=== PATIENT | female | born 1930 | race Caucasian/White ===

== ENCOUNTER → 2018-02-22 | Outpatient (CLI) | payer MEDICARE ==
[2018-02-22 14:57] LABS: BASOPHILS % (AUTO) 1 % (0-10); EOSINOPHILS # (AUTO) 0.2 10^3/uL (0.0-0.3); EOSINOPHILS % (AUTO) 2 % (0-10); HEMATOCRIT 42 % (35-52); LYMPHOCYTES # (AUTO) 1.6 X 10^3 (1.0-4.0); LYMPHOCYTES % (AUTO) 26 % (12-44); MEAN CORPUSCULAR HEMOGLOBIN 29 PG (25-34); MEAN CORPUSCULAR HGB CONC 33 G/DL (32-36); MEAN CORPUSCULAR VOLUME 88 FL (80-99); MONOCYTES # (AUTO) 0.6 X 10^3 (0.0-1.0); MONOCYTES % (AUTO) 10 % (0-12); NEUTROPHILS # (AUTO) 3.9 X 10^3 (1.8-7.8); NEUTROPHILS % (AUTO) 62 % (42-75); PLATELET COUNT 243 10^3/uL (130-400); RED BLOOD COUNT 4.83 10^6/uL (4.35-5.85); RED CELL DISTRIBUTION WIDTH 13.8 % (10.0-14.5); WHITE BLOOD COUNT 6.2 10^3/uL (4.3-11.0)
[2018-02-22 15:05] LABS: BILIRUBIN,URINE NEGATIVE (NEGATIVE); CLARITY,URINE CLEAR; COLOR,URINE YELLOW; GLUCOSE, URINE (UA) NEGATIVE (NEGATIVE); KETONES,URINE NEGATIVE (NEGATIVE); LEUKOCYTE ESTERASE ,URINE 2+ (NEGATIVE); NITRITE,URINE POSITIVE (NEGATIVE); PH,URINE 6 (5-9); PROTEIN,URINE NEGATIVE (NEGATIVE); UROBILINOGEN,URINE NORMAL (NORMAL)
[2018-02-22 15:19] LABS: ALBUMIN 3.9 GM/DL (3.2-4.5); BILIRUBIN,TOTAL 0.5 MG/DL (0.1-1.0); CALCIUM 9.7 MG/DL (8.5-10.1); CREATININE SERUM 1.39 MG/DL (0.60-1.30); POTASSIUM 4.5 MMOL/L (3.6-5.0); TOTAL PROTEIN 6.8 GM/DL (6.4-8.2)
[2018-02-22 15:20] LABS: BACTERIA,URINE LARGE /HPF; SQUAMOUS EPITHELIAL CELL,UR RARE /HPF
[2018-02-22 15:41] LABS: FREE T4 (FREE THYROXINE) 1.16 NG/DL (0.70-1.48)
== END ==
LOC: LAB 14:30
PROVIDERS: ATTEND Internal Medicine
DX: I10 Essential (primary) hypertension (principal); R53.83 Other fatigue; D63.8 Anemia in other chronic diseases classified elsewhere; E11.65 Type 2 diabetes mellitus with hyperglycemia; R82.99 Other abnormal findings in urine
CPT/HCPCS: 36415; 80053; 80061; 81000; 82607; 82728; 82746; 83036; 84439; 84443; 85025; 87077; 87088; 87186

== ENCOUNTER → 2018-03-07 | Outpatient (CLI) | payer MEDICARE, BC ==
[~2018-03-07] MED LIST: ASPI-586 PO; FENO48TA5 PO; LISI-552 PO; OXYC-471 PO; PANT40TA3 PO
== END ==
LOC: CARD 13:42
PROVIDERS: ATTEND Internal Medicine
DX: R07.9 Chest pain, unspecified (principal)
CPT/HCPCS: 93306

== ENCOUNTER → 2018-03-14 | Outpatient (CLI) | payer MEDICARE, BC ==
[~2018-03-14] MED LIST changes: +REGADENOSON 0.4 MG/5 ML SYR (LEXISCAN) IV ONE
[2018-03-14] MEDS: CATHETER FLUSH 10 ML SYR IV PRN ×2 (07:41→09:37)
[2018-03-14 09:34] VITALS: BP 161/64
--- NOTE | 2018-03-14 17:02 | Cardiology Stress Test Report ---
Stress Test Report Type of NM Stress Test: Test Type: LEXISCAN 0.4MG/5ML Date of Procedure/Referring: Date of Procedure: Mar 14, 2018 PCP Mary Lou Tompkins DO Admitting Physician Mary Lou Tompkins DO Indications: Preoperative cardiovascular risk assessment for orthopedic surgery, borderline diabetes Baseline Blood Pressure: Blood Pressure Systolic: 161 Blood Pressure Diastolic: 64 Summary: The patient was brought to the stress lab after informed consent was taken. Lexiscan stress test was performed according to the protocol. 0.4 mg of IV Lexiscan was given. Low-grade exercise was performed. Baseline EKG showed sinus rhythm at 65 BPM with blood pressure 161/64 mmHg. Maximum heart rate of 81 bpm and blood pressure of 100/69 mmHg. No chest pain, EKG changes or arrhythmias were noted. 10.94 mCi of Myoview were given for rest imaging and 28.7 mCi of Myoview were given for stress imaging. Transient ischemic dilatation score 0.96. Ejection fraction 73 percent with no wall motion abnormalities. Normal perfusion was noted during stress and rest imaging. Conclusion: Normal myocardial perfusion imaging during rest and stress. Normal LV function with no wall motion abnormalities. Shirin HARDING MD Mar 14, 2018 5:02 pm
== END ==
LOC: CARD 07:03
PROVIDERS: ATTEND Internal Medicine
DX: R07.9 Chest pain, unspecified (principal)
CPT/HCPCS: 78452; 93017

== ENCOUNTER 2018-04-05 11:47 | Outpatient (CLI) | payer MEDICARE, BC ==
[~2018-04-05] VITALS: Ht 152.4 cm; Wt 83.9 kg
[2018-04-05 11:56] VITALS: BP 160/63
[2018-04-05 12:42] LABS: BASOPHILS # (AUTO) 0.1 10^3/uL (0.0-0.1); BASOPHILS % (AUTO) 1 % (0-10); EOSINOPHILS # (AUTO) 0.2 10^3/uL (0.0-0.3); EOSINOPHILS % (AUTO) 4 % (0-10); HEMATOCRIT 45 % (35-52); HEMOGLOBIN 14.4 G/DL (11.5-16.0); LYMPHOCYTES # (AUTO) 1.4 X 10^3 (1.0-4.0); LYMPHOCYTES % (AUTO) 27 % (12-44); MEAN CORPUSCULAR HEMOGLOBIN 28 PG (25-34); MEAN CORPUSCULAR HGB CONC 32 G/DL (32-36); MEAN CORPUSCULAR VOLUME 88 FL (80-99); MEAN PLATELET VOLUME 11.4 FL (7.4-10.4); MONOCYTES # (AUTO) 0.4 X 10^3 (0.0-1.0); MONOCYTES % (AUTO) 8 % (0-12); NEUTROPHILS % (AUTO) 59 % (42-75); PLATELET COUNT 198 10^3/uL (130-400); RED BLOOD COUNT 5.08 10^6/uL (4.35-5.85); RED CELL DISTRIBUTION WIDTH 14.1 % (10.0-14.5); WHITE BLOOD COUNT 5.1 10^3/uL (4.3-11.0)
--- NOTE | 2018-04-05 12:53 | Diagnostic Imaging Report ---
CLINICAL INDICATION: Preop right knee arthroplasty. Patient has no chest complaints. EXAM: Chest x-ray, PA and lateral views. COMPARISONS: None. FINDINGS: Lungs/pleura: Lungs are clear. There is no pneumothorax. There is no pleural effusion. Mediastinum: Suspected small hiatal hernia involving the left lower mediastinal region. Pulmonary vasculature: Unremarkable. Heart: Unremarkable. Bones/extrathoracic soft tissue: There are moderate to severely hypertrophic degenerative osteophytes scattered throughout the thoracic spine. Lower anterior cervical disc fusion hardware is seen. IMPRESSION: 1: There is no radiographic evidence of acute cardiopulmonary process. 2: Suspected small hiatal hernia. Dictated by: Dictated on workstation # [id number]
[2018-04-05] MEDS ORDERED: FENO48TA5 PO (12:55)
[2018-04-05] MEDS ORDERED: OXYC-471 PO (12:55)
[2018-04-05] MEDS ORDERED: ASPI-586 PO (12:55)
[2018-04-05] MEDS ORDERED: LISI-552 PO (12:55)
[2018-04-05] MEDS ORDERED: PANT40TA3 PO (12:55)
[2018-04-05 12:56] LABS: BILIRUBIN,URINE NEGATIVE (NEGATIVE); CLARITY,URINE SLIGHTLY CLOUDY; COLOR,URINE YELLOW; GLUCOSE, URINE (UA) NEGATIVE (NEGATIVE); KETONES,URINE NEGATIVE (NEGATIVE); LEUKOCYTE ESTERASE ,URINE 3+ (NEGATIVE); NITRITE,URINE POSITIVE (NEGATIVE); PH,URINE 7 (5-9); PROTEIN,URINE NEGATIVE (NEGATIVE); UROBILINOGEN,URINE NORMAL (NORMAL)
[2018-04-05 13:00] LABS: BILIRUBIN,TOTAL 0.5 MG/DL (0.1-1.0); CALCIUM 9.8 MG/DL (8.5-10.1); CREATININE SERUM 1.43 MG/DL (0.60-1.30); POTASSIUM 4.2 MMOL/L (3.6-5.0); TOTAL PROTEIN 6.8 GM/DL (6.4-8.2)
[2018-04-05 13:01] LABS: ERYTHROCYTE SEDIMENTATION RATE 4 MM/HR (0-30)
[2018-04-05 13:06] LABS: BACTERIA,URINE MODERATE /HPF; SQUAMOUS EPITHELIAL CELL,UR RARE /HPF
== END 2018-04-05 12:50 | disposition home or self-care (01) ==
LOC: PREOP 11:47
PROVIDERS: ATTEND Orthopaedic Surgery
DX: Z01.811 Encounter for preprocedural respiratory examination (principal); Z01.812 Encounter for preprocedural laboratory examination; M17.11 Unilateral primary osteoarthritis, right knee; R53.83 Other fatigue; R82.99 Other abnormal findings in urine
CPT/HCPCS: 36415; 71046; 80053; 81000; 85025; 85610; 85652; 86850; 86900; 86901; 87077; 87081; 87088; 87186

== ENCOUNTER 2018-04-14 08:55 | Inpatient (IN) | payer MEDICARE, BC ==
[~2018-04-14] VITALS: Ht 152.4 cm; Wt 83.0 kg
[2018-04-14 08:52] VITALS: BP 149/70
[~2018-04-14 08:55] MED LIST changes: -REGADENOSON 0.4 MG/5 ML SYR (LEXISCAN) IV ONE
[2018-04-14] MEDS ORDERED: NON-FORMULARY MEDICATION 1 EA EA PO SCH (09:30)
[2018-04-14] MEDS ORDERED: ACETAMINOPHEN 325 MG TABLET PO PRN (09:30)
--- NOTE | 2018-04-14 12:16 | Progress Note-Standard ---
Standard Progress Note Progress Notes/Assess & Plan Date Seen by Provider: Apr 14, 2018 Time Seen by Provider: 12:15 Progress/Assessment & Plan No complaints RLE--incision clean and dry. No calf tenderness. Neg Reynold's s/p RTKA continue PT/OT MARGARET JOY MD Apr 14, 2018 12:16
--- NOTE | 2018-04-14 12:26 | Progress Note-Hospitalist ---
Subjective HPI/CC On Admission Date Seen by Provider: Apr 14, 2018 Time Seen by Provider: 12:15 Subjective/Events-last exam Patient doing well Pain is reported to be about 5 No nausea Settling into inpatient rehabilitation unit Reviewed vitals meds and labs Has no concerns Review of Systems General: Fatigue Musculoskeletal: leg pain Objective Exam Vital Signs Vital Signs Date Time Temp Pulse Resp B/P (MAP) Pulse Ox O2 Delivery O2 Flow Rate FiO2 04/14/18 10:20 Room Air 04/14/18 08:52 97.2 71 18 149/70 (96) 97 Capillary Refill : Less Than 3 Seconds General Appearance: No Apparent Distress, WD/WN, Chronically ill, Obese Respiratory: Lungs Clear, Normal Breath Sounds Cardiovascular: Regular Rate, Rhythm, No Edema Neurologic/Psychiatric: Alert, Oriented x3, No Motor/Sensory Deficits, Normal Mood/Affect Results/Procedures Lab Patient resulted labs reviewed. 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
[2018-04-14] MEDS: oxyCODONE/APAP 5/325MG (PERCOCET 5) TABLET PO PRN ×2 (16:33→22:22)
[2018-04-14 18:08] VITALS: BP 167/72
[2018-04-14] MEDS: FENOFIBRATE, MICRO 67 MG (LOFIBRA) CAPSULE PO SCH (20:51)
[2018-04-14] MEDS: SENNA W/DOCUSATE (SENOKOT S) TABLET PO SCH (20:51)
[2018-04-15 06:22] VITALS: BP 132/74
[2018-04-15] MEDS: ASPIRIN E.C. 81 MG (ECOTRIN) TAB PO SCH (08:08)
[2018-04-15] MEDS: MULTIVIT W/MINERALS TAB (THERAGRAN M) PO SCH (08:09)
[2018-04-15] MEDS: PANTOPRAZOLE 40 MG (PROTONIX) TAB PO SCH (08:09)
[2018-04-15] MEDS: ENOXAPARIN 30 MG/0.3 ML (LOVENOX) SYR SC SCH (08:09)
[2018-04-15] MEDS: lisINopril 20 MG (PRINIVIL) TABLET PO SCH (08:09)
[2018-04-15] MEDS: SENNA W/DOCUSATE (SENOKOT S) TABLET PO SCH ×2 (08:14→21:10)
--- NOTE | 2018-04-15 10:06 | Physical Therapy Evaluation ---
PT Evaluation-General Medical Diagnosis Admission Date Apr 14, 2018 at 08:55 Medical Diagnosis: right TKA Onset Date: Apr 10, 2018 Therapy Diagnosis Therapy Diagnosis: impaired mobility, strength, endurance, ROM Height/Weight Height (Feet): 5 Height (Inches): 0.00 Weight (Pounds): 183 Weight (Ounces): 1.0 Precautions Precautions/Isolations: Fall Prevention, Standard Precautions, Pressure Ulcer Weight Bear Status Right Lower Extremity: Right Weight Bearing/Tolerated Referral Physician: Jed Reason for Referral: Evaluation/Treatment Medical History Pertinent Medical History: DM, HTN, OA Additional Medical History anemia, fatigue, hyperlipidemia, UTI, surg (carpal tunnel, cholecystectomy, hysterectomy, spine surg) Reviewed History: Yes Social History Current Living Status: Children Entry Into Home: Stairs With Railing PT Steps Into Home: 2 Prior/Core FIM Prior Level of Function Functional [place] Measure 0=Not Assessed/NA 4=Minimal Assistance 1=Total Assistance 5=Supervision or Setup 2=Maximal Assistance 6=Modified [place] 3=Moderate Assistance 7=Complete [place] Bed Mobility: 6 Transfers (B,C,W/C) (FIM): 6 Gait: 6 Patient states she was using both a rolling walker and single point cane before surgery. PT Evaluation-Current Subjective Pt in bed pre tx, agrees to PT. Pain 4/10, states she took tylenol about 2 hours ago. Pt/Family Goals to be independent as well as take care of her son at home, to be able to drive her son around Objective Patient Orientation: Person, Place, Time ROM/Strength ROM Lower Extremities R knee (ext. lacking 10 degrees, flexion 84 degrees) Strenght Lower Extremities NT Neuromuscular (Tone, Coordination, Reflexes) NT Sensory Hearing: Functional Sensation Right Lower Extremit: Intact Sensation Left Lower Extremity: Intact Transfers Functional [place] Measure 0=Not Assessed/NA 4=Minimal Assistance 1=Total Assistance 5=Supervision or Setup 2=Maximal Assistance 6=Modified [place] 3=Moderate Assistance 7=Complete IndependenceIRFPAI Quality Coding Scale 6 Independent with activity with or without an assistive device 5 Patient requires set up or clean up by helper. Patient completes activity by themselves 4 Supervision or touching assist (CGA). [place] provide cues , steadying assist 3 The helper provides less than half the effort to complete the activity 2 The helper provides more than half the effort to complete the activity 1 Dependent. The helper does all the effort to complete an activity 7 Patient refused to complete or attempt activity 9 The patient did not perform the activity before the current illness or injury 88 Not attempted due to Medical conditions or safety concerns Transfers (B, C, W/C) (FIM): 4 Scootin Rollin Roll Left to Right (QC): 4 Supine to/from Sit: 5 Sit to/from Stand: 4 Sit to Lying (QC): 4 Lying to Sitting/Side of Bed(Q: 4 Sit to Stand (QC): 4 Chair/Chb-in-Axziz Xfer(QC): 4 Car Transfer (QC): 3 Pt performs bed mobility with SBA, sit to stand and stand pivot transfers CGA, car transfer min assist. Gait Does the Patient Walk?: Yes Mode of Locomotion: Walk Anticipated Mode of Locomotion: Walk Gait (FIM): 4 Distance (FIM): 3=150 ft Walk 10 feet (QC): 4 Walk 50 ft with 2 Turns(QC): 4 Walk 150 ft (QC): 4 Walking 10ft/uneven surface-QC: 4 Distance: 200' Gait Level of Assist: 4 Gait Persons Needed: 1 Gait Assistive Device: FWW Comments/Gait Description Pt ambulates to/from gym w/ CGA w/ FWW (including 50' with at least 2 turns of 90 degrees and 10' over an uneven surface). Pt demonstrates decreased stance time and knee flexion on RLE. Also RLE ext. rotation during gait. Wheelchair Training Does the Pt Use a Wheelchair?: No Stairs Stairs (FIM): 4 #of Steps: 12 Level of Assist: 4 1 Step (curb) (QC): 4 4 Steps (QC): 4 12 Steps (QC): 4 Pt ascends/descends 12 stairs w/ CGA, instructed to use good leg first (LLE) to go up, and bad leg first (RLE) to go down. Balance Sitting Static: Normal Sitting Dynamic: Normal Standing Static: Normal Standing Dynamic: Normal Treatment gait training and bed mobility, transfers, endurance, functional strengthening, ROM Assessment/Needs decreased ROM and strength in R knee secondary to R TKA Rehab Potential: Fair PT Short Term Goals Short Term Goals Time Frame: Apr 22, 2018 Transfers (B,C,W/C) (FIM): 5 Gait (FIM): 5 Distance (FIM): 3=150 ft Gait Distance Comment: 250' Gait Level of Assist: 5 Gait Assistive Device: Cane Single Point PT Usp Goals Usp Goals PT Supervisor Final Goals Time Frame: May 06, 2018 Transfers (B,C,W/C) (FIM): 6 Sit to Lying (QC): 6 Lying-Sitting on Side/Bed(QC): 6 Sit to Stand (QC): 6 Rollin Roll Left to Right (QC): 6 Chair/Mek-uf-Ggppg Xfer(QC): 6 Car Transfer (QC): 6 Gait (FIM): 6 Distance: 300' Walk 10 feet (QC): 6 Walk 10ft-Uneven Surface(QC): 6 Walk 50ft with 2 Turns (QC): 6 Walk 150 ft (QC): 6 Gait Level of Assist: 6 Gait Assistive Device: FWW Stairs (FIM): 6 # of Steps: 12 1 Step (curb) (QC): 6 4 Steps (QC): 6 12 Steps (QC): 6 Stairs Level Of Assist: 6 PT Plan Problem List Problem List: Activity Tolerance, Functional Strength, Safety, Balance, Gait, Transfer, Bed Mobility, ROM Treatment/Plan Treatment Plan: Continue Plan of Care Treatment Plan: Bed Mobility, Education, Functional Activity Stephen, Functional Strength, Group Therapy, Gait, Safety, Therapeutic Exercise, Transfers Treatment Duration: May 06, 2018 Frequency: At least 5 of 7 days/Wk (IRF) Estimated Hrs Per Day: 1.5 hours per day Patient and/or Family Agrees t: Yes Safety Risks/Education Patient Education: Gait Training, Transfer Techniques, Steps, Reviewed Precautions, Reviewed Use of Ice, Correct Positioning, Disease Process, Safety Issues Teaching Recipient: Patient Teaching Methods: Demonstration, Discussion Response to Teaching: Reinforcement Needed Discharge Recommendations Plan Patient will perform bed mobility and transfer training, balance and endurance training, functional strengthening, stair training, gait training, and education , to improve functional mobility and independence at home. Therapy D/C Recommendations: Home w/ Family Support Time/GCodes Time In: 0945 Time Out: 1045 Total Billed Treatment Time: 60 Total Billed Treatment 1 visit EVM 30' EX 15' GT 15' VAN REDDING PT Apr 15, 2018 10:06
--- NOTE | 2018-04-15 10:22 | Progress Note-Hospitalist ---
Subjective HPI/CC On Admission Date Seen by Provider: Apr 15, 2018 Time Seen by Provider: 10:00 Subjective/Events-last exam Patient doing well overall Needs to take her [place] PT doing well Pain is controlled Review of Systems Gastrointestinal: Constipation Musculoskeletal: leg pain Objective Exam Vital Signs Vital Signs Date Time Temp Pulse Resp B/P (MAP) Pulse Ox O2 Delivery O2 Flow Rate FiO2 04/15/18 06:22 97.6 63 16 132/74 (93) 97 Room Air Capillary Refill : Less Than 3 Seconds General Appearance: No Apparent Distress, WD/WN Respiratory: Chest Non Tender, Lungs Clear, Normal Breath Sounds, No Accessory Muscle Use, No Respiratory Distress Cardiovascular: Regular Rate, Rhythm, No Edema, No Gallop, No JVD, No Murmur, Normal Peripheral Pulses Neurologic/Psychiatric: Alert, Oriented x3, No Motor/Sensory Deficits, Normal Mood/Affect Results/Procedures Lab Patient resulted labs reviewed. 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
--- NOTE | 2018-04-15 11:56 | Occupational Therapy Eval ---
OT Evaluation-General/PLF Medical Diagnosis Admission Date Apr 14, 2018 at 08:55 Medical Diagnosis: right TKA Onset Date: Apr 10, 2018 Therapy Diagnosis Therapy Diagnosis: Debility Height/Weight Height (Feet): 5 Height (Inches): 0.00 Weight (Pounds): 183 Weight (Ounces): 1.0 Precautions Precautions/Isolations: Fall Prevention, Standard Precautions, Pressure Ulcer Safety Interventions: None Weight Bear Status Weight Bearing Restriction: Weight Bearing/Tolerated Referral Physician: Jed Referral Reason: Activity Tolerance, Self Care, Evaluation/Treatment, Strengthening/ROM Medical History Pertinent Medical History: DM, HTN, OA Additional Medical History Chronic renal insufficiency Current History Pt. had an elective procedure. Reviewed History: Yes Social History Home: Apartment Current Living Status: Children Entry Into Home: Level Entry ADL-Prior Level of Function ADL PLOF Comments Pt. states that she was independent with all tasks. Pt.'s son lives with her. 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 He had a stroke 3 years ago. Pt's daughter assists with this as well. DME/Equipment: Tub/Shower DME/Equipment Comments Pt. uses a cane but has a walker as well. Drive Self: Yes OT Current Status Subjective Pt. reports no pain at this time. Appearance Pt. is up in chair. Alert and oriented. Mental Status/Objective Patient Orientation: Person, Place, Time, Situation Current Glasses/Contacts: Yes Upper Extremity ROM WFL Upper Extremity Strength 3+/5 overall ADL-Treatment Functional [place] Measure 0=Not Assessed/NA 4=Minimal Assistance 1=Total Assistance 5=Supervision or Setup 2=Maximal Assistance 6=Modified [place] 3=Moderate Assistance 7=Complete IndependenceIRFPAI Quality Coding Scale 6 Independent with activity with or without an assistive device 5 Patient requires set up or clean up by helper. Patient completes activity by themselves 4 Supervision or touching assist (CGA). [place] provide cues , steadying assist 3 The helper provides less than half the effort to complete the activity 2 The helper provides more than half the effort to complete the activity 1 Dependent. The helper does all the effort to complete an activity 7 Patient refused to complete or attempt activity 9 The patient did not perform the activity before the current illness or injury 88 Not attempted due to Medical conditions or safety concerns Eating (FIM): 6 Eating (QC): 6 Bathing (FIM): 4 (CGA assist in stance.) Shower/Bathe Self (QC): 4 Upper Body Dressing (FIM): 5 Upper Body Dressing (QC): 5 Lower Body Dressing (FIM): 3 (Pt. requires assistance to start underwear and pants over left foot. Also requires assistance to don shoes/socks. Pt. is able to stand and pull up underwear and pants.) Lower Body Dressing (QC): 3 On/Off Footwear (QC): 2 Transfers (B, C, W/C) (FIM): 4 (CGA for balance in stance and with ambulation.) Pt. declines showering this date but does agree to spongebathe. Pt. is able to complete all tasks after set up, with assist for balance in stance. Pt. demonstrates difficulty getting socks and shoes on. After ADLs, pt. ambulated with CGA to therapy gym. OT introduced AE and pt. practiced doffing/donning shoes and socks with this. Pt. able to get socks on with AE with SBA, and shoes with min assist. Ambulated back to room. Pt. able to get bilateral LE into bed with SBA. All needs met in room. Education OT Patient Education: Correct positioning, Modified ADL techniques, Progress toward Goal/Update tx plan, Purpose of tx/functional activities, Reviewed precautions, Rehab process, Transfer techniques, Use of adapted equipment Teaching Recipient: Patient Teaching Methods: Demonstration, Discussion Response to Teaching: Verbalize Understanding, Return Demonstration OT Short Term Goals Short Term Goals Transfers (B,C,W/C) (FIM): 5 1=Demonstrate adherence to instructed precautions during ADL tasks. 2=Patient will verbalize/demonstrate understanding of assistive devices/ modifications for ADL. 3=Patient will improve strength/tolerance for activity to enable patient to perform ADL's. OT Greenhouse Assistant Goals Greenhouse Assistant Goals Time Frame: Apr 29, 2018 Eating (FIM): 6 Eating (QC): 6 Groomin Oral Hygiene (QC): 6 Bathing(FIM): 5 Shower/Bathe Self (QC): 5 Upper Body Dressing(FIM): 6 Upper Body Dressing (QC): 6 Lower Body Dressing(FIM): 6 Lower Body Dressing (QC): 6 On/Off Footwear (QC): 6 Toileting(FIM): 6 Toileting Hygiene (QC): 6 Transfers (B,C,W/C) (FIM): 6 Toilet/Commode Transfer(FIM): 6 Toilet/Commode Transfer (QC): 6 Shower Transfer(FIM): 5 Additional Goals: 1-Demonstrate ADL Tasks, 2-Verbalize Understanding, 3- ImproveStrength/Stephen 1=Demonstrate adherence to instructed precautions during ADL tasks. 2=Patient will verbalize/demonstrate understanding of assistive devices/ modifications for ADL. 3=Patient will improve strength/tolerance for activity to enable patient to perform ADL's. OT Education/Plan Problem List/Assessment Assessment: Decreased Activ Tolerance, Decreased UE Strength, Dependent Transfers, Impaired I ADL's, Impaired Self-Care Skills Discharge Recommendations Plan/Recommendations: Continue POC Therapy D/C Recommendations: Home w/ Family Support, Occupational Therapy Home Care Equpiment Recommendations-D/C: Extended Bath Bench, Hip Kit Treatment Plan/Plan of Care Treatment,Training & Education: Yes Patient would benefit from OT for education, treatment and training to promote independence in ADL's, mobility, safety and/or upper extremity function for ADL' s. Plan of Care: ADL Retraining, Functional Mobility, UE Funct Exercise/Act Treatment Duration: Apr 29, 2018 Frequency: At least 5 of 7 days/Wk (IRF) Estimated Hrs Per Day: 1.5 hours per day Agreement: Yes Rehab Potential: Good Time/GCodes Start Time: 10:50 Stop Time: 11:50 Total Time Billed (hr/min): 60 Billed Treatment Time 1, EVM x 15minutes, ADL x 45minutes CAITLIN ARMAS OT Apr 15, 2018 11:56
[2018-04-15] MEDS: oxyCODONE/APAP 5/325MG (PERCOCET 5) TABLET PO PRN ×2 (14:17→21:10)
--- NOTE | 2018-04-15 14:47 | Therapy Group Daily Note ---
Therapy Daily Group Note Patient Education Topic Other List Below (Benefits of exercise) Exercises LE Seated Exercise, UE Exercise, Other (core) Other/Notes Pt ambulated to therapy gym with FWW for OT/PT group. Group consisted of introductions (name, place born, what makes your proud of yourself), socialization, benefits of exercise and UE/LE/core seated exercises. Pt introduced self appropriately and actively listened to peers. Pt contributed to discussion. Verbalized understanding of educational topics and was able to give examples. Pt attempted to complete exercises, fatigued quickly. Pt ambulated back to room with FWW. After group, pt lying in bed with call light/ phone in reach. All needs met in room. Start Time: 13:00 Stop Time: 14:20 Total Billed Treatment Time: 80 Total Billed Treatment 1-GRP JA GARNICA Apr 15, 2018 14:47
[2018-04-15 17:08] VITALS: BP 119/47
--- NOTE | 2018-04-15 19:17 | PM&R Post Admission Assessment ---
Post Admission Physician Asses Date seen by provider: Apr 15, 2018 Time seen by provider: 10:00 The preadmission screen agrees with the post admission assessment that the patient is a good candidate for inpatient rehabilitation. The patient will have a comprehensive program of inpatient rehabilitation with a goal of maximizing level of functional independence prior to discharge home with family and C. The patient will have PT/OT ninety minutes per day, each discipline, five days a week for 10 days for gait, strengthening, conditioning, balance, ADLs, any patient/family/caregiver training as necessary. Speech therapy to do cognitive assessment and treat as indicated. Rehabilitation nursing to assist with bowel, bladder, skin, wound care, medication administration, pain management. Network Systems Administrator to assist with discharge planning, community reentry. SCD's and lovenox SUBcut for DVT prophylaxis. She appears to be well motivated to participate in three hours of therapy a day. She should be able to tolerate three hours of therapy a day from a medical standpoint. She should benefit from the three hours of therapy a day. She has a reasonable discharge plan, reasonable discharge rehabilitation goals and a supportive family. She has various comorbidities that need to be closely monitored with medications and treatments adjusted on a daily basis as needed. These include: DM CRI Barriers to discharge for this patient who had been independent prior to this are for her to be modified independent to supervision for ADLs and mobility skills prior to discharge home with [facility], so as to lessen the burden of the caregivers. Risks for this patient include: 1. Fall 2. Fracture 3. DVT 4. Pulmonary embolism 5. Wound infection 6. Skin breakdown 7. Contractures 8. Poorly controlled pain 9. Urinary retention 10. UTI 11. Respiratory infection 12. Aspiration 13. Poorly controlled DM 14. Worsening renal insufficiency [facility] code 08.61 Etiologic DX OA rt knee Estimated Length of Stay: 10 days Prognosis: Rehab prognosis appears good for goal of discharge home with [facility] modified independent to supervision for ADLs and mobility skills. General: Alert, Oriented X3, Cooperative, No Acute Distress HEENT: Atraumatic, PERRLA, EOMI, Mucous Memb Moist/[place] Neck: Supple, No JVD Lungs: Clear to Auscultation Heart: Regular Rate Abdomen: Normal Bowel Sounds, Soft, No Tenderness Extremities: Other (Trace edema rt ankle) Skin: Other (Incision healing well) Neuro: Other (Limite AROM rt knee) SYED ROSE MD Apr 15, 2018 19:17
--- NOTE | 2018-04-15 19:59 | HISTORY AND PHYSICAL ---
DATE OF SERVICE: 04/15/2018 CHIEF COMPLAINT: Difficulty with walking. HISTORY OF PRESENT ILLNESS: The patient is an 88-year-old female, who had been modified independent with a walker or cane, but developing progressive right knee pain. She had evaluation on an outpatient basis and she was felt to be appropriate for a right total knee replacement, which she underwent on 04/10/2018 at [facility] with Dr. Arce. She was referred to inpatient rehabilitation unit as she cares for her adult son at home, who is disabled due to a stroke as well as due to her advanced age and need for ongoing care and therapies. She was receiving Lovenox subcu for DVT prophylaxis. She has had postop constipation as well and medications have been adjusted by hospitalist service. Currently, she is min assist for transfers and gait, modified independent for eating, set up for upper body dressing, mod assist for lower body dressing. PAST MEDICAL HISTORY: Back pain, anemia, diabetes mellitus, fatigue, hyperlipidemia, hypertension, osteoarthritis, UTIs, history of tobaccoism, hypercholesterolemia, neuropathy, GERD, chronic back pain. PAST SURGICAL HISTORY: Multiple prior spine surgery, neck surgery in [place], cholecystectomy, carpal tunnel release, hysterectomy. ALLERGIES: No known medication allergies. FAMILY HISTORY: Noncontributory. SOCIAL HISTORY: Essentially as per above. REVIEW OF SYSTEMS: A 10-point review of system is significant for chronic back pain, right knee pain. MEDICATIONS: 1. ASA 81 mg p.o. daily. 2. Lisinopril 20 mg p.o. daily. 3. Lovenox 30 mg subcu daily. 4. Multivitamins with minerals one tablet p.o. daily. 5. Protonix 40 mg p.o. daily. 6. Senokot-S 2 tablets p.o. b.i.d. 7. Lofibra 67 mg p.o. at bedtime. 8. Tylenol 650 mg p.o. q.6 hours p.r.n. mild pain. 9. Percocet 5/325 one tablet p.o. q.2 hours p.r.n. moderate pain. PHYSICAL EXAMINATION: GENERAL: Significant for a pleasant female lying in bed, in no acute distress. She has family at bedside. VITAL SIGNS: She is afebrile, pulse is 62, respirations 16, blood pressure 119/47, O2 sat 97% on room air. HEENT: Vision, speech, hearing grossly intact. No oral lesion is noted. NECK: Supple without mass. HEART: Regular rhythm. CHEST: Clear. ABDOMEN: Soft, nontender, bowel sounds present. EXTREMITIES: She has island dressing over the right knee. There is trace edema of right ankle. There is no lower leg edema, no calf tenderness on the left. MUSCULOSKELETAL: She has functional active range of motion in both upper limbs and left lower limb. Right lower limb, she lacks 10 degrees of full extension at the right knee and flexion is to 84 degrees. She has functional range of motion at the hip and ankle. NEUROLOGIC: Cognition grossly intact to touch. Sensation intact to touch. Strength, she has good strength in both upper limbs and left lower limb as well as at the right hip and ankle. Right knee limited due to limited range of motion from recent surgery. IMPRESSION: 1. Ambulatory dysfunction secondary to OA right knee, status post right total knee replacement by Dr. Arce on 04/10/2018, weightbearing as tolerated. 2. Postop constipation, treated. 3. Anemia. 4. Diabetes mellitus, controlled with medication. 5. Hyperlipidemia, on statin. 6. Chronic back pain with multiple prior spinal surgeries. 7. History of tobaccoism. PLAN: The patient is admitted for a comprehensive program of inpatient rehabilitation with goal of maximizing level of functional independence prior to discharge home with home health care and family. The patient will have PT and OT 90 minutes per day each discipline, 5 days a week for 10 days with the above goals in mind. Please see post-admission physician evaluation, which is a separate document for details of plan of care. Speech therapy to do cognitive assessment and treat as indicated. Rehabilitation nursing to assist with bowel, bladder, skin, wound care, medication administration, pain management. business services manager to assist with discharge planning, community reentry. Follow up with hospital service and Dr. Arce as per their schedule. ESTIMATED LENGTH OF STAY: 10 days. PROGNOSIS: Rehab prognosis appears good for goal of discharging home with family and home health care, modified independent to supervision for ADLs and mobility skills. DIET: Carb consistent. CODE STATUS: Full code. Job ID: [id number] DocumentID: [id number] Dictated Date: 04/15/2018 19:25:41 Vice President Education Date: 04/15/2018 19:58:04 Dictated By: SYED ROSE MD [facility]
[2018-04-15] MEDS: FENOFIBRATE, MICRO 67 MG (LOFIBRA) CAPSULE PO SCH (21:10)
[2018-04-16 04:48] VITALS: BP 153/74
[2018-04-16] MEDS: PANTOPRAZOLE 40 MG (PROTONIX) TAB PO SCH (06:03)
[2018-04-16] MEDS: MULTIVIT W/MINERALS TAB (THERAGRAN M) PO SCH (06:03)
--- NOTE | 2018-04-16 07:44 | PM & R (SOAP) Progress Note ---
Subjective This was a face to face visit with the patient. Date Seen by Provider: Apr 16, 2018 Time Seen by Provider: 07:10 Subjective/Events-last exam Patient was seen in her room this AM Patient Min assist for transfers Review of Systems Musculoskeletal: leg pain Objective Physician Exam Last Set of Vital Signs Vital Signs Date Time Temp Pulse Resp B/P (MAP) Pulse Ox O2 Delivery O2 Flow Rate FiO2 04/16/18 05:01 Room Air 04/16/18 04:48 97.4 63 18 153/74 (100) 96 Capillary Refill : Less Than 3 Seconds I&O Intake and Output 04/16/18 00:00 Intake Total 1200 ml Balance 1200 ml Intake Oral 1200 ml # Voids 5 General: Alert, Oriented X3, Cooperative, No Acute Distress HEENT: Atraumatic, PERRLA, EOMI, Mucous Memb Moist/[place] Neck: Supple, No JVD Lungs: Clear to Auscultation Heart: Regular Rate Abdomen: Normal Bowel Sounds, Soft, No Tenderness Extremities: Other (Trace edema rt ankle) Skin: Other (Incision healing well) Neuro: Other (Limite AROM rt knee) Assessment/Plan Assessment and Plan OA rt knee s/p RT TKR DR Arce lives with her children she is a Postop constipation treated Anemia HLP Chronic back pain with multiple prior spinal surgeries Hx of tobaccoism Plan Continue PT/OT Team Conference tomorrow Goal return home with Family and [facility] Co-Morbidities that are continuing to impact the rehab process: (include details ) SYED ROSE MD Apr 16, 2018 07:44
[2018-04-16] MEDS: ASPIRIN E.C. 81 MG (ECOTRIN) TAB PO SCH (08:08)
[2018-04-16] MEDS: ENOXAPARIN 30 MG/0.3 ML (LOVENOX) SYR SC SCH (08:08)
[2018-04-16] MEDS: lisINopril 20 MG (PRINIVIL) TABLET PO SCH (08:08)
[2018-04-16] MEDS: SENNA W/DOCUSATE (SENOKOT S) TABLET PO SCH ×2 (08:08→20:27)
[2018-04-16] MEDS: oxyCODONE/APAP 5/325MG (PERCOCET 5) TABLET PO PRN (09:55)
--- NOTE | 2018-04-16 10:51 | Physical Therapy Daily Note ---
PT Daily Note-Current Subjective Pt sitting in recliner upon arrival. Pt agrees to PT. Pt reports feeling good but a little anxious for going home. 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 Pain Numeric Pain Scale: 5-Moderate Pain Location: Right Location Body Site: Knee Pain Description: Ache, Tightness Mental Status Patient Orientation: Person, Place, Time, Situation Attachments: Polar Pack Transfers Functional [place] Measure 0=Not Assessed/NA 4=Minimal Assistance 1=Total Assistance 5=Supervision or Setup 2=Maximal Assistance 6=Modified [place] 3=Moderate Assistance 7=Complete IndependenceIRFPAI Quality Coding Scale 6 Independent with activity with or without an assistive device 5 Patient requires set up or clean up by helper. Patient completes activity by themselves 4 Supervision or touching assist (CGA). [place] provide cues , steadying assist 3 The helper provides less than half the effort to complete the activity 2 The helper provides more than half the effort to complete the activity 1 Dependent. The helper does all the effort to complete an activity 7 Patient refused to complete or attempt activity 9 The patient did not perform the activity before the current illness or injury 88 Not attempted due to Medical conditions or safety concerns Scootin Rollin Supine to/from Sit: 6 Sit to/from Stand: 6 Sit to Lying (QC): 6 Sit to Stand (QC): 6 Weight Bearing Right Lower Extremity: Right Weight Bearing/Tolerated Gait Training Does the Patient Walk?: Yes Distance (FIM): 3=150 ft Distance: 300' Walk 10 feet (QC): 6 Walk 50 ft with 2 Turns(QC): 6 Walk 150 ft (QC): 6 Gait Level of Assist: 6 Gait Persons Needed: 1 Gait Assistive Device: FWW Pt walks with a little stiffness but otherwise normalized gait pattern. Pt reports a little leg fatigue and discomfort with ambulation. Wheelchair Training Does the Pt Use a Wheelchair?: No Exercises Supine Ex: Heel Slides Supine Reps: 15 Treatments Pt transfers from recliner to standing using FWW at [facility]. Pt ambulates in hallway and throughout Therapy Commons. Pt practices mobility within new room/ independent living room to test for being Ad mone in room. OT will also check for possibility as well. Nurse will be notified if changed. Pt completes Supine Ex in bed and bed mobility. Pt is resting in recliner at end of tx with all needs met. OT arrives for tx. Assessment Current Status: Good Progress Pt able to complete all ambulation, exercise & mobility tested in room. OT will examine for possible Ad mone in room. PT Short Term Goals Short Term Goals Time Frame: Apr 22, 2018 Transfers (B,C,W/C) (FIM): 5 Gait (FIM): 5 Distance (FIM): 3=150 ft Gait Distance Comment: 250' Gait Level of Assist: 5 Gait Assistive Device: Cane Single Point PT Assembler Production Line Goals Assisted Goals PT Assembler Production Line Goals Time Frame: May 06, 2018 Transfers (B,C,W/C) (FIM): 6 Sit to Lying (QC): 6 Lying-Sitting on Side/Bed(QC): 6 Sit to Stand (QC): 6 Rollin Roll Left to Right (QC): 6 Chair/Ntr-nm-Iytjk Xfer(QC): 6 Car Transfer (QC): 6 Gait (FIM): 6 Distance: 300' Walk 10 feet (QC): 6 Walk 10ft-Uneven Surface(QC): 6 Walk 50ft with 2 Turns (QC): 6 Walk 150 ft (QC): 6 Gait Level of Assist: 6 Gait Assistive Device: FWW Stairs (FIM): 6 # of Steps: 12 1 Step (curb) (QC): 6 4 Steps (QC): 6 12 Steps (QC): 6 Stairs Level Of Assist: 6 PT Plan Problem List Problem List: Activity Tolerance, Functional Strength, Gait Treatment/Plan Treatment Plan: Continue Plan of Care Treatment Plan: Bed Mobility, Education, Functional Activity Stephen, Functional Strength, Group Therapy, Gait, Safety, Therapeutic Exercise, Transfers Treatment Duration: May 06, 2018 Frequency: At least 5 of 7 days/Wk (IRF) Estimated Hrs Per Day: 1.5 hours per day Patient and/or Family Agrees t: Yes Safety Risks/Education Patient Education: Gait Training, Transfer Techniques, Reviewed Use of Ice, Correct Positioning, Disease Process, Safety Issues Teaching Recipient: Patient Teaching Methods: Discussion Response to Teaching: Verbalize Understanding Time/GCodes Time In: 945 Time Out: 1045 Total Billed Treatment Time: 60 Total Billed Treatment 1, GT (15m), FA x2 (30m) & EX (15m) G Codes Necessary: KLAUDIA Thrasher HEALTH AND WELLNESS COACH Apr 16, 2018 10:51
--- NOTE | 2018-04-16 11:54 | Occupational Ther Daily Note ---
OT Current Status-Daily Note Subjective Pt alert, sitting on tub transfer bench. Took over care from OTR/L. Pt agrees to therapy. No c/o pain at this time. Mental Status/Objective Patient Orientation: Person, Place, Time, Situation Functional [place] Measure 0=Not Assessed/NA 4=Minimal Assistance 1=Total Assistance 5=Supervision or Setup 2=Maximal Assistance 6=Modified [place] 3=Moderate Assistance 7=Complete [place] ADL-Treatment Functional [place] Measure 0=Not Assessed/NA 4=Minimal Assistance 1=Total Assistance 5=Supervision or Setup 2=Maximal Assistance 6=Modified [place] 3=Moderate Assistance 7=Complete IndependenceIRFPAI Quality Coding Scale 6 Independent with activity with or without an assistive device 5 Patient requires set up or clean up by helper. Patient completes activity by themselves 4 Supervision or touching assist (CGA). [place] provide cues , steadying assist 3 The helper provides less than half the effort to complete the activity 2 The helper provides more than half the effort to complete the activity 1 Dependent. The helper does all the effort to complete an activity 7 Patient refused to complete or attempt activity 9 The patient did not perform the activity before the current illness or injury 88 Not attempted due to Medical conditions or safety concerns Grooming (FIM): 6 (Standing at sink with FWW, pt is able to complete by self.) Oral Hygiene (QC): 6 Bathing (FIM): 5 (Educated pt on using hand held shower. Supervision using tub transfer bench, hand held shower, long handle sponge and grabbar.) Bathing Location: L Arm, R Arm, L Upper Leg, R Upper Leg, L Lower Leg ( including foot), R Lower Leg (including foot), Chest, Abdomen, Buttocks, Perineal Area Shower/Bathe Self (QC): 4 Upper Body (FIM): 5 (After set up, pt able to complete by self.) Upper Body Dressing (QC): 5 Lower Body Dressing (FIM): 4 (Using claims attorney, dressing stick and sock aide pt able to complete lower body dressing with min A to manipulate AE and don over feet. Pt able to hike over hips with FWW for stabilization by self.) Lower Body Dressing (QC): 3 On/Off Footwear (QC): 3 Tub Transfer(FIM): 4 (Min A to lift L LE into and out of tub.) Other Treatment Pt ambulated with FWW to therapy gym. UE exercises completed to increase strength and activity tolerance for daily functional tasks. Arm bike 15 min at 15 harkins resistance with no breaks. Resistive pegs completed, 25x's with each hand to for pinch and social service technician strengthening. Pt ambulated back to room and sat in recliner after therapy. Call light/phone in reach. All needs met in room. OT Short Term Goals Short Term Goals Transfers (B,C,W/C) (FIM): 5 1=Demonstrate adherence to instructed precautions during ADL tasks. 2=Patient will verbalize/demonstrate understanding of assistive devices/ modifications for ADL. 3=Patient will improve strength/tolerance for activity to enable patient to perform ADL's. OT Electric Blasting Cap Assembler Goals Detention Goals Time Frame: Apr 29, 2018 Eating (FIM): 6 Eating (QC): 6 Groomin Oral Hygiene (QC): 6 Bathing(FIM): 5 Shower/Bathe Self (QC): 5 Upper Body Dressing(FIM): 6 Upper Body Dressing (QC): 6 Lower Body Dressing(FIM): 6 Lower Body Dressing (QC): 6 On/Off Footwear (QC): 6 Toileting(FIM): 6 Toileting Hygiene (QC): 6 Transfers (B,C,W/C) (FIM): 6 Toilet/Commode Transfer(FIM): 6 Toilet/Commode Transfer (QC): 6 Shower Transfer(FIM): 5 Additional Goals: 1-Demonstrate ADL Tasks, 2-Verbalize Understanding, 3- ImproveStrength/Stephen 1=Demonstrate adherence to instructed precautions during ADL tasks. 2=Patient will verbalize/demonstrate understanding of assistive devices/ modifications for ADL. 3=Patient will improve strength/tolerance for activity to enable patient to perform ADL's. OT Education/Plan Discharge Recommendations Plan/Recommendations: Continue POC Treatment Plan/Plan of Care Patient would benefit from OT for education, treatment and training to promote independence in ADL's, mobility, safety and/or upper extremity function for ADL' s. Plan of Care: ADL Retraining, Functional Mobility, UE Funct Exercise/Act Treatment Duration: Apr 29, 2018 Frequency: At least 5 of 7 days/Wk (IRF) Estimated Hrs Per Day: 1.5 hours per day Agreement: Yes Rehab Potential: Good Time/GCodes Start Time: 11:00 Stop Time: 12:15 Total Time Billed (hr/min): 75 Billed Treatment Time 1 visit-ADL 4 (55 min) EX 1 (20 min) JA GARNICA Apr 16, 2018 11:54
--- NOTE | 2018-04-16 14:29 | Occupational Ther Daily Note ---
OT Current Status-Daily Note Subjective No pain reported. Appearance Pt. is up in chair. Agrees to work with OT. Mental Status/Objective Patient Orientation: Person, Place, Time, Situation Functional [place] Measure 0=Not Assessed/NA 4=Minimal Assistance 1=Total Assistance 5=Supervision or Setup 2=Maximal Assistance 6=Modified [place] 3=Moderate Assistance 7=Complete [place] ADL-Treatment Functional [place] Measure 0=Not Assessed/NA 4=Minimal Assistance 1=Total Assistance 5=Supervision or Setup 2=Maximal Assistance 6=Modified [place] 3=Moderate Assistance 7=Complete IndependenceIRFPAI Quality Coding Scale 6 Independent with activity with or without an assistive device 5 Patient requires set up or clean up by helper. Patient completes activity by themselves 4 Supervision or touching assist (CGA). [place] provide cues , steadying assist 3 The helper provides less than half the effort to complete the activity 2 The helper provides more than half the effort to complete the activity 1 Dependent. The helper does all the effort to complete an activity 7 Patient refused to complete or attempt activity 9 The patient did not perform the activity before the current illness or injury 88 Not attempted due to Medical conditions or safety concerns Upper Body (FIM): 5 (SBA to doff bra in stance.) Upper Body Dressing (QC): 4 Lower Body Dressing (FIM): 5 (SBA with AE to doff socks and brief.) Lower Body Dressing (QC): 4 On/Off Footwear (QC): 4 Transfers (B, C, W/C) (FIM): 5 Tub Transfer(FIM): 5 Pt. agreed to shower. Ambulated into bathroom with SBA. Doffed brief, socks, and bra with SBA using AE. Pt. transferred into tub with SBA. Another therapist came in at this time to work with pt. Education OT Patient Education: Correct positioning, Modified ADL techniques, Progress toward Goal/Update tx plan, Purpose of tx/functional activities, Reviewed precautions, Rehab process, Transfer techniques, Use of adapted equipment Teaching Recipient: Patient Teaching Methods: Demonstration, Discussion Response to Teaching: Verbalize Understanding, Return Demonstration OT Short Term Goals Short Term Goals Transfers (B,C,W/C) (FIM): 5 1=Demonstrate adherence to instructed precautions during ADL tasks. 2=Patient will verbalize/demonstrate understanding of assistive devices/ modifications for ADL. 3=Patient will improve strength/tolerance for activity to enable patient to perform ADL's. OT Shelter Goals Tree Driller Goals Time Frame: Apr 29, 2018 Eating (FIM): 6 Eating (QC): 6 Groomin Oral Hygiene (QC): 6 Bathing(FIM): 5 Shower/Bathe Self (QC): 5 Upper Body Dressing(FIM): 6 Upper Body Dressing (QC): 6 Lower Body Dressing(FIM): 6 Lower Body Dressing (QC): 6 On/Off Footwear (QC): 6 Toileting(FIM): 6 Toileting Hygiene (QC): 6 Transfers (B,C,W/C) (FIM): 6 Toilet/Commode Transfer(FIM): 6 Toilet/Commode Transfer (QC): 6 Shower Transfer(FIM): 5 Additional Goals: 1-Demonstrate ADL Tasks, 2-Verbalize Understanding, 3- ImproveStrength/Stephen 1=Demonstrate adherence to instructed precautions during ADL tasks. 2=Patient will verbalize/demonstrate understanding of assistive devices/ modifications for ADL. 3=Patient will improve strength/tolerance for activity to enable patient to perform ADL's. OT Education/Plan Problem List/Assessment Assessment: Decreased Activ Tolerance, Impaired I ADL's, Impaired Self-Care Skills Discharge Recommendations Plan/Recommendations: Continue POC Therapy D/C Recommendations: Home w/ Family Support, Occupational Therapy Home Care Equpiment Recommendations-D/C: Extended Bath Bench, Hip Kit Treatment Plan/Plan of Care Treatment,Training & Education: Yes Patient would benefit from OT for education, treatment and training to promote independence in ADL's, mobility, safety and/or upper extremity function for ADL' s. Plan of Care: ADL Retraining, Functional Mobility, UE Funct Exercise/Act Treatment Duration: Apr 29, 2018 Frequency: At least 5 of 7 days/Wk (IRF) Estimated Hrs Per Day: 1.5 hours per day Agreement: Yes Rehab Potential: Good Time/GCodes Start Time: 10:45 Stop Time: 11:00 Total Time Billed (hr/min): 15 Billed Treatment Time 1, ADL x 15minutes CAITLIN ARMAS OT Apr 16, 2018 14:29
--- NOTE | 2018-04-16 16:03 | Physical Therapy Daily Note ---
PT Daily Note-Current Subjective Pt laying Supine in bed upon arrival. Pt agrees to PT. Pain Location: No Pain Reported Mental Status Patient Orientation: Person, Place, Time, Situation Attachments: Polar Pack Transfers Functional [place] Measure 0=Not Assessed/NA 4=Minimal Assistance 1=Total Assistance 5=Supervision or Setup 2=Maximal Assistance 6=Modified [place] 3=Moderate Assistance 7=Complete IndependenceIRFPAI Quality Coding Scale 6 Independent with activity with or without an assistive device 5 Patient requires set up or clean up by helper. Patient completes activity by themselves 4 Supervision or touching assist (CGA). [place] provide cues , steadying assist 3 The helper provides less than half the effort to complete the activity 2 The helper provides more than half the effort to complete the activity 1 Dependent. The helper does all the effort to complete an activity 7 Patient refused to complete or attempt activity 9 The patient did not perform the activity before the current illness or injury 88 Not attempted due to Medical conditions or safety concerns Supine to/from Sit: 6 Pt had requested bed rails for bed and DRAFTER APPRENTICE assisted pt with putting them on bed. Pt then practiced Supine to Sit and vice versa. Weight Bearing Right Lower Extremity: Right Weight Bearing/Tolerated Treatments Pt had requested bed rails for bed and DRAFTER APPRENTICE assisted pt with putting them on bed. Pt then practiced Supine to Sit and vice versa. DRAFTER APPRENTICE & pt discussed any further needs including restroom, transfers HEP, etc that pt might need. Pt is resting Supine in bed at end of tx with all needs met. 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 PT Short Term Goals Short Term Goals Time Frame: Apr 22, 2018 Transfers (B,C,W/C) (FIM): 5 Gait (FIM): 5 Distance (FIM): 3=150 ft Gait Distance Comment: 250' Gait Level of Assist: 5 Gait Assistive Device: Cane Single Point PT Seismograph Shooter Goals Assisted Goals PT Assisted Goals Time Frame: May 06, 2018 Transfers (B,C,W/C) (FIM): 6 Sit to Lying (QC): 6 Lying-Sitting on Side/Bed(QC): 6 Sit to Stand (QC): 6 Rollin Roll Left to Right (QC): 6 Chair/Mal-js-[place]utjd Xfer(QC): 6 Car Transfer (QC): 6 Gait (FIM): 6 Distance: 300' Walk 10 feet (QC): 6 Walk 10ft-Uneven Surface(QC): 6 Walk 50ft with 2 Turns (QC): 6 Walk 150 ft (QC): 6 Gait Level of Assist: 6 Gait Assistive Device: FWW Stairs (FIM): 6 # of Steps: 12 1 Step (curb) (QC): 6 4 Steps (QC): 6 12 Steps (QC): 6 Stairs Level Of Assist: 6 PT Plan Problem List Problem List: Activity Tolerance, Functional Strength Treatment/Plan Treatment Plan: Continue Plan of Care Treatment Plan: Bed Mobility, Education, Functional Activity Stephen, Functional Strength, Group Therapy, Gait, Safety, Therapeutic Exercise, Transfers Treatment Duration: May 06, 2018 Frequency: At least 5 of 7 days/Wk (IRF) Estimated Hrs Per Day: 1.5 hours per day Patient and/or Family Agrees t: Yes Safety Risks/Education Patient Education: Correct Positioning, Safety Issues Teaching Recipient: Patient Teaching Methods: Discussion Response to Teaching: Verbalize Understanding Time/GCodes Time In: 1530 Time Out: 1545 Total Billed Treatment 1, FA (15m) G Codes Necessary: KLAUDIA Thrasher DRAFTER APPRENTICE Apr 16, 2018 16:03
--- NOTE | 2018-04-16 16:38 | ST Cognitive Linguistic Eval ---
Speech Evaluation-General Medical Diagnosis right TKA Onset Date: Apr 10, 2018 Therapy Diagnosis Therapy Diagnosis: Cognition Precautions Precautions/Isolations: Fall Prevention, Standard Precautions Referral Referring Physician: Dr Adkins Reason for Referral: Evaluation/Treatment Medical History Pertinent Medical History: DM, HTN, OA Reviewed History: Yes Social History Current Living Status: Children Speech PLF-Current Status Prior Level of Function Independent Subjective Pt pleasant and cooperative. Language Eval: Auditory Comprehends Simple Yes/No Ques: Functional Follows 1-Step Commands: Functional Follows Complex Directions: Functional Follows General Conversations: Functional Language Eval: Verbal Language Completes Spontaneous Greeting: Functional Requests Basic Needs: Functional States Basic Personal Info: Functional Expresses Complex Ideas: Functional Cognitive Patient Orientation Oriented x 3. Objective Cognitive Domain Attention: WNL Memory: WNL Problem Solving: Functional Objective Results Results of the [facility] assessment of cognitive-linguistic functioning reveals skills WFL. Oral Motor/Speech Production WNL Impression Functional cognitive-linguistic skills Communication/Social Cognition Comprehension: 7 Expression: 7 Social Interaction: 7 Problem Solvin Memory: 7 Speech Patient Assess Expression of Ideas/Wants: Expression (4) Understanding Verbal Content: Understands (4) Brief Interview-Mental Status: Yes Repetition of Three Words: Three (3) Temporal Orientation: Year: Correct (3) Temporal Orientation: Month: Accurate within 5 days(2) Temporal Orientation: Day: Correct (1) Recall : Wear to say "Sock": Yes, no cue required (2) Recall : Color: Yes, no cue required (2) Recall : Bed: Yes, no cue required (2) Speech Short Term Goals Short Term Goals Short Term Goals no goals established as skilled ST not indicated. Speech Pull Worker Goals Mcfp Goals skilled ST not indicated Speech-Plan Patient/Family Goals Patient/Family Goals: to return home Treatment Plan Speech Therapy Treatment Plan: Discontinue ST skilled ST not indicated. Frequency: Modified Program (IRF) (0) Estimated Hrs Per Day: Other (0) Rehab Potential: Good Pt/Family Agrees to Plan: Yes Safety Risks/Education Teaching Recipient: Patient Teaching Methods: Discussion Response to Teaching: Verbalize Understanding Time Speech Therapy Time In: 09:15 Speech Therapy Time Out: 09:35 Total Billed Time: 20 Billed Treatment Time 1, SPSNDCOMP No CARLENE TORRE Apr 16, 2018 16:38
[2018-04-16 17:22] VITALS: BP 132/76
[2018-04-16] MEDS: FENOFIBRATE, MICRO 67 MG (LOFIBRA) CAPSULE PO SCH (20:27)
[2018-04-17 05:51] VITALS: BP 135/77
[2018-04-17] MEDS: PANTOPRAZOLE 40 MG (PROTONIX) TAB PO SCH (06:08)
[2018-04-17] MEDS: MULTIVIT W/MINERALS TAB (THERAGRAN M) PO SCH (06:08)
[2018-04-17] MEDS ORDERED: BISACODYL 10 MG SUPP (DULCOLAX) PR PRN (08:00)
[2018-04-17] MEDS: ENOXAPARIN 30 MG/0.3 ML (LOVENOX) SYR SC SCH (08:32)
[2018-04-17] MEDS: ASPIRIN E.C. 81 MG (ECOTRIN) TAB PO SCH (08:32)
[2018-04-17] MEDS: lisINopril 20 MG (PRINIVIL) TABLET PO SCH (08:33)
[2018-04-17] MEDS: SENNA W/DOCUSATE (SENOKOT S) TABLET PO SCH ×2 (08:33→20:35)
--- NOTE | 2018-04-17 08:57 | PM & R (SOAP) Progress Note ---
Subjective This was a face to face visit with the patient. Date Seen by Provider: Apr 17, 2018 Time Seen by Provider: 07:50 Subjective/Events-last exam Patient was seen in her room this AM Patient Modified Independent for transfers Discussed case with RN Patient c/o constipation meds to be adjusted Patient moved to Independent apartment in anticipation of discharge soon. Review of Systems Gastrointestinal: Constipation Objective Physician Exam Last Set of Vital Signs Vital Signs Date Time Temp Pulse Resp B/P (MAP) Pulse Ox O2 Delivery O2 Flow Rate FiO2 04/17/18 05:51 98.4 69 16 135/77 (96) 97 Room Air Capillary Refill : Less Than 3 Seconds I&O Intake and Output 04/17/18 00:00 Intake Total 1550 ml Balance 1550 ml Intake Oral 1550 ml # Voids 5 General: Alert, Oriented X3, Cooperative, No Acute Distress HEENT: Atraumatic, PERRLA, EOMI, Mucous Memb Moist/[place] Neck: Supple, No JVD Lungs: Clear to Auscultation Heart: Regular Rate Abdomen: Normal Bowel Sounds, Soft, No Tenderness Extremities: Other (Trace edema rt ankle) Skin: Other (Incision healing well) Neuro: Other (Limite AROM rt knee) Assessment/Plan Assessment and Plan OA rt knee s/p TKR Postop constipation meds to be adjusted further Anemia HLP Chronic Back pain with multiple prior spinal surgeries HX of tobaccoism Plan Continue PT/OT Team Conference later today-See report fpr full functional update and POC and ELOS Discharge most likely by end of this week Co-Morbidities that are continuing to impact the rehab process: (include details ) SYED ROSE MD Apr 17, 2018 08:57
--- NOTE | 2018-04-17 09:03 | Individualized Plan of Care ---
Individualized Plan of Care Rehab Nursing IPOC Order Admission Date Apr 14, 2018 at 08:55 Current Orders Orders Admission Arrival Bed Request (04/14/18 08:55) Admission Order(Inpt,Obs,Sdc) (04/14/18 08:30) Code/Resuscitation (04/14/18 08:55) Initiate Admission Nursing Pro .admission (04/14/18 08:55) Isolation Central Supply Req (04/14/18 08:55) Ambulate TID (04/14/18 09:27) Dressing Order & Int (Surg/Med DAILY (04/14/18 09:27) Initiate Admission Nursing Pro .admission (04/14/18 09:27) Sequential Compression Device 10,14,18,22,02,06 (04/14/18 09:27) Up To Chair (Order) DAILY PRN (04/14/18 09:27) General/Regular (04/14/18 Breakfast) Aspirin Enteric Coated Tablet (Ecotrin T (04/15/18 09:00) Enoxaparin Injection (Lovenox Injection) (04/15/18 08:00) Therapeutic Multivitamin Tab (Vitamins, (04/15/18 07:00) Pantoprazole Tablet (Protonix Tablet) (04/15/18 07:00) Senna S Tablet (Senokot S Tablet) (04/14/18 21:00) Acetaminophen Tablet/Caplet (Tylenol T (04/14/18 09:30) Lisinopril Tablet (Zestril Tablet) (04/15/18 09:00) Oxycodone/Apap 5/325mg Tablet (Percocet (04/14/18 09:30) Consult Physician (04/14/18 09:27) Physical Therapy [place] (04/14/18 09:27) Request Ot Evaluate & Treat (04/14/18 09:27) Non-Formulary Medication (Non-Formulary (04/14/18 09:30) Consult Physician (04/14/18 09:27) Fenofibrate,Micronized Capsule (Lofibra (04/14/18 21:00) Ambulate TID (04/14/18 10:13) Sequential Compression Device 08,20 (04/14/18 10:13) Dvt/Vte Risk - Notifiy Physici 08 (04/14/18 10:13) Request For Cognitive Services (04/15/18 08:00) Patient Visit (04/15/18 ) Pt Eval Moderate Complexity (04/15/18 ) Gait Training, Ea 15 Min (04/15/18 ) Exercise Therap, Ea 15 Min (04/15/18 ) Patient Visit (04/15/18 ) Transfer - Bed/Room/Location (04/16/18 12:34) Patient Visit (04/16/18 ) Gait Training, Ea 15 Min (04/16/18 ) Functional Activities, Ea 15 (04/16/18 ) Exercise Therap, Ea 15 Min (04/16/18 ) Patient Visit (04/16/18 ) Functional Activities, Ea 15 (04/16/18 ) Patient Visit (04/16/18 ) Speech Sound Lang Comp (04/16/18 ) Bisacodyl Suppository (Dulcolax Supposit (04/17/18 08:00) Rehab Nursing Orders: Ongoing Assess. of Function Status, Disease Management & Educaiton, DVT Prophylaxis, Fall Prevention, Infection Prevention, Medication Management & Education, Management of Skin Intergrity, Pain Management, Patient/ Family Support, Wound Management Other Nursing Orders: Treatment of constipation PT IPOC Problem List: Activity Tolerance, Functional Strength Treatment Plan: Continue Plan of Care Bed Mobility, Education, Functional Activity Stephen, Functional Strength, Group Therapy, Gait, Safety, Therapeutic Exercise, Transfers Treatment Duration: May 06, 2018 Frequency: At least 5 of 7 days/Wk (IRF) Estimated Hrs Per Day: 1.5 hours per day OT IPOC Problems: Decreased Activ Tolerance, Impaired I ADL's, Impaired Self-Care Skills OT Treatment, Training and Edu: Yes Plan of Care: ADL Retraining, Functional Mobility, UE Funct Exercise/Act Treatment Duration: Apr 29, 2018 Frequency: At least 5 of 7 days/Wk (IRF) Estimated Hrs Per Day: 1.[address] IPOC Speech Therapy Treatment Plan: Discontinue ST Treatment Duration: Apr 17, 2018 Frequency: Modified Program (IRF) (0) Estimated Hrs Per Day: Other (0) Lead Systems Analyst/Case Mgmt Lead Systems Analyst/Case Managemen: Discharge Planning, Patient/Family Counseling Dietitian/Yarn Inspector Dietitian/Yarn Inspector to monitor nutritional status and make changes and/or recommendations as needed and work with speech pathology on dietary upgrades as the occur. Physician IPOC Medical Issues being managed closely and that require the 24 hour availability of a physician: Constipation anemia Chronic back pain C code 08.61 Etiologic DX OA rt knee Medical Issues: Bowel/Bladder Function, DVT Prophylaxis, Falls Precautions, Infection Protection, Pain Management, Wound Care, Other (List) (as per above) Brief Synthesis of Preadmission Screen, Post-Admission Evaluation, and Therapy Evaluations: 88 yo female who lives alone and had been Independent with had TKR for painful OA refractory to conservative care .referred to IRU for ongoing care and therapies with goal of return to home with [facility] Modified Independent.PMH as per above Medical Prognosis: Good Anticipated Length of Stay: 04-19-18 Modified Independent for adls and mobility with good AROM of the knee Anticipated d/c Destination: Home with [facility] SYED ROSE MD Apr 17, 2018 09:03
--- NOTE | 2018-04-17 09:12 | Progress Note-Standard ---
Standard Progress Note Progress Notes/Assess & Plan Date Seen by Provider: Apr 17, 2018 Time Seen by Provider: 07:25 Progress/Assessment & Plan No complaints RLE--incision clean and dry. No calf tenderness. 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
[2018-04-17] MEDS: oxyCODONE/APAP 5/325MG (PERCOCET 5) TABLET PO PRN (10:10)
--- NOTE | 2018-04-17 10:17 | Occupational Ther Daily Note ---
OT Current Status-Daily Note Subjective Pt. reported 4/10 pain in knee later in treatment. Nursing notified and getting pt. pain medication. Appearance Pt. is up in chair. Has already dressed and groomed self. Pt. has also eaten breakfast. Declines showering. Mental Status/Objective Patient Orientation: Person, Place, Time, Situation Functional [place] Measure 0=Not Assessed/NA 4=Minimal Assistance 1=Total Assistance 5=Supervision or Setup 2=Maximal Assistance 6=Modified [place] 3=Moderate Assistance 7=Complete [place] ADL-Treatment Functional [place] Measure 0=Not Assessed/NA 4=Minimal Assistance 1=Total Assistance 5=Supervision or Setup 2=Maximal Assistance 6=Modified [place] 3=Moderate Assistance 7=Complete IndependenceIRFPAI Quality Coding Scale 6 Independent with activity with or without an assistive device 5 Patient requires set up or clean up by helper. Patient completes activity by themselves 4 Supervision or touching assist (CGA). [place] provide cues , steadying assist 3 The helper provides less than half the effort to complete the activity 2 The helper provides more than half the effort to complete the activity 1 Dependent. The helper does all the effort to complete an activity 7 Patient refused to complete or attempt activity 9 The patient did not perform the activity before the current illness or injury 88 Not attempted due to Medical conditions or safety concerns Transfers (B, C, W/C) (FIM): 6 (Pt. ambulated throughout therapy area and onto elevator/outside with walker with Mod I. Pt. took rest breaks when needed, but overall did well.) Other Treatment Pt. already dressed. Ambulated with walker with Mod I to therapy gym. Completed 15 minutes on armbike to increase overall endurance and strength. Pt. took rest break at each 5 minute increment. o2 sats at 98% and HR at 80- 85. Pt. tolerated fine motor coordination and strengthening task with nut/bolt activity, and with wearing 1 lb. wrist weights while doing peg activity. Tolerated treatment well. Ambulated with walker to elevators. Pt. able to get on elevator with no issues. Ambulated outside and sat for 5 minutes for fresh air. Pt. states, "this feels really good." Went back to therapy gym. Talked in depth about needed equipment for home, and assist at home. Pt. states that she does not feel that she will have any issues with laundry or food prep. States that her daughter will do laundry for her, and that her daughter will also bring food as needed. Pt. states that she has several reachers at home, and has no throw rugs, as her home is set up for disabled son. Pt. reports that a tub transfer bench will not fit in her bathroom, and therefore she does not feel that she needs one. States that she was able to put on her own shoes and socks this morning, and does not feel that she will need adaptive equipment. Pt. is encouraged to think about anything that she might need to do at home, so that it can be practiced here. Pt. can't think of anything, and states that she feels comfortable with returning home. Education OT Patient Education: Correct positioning, Exercise program, Modified ADL techniques, Progress toward Goal/Update tx plan, Purpose of tx/functional activities, Reviewed precautions, Rehab process, Transfer techniques Teaching Recipient: Patient Teaching Methods: Demonstration, Discussion Response to Teaching: Verbalize Understanding, Return Demonstration OT Short Term Goals Short Term Goals Transfers (B,C,W/C) (FIM): 5 1=Demonstrate adherence to instructed precautions during ADL tasks. 2=Patient will verbalize/demonstrate understanding of assistive devices/ modifications for ADL. 3=Patient will improve strength/tolerance for activity to enable patient to perform ADL's. OT Jail Goals Jail Goals Time Frame: Apr 29, 2018 Eating (FIM): 6 Eating (QC): 6 Groomin Oral Hygiene (QC): 6 Bathing(FIM): 5 Shower/Bathe Self (QC): 5 Upper Body Dressing(FIM): 6 Upper Body Dressing (QC): 6 Lower Body Dressing(FIM): 6 Lower Body Dressing (QC): 6 On/Off Footwear (QC): 6 Toileting(FIM): 6 Toileting Hygiene (QC): 6 Transfers (B,C,W/C) (FIM): 6 Toilet/Commode Transfer(FIM): 6 Toilet/Commode Transfer (QC): 6 Shower Transfer(FIM): 5 Additional Goals: 1-Demonstrate ADL Tasks, 2-Verbalize Understanding, 3- ImproveStrength/Stephen 1=Demonstrate adherence to instructed precautions during ADL tasks. 2=Patient will verbalize/demonstrate understanding of assistive devices/ modifications for ADL. 3=Patient will improve strength/tolerance for activity to enable patient to perform ADL's. OT Education/Plan Problem List/Assessment Assessment: Decreased Activ Tolerance Discharge Recommendations Plan/Recommendations: Continue POC Therapy D/C Recommendations: Home w/ Family Support Treatment Plan/Plan of Care Treatment,Training & Education: Yes Patient would benefit from OT for education, treatment and training to promote independence in ADL's, mobility, safety and/or upper extremity function for ADL' s. Plan of Care: ADL Retraining, Functional Mobility, UE Funct Exercise/Act Treatment Duration: Apr 29, 2018 Frequency: At least 5 of 7 days/Wk (IRF) Estimated Hrs Per Day: 1.5 hours per day Agreement: Yes Rehab Potential: Good Time/GCodes Start Time: 08:45 Stop Time: 10:15 Total Time Billed (hr/min): 90 Billed Treatment Time 1, EX x 30minutes, FA x 60minutes CAITLIN ARMAS OT Apr 17, 2018 10:17
--- NOTE | 2018-04-17 10:37 | Progress Note-Hospitalist ---
BETSEY BRAR MED STUDENT 04/17/18 1037: Subjective HPI/CC On Admission Date Seen by Provider: Apr 17, 2018 Time Seen by Provider: 08:45 Subjective/Events-last exam Pt is doing very well Denies any pain Reports constipation- last BM was Sunday Ambulating well Objective Exam Vital Signs Vital Signs Date Time Temp Pulse Resp B/P (MAP) Pulse Ox O2 Delivery O2 Flow Rate FiO2 04/17/18 09:00 Room Air 04/17/18 05:51 98.4 69 16 135/77 (96) 97 Capillary Refill : Less Than 3 Seconds Results/Procedures Lab Patient resulted labs reviewed. Assessment/Plan Assessment and Plan Assess & Plan/Chief Complaint Assessment: s/p total knee arthroplasty DM HTN Chronic renal insufficiency Constipation Plan: Bowel regimen Continue to ambulate Anticipate d/c Sunday Clinical Quality Measures DVT/VTE Risk/Contraindication: Risk Factor Score Per Nursin RFS Level Per Nursing on Admit: 4+=Very High LAURYN BENTON DO 04/17/18 1247: Subjective Subjective/Events-last exam Pt feels good Needs BM more meds Review of Systems Gastrointestinal: Constipation Objective Exam General Appearance: No Apparent Distress, WD/WN, Chronically ill, Obese HEENT: PERRL/EOMI, Normal ENT Inspection, Pharynx Normal, Moist Mucous Membranes Neck: Full Range of Motion, Normal Inspection, Non Tender, Supple, Carotid Bruit Respiratory: Chest Non Tender, Lungs Clear, Normal Breath Sounds, No Accessory Muscle Use, No Respiratory Distress Cardiovascular: Regular Rate, Rhythm, No Edema, No Gallop, No JVD, No Murmur, Normal Peripheral Pulses Gastrointestinal: Normal Bowel Sounds, No Organomegaly, No Pulsatile Mass, Non Tender, Soft Back: Normal Inspection, No CVA Tenderness, No Vertebral Tenderness Extremity: Normal Capillary Refill, Normal Inspection, Normal Range of Motion, Non Tender, No Calf Tenderness, No Pedal Edema Neurologic/Psychiatric: Alert, Oriented x3, No Motor/Sensory Deficits, Normal Mood/Affect Skin: Normal Color, Warm/Dry Lymphatic: No Adenopathy Assessment/Plan Assessment and Plan Assess & Plan/Chief Complaint Plan as above Diagnosis/Problems Diagnosis/Problems (1) S/P total knee arthroplasty Status: Acute (2) Hypertension Status: Chronic (3) Renal insufficiency Status: Chronic (4) Diabetes mellitus Status: Chronic Qualifiers: Diabetes mellitus type: type 2 Diabetes mellitus halfway insulin use: without halfway use Diabetes mellitus complication status: without complication Qualified Codes: E11.9 - Type 2 diabetes mellitus without complications (5) Hypercalcemia Status: Acute (6) Constipation Status: Acute BETSEY BRAR MED STUDENT Apr 17, 2018 10:37 LAURYN BENTON DO Apr 17, 2018 12:47
--- NOTE | 2018-04-17 11:53 | Physical Therapy Daily Note ---
PT Daily Note-Current Subjective Pt. c/o pain at 5/10 left knee. Agrees to Rx. Wants to go home Sunday Pain Numeric Pain Scale: 5-Moderate Pain Location: Right Location Body Site: Knee Pain Description: Pressure Mental Status Patient Orientation: Normal For Age Transfers Functional [place] Measure 0=Not Assessed/NA 4=Minimal Assistance 1=Total Assistance 5=Supervision or Setup 2=Maximal Assistance 6=Modified [place] 3=Moderate Assistance 7=Complete IndependenceIRFPAI Quality Coding Scale 6 Independent with activity with or without an assistive device 5 Patient requires set up or clean up by helper. Patient completes activity by themselves 4 Supervision or touching assist (CGA). [place] provide cues , steadying assist 3 The helper provides less than half the effort to complete the activity 2 The helper provides more than half the effort to complete the activity 1 Dependent. The helper does all the effort to complete an activity 7 Patient refused to complete or attempt activity 9 The patient did not perform the activity before the current illness or injury 88 Not attempted due to Medical conditions or safety concerns Transfers (B, C, W/C) (FIM): 6 Scootin Rollin Supine to/from Sit: 6 Sit to/from Stand: 6 Weight Bearing Right Lower Extremity: Right Weight Bearing/Tolerated Gait Training Does the Patient Walk?: Yes Gait (FIM): 6 Distance (FIM): 3=150 ft (175x2) Gait Level of Assist: 6 Gait Persons Needed: 0 Gait Assistive Device: FWW instructed in heel strike, knee flexion and equal step length Exercises Supine Ex: Ankle pumps, Quad Set, Rolling, Glut sets, Heel Slides, Short Arc Quads, Scooting, Straight leg raise, Hip abd/add Supine Reps: 20 Seated Therapy Exercises: Ankle pumps, Sit to stand, Long arc quads, Hip flexion Seated Reps: 12 NuStep Minutes: 10 NuStep Workload: 4 Treatments pt.utilized Nustep to stretch flexion Assessment Current Status: Good Progress PT Short Term Goals Short Term Goals Time Frame: Apr 22, 2018 Transfers (B,C,W/C) (FIM): 5 Gait (FIM): 5 Distance (FIM): 3=150 ft Gait Distance Comment: 250' Gait Level of Assist: 5 Gait Assistive Device: Cane Single Point PT [facility]ci Goals [employer] Launch Commander Goals PT [employer] Launch Commander Goals Time Frame: May 06, 2018 Transfers (B,C,W/C) (FIM): 6 Sit to Lying (QC): 6 Lying-Sitting on Side/Bed(QC): 6 Sit to Stand (QC): 6 Rollin Roll Left to Right (QC): 6 Chair/Fdi-ws-Tsjza Xfer(QC): 6 Car Transfer (QC): 6 Gait (FIM): 6 Distance: 300' Walk 10 feet (QC): 6 Walk 10ft-Uneven Surface(QC): 6 Walk 50ft with 2 Turns (QC): 6 Walk 150 ft (QC): 6 Gait Level of Assist: 6 Gait Assistive Device: FWW Stairs (FIM): 6 # of Steps: 12 1 Step (curb) (QC): 6 4 Steps (QC): 6 12 Steps (QC): 6 Stairs Level Of Assist: 6 PT Plan Treatment/Plan Treatment Plan: Continue Plan of Care Treatment Plan: Bed Mobility, Education, Functional Activity Stephen, Functional Strength, Group Therapy, Gait, Safety, Therapeutic Exercise, Transfers Treatment Duration: May 06, 2018 Frequency: At least 5 of 7 days/Wk (IRF) Estimated Hrs Per Day: 1.5 hours per day Patient and/or Family Agrees t: Yes Safety Risks/Education Patient Education: Gait Training, Transfer Techniques, Steps, Correct Positioning, Disease Process, Safety Issues Teaching Recipient: Patient Teaching Methods: Demonstration, Discussion Response to Teaching: Verbalize Understanding, Return Demonstration, Reinforcement Needed Time/GCodes Time In: 1100 Time Out: 1200 Total Billed Treatment Time: 60 Total Billed Treatment 1,EX30m,FA15,GT15m G Codes Necessary: ELIE Garsia PTA Apr 17, 2018 11:53
--- NOTE | 2018-04-17 14:55 | Physical Therapy Daily Note ---
PT Daily Note-Current Subjective Agrees to Rx. Declines polar pack. " It doesnt really help" Pain Numeric Pain Scale: 3 Location: Right Location Body Site: Knee Pain Description: Ache Mental Status Patient Orientation: Normal For Age Transfers Functional [place] Measure 0=Not Assessed/NA 4=Minimal Assistance 1=Total Assistance 5=Supervision or Setup 2=Maximal Assistance 6=Modified [place] 3=Moderate Assistance 7=Complete IndependenceIRFPAI Quality Coding Scale 6 Independent with activity with or without an assistive device 5 Patient requires set up or clean up by helper. Patient completes activity by themselves 4 Supervision or touching assist (CGA). [place] provide cues , steadying assist 3 The helper provides less than half the effort to complete the activity 2 The helper provides more than half the effort to complete the activity 1 Dependent. The helper does all the effort to complete an activity 7 Patient refused to complete or attempt activity 9 The patient did not perform the activity before the current illness or injury 88 Not attempted due to Medical conditions or safety concerns all TRFs bed and chair SBA to mod I Weight Bearing Right Lower Extremity: Right Weight Bearing/Tolerated Gait Training Gait Assistive Device: FWW 175ft x 2 SBA, no LOB, instructed in heel strike and knee extension etc Stair Training Stair Training: Handrails/: 2 handrails Stairs (FIM): 2 #of Steps: 4 Stairs: Pattern: Step to Level of Assist: 4 instructed in sequence and weight bearing on rails etc. had difficulty starting but did well after 1st step Exercises Supine Ex: Heel Slides, Straight leg raise Supine Reps: 10 Assessment Current Status: Good Progress gives good effort PT Short Term Goals Short Term Goals Time Frame: Apr 22, 2018 Transfers (B,C,W/C) (FIM): 5 Gait (FIM): 5 Distance (FIM): 3=150 ft Gait Distance Comment: 250' Gait Level of Assist: 5 Gait Assistive Device: Cane Single Point PT Small Arms Artillery Repairer Goals Half-Way Goals PT Small Arms Artillery Repairer Goals Time Frame: May 06, 2018 Transfers (B,C,W/C) (FIM): 6 Sit to Lying (QC): 6 Lying-Sitting on Side/Bed(QC): 6 Sit to Stand (QC): 6 Rollin Roll Left to Right (QC): 6 Chair/Zjy-jz-Fhhjq Xfer(QC): 6 Car Transfer (QC): 6 Gait (FIM): 6 Distance: 300' Walk 10 feet (QC): 6 Walk 10ft-Uneven Surface(QC): 6 Walk 50ft with 2 Turns (QC): 6 Walk 150 ft (QC): 6 Gait Level of Assist: 6 Gait Assistive Device: FWW Stairs (FIM): 6 # of Steps: 12 1 Step (curb) (QC): 6 4 Steps (QC): 6 12 Steps (QC): 6 Stairs Level Of Assist: 6 PT Plan Treatment/Plan Treatment Plan: Continue Plan of Care Treatment Plan: Bed Mobility, Education, Functional Activity Stephen, Functional Strength, Group Therapy, Gait, Safety, Therapeutic Exercise, Transfers Treatment Duration: May 06, 2018 Frequency: At least 5 of 7 days/Wk (IRF) Estimated Hrs Per Day: 1.5 hours per day Patient and/or Family Agrees t: Yes Safety Risks/Education Patient Education: Gait Training, Transfer Techniques, Steps, Correct Positioning, Safety Issues Teaching Recipient: Patient Teaching Methods: Demonstration, Discussion Response to Teaching: Verbalize Understanding, Return Demonstration, Reinforcement Needed Time/GCodes Time In: 1425 Time Out: 1455 Total Billed Treatment Time: 30 Total Billed Treatment 1,FA15m,GT15m G Codes Necessary: ELIE Garsia COMMUNITY PLANNER Apr 17, 2018 14:55
[2018-04-17] MEDS: POLYETHYLENE GLYCOL 17 GM (MIRALAX) PACK PO SCH ×3 (16:41→20:35)
[2018-04-17] MEDS: LACTULOSE SYRUP 10GM/15ML (ENULOSE) 30ML UDC PO SCH ×3 (16:44→20:35)
[2018-04-17 18:15] VITALS: BP 147/65
[2018-04-17] MEDS: FENOFIBRATE, MICRO 67 MG (LOFIBRA) CAPSULE PO SCH (20:36)
[2018-04-18 05:18] VITALS: BP 160/80
[2018-04-18] MEDS: MULTIVIT W/MINERALS TAB (THERAGRAN M) PO SCH (06:07)
[2018-04-18] MEDS: PANTOPRAZOLE 40 MG (PROTONIX) TAB PO SCH (06:07)
--- NOTE | 2018-04-18 07:34 | PM & R (SOAP) Progress Note ---
Subjective This was a face to face visit with the patient. Date Seen by Provider: Apr 18, 2018 Time Seen by Provider: 07:10 Subjective/Events-last exam Patient was seen in her room this AM Patient SBA to Modified Independent for transfers,Progressing well with therapies.Moved to Independent apartment in anticipation of discharge to home on Sunday04-20-18 Objective Physician Exam Last Set of Vital Signs Vital Signs Date Time Temp Pulse Resp B/P (MAP) Pulse Ox O2 Delivery O2 Flow Rate FiO2 04/18/18 05:18 98.2 80 16 160/80 (106) 99 Room Air Capillary Refill : Less Than 3 Seconds I&O Intake and Output 04/18/18 00:00 Intake Total 1500 ml Balance 1500 ml Intake Oral 1500 ml # Voids 7 # Bowel Movements 1 General: Alert, Oriented X3, Cooperative, No Acute Distress HEENT: Atraumatic, PERRLA, EOMI, Mucous Memb Moist/[place] Neck: Supple, No JVD Lungs: Clear to Auscultation Heart: Regular Rate Abdomen: Normal Bowel Sounds, Soft, No Tenderness Extremities: Other (Trace edema rt ankle) Skin: Other (Incision healing well) Neuro: Other (Limite AROM rt knee) Assessment/Plan Assessment and Plan OA RT knee s/p TKR Postop constipation meds adjusted Anemia HLP Hx of tobaccoism Chronic back pain with multiple prior spinal surgeries Plan Continue PT/OT Team Conference held yesterday-See report for full functional update and POC Discharge set for Sunday04-20-18 to home Co-Morbidities that are continuing to impact the rehab process: (include details ) SYED ROSE MD Apr 18, 2018 07:34
[2018-04-18] MEDS: lisINopril 20 MG (PRINIVIL) TABLET PO SCH (08:31)
[2018-04-18] MEDS: oxyCODONE/APAP 5/325MG (PERCOCET 5) TABLET PO PRN (08:31)
[2018-04-18] MEDS: SENNA W/DOCUSATE (SENOKOT S) TABLET PO SCH ×2 (08:31→20:09)
[2018-04-18] MEDS: ENOXAPARIN 30 MG/0.3 ML (LOVENOX) SYR SC SCH (08:31)
[2018-04-18] MEDS: ASPIRIN E.C. 81 MG (ECOTRIN) TAB PO SCH (08:31)
[2018-04-18] MEDS: LACTULOSE SYRUP 10GM/15ML (ENULOSE) 30ML UDC PO SCH ×2 (10:07→20:09)
[2018-04-18] MEDS: POLYETHYLENE GLYCOL 17 GM (MIRALAX) PACK PO SCH ×2 (10:07→20:09)
--- NOTE | 2018-04-18 11:32 | Physical Therapy Daily Note ---
PT Daily Note-Current Subjective Pt laying Supine in bed upon arrival. Pt agrees to PT. Pain Numeric Pain Scale: 4 Location: Right Location Body Site: Knee Pain Description: Ache Mental Status Patient Orientation: Person, Place, Time, Situation Transfers Functional [place] Measure 0=Not Assessed/NA 4=Minimal Assistance 1=Total Assistance 5=Supervision or Setup 2=Maximal Assistance 6=Modified [place] 3=Moderate Assistance 7=Complete IndependenceIRFPAI Quality Coding Scale 6 Independent with activity with or without an assistive device 5 Patient requires set up or clean up by helper. Patient completes activity by themselves 4 Supervision or touching assist (CGA). [place] provide cues , steadying assist 3 The helper provides less than half the effort to complete the activity 2 The helper provides more than half the effort to complete the activity 1 Dependent. The helper does all the effort to complete an activity 7 Patient refused to complete or attempt activity 9 The patient did not perform the activity before the current illness or injury 88 Not attempted due to Medical conditions or safety concerns Scootin Rollin Roll Left to Right (QC): 6 Supine to/from Sit: 6 Sit to/from Stand: 6 Sit to Lying (QC): 6 Sit to Stand (QC): 6 Weight Bearing Right Lower Extremity: Right Weight Bearing/Tolerated Gait Training Does the Patient Walk?: Yes Distance (FIM): 3=150 ft Distance: 300' Walk 10 feet (QC): 5 Walk 50 ft with 2 Turns(QC): 5 Walk 150 ft (QC): 5 Gait Level of Assist: 5 Gait Persons Needed: 1 Gait Assistive Device: FWW Pt with slow reji & antalgic gait pattern. Wheelchair Training Does the Pt Use a Wheelchair?: No Stair Training Stair Training: Handrails/: 2 handrails #of Steps: 4 1 Step (curb) (QC): 5 4 Steps (QC): 5 Stairs: Pattern: Step to Level of Assist: 5 Exercises Seated Therapy Exercises: Ankle pumps, Long arc quads, Hip flexion, Kicking activity, Hip abd/add Seated Reps: 20 NuStep Minutes: 15 NuStep Workload: 4 Treatments Pt transfers from Supine to EOB to Standing using FWW at Mod I. Pt ambulates in hallway using FWW at SBA. Pt completes car transfer with a few VC. Pt completes Seated Ex as well as NuStep for 15m at 4. Pt returns to room at end of tx with all needs met. Assessment Current Status: Good Progress Pt continues to push self to get stronger and has improved with independence & safety of transfers as well as mobility. PT Short Term Goals Short Term Goals Time Frame: Apr 22, 2018 Transfers (B,C,W/C) (FIM): 5 Gait (FIM): 5 Distance (FIM): 3=150 ft Gait Distance Comment: 250' Gait Level of Assist: 5 Gait Assistive Device: Cane Single Point PT Halfway Goals Theatrical Trouper Goals PT Theatrical Trouper Goals Time Frame: May 06, 2018 Transfers (B,C,W/C) (FIM): 6 Sit to Lying (QC): 6 Lying-Sitting on Side/Bed(QC): 6 Sit to Stand (QC): 6 Rollin Roll Left to Right (QC): 6 Chair/Xwh-gv-Inzmm Xfer(QC): 6 Car Transfer (QC): 6 Gait (FIM): 6 Distance: 300' Walk 10 feet (QC): 6 Walk 10ft-Uneven Surface(QC): 6 Walk 50ft with 2 Turns (QC): 6 Walk 150 ft (QC): 6 Gait Level of Assist: 6 Gait Assistive Device: FWW Stairs (FIM): 6 # of Steps: 12 1 Step (curb) (QC): 6 4 Steps (QC): 6 12 Steps (QC): 6 Stairs Level Of Assist: 6 PT Plan Problem List Problem List: Activity Tolerance, Gait Treatment/Plan Treatment Plan: Continue Plan of Care Treatment Plan: Bed Mobility, Education, Functional Activity Stephen, Functional Strength, Group Therapy, Gait, Safety, Therapeutic Exercise, Transfers Treatment Duration: May 06, 2018 Frequency: At least 5 of 7 days/Wk (IRF) Estimated Hrs Per Day: 1.5 hours per day Patient and/or Family Agrees t: Yes Safety Risks/Education Patient Education: Gait Training, Transfer Techniques, Steps, Correct Positioning, Safety Issues Teaching Recipient: Patient Teaching Methods: Discussion Response to Teaching: Verbalize Understanding Time/GCodes Time In: 815 Time Out: 915 Total Billed Treatment Time: 60 Total Billed Treatment 1, GT (15m), EX x2 (30m) & FA (15m) G Codes Necessary: KLAUDIA Thrasher ALL SOURCE INTELLIGENCE ANALYST Apr 18, 2018 11:32
--- NOTE | 2018-04-18 12:55 | Occupational Ther Daily Note ---
OT Current Status-Daily Note Subjective Pt. reports that she didn't sleep well last night. No pain reported. Appearance Pt. is up in chair and dressed, as she has already worked with PT. However, agrees to shower and change clothing. Mental Status/Objective Patient Orientation: Person, Place, Time, Situation Functional [place] Measure 0=Not Assessed/NA 4=Minimal Assistance 1=Total Assistance 5=Supervision or Setup 2=Maximal Assistance 6=Modified [place] 3=Moderate Assistance 7=Complete [place] ADL-Treatment Functional [place] Measure 0=Not Assessed/NA 4=Minimal Assistance 1=Total Assistance 5=Supervision or Setup 2=Maximal Assistance 6=Modified [place] 3=Moderate Assistance 7=Complete IndependenceIRFPAI Quality Coding Scale 6 Independent with activity with or without an assistive device 5 Patient requires set up or clean up by helper. Patient completes activity by themselves 4 Supervision or touching assist (CGA). [place] provide cues , steadying assist 3 The helper provides less than half the effort to complete the activity 2 The helper provides more than half the effort to complete the activity 1 Dependent. The helper does all the effort to complete an activity 7 Patient refused to complete or attempt activity 9 The patient did not perform the activity before the current illness or injury 88 Not attempted due to Medical conditions or safety concerns Bathing (FIM): 5 (SBA in shower setting.) Shower/Bathe Self (QC): 4 Upper Body (FIM): 6 (Pt. able to retrieve clothing from closet.) Upper Body Dressing (QC): 6 Lower Body Dressing (FIM): 4 (Pt. does require some assistance with socks even with use of AE. Pt. states though that she will not need this at home, as her son "has this stuff." Pt. also reports that she will be getting dressed on a much lower surface at home.) Lower Body Dressing (QC): 4 On/Off Footwear (QC): 4 Transfers (B, C, W/C) (FIM): 6 Shower Transfer(FIM): 5 Other Treatment After ADLs in room, pt. ambulated to therapy gym. Tolerated 10 minutes on armbike to increase overall strength and endurance. After this task, pt. completed fine motor coordination/strengthening task with heavy clothespins. Tolerated this well. Ambulated to kitchen area and practiced getting items from low cabinets, as this is all she uses at home. Pt. also shown/educated on walker basket/walker tray. Verbalized understanding. Ambulated back to room with walker. Practiced getting into/out of bed using chair as rail, as pt. is unsure if she will have a rail at home. Pt. is able to get into bed with no difficulty. All needs met in room. Education OT Patient Education: Correct positioning, Exercise program, Modified ADL techniques, Progress toward Goal/Update tx plan, Purpose of tx/functional activities, Reviewed precautions, Rehab process, Transfer techniques Teaching Recipient: Patient Teaching Methods: Demonstration, Discussion Response to Teaching: Verbalize Understanding, Return Demonstration OT Short Term Goals Short Term Goals Transfers (B,C,W/C) (FIM): 5 1=Demonstrate adherence to instructed precautions during ADL tasks. 2=Patient will verbalize/demonstrate understanding of assistive devices/ modifications for ADL. 3=Patient will improve strength/tolerance for activity to enable patient to perform ADL's. OT Tree Scout Goals Chcf Goals Time Frame: Apr 29, 2018 Eating (FIM): 6 Eating (QC): 6 Groomin Oral Hygiene (QC): 6 Bathing(FIM): 5 Shower/Bathe Self (QC): 5 Upper Body Dressing(FIM): 6 Upper Body Dressing (QC): 6 Lower Body Dressing(FIM): 6 Lower Body Dressing (QC): 6 On/Off Footwear (QC): 6 Toileting(FIM): 6 Toileting Hygiene (QC): 6 Transfers (B,C,W/C) (FIM): 6 Toilet/Commode Transfer(FIM): 6 Toilet/Commode Transfer (QC): 6 Shower Transfer(FIM): 5 Additional Goals: 1-Demonstrate ADL Tasks, 2-Verbalize Understanding, 3- ImproveStrength/Stephen 1=Demonstrate adherence to instructed precautions during ADL tasks. 2=Patient will verbalize/demonstrate understanding of assistive devices/ modifications for ADL. 3=Patient will improve strength/tolerance for activity to enable patient to perform ADL's. OT Education/Plan Problem List/Assessment Assessment: Decreased Activ Tolerance Discharge Recommendations Plan/Recommendations: Continue POC Therapy D/C Recommendations: Home w/ Family Support Treatment Plan/Plan of Care Treatment,Training & Education: Yes Patient would benefit from OT for education, treatment and training to promote independence in ADL's, mobility, safety and/or upper extremity function for ADL' s. Plan of Care: ADL Retraining, Functional Mobility, UE Funct Exercise/Act Treatment Duration: Apr 29, 2018 Frequency: At least 5 of 7 days/Wk (IRF) Estimated Hrs Per Day: 1.5 hours per day Agreement: Yes Rehab Potential: Good Time/GCodes Start Time: 09:15 Stop Time: 10:45 Total Time Billed (hr/min): 90 Billed Treatment Time 1, ADL x 45minutes, Ex x 15minutes, FA x 30minutes CAITLIN ARMAS OT Apr 18, 2018 12:55
--- NOTE | 2018-04-18 12:55 | D/C HH Face to Face Order ---
D/C Face to Face Orders Instructions for Patient Patient Instructions/FollowUp: Dr. Yazmin East Physician to follow Patient: Dr. Arce Discharge Diet for Home: Regular Diet Patient Data-Allergies,Ht & Wt Patient Allergies: Coded Allergies: No Known Drug Allergies (Unverified , 04/05/18) Height (Feet): 5 Height (Inches): 0.00 Weight (Pounds): 183 Weight (Ounces): 1.0 Home Health Need/Face to Face Date of Face to Face: Apr 20, 2018 Clinical Findings: Generalized weakness and fatigue, Muscle weakness I have seen Pt [id number]: Yes Discharged To: Home Diagnosis/Conditions: L TK Patient is Homebound due to: Muscle weakness Homebound Status Due to the above stated illness, injury or surgical procedure (medical condition or diagnosis) and associated clinical findings, the patient is homebound because of his/her inability to leave home except with aid of a supportive device and/or person AND leaving the home requires a considerable and taxing effort or is medically contraindicated. Pt req the following assistanc: Cane Home Health Nursing Orders Home Health Services Order: Physical Therapy-Evaluate & Treat Home Health Infusion Therapy Site Location: Antecubital Therapy Orders Therapy Orders: Physical Therapy Therapy Specific Orders: Eval assistive deivces, Teach enviro modifications/ safety, Gait training, Increase strength/endurance Certify Stmt I certify that this patient is under my care and that I, a nurse practitioner or a physician; a administrative support assistant working with me, had a face to face encounter that - meets the physician face to face encounter requirements with this patient as dated. I personally scribed for SYED ROSE MD ([facility]) on 04/18/18 at 12:55. Electronically submitted by Ana María Turk ([id number]). SYED ROSE MD Apr 18, 2018 12:55
--- NOTE | 2018-04-18 15:46 | Physical Therapy Daily Note ---
PT Daily Note-Current Subjective Pt laying Supine in bed upon arrival. Pt agrees to PT. Pt reports R knee more achy and feels that the weather is affecting her arthritis. Pain Numeric Pain Scale: 6 Location: Right Location Body Site: Knee Pain Description: Ache Mental Status Patient Orientation: Person, Place, Time, Situation Transfers Functional [place] Measure 0=Not Assessed/NA 4=Minimal Assistance 1=Total Assistance 5=Supervision or Setup 2=Maximal Assistance 6=Modified [place] 3=Moderate Assistance 7=Complete IndependenceIRFPAI Quality Coding Scale 6 Independent with activity with or without an assistive device 5 Patient requires set up or clean up by helper. Patient completes activity by themselves 4 Supervision or touching assist (CGA). [place] provide cues , steadying assist 3 The helper provides less than half the effort to complete the activity 2 The helper provides more than half the effort to complete the activity 1 Dependent. The helper does all the effort to complete an activity 7 Patient refused to complete or attempt activity 9 The patient did not perform the activity before the current illness or injury 88 Not attempted due to Medical conditions or safety concerns Scootin Rollin Roll Left to Right (QC): 6 Supine to/from Sit: 6 Sit to/from Stand: 6 Sit to Lying (QC): 6 Sit to Stand (QC): 6 Weight Bearing Right Lower Extremity: Right Weight Bearing/Tolerated Gait Training Does the Patient Walk?: Yes Distance (FIM): 3=150 ft Distance: 150' Walk 10 feet (QC): 5 Walk 50 ft with 2 Turns(QC): 5 Walk 150 ft (QC): 5 Gait Level of Assist: 5 Gait Persons Needed: 1 Gait Assistive Device: FWW Pt walks with slow reji & antalgic gait pattern. Wheelchair Training Does the Pt Use a Wheelchair?: No Exercises Seated Therapy Exercises: Ankle pumps, Long arc quads, Hip flexion, Kicking activity, Hip abd/add Seated Reps: 20 Treatments Pt transfers from Supine to EOB to Standing using FWW at Mod I. Pt ambulates in hallway to Therapy Gym using FWW at SBA. Pt completes Seated Ex then returns to room to rest at end of tx with all needs met, including call light next to pt. Assessment Current Status: Good Progress Pt is having more discomfort today due to arthritis. Pt declines stairs since it really hurt pt's knee this morning. PT Short Term Goals Short Term Goals Time Frame: Apr 22, 2018 Transfers (B,C,W/C) (FIM): 5 Gait (FIM): 5 Distance (FIM): 3=150 ft Gait Distance Comment: 250' Gait Level of Assist: 5 Gait Assistive Device: Cane Single Point PT Senior Care Goals Animal Pathology Teacher Goals PT Senior Care Goals Time Frame: May 06, 2018 Transfers (B,C,W/C) (FIM): 6 Sit to Lying (QC): 6 Lying-Sitting on Side/Bed(QC): 6 Sit to Stand (QC): 6 Rollin Roll Left to Right (QC): 6 Chair/Xzi-hb-Rpaoq Xfer(QC): 6 Car Transfer (QC): 6 Gait (FIM): 6 Distance: 300' Walk 10 feet (QC): 6 Walk 10ft-Uneven Surface(QC): 6 Walk 50ft with 2 Turns (QC): 6 Walk 150 ft (QC): 6 Gait Level of Assist: 6 Gait Assistive Device: FWW Stairs (FIM): 6 # of Steps: 12 1 Step (curb) (QC): 6 4 Steps (QC): 6 12 Steps (QC): 6 Stairs Level Of Assist: 6 PT Plan Problem List Problem List: Activity Tolerance, Functional Strength, ROM Treatment/Plan Treatment Plan: Continue Plan of Care Treatment Plan: Bed Mobility, Education, Functional Activity Stephen, Functional Strength, Group Therapy, Gait, Safety, Therapeutic Exercise, Transfers Treatment Duration: May 06, 2018 Frequency: At least 5 of 7 days/Wk (IRF) Estimated Hrs Per Day: 1.5 hours per day Patient and/or Family Agrees t: Yes Safety Risks/Education Patient Education: Gait Training, Transfer Techniques, Correct Positioning, Safety Issues Teaching Recipient: Patient Teaching Methods: Discussion Response to Teaching: Verbalize Understanding Time/GCodes Time In: 1300 Time Out: 1330 Total Billed Treatment Time: 30 Total Billed Treatment 1, EX (20m) & GT (10m) G Codes Necessary: KLAUDIA Thrasher ASSOCIATE SCHOOL PSYCHOLOGIST Apr 18, 2018 15:45
[2018-04-18 17:34] VITALS: BP 139/78
[2018-04-18] MEDS: FENOFIBRATE, MICRO 67 MG (LOFIBRA) CAPSULE PO SCH (20:01)
[2018-04-19 05:14] VITALS: BP 149/73
[2018-04-19] MEDS: oxyCODONE/APAP 5/325MG (PERCOCET 5) TABLET PO PRN ×2 (06:14→20:02)
[2018-04-19] MEDS: PANTOPRAZOLE 40 MG (PROTONIX) TAB PO SCH (06:15)
[2018-04-19] MEDS: MULTIVIT W/MINERALS TAB (THERAGRAN M) PO SCH (06:15)
--- NOTE | 2018-04-19 07:06 | Progress Note-Standard ---
Standard Progress Note Progress Notes/Assess & Plan Date Seen by Provider: Apr 19, 2018 Time Seen by Provider: 07:05 Progress/Assessment & Plan No complaints RLE--incision clean and dry. No calf tenderness. 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 No calf tenderness. Able to perform SLR s/p RTKA doing well DC tomorrow MARGARET JOY MD Apr 19, 2018 07:06
--- NOTE | 2018-04-19 08:27 | PM & R (SOAP) Progress Note ---
Subjective This was a face to face visit with the patient. Date Seen by Provider: Apr 19, 2018 Time Seen by Provider: 07:50 Subjective/Events-last exam Patient was seen in her room this AM Patient Modified Independent for transfers. Objective Physician Exam Last Set of Vital Signs Vital Signs Date Time Temp Pulse Resp B/P (MAP) Pulse Ox O2 Delivery O2 Flow Rate FiO2 04/19/18 05:14 97.7 73 20 149/73 (98) 100 Room Air Capillary Refill : Less Than 3 Seconds I&O Intake and Output 04/19/18 00:00 Intake Total 1100 ml Balance 1100 ml Intake Oral 1100 ml # Voids 7 # Bowel Movements 1 General: Alert, Oriented X3, Cooperative, No Acute Distress HEENT: Atraumatic, PERRLA, EOMI, Mucous Memb Moist/[place] Neck: Supple, No JVD Lungs: Clear to Auscultation Heart: Regular Rate Abdomen: Normal Bowel Sounds, Soft, No Tenderness Extremities: Other (Trace edema rt ankle) Skin: Other (Incision healing well) Neuro: Other (Limite AROM rt knee) Assessment/Plan Assessment and Plan Oa rt knee s/p TKR Postop constipation treated Anemia HLP Hx of tobaccoism Chronic back pain with multiple prior spinal surgeries Plan Continue PT/OT Discharge set for tomorrow to home Current meds reviewed Co-Morbidities that are continuing to impact the rehab process: (include details ) SYED ROSE MD Apr 19, 2018 08:27
[2018-04-19] MEDS: lisINopril 20 MG (PRINIVIL) TABLET PO SCH (08:28)
[2018-04-19] MEDS: ENOXAPARIN 30 MG/0.3 ML (LOVENOX) SYR SC SCH (08:28)
[2018-04-19] MEDS: LACTULOSE SYRUP 10GM/15ML (ENULOSE) 30ML UDC PO SCH ×2 (08:29→19:22)
[2018-04-19] MEDS: POLYETHYLENE GLYCOL 17 GM (MIRALAX) PACK PO SCH ×2 (08:29→19:22)
[2018-04-19] MEDS: ASPIRIN E.C. 81 MG (ECOTRIN) TAB PO SCH (08:29)
[2018-04-19] MEDS: SENNA W/DOCUSATE (SENOKOT S) TABLET PO SCH ×2 (08:29→20:02)
--- NOTE | 2018-04-19 09:15 | Physical Therapy Daily Note ---
PT Daily Note-Current Subjective Pt. agrees to Rx. States she is anxious to get home b/c she is worried about her son who is disabled and now staying with her daughter Pain Numeric Pain Scale: 4 Location: Right Location Body Site: Knee Pain Description: Pressure Mental Status Patient Orientation: Normal For Age Transfers Functional [place] Measure 0=Not Assessed/NA 4=Minimal Assistance 1=Total Assistance 5=Supervision or Setup 2=Maximal Assistance 6=Modified [place] 3=Moderate Assistance 7=Complete IndependenceIRFPAI Quality Coding Scale 6 Independent with activity with or without an assistive device 5 Patient requires set up or clean up by helper. Patient completes activity by themselves 4 Supervision or touching assist (CGA). [place] provide cues , steadying assist 3 The helper provides less than half the effort to complete the activity 2 The helper provides more than half the effort to complete the activity 1 Dependent. The helper does all the effort to complete an activity 7 Patient refused to complete or attempt activity 9 The patient did not perform the activity before the current illness or injury 88 Not attempted due to Medical conditions or safety concerns Transfers (B, C, W/C) (FIM): 6 Scootin Rollin Roll Left to Right (QC): 5 Supine to/from Sit: 6 Sit to/from Stand: 6 Sit to Lying (QC): 5 Sit to Stand (QC): 5 Chair/Eoh-wk-Ircqd Xfer(QC): 5 Bed to/from Chair: 6 Car Transfer (QC): 5 Weight Bearing Right Lower Extremity: Right Weight Bearing/Tolerated Gait Training Does the Patient Walk?: Yes Gait (FIM): 6 Distance (FIM): 3=150 ft (175x3) Walk 10 feet (QC): 5 Walk 50 ft with 2 Turns(QC): 5 Walk 150 ft (QC): 5 Walking 10ft/uneven surface-QC: 5 Gait Level of Assist: 6 Gait Persons Needed: 0 Gait Assistive Device: FWW uneven step length secondary to knee ext at 13degrees Stair Training Stair Training: Handrails/: 2 handrails Stairs (FIM): 5 #of Steps: 4 1 Step (curb) (QC): 5 4 Steps (QC): 5 Stairs: Pattern: Step to Level of Assist: 5 household exception Balance Special Test Comments unsafe to attempt bending Exercises Supine Ex: Ankle pumps, Quad Set, Rolling, Heel Slides, Short Arc Quads, Scooting, Straight leg raise, Hip abd/add Supine Reps: 20 Seated Therapy Exercises: Ankle pumps, Sit to stand, Long arc quads, Hip flexion Seated Reps: 15 NuStep Minutes: 10 NuStep Workload: 3 Treatments emphasis on knee extension but pt. c/o spasms when QS Assessment Current Status: Good Progress good progress PT Short Term Goals Short Term Goals Time Frame: Apr 22, 2018 Transfers (B,C,W/C) (FIM): 5 Gait (FIM): 5 Distance (FIM): 3=150 ft Gait Distance Comment: 250' Gait Level of Assist: 5 Gait Assistive Device: Cane Single Point PT Concession Manager Goals Concession Manager Goals PT Chcf Goals Time Frame: May 06, 2018 Transfers (B,C,W/C) (FIM): 6 Sit to Lying (QC): 6 Lying-Sitting on Side/Bed(QC): 6 Sit to Stand (QC): 6 Rollin Roll Left to Right (QC): 6 Chair/Jjf-jg-Paxee Xfer(QC): 6 Car Transfer (QC): 6 Gait (FIM): 6 Distance: 300' Walk 10 feet (QC): 6 Walk 10ft-Uneven Surface(QC): 6 Walk 50ft with 2 Turns (QC): 6 Walk 150 ft (QC): 6 Gait Level of Assist: 6 Gait Assistive Device: FWW Stairs (FIM): 6 # of Steps: 12 1 Step (curb) (QC): 6 4 Steps (QC): 6 12 Steps (QC): 6 Stairs Level Of Assist: 6 PT Plan Treatment/Plan Treatment Plan: Continue Plan of Care Treatment Plan: Bed Mobility, Education, Functional Activity Stephen, Functional Strength, Group Therapy, Gait, Safety, Therapeutic Exercise, Transfers Treatment Duration: May 06, 2018 Frequency: At least 5 of 7 days/Wk (IRF) Estimated Hrs Per Day: 1.5 hours per day Patient and/or Family Agrees t: Yes Safety Risks/Education Patient Education: Gait Training, Transfer Techniques, Steps, Correct Positioning, Disease Process, Safety Issues Teaching Recipient: Patient Teaching Methods: Demonstration, Discussion Response to Teaching: Verbalize Understanding, Return Demonstration, Reinforcement Needed Time/GCodes Time In: 815 Time Out: 915 Total Billed Treatment Time: 60 Total Billed Treatment 1,EX35m,FA15m,GT10m G Codes Necessary: ELIE Garsia YOUTH SPECIALIST Apr 19, 2018 09:15
--- NOTE | 2018-04-19 11:51 | Occupational Ther Daily Note ---
OT Current Status-Daily Note Subjective Pt sitting in chair, agrees to treatment. Pt reports 5/10 pain in right knee. Mental Status/Objective Functional [place] Measure 0=Not Assessed/NA 4=Minimal Assistance 1=Total Assistance 5=Supervision or Setup 2=Maximal Assistance 6=Modified [place] 3=Moderate Assistance 7=Complete [place] ADL-Treatment Pt agreeable to shower this morning. Sit to stand from chair with modified independence. Pt retrieved clothing from closet using FWW, no LOB noted. Gait to restroom with FWW. Transfer to toilet with modified independence using grab bar. Pt doffed clothing without assistance while seated on toilet. Pt transferred to shower with supervision using shower bench. Pt able to wash/dry all areas with SBA. Pt states she will be doing sponge baths only when she gets home. Don pullover shirt with modified independence. Pt used dressing stick to start Depends over right foot. Stood with good balance for pant hike. Pt able to don pants with modified independence. Pt used sock aid to don socks with modified independence. Donned slip on shoes without assistance. Pt states she has already completed grooming tasks this morning without assistance. Functional [place] Measure 0=Not Assessed/NA 4=Minimal Assistance 1=Total Assistance 5=Supervision or Setup 2=Maximal Assistance 6=Modified [place] 3=Moderate Assistance 7=Complete IndependenceIRFPAI Quality Coding Scale 6 Independent with activity with or without an assistive device 5 Patient requires set up or clean up by helper. Patient completes activity by themselves 4 Supervision or touching assist (CGA). [place] provide cues , steadying assist 3 The helper provides less than half the effort to complete the activity 2 The helper provides more than half the effort to complete the activity 1 Dependent. The helper does all the effort to complete an activity 7 Patient refused to complete or attempt activity 9 The patient did not perform the activity before the current illness or injury 88 Not attempted due to Medical conditions or safety concerns Eating (FIM): 6 (Pt reports feeding self, cutting food, and managing containers without assistance) Eating (QC): 6 Grooming (FIM): 6 Oral Hygiene (QC): 6 Bathing (FIM): 5 Shower/Bathe Self (QC): 5 Upper Body (FIM): 6 Upper Body Dressing (QC): 6 Lower Body Dressing (FIM): 6 Lower Body Dressing (QC): 6 On/Off Footwear (QC): 6 Toilet/Commode Transfer (FIM): 6 Toilet Transfer (QC): 6 Shower Transfer(FIM): 6 Other Treatment Gait to therapy gym with FWW, no LOB noted. Arm bike [id number] to increase overall strength and activity tolerance needed for ADLs and transfers. Pt performed task with moderate resistance and steady pace. No rest breaks needed. Pt returned to room, transferred sit to supine with modified independence using bed rail. Pt resting in bed with needs met after session. OT Short Term Goals Short Term Goals Transfers (B,C,W/C) (FIM): 5 1=Demonstrate adherence to instructed precautions during ADL tasks. 2=Patient will verbalize/demonstrate understanding of assistive devices/ modifications for ADL. 3=Patient will improve strength/tolerance for activity to enable patient to perform ADL's. OT Group Home Goals Beet Worker Goals Time Frame: Apr 29, 2018 Eating (FIM): 6 (met 04/19/18) Eating (QC): 6 (6-MET) Groomin (met 04/19/18) Oral Hygiene (QC): 6 (6-MET) Bathing(FIM): 5 (met 04/19/18) Shower/Bathe Self (QC): 5 (5-MET) Upper Body Dressing(FIM): 6 (met 04/19/18) Upper Body Dressing (QC): 6 (6-MET) Lower Body Dressing(FIM): 6 (met 04/19/18) Lower Body Dressing (QC): 6 (6-MET) On/Off Footwear (QC): 6 (6-MET) Toileting(FIM): 6 Toileting Hygiene (QC): 6 Transfers (B,C,W/C) (FIM): 6 Toilet/Commode Transfer(FIM): 6 (met 04/19/18) Toilet/Commode Transfer (QC): 6 (6-MET) Shower Transfer(FIM): 5 (met 04/19/18) Additional Goals: 1-Demonstrate ADL Tasks, 2-Verbalize Understanding, 3- ImproveStrength/Stephen 1=Demonstrate adherence to instructed precautions during ADL tasks. 2=Patient will verbalize/demonstrate understanding of assistive devices/ modifications for ADL. 3=Patient will improve strength/tolerance for activity to enable patient to perform ADL's. OT Education/Plan Discharge Recommendations Plan/Recommendations: Continue POC Treatment Plan/Plan of Care Patient would benefit from OT for education, treatment and training to promote independence in ADL's, mobility, safety and/or upper extremity function for ADL' s. Plan of Care: ADL Retraining, Functional Mobility, UE Funct Exercise/Act Treatment Duration: Apr 29, 2018 Frequency: At least 5 of 7 days/Wk (IRF) Estimated Hrs Per Day: 1.5 hours per day Agreement: Yes Rehab Potential: Good Time/GCodes Start Time: 09:00 Stop Time: 10:00 Total Time Billed (hr/min): 60 Billed Treatment Time 1 visit, ADLx3(45minutes), EX(15minutes) FLORENCIO HERNANDEZ OT Apr 19, 2018 11:51
[2018-04-19] MEDS ORDERED: SENN-20 PO (14:08)
[2018-04-19] MEDS ORDERED: Multivitamins/Minerals Therap PO (14:08)
[2018-04-19] MEDS ORDERED: OXYC-471 PO (14:08)
--- NOTE | 2018-04-19 14:55 | Therapy Group Daily Note ---
Therapy Daily Group Note Patient Education Topic Other List Below (wellness and nutrition) Exercises LE Seated Exercise, UE Exercise Other/Notes Pt. participated in group PT OT session . Pt. came and went with FWW SBA to Mod I. Pts. very much enjoyed the introduction and socialization portion of group and engaged conversation well; all pertinent to the education topics. Pts. participated in seated U&L extremity exercises. Game using hand paddles for question and answer options for wellness was played which started much conversation and sharing. Pt. required SB assist to room after as well as to bed . Call avendaño at hand Start Time: 13:00 Stop Time: 14:15 Total Billed Treatment Time: 75 Total Billed Treatment 1,GRP ELIE BARRIOS MANAGER ORACLE Apr 19, 2018 14:55
--- NOTE | 2018-04-19 17:32 | Progress Note-Standard ---
Standard Progress Note Progress Notes/Assess & Plan Date Seen by Provider: Apr 19, 2018 Time Seen by Provider: 07:00 Progress/Assessment & Plan No complaints RLE--incision clean and dry. No calf tenderness. 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
[2018-04-19 18:40] VITALS: BP 118/65
[2018-04-19] MEDS: FENOFIBRATE, MICRO 67 MG (LOFIBRA) CAPSULE PO SCH (20:02)
[2018-04-20 05:40] VITALS: BP 156/68
[2018-04-20] MEDS: MULTIVIT W/MINERALS TAB (THERAGRAN M) PO SCH (06:09)
[2018-04-20] MEDS: PANTOPRAZOLE 40 MG (PROTONIX) TAB PO SCH (06:09)
--- NOTE | 2018-04-20 07:13 | PM & R (SOAP) Progress Note ---
Subjective This was a face to face visit with the patient. Date Seen by Provider: Apr 20, 2018 Time Seen by Provider: 06:55 Subjective/Events-last exam Patient was seen in her room this AM [place] for discharge today Has progressed well Current meds reviewed Objective Physician Exam Last Set of Vital Signs Vital Signs Date Time Temp Pulse Resp B/P (MAP) Pulse Ox O2 Delivery O2 Flow Rate FiO2 04/20/18 05:40 97.4 80 18 156/68 (97) 96 Room Air Capillary Refill : Less Than 3 Seconds I&O Intake and Output 04/20/18 00:00 Intake Total 1260 ml Balance 1260 ml Intake Oral 1260 ml # Voids 7 General: Alert, Oriented X3, Cooperative, No Acute Distress HEENT: Atraumatic, PERRLA, EOMI, Mucous Memb Moist/[place] Neck: Supple, No JVD Lungs: Clear to Auscultation Heart: Regular Rate Abdomen: Normal Bowel Sounds, Soft, No Tenderness Extremities: Other (Trace edema rt ankle) Skin: Other (Incision healing well) Neuro: Other (Limite AROM rt knee) Assessment/Plan Assessment and Plan Home today with daughter and HHC F/U with PCP and Ortho See orders Co-Morbidities that are continuing to impact the rehab process: (include details ) SYED ROSE MD Apr 20, 2018 07:13
[2018-04-20] MEDS: ASPIRIN E.C. 81 MG (ECOTRIN) TAB PO SCH (08:22)
[2018-04-20] MEDS: lisINopril 20 MG (PRINIVIL) TABLET PO SCH (08:22)
[2018-04-20] MEDS: ENOXAPARIN 30 MG/0.3 ML (LOVENOX) SYR SC SCH (08:23)
[2018-04-20] MEDS: SENNA W/DOCUSATE (SENOKOT S) TABLET PO SCH (08:23)
[2018-04-20] MEDS: POLYETHYLENE GLYCOL 17 GM (MIRALAX) PACK PO SCH (08:23)
[2018-04-20] MEDS: LACTULOSE SYRUP 10GM/15ML (ENULOSE) 30ML UDC PO SCH (08:23)
[2018-04-20] MEDS: oxyCODONE/APAP 5/325MG (PERCOCET 5) TABLET PO PRN (10:47)
[2018-04-20 10:48] VITALS: BP 125/74
[2018-04-20 11:15] VITALS: BP 125/74
--- NOTE | 2018-04-22 13:54 | Therapy Team Discharge Summary ---
Therapy Discharge Summary Discharge Recommendations Date of Discharge Apr 20, 2018 at 11:15 Therapy D/C Recommendations: Home w/ Family Support Physical Therapy Patient came to rehab with a right TKA. Upon admission patient performed bed mobility with SBA, sit to stand and stand pivot transfers CGA, car transfer min assist, ambulated to/from gym w/ CGA w/ FWW (including 50' with at least 2 turns of 90 degrees and 10' over an uneven surface), and ascends/descends 12 stairs w/ CGA. Patient has been performing bed mobility and transfer training, balance and endurance training, functional strengthening, stair training, gait training, and education. Patient has made fair progress and has met all of her [facility]ent[facility] goals except for stairs. Now, patient performs bed mobility and transfers with mod I, car transfer mod I, ambulates 175' with a rolling walker with mod I (including 50' with at least 2 turns of 90 degrees and 10' over an uneven surface), and can go up and down 12 steps using 2 handrails with SBA. Patient has been discharged from this facility and will be discharged from PT at this time. Occupational Therapy Decreased Activ Tolerance PT Retirement Goals Retirement Goals PT Retirement Goals Time Frame: May 06, 2018 Transfers (B,C,W/C) (FIM): 6 Roll Left to Right (QC): 6 Sit to Lying (QC): 6 Lying-Sitting on Side/Bed(QC): 6 Sit to Stand (QC): 6 Chair/Ixs-nw-Dgiua Xfer(QC): 6 Car Transfer (QC): 6 Gait (FIM): 6 Distance: 300' Walk 10 feet (QC): 6 Walk 10ft-Uneven Surface(QC): 6 Walk 50ft with 2 Turns (QC): 6 Walk 150 ft (QC): 6 Gait Level of Assist: 6 Gait Assistive Device: FWW Stairs (FIM): 6 # of Steps: 12 1 Step (curb) (QC): 6 4 Steps (QC): 6 12 Steps (QC): 6 Stairs Level Of Assist: 6 OT Retirement Goals Health Coordinator Goals Time Frame: Apr 29, 2018 Eating (FIM): 6 (met 04/19/18) Eating (QC): 6 (6-MET) Oral Hygiene (QC): 6 (6-MET) Grooming(FIM): 6 (met 04/19/18) Bathing(FIM): 5 (met 04/19/18) Shower/Bathe Self (QC): 5 (5-MET) Upper Body Dressing(FIM): 6 (met 04/19/18) Upper Body Dressing (QC): 6 (6-MET) Lower Body Dressing(FIM): 6 (met 04/19/18) Lower Body Dressing (QC): 6 (6-MET) On/Off Footwear (QC): 6 (6-MET) Toileting(FIM): 6 Toileting Hygiene (QC): 6 Transfers (B,C,W/C) (FIM): 6 Toilet/Commode Transfer(FIM): 6 (met 04/19/18) Toilet/Commode Transfer (QC): 6 (6-MET) Shower Transfer(FIM): 5 (met 04/19/18) Additional Goals: 1-Demonstrate ADL Tasks, 2-Verbalize Understanding, 3- ImproveStrength/Stephen 1=Demonstrate adherence to instructed precautions during ADL tasks. 2=Patient will verbalize/demonstrate understanding of assistive devices/ modifications for ADL. 3=Patient will improve strength/tolerance for activity to enable patient to perform ADL's. Speech Health Coordinator Goals Retirement Goals skilled ST not indicated VAN REDDING PT Apr 22, 2018 13:54
--- NOTE | 2018-04-23 10:06 | Therapy Team Discharge Summary ---
Therapy Discharge Summary Discharge Recommendations Date of Discharge Apr 20, 2018 at 11:15 Therapy D/C Recommendations: Home w/ Family Support Occupational Therapy Pt. has been seen by occupational therapy to increase overall strength and independence. Pt. has met all goals. Pt. is able to complete all ADLs with Mod I. Pt. has discharged home with no needed equipment. Pt. will have daughters assistance as needed. Decreased Activ Tolerance PT Set Off Blocker Goals Set Off Blocker Goals PT Set Off Blocker Goals Time Frame: May 06, 2018 Transfers (B,C,W/C) (FIM): 6 Roll Left to Right (QC): 6 Sit to Lying (QC): 6 Lying-Sitting on Side/Bed(QC): 6 Sit to Stand (QC): 6 Chair/Odo-ao-Emtpc Xfer(QC): 6 Car Transfer (QC): 6 Gait (FIM): 6 Distance: 300' Walk 10 feet (QC): 6 Walk 10ft-Uneven Surface(QC): 6 Walk 50ft with 2 Turns (QC): 6 Walk 150 ft (QC): 6 Gait Level of Assist: 6 Gait Assistive Device: FWW Stairs (FIM): 6 # of Steps: 12 1 Step (curb) (QC): 6 4 Steps (QC): 6 12 Steps (QC): 6 Stairs Level Of Assist: 6 OT Snf Goals Set Off Blocker Goals Time Frame: Apr 29, 2018 Eating (FIM): 6 (met 04/19/18) Eating (QC): 6 (6-MET) Oral Hygiene (QC): 6 (6-MET) Grooming(FIM): 6 (met 04/19/18) Bathing(FIM): 5 (met 04/19/18) Shower/Bathe Self (QC): 5 (5-MET) Upper Body Dressing(FIM): 6 (met 04/19/18) Upper Body Dressing (QC): 6 (6-MET) Lower Body Dressing(FIM): 6 (met 04/19/18) Lower Body Dressing (QC): 6 (6-MET) On/Off Footwear (QC): 6 (6-MET) Toileting(FIM): 6 Toileting Hygiene (QC): 6 Transfers (B,C,W/C) (FIM): 6 Toilet/Commode Transfer(FIM): 6 (met 04/19/18) Toilet/Commode Transfer (QC): 6 (6-MET) Shower Transfer(FIM): 5 (met 04/19/18) Additional Goals: 1-Demonstrate ADL Tasks, 2-Verbalize Understanding, 3- ImproveStrength/Stephen 1=Demonstrate adherence to instructed precautions during ADL tasks. 2=Patient will verbalize/demonstrate understanding of assistive devices/ modifications for ADL. 3=Patient will improve strength/tolerance for activity to enable patient to perform ADL's. Speech Set Off Blocker Goals Set Off Blocker Goals skilled ST not indicated CAITLIN ARMAS OT Apr 23, 2018 10:05
--- NOTE | 2018-04-30 21:03 | DISCHARGE SUMMARY ---
DATE OF SERVICE:04-20-18 HISTORY OF PRESENT ILLNESS: The patient is an 88-year-old female who has been modified independent with a walker or cane, but developed progressive right knee pain. She had evaluation on an outpatient basis and was felt to be appropriate for right total knee replacement, which underwent on 04/10/2000 at [facility] with Dr. Arce. She was referred to inpatient rehabilitation unit postoperatively. PAST MEDICAL HISTORY: Back pain, anemia, fatigue, hyperglycemia, hyperlipidemia, hypertension, osteoarthritis, UTIs, history tobaccoism, hypercholesterolemia, neuropathy, GERD, chronic back pain, multiple prior spine surgeries, neck surgery in [place], cholecystectomy, carpal tunnel release, hysterectomy. MEDICAL COURSE: The patient was followed by Dr. Adkins while on rehab unit as well as Dr. Arce in hospitalist service. The patient's constipation was treated. Her incision was healing well. She was afebrile during her stay. Blood pressure on 04/20/2018 was 125/74, respirations 18, pulse 64, O2 sat 95% on room air. REHABILITATION COURSE: The patient progressed well with the therapy. She had increased strength and endurance, improved active and passive range of motion of the knee. She was assessed by speech therapy upon admission to rehab unit, found to be cognitively intact and they signed off. PT notes upon admission, the patient was standby assist with bed mobility, contact guard for transfers other than car transfers, which were min assist; was contact guard for ambulation with a front-wheel walker. Upon discharge, she has made good progress and is modified independent for bed mobility, transfers, car transfers and can ambulate 175 feet with a wheeled walker with modified independence. OT notes that she had been independent prior to all this, but having an antalgic gait. 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 Upon admission to rehab, the patient was modified independent for eating, min assist for bathing, setup for upper body dressing, mod assist for lower body dressing, min assist for transfers. Upon discharge, the patient is modified independent for grooming, dressing, toileting; standby assist for showering and bathing self. DISCHARGE INSTRUCTIONS: The patient is discharged to home with home health care. The patient will have followup with Dr. Tompkins and Yazmin as per their schedule. Continue current diet. DISCHARGE MEDICATIONS: Senokot-S 2 tablets p.o. b.i.d., therapeutic multivitamins 1 tablet p.o. daily, ASA 81 mg p.o. daily, fenofibrate 48 mg p.o. at bedtime, lisinopril 20 mg p.o. daily, oxycodone/APAP 5/325 1-2 tablets p.o. q.4 hours p.r.n. mild to moderate pain, Protonix 40 mg p.o. daily. DISCHARGE DIAGNOSES: 1. Rehabilitation osteoarthritis, right knee, status post right total knee replacement. 2. Hypertension, chronic renal insufficiency. 3. Hyperglyceridemia, hypercalcemia, constipation, hyperlipidemia, hypercholesterolemia, gastroesophageal reflux disease, anemia, chronic back pain, history of tobaccoism and hyperglycemia. CONDITION AT DISCHARGE: Improved and stable. PROGNOSIS: Rehab prognosis appears good for continued improvement at home, return to independent living. Job ID: [id number] DocumentID: [id number] Dictated Date: 04/30/2018 10:29:33 Bobbin Loose End Finder Date: 04/30/2018 21:02:56 Dictated By: SYED ADKINS MD MTDD
== END 2018-04-20 11:15 | disposition home health service (06) | DRG 561 ==
PROVIDERS: ADMIT Physical Medicine & Rehabilitation; ATTEND Physical Medicine & Rehabilitation
DX: Z47.1 Aftercare following joint replacement surgery (principal); Z96.651 Presence of right artificial knee joint; E11.9 Type 2 diabetes mellitus without complications; I12.9 Hypertensive chronic kidney disease with stage 1 through stage 4 chronic kidney disease, or unspecified chronic kidney disease; N18.9 Chronic kidney disease, unspecified; E78.1 Pure hyperglyceridemia; E83.52 Hypercalcemia; K59.00 Constipation, unspecified; E78.5 Hyperlipidemia, unspecified; E78.00 Pure hypercholesterolemia, unspecified; K21.9 Gastro-esophageal reflux disease without esophagitis; D64.9 Anemia, unspecified; M54.9 Dorsalgia, unspecified; Z87.891 Personal history of nicotine dependence

== ENCOUNTER → 2018-05-03 | Outpatient (CLI) | payer MEDICARE, BC ==
[~2018-05-03] MED LIST changes: +Multivitamins/Minerals Therap PO; +SENN-20 PO
[2018-05-03 17:55] LABS: BASOPHILS % (AUTO) 1 % (0-10); EOSINOPHILS # (AUTO) 0.2 10^3/uL (0.0-0.3); EOSINOPHILS % (AUTO) 3 % (0-10); HEMATOCRIT 40 % (35-52); LYMPHOCYTES # (AUTO) 1.8 X 10^3 (1.0-4.0); LYMPHOCYTES % (AUTO) 30 % (12-44); MEAN CORPUSCULAR HEMOGLOBIN 29 PG (25-34); MEAN CORPUSCULAR HGB CONC 33 G/DL (32-36); MEAN CORPUSCULAR VOLUME 89 FL (80-99); MEAN PLATELET VOLUME 10.6 FL (7.4-10.4); MONOCYTES # (AUTO) 0.6 X 10^3 (0.0-1.0); MONOCYTES % (AUTO) 10 % (0-12); NEUTROPHILS # (AUTO) 3.4 X 10^3 (1.8-7.8); NEUTROPHILS % (AUTO) 56 % (42-75); PLATELET COUNT 291 10^3/uL (130-400); RED BLOOD COUNT 4.45 10^6/uL (4.35-5.85); RED CELL DISTRIBUTION WIDTH 14.1 % (10.0-14.5)
--- NOTE | 2018-05-03 17:57 | Diagnostic Imaging Report ---
PROCEDURE: US right lower extremity venous. TECHNIQUE: Multiple real-time grayscale images were obtained over the right lower extremity in various projections. Additional duplex Doppler and color Doppler images were also obtained. INDICATION: Right lower extremity swelling and pain. FINDINGS: Femoropopliteal deep venous system in the right leg was widely patent. No deep or superficial thrombus. No fluid collection demonstrated. IMPRESSION: Normal negative unilateral right lower extremity venous Doppler and ultrasound exam. Dictated by: Dictated on workstation # [id number]
[2018-05-03 18:09] LABS: ALBUMIN 3.8 GM/DL (3.2-4.5); BILIRUBIN,TOTAL 0.4 MG/DL (0.1-1.0); CREATININE SERUM 1.36 MG/DL (0.60-1.30); POTASSIUM 4.2 MMOL/L (3.6-5.0); TOTAL PROTEIN 6.7 GM/DL (6.4-8.2)
== END ==
LOC: RAD 16:39
PROVIDERS: ATTEND Internal Medicine
DX: M79.89 Other specified soft tissue disorders (principal); R53.83 Other fatigue
CPT/HCPCS: 36415; 80053; 85025

== ENCOUNTER 2018-07-21 12:22 | Emergency (ER) | payer MEDICARE, BC ==
[~2018-07-21] VITALS: Ht 152.4 cm; Wt 78.5 kg
[2018-07-21 12:49] LABS: BASOPHILS # (AUTO) 0.1 10^3/uL (0.0-0.1); BASOPHILS % (AUTO) 1 % (0-10); EOSINOPHILS # (AUTO) 0.3 10^3/uL (0.0-0.3); EOSINOPHILS % (AUTO) 5 % (0-10); HEMATOCRIT 45 % (35-52); HEMOGLOBIN 14.7 G/DL (11.5-16.0); LYMPHOCYTES # (AUTO) 1.6 X 10^3 (1.0-4.0); LYMPHOCYTES % (AUTO) 24 % (12-44); MEAN CORPUSCULAR HEMOGLOBIN 28 PG (25-34); MEAN CORPUSCULAR HGB CONC 33 G/DL (32-36); MEAN CORPUSCULAR VOLUME 85 FL (80-99); MEAN PLATELET VOLUME 10.9 FL (7.4-10.4); MONOCYTES # (AUTO) 0.5 X 10^3 (0.0-1.0); MONOCYTES % (AUTO) 8 % (0-12); NEUTROPHILS # (AUTO) 4.2 X 10^3 (1.8-7.8); NEUTROPHILS % (AUTO) 62 % (42-75); PLATELET COUNT 286 10^3/uL (130-400); RED BLOOD COUNT 5.29 10^6/uL (4.35-5.85); RED CELL DISTRIBUTION WIDTH 13.9 % (10.0-14.5); WHITE BLOOD COUNT 6.8 10^3/uL (4.3-11.0)
[2018-07-21 13:07] LABS: ALBUMIN 3.8 GM/DL (3.2-4.5); BILIRUBIN,TOTAL 0.4 MG/DL (0.1-1.0); CALCIUM 9.9 MG/DL (8.5-10.1); CREATININE SERUM 1.28 MG/DL (0.60-1.30); POTASSIUM 3.7 MMOL/L (3.6-5.0); TOTAL PROTEIN 7.1 GM/DL (6.4-8.2)
[2018-07-21] MEDS ORDERED: NS IV 500 ML 500 ML IV SCH (14:00)
--- NOTE | 2018-07-21 15:02 | ED GI ---
General Chief Complaint: Abdominal/GI Problems Stated Complaint: STOMACH VIRUS X6 DAYS,WEAK, HASN'T EATEN Nursing Triage Note: PT PRESENTS TO ER WITH COMPLAINT OF ABD PAIN AND DIARRHEA. STATES SHE WAS DIAGNOSED WITH THE FLU ON SUNDAY. STATES SHE HAS HAD DIARRHEA SINCE. STATES "EVERYTHING GOES THROUGH HER". STATES SHE HAS BEEN ON A CLEAR LIQUID DIET SINCE SUNDAY. STATES SHE WAS SEEN AT [facility] AND PUT ON MEDICINE FOR THE DIARRHEA. Sepsis Screen: No Definite Risk Source of Information: Patient Exam Limitations: No Limitations History of Present Illness Date Seen by Provider: Jul 21, 2018 Time Seen by Provider: 12:43 Initial Comments Patient is an 88-year-old female who presents to the emergency room with complaints of left lower quadrant abdominal pain and diarrhea for one week. She reports that she's had diarrhea immediately after eating anything for the past week. She was seen and evaluated by [facility] 5 days ago and was prescribed Lomotil but has not had any relief. She has tried a clear liquid diet since then as well. Denies fevers or nausea and vomiting. Timing/Duration: 1 Week Severity/Quality: Cramping Location: LLQ Radiation: No Radiation Allergies and Home Medications Allergies Coded Allergies: No Known Drug Allergies (Unverified , 04/05/18) Home Medications Aspirin 81 Mg Tablet.dr, 81 MG PO DAILY, (Reported) Fenofibrate Nanocrystallized 48 Mg Tablet, 48 MG PO HS, (Reported) Lisinopril 20 Mg Tablet, 20 MG PO DAILY, (Reported) Oxycodone HCl/Acetaminophen 1 Each Tablet, 1-2 EACH PO Q4H PRN for PAIN-MILD TO MODERATE Prescribed by: SYED ROSE on 04/19/181407 Pantoprazole Sodium 40 Mg Tablet.dr, 40 MG PO DAILY, (Reported) Sennosides/Docusate Sodium 1 Each Tablet, 2 EA PO BID Prescribed by: SYED ROSE on 04/19/181407 Sulfamethoxazole/Trimethoprim 1 Each Tablet, 1 EACH PO BID Prescribed by: PENELOPE VORA on 07/21/18 1546 [Multivitamins/Minerals Therap] 1 EA TABLET, 1 EA PO DAILY@0700 Prescribed by: SYED ROSE on 04/19/18 140 Patient Home Medication List Home Medication List Reviewed: Yes Review of Systems Review of Systems Constitutional: no symptoms reported, see HPI Gastrointestinal: See HPI, Abdominal Pain, Diarrhea All Other Systems Reviewed Negative Unless Noted: Yes Past Cyqglhc-Ifilsf-Opiupr Hx Past Med/Social Hx: Reviewed Nursing Past Med/Soc Hx Patient Social History Alcohol Use: Denies Use Recreational Drug Use: No Smoking Status: Former Smoker Former Smoker, Quit: Apr 05, 1996 Recent Foreign Travel: No Contact w/Someone Who Travel: No Recent Infectious Disease Expo: No Recent Hopitalizations: No Immunizations Up To Date Tetanus Booster (TDap): Unknown PED Vaccines UTD: Yes Date of Pneumonia Vaccine: Apr 05, 2016 Seasonal Allergies Seasonal Allergies: Yes Past Medical History Surgeries: Yes (BACK X4, NECK SX, RIGHT TKR) Orthopedic Respiratory: No Cardiac: Yes High Cholesterol, Hypertension Neurological: No Neuropathy Genitourinary: No Bladder Infection Gastrointestinal: Yes Gastroesophageal Reflux Musculoskeletal: Yes Arthritis, Chronic Back Pain Endocrine: No HEENT: Yes (GLASSES, DENTURES) Cancer: No Psychosocial: No Integumentary: No Blood Disorders: No Family Medical History Reviewed Nursing Family Hx Arthritis 19 FATHER 19 MOTHER G8 BROTHER G8 SISTER Colon cancer 19 FATHER Diabetes Physical Exam Vital Signs Vital Signs - First Documented 07/21/18 12:40 Temp 97.8 Pulse 76 Resp 20 B/P (MAP) 176/88 (117) Pulse Ox 97 O2 Delivery Room Air Capillary Refill : Less Than 3 Seconds Height/Weight/BMI Height: 5'0" Weight: 173lbs. 1.0oz. 78.750156av; 35.8 BMI Method:Stated General Appearance: WD/WN, no apparent distress Respiratory: chest non-tender, lungs clear, normal breath sounds, no respiratory distress, no accessory muscle use Cardiovascular: normal peripheral pulses, regular rate, rhythm, no edema, no gallop, no JVD, no murmur Gastrointestinal: normal bowel sounds, soft, no organomegaly, no pulsatile mass , tenderness (LLQ tenderness ) Extremities: normal capillary refill Neurologic/Psychiatric: alert, normal mood/affect, oriented x 3 Skin: normal color, warm/dry Progress/Results/Core Measures Results/Orders Lab Results Laboratory Tests Test 07/21/18 12:40 07/21/18 15:05 Range/Units White Blood Count 6.8 4.3-11.0 10^3/uL Red Blood Count 5.29 4.35-5.85 10^6/uL Hemoglobin 14.7 11.5-16.0 G/DL Hematocrit 45 35-52 % Mean Corpuscular Volume 85 80-99 FL Mean Corpuscular Hemoglobin 28 25-34 PG Mean Corpuscular Hemoglobin Concent 33 32-36 G/DL Red Cell Distribution Width 13.9 10.0-14.5 % Platelet Count 286 130-400 10^3/uL Mean Platelet Volume 10.9 H 7.4-10.4 FL Neutrophils (%) (Auto) 62 42-75 % Lymphocytes (%) (Auto) 24 12-44 % Monocytes (%) (Auto) 8 0-12 % Eosinophils (%) (Auto) 5 0-10 % Basophils (%) (Auto) 1 0-10 % Neutrophils # (Auto) 4.2 1.8-7.8 X 10^3 Lymphocytes # (Auto) 1.6 1.0-4.0 X 10^3 Monocytes # (Auto) 0.5 0.0-1.0 X 10^3 Eosinophils # (Auto) 0.3 0.0-0.3 10^3/uL Basophils # (Auto) 0.1 0.0-0.1 10^3/uL Sodium Level 141 135-145 MMOL/L Potassium Level 3.7 3.6-5.0 MMOL/L Chloride Level 107 98-107 MMOL/L Carbon Dioxide Level 22 21-32 MMOL/L Anion Gap 12 5-14 MMOL/L Blood Urea Nitrogen 22 H 7-18 MG/DL Creatinine 1.28 0.60-1.30 MG/DL Estimat Glomerular Filtration Rate 40 BUN/Creatinine Ratio 17 Glucose Level 109 H 70-105 MG/DL Calcium Level 9.9 8.5-10.1 MG/DL Corrected Calcium 10.1 8.5-10.1 MG/DL Total Bilirubin 0.4 0.1-1.0 MG/DL Aspartate Amino Transf (AST/SGOT) 21 5-34 U/L Alanine Aminotransferase (ALT/SGPT) 14 0-55 U/L Alkaline Phosphatase 101 40-136 U/L Total Protein 7.1 6.4-8.2 GM/DL Albumin 3.8 3.2-4.5 GM/DL Amylase Level 63 25-125 U/L Lipase 52 8-78 U/L Urine Color YELLOW Urine Clarity CLEAR Urine pH 5 5-9 Urine Specific [place] 1.025 H 1.016-1.022 Urine Protein 1+ H NEGATIVE Urine Glucose (UA) NEGATIVE NEGATIVE Urine Ketones NEGATIVE NEGATIVE Urine Nitrite POSITIVE H NEGATIVE Urine Bilirubin NEGATIVE NEGATIVE Urine Urobilinogen NORMAL NORMAL MG/DL Urine Leukocyte Esterase 3+ H NEGATIVE Urine RBC (Auto) NEGATIVE NEGATIVE Urine RBC NONE /HPF Urine WBC 5-10 H /HPF Urine Squamous Epithelial Cells 5-10 /HPF Urine Crystals NONE /LPF Urine Bacteria LARGE H /HPF Urine Casts PRESENT /LPF Urine Hyaline Casts 0-2 H /LPF Urine Mucus NEGATIVE /LPF Urine Culture Indicated YES Micro Results Microbiology 07/21/18 Urine Culture - Final, Complete Gram Pos Mixed Bacterial Ana Escherichia coli My Orders Orders - PENELOPE VORA Comprehensive Metabolic Panel (07/21/18 12:42) Lipase (07/21/18 12:42) Amylase (07/21/18 12:42) Ua Culture If Indicated (07/21/18 12:42) Saline Lock/Iv-Start (07/21/18 12:42) Cbc With Automated Diff (07/21/18 12:42) Ct Abdomen/Pelvis Wo (07/21/18 13:53) Ns Iv 500 Ml (Sodium Chloride 0.9%) (07/21/18 14:00) Urine Culture (07/21/18 15:05) Vital Signs/I&O 07/21/18 07/21/18 12:40 16:17 Temp 97.8 97.8 Pulse 76 76 Resp 20 20 B/P (MAP) 176/88 (117) 144/85 (104) Pulse Ox 97 97 O2 Delivery Room Air Blood Pressure Mean: 117 Progress Progress Note : Time: 15:45 Progress Note I have seen and evaluated the the patient. I have informed her of her laboratory findings and imaging studies. She agrees with plans to treat the UTI with antibiotics. Agrees with plans for discharge and follow up. Return precautions were given. Diagnostic Imaging Diagonstic Imaging: CT Plain Films/CT/US/NM/MRI: abdomen, pelvis Comments NAME: KRAFTKRANTHI A MED REC#: [id number] PHYSICIAN: PENELOPE VORAP CC: PENELOPE VORA; CHAR SPARROW Page 1 of 1 RADIOLOGY REPORT [place]IA [place], [place] CC: PENELOPE VORA; CHAR SPARROW Page 1 of 1 RADIOLOGY REPORT NAME: KRANTHI KRAFT [facility] REC#: [id number] PT STATUS: REG ER : 1930 PHYSICIAN: PENELOPE VORA SAFETY ADMIN ASSISTANT ADMIT DATE: 07/21/18/ER Signed Date of Exam: 07/21/18 CT ABDOMEN/PELVIS WO PROCEDURE: CT abdomen and pelvis without contrast. TECHNIQUE: Multiple contiguous axial images were obtained through the abdomen and pelvis without the use of intravenous contrast. INDICATION: Lower abdominal pain. COMPARISON: None. FINDINGS: Lung bases are clear. There is a large hiatal hernia present. There is no obstruction. The gallbladder is surgically absent. Solid organs, vascular structures and small bowel are unremarkable. Moderate diverticulosis of the descending and sigmoid colon are present without overt diverticulitis. There is no free air or free fluid. The uterus is surgically absent. Distal ureters and urinary bladder are normal. There is no hernia. Osseous structures are age-appropriate. IMPRESSION: 1. Large hilar hernia. 2. Diverticulosis of the descending and sigmoid colon without acute diverticulitis. Dictated by: Dictated on workstation # [id number] Dict: 07/21/18 1434 Trans: 07/21/18 1504 Interpreted by: CHAR SPARROW Electronically signed by: CHAR SPARROW 07/21/18 1504 Reviewed: Reviewed by Me Departure Impression Primary Impression: Diarrhea Additional Impression: Urinary tract infection Disposition: 01 HOME, SELF-CARE Condition: Stable/Unchanged Departure-Patient Inst. Decision time for Depature: 15:45 Referrals: LAURYN BENTON DO (PCP/Family) Primary Care Physician Patient Instructions: Diarrhea in Adolescents and Adults, Urinary Tract Infection, Adult (DC) Add. Discharge Instructions: Continue to use the Lomotil as previously prescribed. Take the antibiotics as directed. Drink plenty of clear liquids to stay hydrated and to flush out the kidneys. Follow-up with her primary care provider within 1 week for recheck. Return back to the emergency room for any worsening symptoms or concerns as needed. All discharge instructions reviewed with patient and/or family. Voiced understanding. Scripts Sulfamethoxazole/Trimethoprim (Bactrim Ds Tablet) 1 Each Tablet 1 EACH PO BID for 7 Days, #14 TAB Prov: PENELOPE VORA 07/21/18 PENELOPE VORA Jul 21, 2018 15:02
[2018-07-21 15:18] LABS: BILIRUBIN,URINE NEGATIVE (NEGATIVE); CLARITY,URINE CLEAR; COLOR,URINE YELLOW; GLUCOSE, URINE (UA) NEGATIVE (NEGATIVE); KETONES,URINE NEGATIVE (NEGATIVE); LEUKOCYTE ESTERASE ,URINE 3+ (NEGATIVE); NITRITE,URINE POSITIVE (NEGATIVE); PH,URINE 5 (5-9); PROTEIN,URINE 1+ (NEGATIVE); UROBILINOGEN,URINE NORMAL (NORMAL)
[2018-07-21 15:32] LABS: BACTERIA,URINE LARGE /HPF
[2018-07-21 15:33] LABS: HYALINE CASTS, URINE 0-2 /LPF
[2018-07-21] MEDS ORDERED: SULF1TAB35 PO (15:46)
[2018-07-21 16:17] VITALS: BP 144/85
== END 2018-07-21 16:17 | disposition home or self-care (01) ==
LOC: ER 12:22 → EDUNIT# 12:22 → ER 16:17
DX: N39.0 Urinary tract infection, site not specified (principal); R19.7 Diarrhea, unspecified; E78.00 Pure hypercholesterolemia, unspecified; I10 Essential (primary) hypertension; K21.9 Gastro-esophageal reflux disease without esophagitis; Z80.0 Family history of malignant neoplasm of digestive organs; Z87.448 Personal history of other diseases of urinary system; Z79.82 Long term (current) use of aspirin; Z87.891 Personal history of nicotine dependence
CPT/HCPCS: 36415; 74176; 80053; 81000; 82150; 83690; 85025; 87077; 87088; 87186

== ENCOUNTER → 2018-11-02 | Outpatient (CLI) | payer MEDICARE, BC ==
[~2018-11-02] MED LIST changes: +SULF1TAB35 PO
[2018-11-02 11:54] LABS: CALCIUM 9.9 MG/DL (8.5-10.1); CREATININE SERUM 1.26 MG/DL (0.60-1.30); POTASSIUM 4.7 MMOL/L (3.6-5.0)
== END ==
LOC: LAB 11:13
PROVIDERS: ATTEND Internal Medicine
DX: N18.3 Chronic kidney disease, stage 3 (moderate) (principal)
CPT/HCPCS: 36415; 80048

== ENCOUNTER 2019-01-06 11:34 | Emergency (ER) | payer MEDICARE, BC ==
[~2019-01-06] VITALS: Ht 152.4 cm; Wt 77.1 kg
--- NOTE | 2019-01-06 11:36 | NUR ---
pt here by rescue from home. ems tx includes routine transfer.dr in room same time. pt been c/o ongoing back pain thats been getting worse. pain radiates down right leg. home medicines not helping. pain rating 10. pt denies recent fall or injury. denies chest and abd pain. c/o nausea w/o v/d. denies dyspnea and no acute sghns of dyspnea noted. lungs cta bilaterally. abd soft but ? distended. neg pain with palpation and neg pulsating massess noted. positive pulses both feet. n cant assess leg shortening. and foot rotation pt has right leg bent for comfort.
--- NOTE | 2019-01-06 11:51 | ED Back Pain ---
General Stated Complaint: BACK PAIN Source of Information: Patient Exam Limitations: No Limitations History of Present Illness Date Seen by Provider: January 06, 2019 Time Seen by Provider: 11:50 Initial Comments To ER per EMS from home with reports of exacerbation of chronic back pain. She's had a few back surgeries, for the past few weeks she's had progressive worsening of the low back pain. This radiates all the way down the right leg to the right great toe. She has some chronic incontinence for which she has to wear a pad, nothing new or different. She denies any loss of sensation of her genitals. Location: Lumbar Spine Severity: Moderate Pain/Injury Location: Back Associated Symptoms: No fever; lower back pain; No loss of bowel control Allergies and Home Medications Allergies Coded Allergies: No Known Drug Allergies (Unverified , 04/05/18) Home Medications Aspirin 81 Mg Tablet.dr, 81 MG PO DAILY, (Reported) Fenofibrate Nanocrystallized 48 Mg Tablet, 48 MG PO HS, (Reported) Lisinopril 20 Mg Tablet, 20 MG PO DAILY, (Reported) Oxycodone HCl/Acetaminophen 1 Each Tablet, 1-2 EACH PO Q4H PRN for PAIN-MILD TO MODERATE Prescribed by: SYED ROSE on 04/19/18 1408 Pantoprazole Sodium 40 Mg Tablet.dr, 40 MG PO DAILY, (Reported) Sennosides/Docusate Sodium 1 Each Tablet, 2 EA PO BID Prescribed by: SYED ROSE on 04/19/18 1408 Sulfamethoxazole/Trimethoprim 1 Each Tablet, 1 EACH PO BID Prescribed by: PENELOPE VORA on 07/21/18 1546 [Multivitamins/Minerals Therap] 1 EA TABLET, 1 EA PO DAILY@0700 Prescribed by: SYED ROSE on 04/19/18 1408 Patient Home Medication List Home Medication List Reviewed: Yes Review of Systems Constitutional: see HPI; No chills, No fever EENTM: see HPI Respiratory: no symptoms reported Cardiovascular: no symptoms reported Genitourinary: no symptoms reported Musculoskeletal: see HPI, back pain Skin: no symptoms reported Psychiatric/Neurological: No Symptoms Reported Past Gvbzexq-Sirkkv-Utepst Hx Patient Social History Former Smoker, Quit: Apr 05, 1996 Recent Hopitalizations: No Immunizations Up To Date Tetanus Booster (TDap): Unknown PED Vaccines UTD: Yes Date of Pneumonia Vaccine: Apr 05, 2016 Seasonal Allergies Seasonal Allergies: Yes Past Medical History Surgeries: Yes (BACK X4, NECK SX, RIGHT TKR) Orthopedic Respiratory: No Cardiac: Yes High Cholesterol, Hypertension Neurological: No Neuropathy Genitourinary: No Bladder Infection Gastrointestinal: Yes Gastroesophageal Reflux Musculoskeletal: Yes Arthritis, Chronic Back Pain Endocrine: No HEENT: Yes (GLASSES, DENTURES) Cancer: No Psychosocial: No Integumentary: No Blood Disorders: No Family Medical History Arthritis 19 FATHER 19 MOTHER G8 BROTHER G8 SISTER Colon cancer 19 FATHER Diabetes Physical Exam Vital Signs Vital Signs - First Documented 01/06/19 11:52 Temp 97.6 Pulse 88 Resp 20 B/P (MAP) 136/100 (112) Pulse Ox 98 O2 Delivery Room Air Capillary Refill : Height, Weight, BMI Height: 5'0" Weight: 173lbs. 1.0oz. 78.479410mn; 35.8 BMI Method:Stated General Appearance: No Apparent Distress, WD/WN HEENT: PERRL/EOMI, TMs Normal Respiratory: No Accessory Muscle Use, No Respiratory Distress Gastrointestinal: Non Tender, Soft Neurologic/Psychiatric: Alert, Oriented x3 Skin: Normal Color, Warm/Dry Progress/Results/Core Measures Results/Orders Lab Results Laboratory Tests Test 01/06/19 11:50 01/06/19 12:29 Range/Units White Blood Count 6.1 4.3-11.0 10^3/uL Red Blood Count 5.50 4.35-5.85 10^6/uL Hemoglobin 15.6 11.5-16.0 G/DL Hematocrit 47 35-52 % Mean Corpuscular Volume 86 80-99 FL Mean Corpuscular Hemoglobin 28 25-34 PG Mean Corpuscular Hemoglobin Concent 33 32-36 G/DL Red Cell Distribution Width 14.3 10.0-14.5 % Platelet Count 211 130-400 10^3/uL Mean Platelet Volume 11.9 H 7.4-10.4 FL Neutrophils (%) (Auto) 55 42-75 % Lymphocytes (%) (Auto) 34 12-44 % Monocytes (%) (Auto) 8 0-12 % Eosinophils (%) (Auto) 3 0-10 % Basophils (%) (Auto) 1 0-10 % Neutrophils # (Auto) 3.3 1.8-7.8 X 10^3 Lymphocytes # (Auto) 2.1 1.0-4.0 X 10^3 Monocytes # (Auto) 0.5 0.0-1.0 X 10^3 Eosinophils # (Auto) 0.2 0.0-0.3 10^3/uL Basophils # (Auto) 0.1 0.0-0.1 10^3/uL Sodium Level 140 135-145 MMOL/L Potassium Level 4.9 3.6-5.0 MMOL/L Chloride Level 109 H 98-107 MMOL/L Carbon Dioxide Level 19 L 21-32 MMOL/L Anion Gap 12 5-14 MMOL/L Blood Urea Nitrogen 29 H 7-18 MG/DL Creatinine 1.17 0.60-1.30 MG/DL Estimat Glomerular Filtration Rate 44 BUN/Creatinine Ratio 25 Glucose Level 81 70-105 MG/DL Calcium Level 9.5 8.5-10.1 MG/DL My Orders Orders - GENNARO GUTIERREZ APRN Ed Iv/Invasive Line Start (01/06/19 11:42) Ed Iv/Invasive Line Start (01/06/19 11:47) Fentanyl Injection (Sublimaze Injection (01/06/19 12:00) Ct Lumbar Spine Wo (01/06/19 11:54) Ua Culture If Indicated (01/06/19 11:54) Cbc With Automated Diff (01/06/19 11:54) Basic Metabolic Panel (01/06/19 11:54) Ondansetron Injection (Zofran Injectio (01/06/19 12:00) Ketamine Injection (Ketalar Injection) (01/06/19 12:00) Ketamine/Nacl Syringe (Ketamine/Nacl Syr (01/06/19 12:48) Ns (Ivpb) (Sodium Chloride 0.9% Ivpb Bag (01/06/19 12:48) Medications Given in ED Current Medications Medications Dose Ordered Sig/Emely Route Start Time Stop Time Status Last Admin Dose Admin Fentanyl Citrate 50 mcg ONCE ONCE IVP 01/06/19 12:00 01/06/19 12:01 DC 01/06/19 12:07 50 MCG Ketamine HCl 50 mg STK-MED ONCE .ROUTE 01/06/19 12:48 01/06/19 12:52 DC 01/06/19 13:01 10 MG Ondansetron HCl 4 mg ONCE ONCE IVP 01/06/19 12:00 01/06/19 12:01 DC 01/06/19 12:10 4 MG Sodium Chloride 100 ml @ ud STK-MED ONCE .ROUTE 01/06/19 12:48 01/06/19 12:53 DC 01/06/19 13:02 200 MLS/HR Vital Signs/I&O 01/06/19 01/06/19 01/06/19 01/06/19 11:52 12:07 13:01 13:02 Temp 97.6 97.6 97.6 97.6 Pulse 88 Resp 20 B/P (MAP) 136/100 (112) Pulse Ox 98 O2 Delivery Room Air Diagnostic Imaging Diagonstic Imaging: CT Comments NAME: KRANTHI KRAFT [facility] REC#: [id number] PT STATUS: REG ER : 1930 PHYSICIAN: GENNARO GUTIERREZ APRN ADMIT DATE: 01/06/19/ER Draft Date of Exam:01/06/19 CT LUMBAR SPINE WO PROCEDURE: CT lumbar spine without contrast. TECHNIQUE: Multiple contiguous axial images were obtained through the lumbar spine without the use of intravenous contrast. Sagittal and coronal reformations were then performed. Auto Exposure Controls were utilized during the CT exam to meet ALARA standards for radiation dose reduction. INDICATION: Back pain radiating into right lower extremity. COMPARISON: None. FINDINGS: There are 5 lumbar type vertebral bodies. Grade 1 retrolisthesis of L1 on L2 and anterolisthesis of L4 and L5. Vertebral body heights preserved. Acute fractures. Moderate to advanced diffuse degenerative endplate changes and facet arthropathy. L5 laminectomy. Spondylotic changes appear to result in at least moderate spinal canal narrowing throughout the lumbar spine. This could be better evaluated with CT myelogram or MRI. Disc space height loss and facet arthropathy also results in moderate to advanced neural foraminal narrowing on the right at L1-L2, L2-L3 and bilaterally at L4-L5. Partially visualized large esophageal hiatal hernia. Moderate atherosclerotic calcifications. Colonic diverticulosis. IMPRESSION: 1. Moderate to advanced spondylotic changes appear to result in high-grade spinal canal narrowing at every level of the lumbar spine despite laminectomy at the L5 level. This could be better evaluated with CT myelogram or MRI. 2. Scattered moderate to advanced neural foraminal narrowing described above. 3. No acute osseous findings. Dictated on workstation # [id number] Dict: 01/06/19 1316 Trans: 01/06/19 1321 CV [id number] Interpreted by: ELIF PASCUAL MD Electronically signed by: Departure Communication (Admissions) 1327-Feeling much better after ketamine, just over 0.1mg/kg mixed in 100ml saline and infused over 10 minutes. Impression Primary Impression: Acute exacerbation of chronic low back pain Disposition: HOME, SELF-CARE Condition: Improved Departure-Patient Inst. Decision time for Depature: 13:28 Referrals: LAURYN BENTON DO (PCP/Family) Primary Care Physician Patient Instructions: Low Back Pain (DC), MANAGING YOUR CHRONIC PAIN Add. Discharge Instructions: 1. return to er for any concerns 2. Continue current medications 3. Call your spine surgeon for follow up this week Copy Copies To 1: LAURYN BENTON PETER J APRN January 06, 2019 11:51
[2019-01-06] MEDS ORDERED: ONDANSETRON 4 MG/2 ML (SDV) Z0FRAN IVP ONE (12:00)
[2019-01-06] MEDS ORDERED: KETAMINE HCL 100 MG/ML 5 ML VIAL IV ONE (12:00)
[2019-01-06] MEDS ORDERED: fentaNYL INJECTION 100 MCG/2 ML AMP IVP ONE (12:00)
--- NOTE | 2019-01-06 12:05 | NUR ---
family here now
[2019-01-06 12:08] LABS: BASOPHILS # (AUTO) 0.1 10^3/uL (0.0-0.1); BASOPHILS % (AUTO) 1 % (0-10); EOSINOPHILS # (AUTO) 0.2 10^3/uL (0.0-0.3); EOSINOPHILS % (AUTO) 3 % (0-10); HEMATOCRIT 47 % (35-52); HEMOGLOBIN 15.6 G/DL (11.5-16.0); LYMPHOCYTES # (AUTO) 2.1 X 10^3 (1.0-4.0); LYMPHOCYTES % (AUTO) 34 % (12-44); MEAN CORPUSCULAR HEMOGLOBIN 28 PG (25-34); MEAN CORPUSCULAR HGB CONC 33 G/DL (32-36); MEAN CORPUSCULAR VOLUME 86 FL (80-99); MEAN PLATELET VOLUME 11.9 FL (7.4-10.4); MONOCYTES # (AUTO) 0.5 X 10^3 (0.0-1.0); MONOCYTES % (AUTO) 8 % (0-12); NEUTROPHILS # (AUTO) 3.3 X 10^3 (1.8-7.8); NEUTROPHILS % (AUTO) 55 % (42-75); PLATELET COUNT 211 10^3/uL (130-400); RED CELL DISTRIBUTION WIDTH 14.3 % (10.0-14.5); WHITE BLOOD COUNT 6.1 10^3/uL (4.3-11.0)
[2019-01-06] MEDS ORDERED: KETAMINE/NaCl 50 MG/5 ML SYRINGE ONE (12:48)
[2019-01-06] MEDS ORDERED: NS (IVPB) 100 ML ONE (12:48)
--- NOTE | 2019-01-06 13:01 | NUR ---
pt cant ua yet
[2019-01-06 13:06] LABS: CALCIUM 9.5 MG/DL (8.5-10.1); CREATININE SERUM 1.17 MG/DL (0.60-1.30); POTASSIUM 4.9 MMOL/L (3.6-5.0)
--- NOTE | 2019-01-06 13:21 | Diagnostic Imaging Report ---
PROCEDURE: CT lumbar spine without contrast. TECHNIQUE: Multiple contiguous axial images were obtained through the lumbar spine without the use of intravenous contrast. Sagittal and coronal reformations were then performed. Auto Exposure Controls were utilized during the CT exam to meet ALARA standards for radiation dose reduction. INDICATION: Back pain radiating into right lower extremity. COMPARISON: None. FINDINGS: There are 5 lumbar type vertebral bodies. Grade 1 retrolisthesis of L1 on L2 and anterolisthesis of L4 and L5. Vertebral body heights preserved. Acute fractures. Moderate to advanced diffuse degenerative endplate changes and facet arthropathy. L5 laminectomy. Spondylotic changes appear to result in at least moderate spinal canal narrowing throughout the lumbar spine. This could be better evaluated with CT myelogram or MRI. Disc space height loss and facet arthropathy also results in moderate to advanced neural foraminal narrowing on the right at L1-L2, L2-L3 and bilaterally at L4-L5. Partially visualized large esophageal hiatal hernia. Moderate atherosclerotic calcifications. Colonic diverticulosis. IMPRESSION: 1. Moderate to advanced spondylotic changes appear to result in high-grade spinal canal narrowing at every level of the lumbar spine despite laminectomy at the L5 level. This could be better evaluated with CT myelogram or MRI. 2. Scattered moderate to advanced neural foraminal narrowing described above. 3. No acute osseous findings. Dictated by: Dictated on workstation # [id number]
--- NOTE | 2019-01-06 13:28 | NUR ---
pt remains alert gcs 15. no family in room currrently. pt relates less pain. pain rating 5. no acute sighns of dyspnea noted. ketamine drip almost completed.
[2019-01-06 13:30] VITALS: BP 151/94
[2019-01-06] MEDS ORDERED: BACLOFEN 10 MG (LIORESAL) TAB PO SCH (14:30)
[2019-01-06] MEDS ORDERED: methylPREDNISolone 40 MG/ML (Solu-MEDROL) VIAL IV ONE (14:30)
[2019-01-06 14:40] LABS: BILIRUBIN,URINE NEGATIVE (NEGATIVE); CLARITY,URINE CLEAR; COLOR,URINE YELLOW; GLUCOSE, URINE (UA) NEGATIVE (NEGATIVE); KETONES,URINE NEGATIVE (NEGATIVE); LEUKOCYTE ESTERASE ,URINE 1+ (NEGATIVE); NITRITE,URINE POSITIVE (NEGATIVE); PH,URINE 6 (5-9); PROTEIN,URINE NEGATIVE (NEGATIVE); UROBILINOGEN,URINE NORMAL (NORMAL)
[2019-01-06 14:48] LABS: WBC,URINE 0-2 /HPF
[2019-01-06 14:49] LABS: BACTERIA,URINE LARGE /HPF; SQUAMOUS EPITHELIAL CELL,UR 0-2 /HPF
[2019-01-06 15:06] VITALS: BP 177/67
[2019-01-06] MEDS ORDERED: AMLO5TAB9 PO (16:40)
[2019-01-06] MEDS ORDERED: OXYC-188 PO (16:43)
== END 2019-01-06 15:11 | disposition home or self-care (01) ==
LOC: EDUNIT# 11:34 → ER 11:34
DX: M54.5 Low back pain (principal); G89.29 Other chronic pain; E78.00 Pure hypercholesterolemia, unspecified; I10 Essential (primary) hypertension; G62.9 Polyneuropathy, unspecified; K21.9 Gastro-esophageal reflux disease without esophagitis; Z87.448 Personal history of other diseases of urinary system; Z98.890 Other specified postprocedural states; Z79.82 Long term (current) use of aspirin; Z80.0 Family history of malignant neoplasm of digestive organs
CPT/HCPCS: 36415; 72131; 80048; 81000; 85025; 87077; 87088; 87184; 87186

== ENCOUNTER 2019-01-06 15:20 | Inpatient (IN) | payer MEDICARE, BC | END 2019-01-14 11:13 | disposition home or self-care (01) ==

== ENCOUNTER → 2019-02-06 | Outpatient (CLI) | payer MEDICARE, BC ==
[~2019-02-06] MED LIST changes: +ACHD5005 PO; +AMLO5TAB9 PO; +NITR100C10 PO; +OXYC-188 PO; +OXYC1TAB87 PO
--- NOTE | 2019-02-06 16:11 | Diagnostic Imaging Report ---
PROCEDURE: MRI lumbar spine. TECHNIQUE: Multiplanar, multisequence MRI of the lumbar spine was performed without contrast. INDICATION: Low back pain and multiple prior lumbar spine surgeries. COMPARISON: No prior MRI studies are available for comparison. FINDINGS: There is left convexity lumbar scoliotic curvature. Lordotic curvature is unremarkable. There is minimal retrolisthesis of L1 on L2 with mild anterolisthesis of L4 on L5. Vertebral body heights are maintained. No acute compression fracture is seen. No geographic marrow lesion is identified. Significant degenerative disc disease is identified at all levels. There is variable disc space narrowing and desiccation as well as marginal osteophyte formation. The conus appears unremarkable at the L1-2 level. T11-12: There is a left paracentral disc/osteophyte complex indenting the ventral thecal sac and narrowing the left lateral recess. There is moderate bilateral neural foraminal stenosis as well. Central canal is maintained. T12-L1: Central canal is widely patent. Neural foramina are patent. L1-2: Broad-based disc/osteophyte complex with ligamentous thickening and facet changes are noted. There is trefoil configuration of the thecal sac. There is significant bilateral lateral recess narrowing. There is significant right and moderate left neural foraminal stenosis. L2-3: Broad-based disc/osteophyte complex with ligamentous thickening and facet changes are noted resulting in moderate trefoil narrowing of the canal. There is significant narrowing of the bilateral lateral recesses. Significant bilateral neural foraminal stenosis is seen. L3-4: There is some ligamentous thickening and facet changes with broad-based disc/osteophyte complex. However, no significant central canal narrowing is seen. Neural foramina are patent. L4-5: Postsurgical changes of partial osseous fusion posteriorly is seen. There is broad-based disc/osteophyte complex resulting in significant left and moderate right neural foraminal stenosis. Central canal is patent. Lateral recesses are significantly narrowed. L5-S1: Hypertrophic facet changes are noted. Central canal is patent. Neural foramina are patent. Paraspinous tissues are unremarkable. 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 No acute compression fracture is detected. Dictated by: Dictated on workstation # [id number]
== END ==
LOC: RAD 15:01
PROVIDERS: ATTEND Physician Assistant
DX: M48.061 Spinal stenosis, lumbar region without neurogenic claudication (principal); M47.816 Spondylosis without myelopathy or radiculopathy, lumbar region; M41.86 Other forms of scoliosis, lumbar region; M43.16 Spondylolisthesis, lumbar region; M51.36 Other intervertebral disc degeneration, lumbar region; M47.814 Spondylosis without myelopathy or radiculopathy, thoracic region; Z98.1 Arthrodesis status
CPT/HCPCS: 72148

== ENCOUNTER 2019-07-24 12:53 | Inpatient (IN) | payer MEDICARE, BC ==
[~2019-07-24] VITALS: Ht 152.4 cm; Wt 83.1 kg
[~2019-07-24 12:53] MED LIST changes: +FENO48TA17 PO; -FENO48TA5 PO
[2019-07-24] MEDS ORDERED: NS IV 500 ML 500 ML IV ONE ×2 (15:18→17:03)
--- NOTE | 2019-07-24 15:22 | ED Abdominal Pain ---
General Chief Complaint: Abdominal/GI Problems Stated Complaint: FEVER,DIARRHEA Nursing Triage Note: PT PRESENTS TO ED WITH COMPLAINTS OF COUGH/COLD X 3 WEEKS. REPORTS SHE WAS DIAGNOSED WITH A SINUS INFECTION ON 07/18/19 AND PRESCRIBED AUGMENTIN. PT REPORTS SHE HAS NOT HAD MUCH IMPROVEMENT AND NOW HAS DIAHRREA. PT REPORTS SHE HAS HAD ISSUES WITH INCONTINENCE OF BOWEL SINCE AND DESCRIBED IT EXCESSIVE AND WHITEISH YELLOW. Sepsis Screen: No Definite Risk Source of Information: Patient Exam Limitations: No Limitations (VJ CONTRERAS,SUNITA STUDENT) History of Present Illness Date Seen by Provider: Jul 24, 2019 Time Seen by Provider: 15:02 Initial Comments Pt presents with RLQ abdominal pain and diarrhea lasting approximately 10 days. Diarrhea/abdominal pain preceded by upper respiratory illness beginning 3 weeks ago consisting of productive cough and runny nose that led pt to present to urgent care on Sunday, who provided her with supportive care and no antibiotics. Characterized abdominal pain as crampy, dull and colicky and is associated with nausea and one episode of dry heaving last night. States she has had this pain before about a year ago and was diagnosed by CT with diverticulitis. Endorses fever, chills, malaise. Denies improvement of pain with bowel movements. 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 Timing/Duration: 1 Week, Getting Worse Severity/Quality: Severe, Aching, Cramping, Dull Location: RLQ Radiation: No Radiation Activities at Onset: None Associated Symptoms: Fever/Chills, Fatigue, Headache, Nausea/Vomiting (VJ CONTRERAS,MED STUDENT) Allergies and Home Medications Allergies Coded Allergies: No Known Drug Allergies (Unverified , 04/05/18) Home Medications Amlodipine Besylate 5 Mg Tablet, 5 MG PO DAILY Prescribed by: JOSE BO on 01/06/19 1640 Aspirin 81 Mg Tablet.dr, 81 MG PO DAILY, (Reported) Hydrocodone Bit/Acetaminophen 1 Tab Tab, 1 TAB PO DAILY PRN for PAIN-MODERATE Prescribed by: LAURYN BENTON on 01/13/191701 Lisinopril 20 Mg Tablet, 20 MG PO DAILY, (Reported) Nitrofurantoin Monohyd/M-Cryst 100 Mg Capsule, 100 MG PO BID Prescribed by: LAURYN BENTON on 01/13/19 170 Oxycodone HCl/Acetaminophen 1 Each Tablet, 1 TAB PO HS Prescribed by: LAURYN BENTON on 01/13/19 1702 Pantoprazole Sodium 40 Mg Tablet.dr, 40 MG PO DAILY, (Reported) Patient Home Medication List Home Medication List Reviewed: Yes (VJ CONTRERAS MED STUDENT) Home Medication List Reviewed: Yes (MARYCRUZ HANNA MD) Review of Systems Review of Systems Constitutional: chills, diaphoresis, fever, malaise, weakness EENTM: No Eye Pain, No Ear Pain, No Mouth Pain, No Nose Pain, No Throat Pain Respiratory: Cough; Denies Shortness of Air Cardiovascular: Denies Chest Pain, Denies Edema Gastrointestinal: See HPI, Diarrhea, Nausea, Poor Fluid Intake Genitourinary: Incontinence (followed by Yancy ) Musculoskeletal: back pain, joint pain Skin: No lesions, No lumps, No rash Psychiatric/Neurological: Denies Anxiety, Denies Depressed Endocrine: Denies Intolerance to Cold, Denies Intolerance to Heat Hematologic/Lymphatic: Denies Easy Bleeding, Denies Easy Bruising (VJ CONTRERAS MED STUDENT) Respiratory: Denies SOA at Rest, Denies Wheezing Cardiovascular: Denies Chest Pain, Denies Edema Gastrointestinal: Abdominal Pain, Diarrhea, Nausea (MARYCRUZ HANNA MD) All Other Systems Reviewed Negative Unless Noted: Yes (MARYCRUZ HANNA MD) Past Glhfmwa-Dpndof-Dyndgj Hx Past Med/Social Hx: Reviewed Nursing Past Med/Soc Hx (MARYCRUZ HANNA MD) Patient Social History Alcohol Use: Denies Use Recreational Drug Use: No Smoking Status: Former Smoker Type Used: Cigarettes Former Smoker, Quit: Apr 05, 1996 Recent Foreign Travel: No Contact w/Someone Who Travel: No Recent Infectious Disease Expo: No Recent Hopitalizations: No (VJ CONTRERAS MED STUDENT) Immunizations Up To Date Tetanus Booster (TDap): Unknown PED Vaccines UTD: Yes Date of Pneumonia Vaccine: Apr 05, 2016 (VJ CONTRERAS MED STUDENT) Seasonal Allergies Seasonal Allergies: Yes (VJ CONTRERAS MED STUDENT) Past Medical History Surgeries: Yes (BACK X4, NECK SX, RIGHT TKR) Appendectomy, Gallbladder, Hysterectomy, Orthopedic Respiratory: No Currently Using CPAP: No Currently Using BIPAP: No Cardiac: Yes High Cholesterol, Hypertension Neurological: No Neuropathy Genitourinary: Yes Bladder Infection, UTI-Chronic Gastrointestinal: Yes Gastroesophageal Reflux Musculoskeletal: Yes Arthritis, Chronic Back Pain Endocrine: No HEENT: Yes (GLASSES, DENTURES) Cancer: No Psychosocial: No Integumentary: No Blood Disorders: No (VJ CONTRERAS,MED STUDENT) Family Medical History Reviewed Nursing Family Hx (MARYCRUZ HANNA MD) Arthritis 19 FATHER 19 MOTHER G8 BROTHER G8 SISTER Colon cancer 19 FATHER Cancer (breast in sister), Diabetes (sister) (VJ CONTRERAS,MED STUDENT) Physical Exam Vital Signs Vital Signs - First Documented 07/24/19 13:20 Temp 36.7 Pulse 79 Resp 20 B/P (MAP) 164/89 (114) Pulse Ox 94 (MARYCRUZ HANNA MD) Vital Signs Capillary Refill : Less Than 3 Seconds (VJ CONTRERAS,MED STUDENT) Height/Weight/BMI Height: 5'0.00" Weight: 183lbs. 0.0oz. 83.102720el; 37.00 BMI Method:Stated General Appearance: WD/WN, no apparent distress, obese HEENT: PERRL/EOMI, TMs normal, pharynx normal, other (erythematous nasal septum) Neck: non-tender, supple Respiratory: chest non-tender, lungs clear, normal breath sounds, no respiratory distress, no accessory muscle use Cardiovascular: normal peripheral pulses, regular rate, rhythm, no gallop, no JVD, no murmur Peripheral Pulses: 2+ Radial Pulses (R), 2+ Radial Pulses (L) Gastrointestinal: distended, guarding (voluntary to light palpation ), tende rness Extremities: pedal edema, swelling Back: no CVA tenderness, no vertebral tenderness Neurologic/Psychiatric: alert, normal mood/affect, oriented x 3 Skin: normal color, warm/dry Lymphatic: no adenopathy (anterior/posterior cervical, infra/supraclavicular ) (VJ CONTRERAS,MED STUDENT) General Appearance: WD/WN, no apparent distress Respiratory: lungs clear, normal breath sounds Cardiovascular: regular rate, rhythm, no murmur Gastrointestinal: soft; No guarding (voluntary to light palpation ); tenderness (right lower quadrant) Back: no CVA tenderness, no vertebral tenderness Neurologic/Psychiatric: alert, oriented x 3 (MARYCRUZ HANNA MD) Focused Exam Lactate Level 07/24/19 16:03: Lactic Acid Level 1.06 (MARYCRUZ HANNA MD) Lactic Acid Level Laboratory Tests Test 07/24/19 16:03 Lactic Acid Level 1.06 MMOL/L (0.50-2.00) (MARYCRUZ HANNA MD) Progress/Results/Core Measures Results/Orders Lab Results Laboratory Tests Test 07/24/19 14:26 07/24/19 15:40 07/24/19 16:03 Range/Units White Blood Count 12.6 H 4.3-11.0 10^3/uL Red Blood Count 5.30 4.35-5.85 10^6/uL Hemoglobin 14.6 11.5-16.0 G/DL Hematocrit 46 35-52 % Mean Corpuscular Volume 86 80-99 FL Mean Corpuscular Hemoglobin 28 25-34 PG Mean Corpuscular Hemoglobin Concent 32 32-36 G/DL Red Cell Distribution Width 13.9 10.0-14.5 % Platelet Count 270 130-400 10^3/uL Mean Platelet Volume 11.6 H 7.4-10.4 FL Neutrophils (%) (Auto) 76 H 42-75 % Lymphocytes (%) (Auto) 13 12-44 % Monocytes (%) (Auto) 8 0-12 % Eosinophils (%) (Auto) 3 0-10 % Basophils (%) (Auto) 0 0-10 % Neutrophils # (Auto) 9.6 H 1.8-7.8 X 10^3 Lymphocytes # (Auto) 1.6 1.0-4.0 X 10^3 Monocytes # (Auto) 1.0 0.0-1.0 X 10^3 Eosinophils # (Auto) 0.3 0.0-0.3 10^3/uL Basophils # (Auto) 0.1 0.0-0.1 10^3/uL Sodium Level 140 135-145 MMOL/L Potassium Level 3.8 3.6-5.0 MMOL/L Chloride Level 105 98-107 MMOL/L Carbon Dioxide Level 20 L 21-32 MMOL/L Anion Gap 15 H 5-14 MMOL/L Blood Urea Nitrogen 18 7-18 MG/DL Creatinine 1.22 0.60-1.30 MG/DL Estimat Glomerular Filtration Rate 42 BUN/Creatinine Ratio 15 Glucose Level 98 70-105 MG/DL Calcium Level 9.4 8.5-10.1 MG/DL Corrected Calcium 9.6 8.5-10.1 MG/DL Magnesium Level 1.8 1.6-2.4 MG/DL Total Bilirubin 0.5 0.1-1.0 MG/DL Aspartate Amino Transf (AST/SGOT) 20 5-34 U/L Alanine Aminotransferase (ALT/SGPT) 16 0-55 U/L Alkaline Phosphatase 98 40-136 U/L Total Protein 7.0 6.4-8.2 GM/DL Albumin 3.8 3.2-4.5 GM/DL Urine Color YELLOW Urine Clarity SL CLOUDY Urine pH 5.5 5-9 Urine Specific [place] >=1.030 1.016-1.022 Urine Protein 1+ H NEGATIVE Urine Glucose (UA) NEGATIVE NEGATIVE Urine Ketones 1+ H NEGATIVE Urine Nitrite NEGATIVE NEGATIVE Urine Bilirubin 2+ H NEGATIVE Urine Urobilinogen 0.2 < = 1.0 MG/DL Urine Leukocyte Esterase NEGATIVE NEGATIVE Urine RBC (Auto) NEGATIVE NEGATIVE Urine RBC NONE /HPF Urine WBC 10-25 H /HPF Urine Squamous Epithelial Cells 5-10 /HPF Urine Crystals NONE /LPF Urine Amorphous Sediment FEW DESTINI PHOSPHATE H /LPF Urine Bacteria FEW H /HPF Urine Casts NONE /LPF Urine Hyaline Casts 25-50 H /LPF Urine Mucus NEGATIVE /LPF Urine Culture Indicated YES Lactic Acid Level 1.06 0.50-2.00 MMOL/L (MARYCRUZ HANNA MD) My Orders Orders - MARYCRUZ HANNA MD Ed Iv/Invasive Line Start (07/24/19 15:18) Ns Iv 500 Ml (Sodium Chloride 0.9%) (07/24/19 15:18) Cbc With Automated Diff (07/24/19 15:18) Comprehensive Metabolic Panel (07/24/19 15:18) Magnesium (07/24/19 15:18) Ua Culture If Indicated (07/24/19 15:18) Chest 1 View, Ap/Pa Only (07/24/19 15:38) Ct Abd/Pelv W (Appendicitis) (07/24/19 15:41) Ondansetron Injection (Zofran Injectio (07/24/19 15:45) Ketorolac Injection (Toradol Injection) (07/24/19 15:41) Lactic Acid Analyzer (07/24/19 15:42) Blood Culture (07/24/19 15:42) Iohexol Injection (Omnipaque 350 Mg/Ml 1 (07/24/19 16:00) Received Contrast (Hold Metformin- Contr (07/24/19 16:00) Sodium Chloride Flush (Catheter Flush Sy (07/24/19 16:00) Ns (Ivpb) (Sodium Chloride 0.9% Ivpb Bag (07/24/19 16:00) Urine Culture (07/24/19 15:40) Ns Iv 500 Ml (Sodium Chloride 0.9%) (07/24/19 17:03) Meropenem 500mg Iv (1x Dose) (07/24/19 17:45) (MARYCRUZ HANNA MD) Medications Given in ED Current Medications Medications Dose Ordered Sig/Emely Route Start Time Stop Time Status Last Admin Dose Admin Iohexol 100 ml ONCE ONCE IV 07/24/19 16:00 07/24/19 16:01 DC 07/24/19 16:27 60 ML Ondansetron HCl 4 mg ONCE ONCE IVP 07/24/19 15:45 07/24/19 15:46 DC 07/24/19 15:56 4 MG Sodium Chloride 10 ml NEEDED PRN IV 07/24/19 16:00 07/24/19 16:27 10 ML Sodium Chloride 100 ml ONCE ONCE IV 07/24/19 16:00 07/24/19 16:01 DC 07/24/19 16:27 80 ML Sodium Chloride 500 ml @ 0 mls/hr Q0M ONCE IV 07/24/19 15:18 07/24/19 15:20 DC 07/24/19 15:33 1,000 MLS/HR Sodium Chloride 500 ml @ 0 mls/hr Q0M ONCE IV 07/24/19 17:03 07/24/19 17:04 DC 07/24/19 17:09 500 MLS/HR (MARYCRUZ HANNA MD) Vital Signs/I&O 07/24/19 13:20 Temp 36.7 Pulse 79 Resp 20 B/P (MAP) 164/89 (114) Pulse Ox 94 (MARYCRUZ HANNA MD) Blood Pressure Mean: 114 POS Progress Progress Note : Time: 15:45 Progress Note Seen and evaluated. CBC, CMP, UA, abdominal CT, and CXR ordered. Pt endorses similar pain when she was diagnosed with diverticulitis, evaluating with CT r/o appendicitis. CXR ordered to r/o pneumonia. Pt voluntarily guarding but do not suspect acute abdomen at this time. Beginning IVF, zofran 4mg, toradol inj. and initiating bowel rest while awaiting abdominal CT. Ordered lactic acid with anticipation of infectious disease and admission. Pt followed by Dr. John for longstanding urinary incontinence and chronic UTIs, will evaluate with UA. (VJ CONTRERAS,MED STUDENT) Progress Note : Progress Note Has seen and evaluated patient and agree with above except as indicated. I have directed the plan of care. Patient is here with 3 weeks of cough in 10 days of diarrhea. Nothing seems to be making it better. Does have history of diverticular disease. Denies blood in her stools. She's had nausea but no vomiting. 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 Plan is IV, labs, UA, chest x-ray and CT abdomen and pelvis. Monitor patient. 1732: Patient does have a UTI but also has findings and CT of sigmoid diverticulitis. Patient will need admission for antibiotics and rehydration. She did receive 500 mL of normal saline prior to CT and [address] She did have some improvement with pain after Toradol dosing of 15 mg IV. Meropenem 500 mg IV ordered. Case discussed with Dr. Benton and she accepts patient for admission. I did consult Dr. Yancey at 1736 and he accepts patient in consult. All findings and concerns were discussed with the patient and family who agree with plan. (MARYCRUZ HANNA MD) Diagnostic Imaging Diagonstic Imaging: Xray Plain Films/CT/US/NM/MRI: chest Comments [facility] POS [place], [place] POS NAME: KRANTHI KRAFT [facility] REC#: [id number] PT STATUS: REG ER : 1932 PHYSICIAN: MARYCRUZ HANNA MD ADMIT DATE: 07/24/19/ER Signed POSDate of Exam:07/24/19 CHEST 1 VIEW, AP/PA ONLY INDICATION: Cough and cold x3 weeks. Frontal chest obtained at 04:44 p.m. and compared to 04/05/2018. Heart and mediastinal silhouette are normal in appearance. Lungs show no focal infiltrate. There is apparent hiatal hernia. There is no pneumothorax or pleural fluid. IMPRESSION: No acute process in the chest and no change from 04/05/2018. Dictated by: Dictated on workstation # [id number] Dict: 07/24/191650 Trans: 07/24/191658 [facility] [id number] Interpreted by: KERI CAPELLAN MD Electronically signed by: KERI CAPELLAN MD 07/24/191658 Diagonstic Imaging: CT Plain Films/CT/US/NM/MRI: abdomen, pelvis Comments [facility]. POS [place] POS NAME: KRANTHI KRAFT [facility] REC#: [id number] PT STATUS: REG ER : 1932 PHYSICIAN: MARYCRUZ HANNA MD ADMIT DATE: 07/24/19/ER Draft POSDate of Exam:07/24/19 CT ABD/PELV W (APPENDICITIS) PROCEDURE: CT abdomen and pelvis with intravenous contrast. TECHNIQUE: Multiple contiguous axial images were obtained through the abdomen and pelvis after the administration of intravenous contrast. All CT scans use one or more of the following dose optimizing techniques: automated exposure control, MA and/or KvP adjustment based on a patient size and exam type, or iterative reconstruction. DATE: July 24, 2019. COMPARISON: CT abdomen and pelvis without contrast July 21, 2018. INDICATION: 89-year-old female, diarrhea and weakness. FINDINGS: There is very mild right lower lobe and left lower lobe bronchiectasis. The visualized portions of the lung bases are grossly clear. The heart is not enlarged. There is no identified pericardial effusion. The liver is normal in size and contour. There is no identified liver lesion. The patient is status post cholecystectomy. There is mild intrahepatic bile duct dilation. The common bile duct measures up to approximately 10 mm in diameter. The bile duct dilation is unchanged since July 21, 2018. There is no CT apparent common bile duct stone or ampullary mass. The main pancreatic duct is not abnormally dilated. Unremarkable appearance of the pancreatic parenchyma. The spleen is normal in size. The adrenal glands are unremarkable. There is a low-attenuation left renal lesion on axial image 41 measuring 16 mm in size with internal attenuation diagnostic for benign left renal cyst. There are very tiny subcentimeter lesions in the inferior pole of the left kidney too small to characterize. In the right kidney on axial image 54, there is a 12 mm benign right renal cyst and an additional benign right renal cyst on axial image 41. The urinary collecting systems are not distended. There is no identified renal or ureteral stone. The urinary bladder is unremarkable in appearance. The uterus is not seen and may be surgically absent. There is diverticulosis. There is mild inflammatory stranding and wall thickening at the level of the mid sigmoid colon suggesting early acute diverticulitis. There is a small fat-containing anterior abdominal wall hernia best illustrated on axial image 56 and adjacent sequential images. The intestinal tract is not distended. The appendix is not well seen. There are no secondary findings to specifically suggest acute appendicitis. There is a large hiatal hernia. There is no free intraperitoneal air. There is no drainable fluid collection. There is no sizable volume free pelvic fluid. There are atherosclerotic calcifications. There is no identified abnormally enlarged lymph node in the abdomen or pelvis which specifically meets CT size criteria for adenopathy. There are bilateral sacroiliac degenerative changes. There are advanced multilevel degenerative changes of the spine. There are postoperative related changes of the lumbar spine. There is grade 1 anterolisthesis of L4 on L5. 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 IMPRESSION: CT abdomen and pelvis. 1. Diverticulosis with inflammatory stranding and mild wall thickening of the mid sigmoid colon most suggestive of early acute diverticulitis. There is no evidence of perforation or abscess. 2. Incidental findings as above. Dictated on workstation # [id number] Dict: 07/24/19 1647 Trans: 07/24/[address] [facility] [id number] Interpreted by: XIAO NORTON MD Electronically signed by: (MARYCRUZ HANNA MD) Departure Communication (Admissions) Time/Spoke to Admitting Phy: 17:32 Time/Spoke to Consulting Phy: 17:36 (MARYCRUZ HANNA MD) Impression Primary Impression: UTI (urinary tract infection) Qualified Codes: N30.00 - Acute cystitis without hematuria Additional Impression: Diverticulitis of intestine Qualified Codes: K57.32 - Diverticulitis of large intestine without perforation or abscess without bleeding Disposition: 09 ADMITTED INPATIENT Condition: Stable Admissions Decision to Admit Reason: Admit from ER (General) Decision to Admit/Date: Jul 24, 2019 Time/Decision to Admit Time: 17:32 (MARYCRUZ HANNA MD) Departure-Patient Inst. Referrals: LAURYN BENTON DO (PCP/Family) Primary Care Physician VJ CONTRERAS,MED STUDENT Jul 24, 2019 15:22 MARYCRUZ SALDANA MD Jul 24, 2019 17:38 POS
[2019-07-24 15:26] LABS: BASOPHILS # (AUTO) 0.1 10^3/uL (0.0-0.1); BASOPHILS % (AUTO) 0 % (0-10); EOSINOPHILS # (AUTO) 0.3 10^3/uL (0.0-0.3); EOSINOPHILS % (AUTO) 3 % (0-10); HEMATOCRIT 46 % (35-52); HEMOGLOBIN 14.6 G/DL (11.5-16.0); LYMPHOCYTES # (AUTO) 1.6 X 10^3 (1.0-4.0); LYMPHOCYTES % (AUTO) 13 % (12-44); MEAN CORPUSCULAR HEMOGLOBIN 28 PG (25-34); MEAN CORPUSCULAR HGB CONC 32 G/DL (32-36); MEAN CORPUSCULAR VOLUME 86 FL (80-99); MEAN PLATELET VOLUME 11.6 FL (7.4-10.4); MONOCYTES % (AUTO) 8 % (0-12); NEUTROPHILS # (AUTO) 9.6 X 10^3 (1.8-7.8); NEUTROPHILS % (AUTO) 76 % (42-75); PLATELET COUNT 270 10^3/uL (130-400); RED CELL DISTRIBUTION WIDTH 13.9 % (10.0-14.5); WHITE BLOOD COUNT 12.6 10^3/uL (4.3-11.0)
[2019-07-24 15:39] LABS: ALBUMIN 3.8 GM/DL (3.2-4.5); BILIRUBIN,TOTAL 0.5 MG/DL (0.1-1.0); CALCIUM 9.4 MG/DL (8.5-10.1); CREATININE SERUM 1.22 MG/DL (0.60-1.30); MAGNESIUM 1.8 MG/DL (1.6-2.4); POTASSIUM 3.8 MMOL/L (3.6-5.0)
[2019-07-24] MEDS ORDERED: KETOROLAC 30 MG/ML VIAL IVP STA (15:41)
[2019-07-24] MEDS ORDERED: ONDANSETRON 4 MG/2 ML (SDV) Z0FRAN IVP ONE (15:45)
[2019-07-24 15:51] LABS: CLARITY,URINE SL CLOUDY; COLOR,URINE YELLOW; GLUCOSE, URINE (UA) NEGATIVE (NEGATIVE); KETONES,URINE 1+ (NEGATIVE); LEUKOCYTE ESTERASE ,URINE NEGATIVE (NEGATIVE); NITRITE,URINE NEGATIVE (NEGATIVE); PH,URINE 5.5 (5-9); PROTEIN,URINE 1+ (NEGATIVE)
[2019-07-24 16:00] LABS: BACTERIA,URINE FEW /HPF; BILIRUBIN,URINE 2+ (NEGATIVE)
[2019-07-24] MEDS ORDERED: CATHETER FLUSH 10 ML SYR IV PRN (16:00)
[2019-07-24] MEDS ORDERED: NS 100 ML (IVPB) BAG IV ONE (16:00)
[2019-07-24] MEDS ORDERED: IOHEXOL 350 MG/ML 100 ML (OMNIPAQUE 350) VIAL IV ONE (16:00)
[2019-07-24] MEDS ORDERED: HOLD METFORMIN - RECEIVED CONTRAST 20 ML VIAL IV SCH (16:00)
[2019-07-24 16:01] LABS: AMORPHOUS SEDIMENT,UR FEW AMOR PHOSPHATE /LPF; HYALINE CASTS, URINE 25-50 /LPF
--- NOTE | 2019-07-24 16:54 | Diagnostic Imaging Report ---
INDICATION: Cough and cold x3 weeks. Frontal chest obtained at 04:44 p.m. and compared to 04/05/2018. Heart and mediastinal silhouette are normal in appearance. Lungs show no focal infiltrate. There is apparent hiatal hernia. There is no pneumothorax or pleural fluid. IMPRESSION: No acute process in the chest and no change from 04/05/2018. Dictated by: Dictated on workstation # [id number]
--- NOTE | 2019-07-24 17:13 | Diagnostic Imaging Report ---
PROCEDURE: CT abdomen and pelvis with intravenous contrast. TECHNIQUE: Multiple contiguous axial images were obtained through the abdomen and pelvis after the administration of intravenous contrast. All CT scans use one or more of the following dose optimizing techniques: automated exposure control, MA and/or KvP adjustment based on a patient size and exam type, or iterative reconstruction. DATE: July 24, 2019. COMPARISON: CT abdomen and pelvis without contrast July 21, 2018. INDICATION: 89-year-old female, diarrhea and weakness. FINDINGS: There is very mild right lower lobe and left lower lobe bronchiectasis. The visualized portions of the lung bases are grossly clear. The heart is not enlarged. There is no identified pericardial effusion. The liver is normal in size and contour. There is no identified liver lesion. The patient is status post cholecystectomy. There is mild intrahepatic bile duct dilation. The common bile duct measures up to approximately 10 mm in diameter. The bile duct dilation is unchanged since July 21, 2018. There is no CT apparent common bile duct stone or ampullary mass. The main pancreatic duct is not abnormally dilated. Unremarkable appearance of the pancreatic parenchyma. The spleen is normal in size. The adrenal glands are unremarkable. There is a low-attenuation left renal lesion on axial image 41 measuring 16 mm in size with internal attenuation diagnostic for benign left renal cyst. There are very tiny subcentimeter lesions in the inferior pole of the left kidney too small to characterize. In the right kidney on axial image 54, there is a 12 mm benign right renal cyst and an additional benign right renal cyst on axial image 41. The urinary collecting systems are not distended. There is no identified renal or ureteral stone. The urinary bladder is unremarkable in appearance. The uterus is not seen and may be surgically absent. There is diverticulosis. There is mild inflammatory stranding and wall thickening at the level of the mid sigmoid colon suggesting early acute diverticulitis. There is a small fat-containing anterior abdominal wall hernia best illustrated on axial image 56 and adjacent sequential images. The intestinal tract is not distended. The appendix is not well seen. There are no secondary findings to specifically suggest acute appendicitis. There is a large hiatal hernia. There is no free intraperitoneal air. There is no drainable fluid collection. There is no sizable volume free pelvic fluid. There are atherosclerotic calcifications. There is no identified abnormally enlarged lymph node in the abdomen or pelvis which specifically meets CT size criteria for adenopathy. There are bilateral sacroiliac degenerative changes. There are advanced multilevel degenerative changes of the spine. There are postoperative related changes of the lumbar spine. There is grade 1 anterolisthesis of L4 on L5. 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 IMPRESSION: CT abdomen and pelvis. 1. Diverticulosis with inflammatory stranding and mild wall thickening of the mid sigmoid colon most suggestive of early acute diverticulitis. There is no evidence of perforation or abscess. 2. Incidental findings as above. Dictated by: Dictated on workstation # [id number]
[2019-07-24] MEDS ORDERED: MEROPENEM 500 MG in WATER (STERILE) FOR INJECTION 10 ML IV ONE (17:45)
--- NOTE | 2019-07-24 18:40 | NUR ---
report given to Joi
--- NOTE | 2019-07-24 18:50 | NUR ---
REC'D PER WC FROM ER. FAMILY PRESENT AT BEDSIDE. INTRODUCED TO ROOM, CALL LIGHT, AND ONCOMING CARMELINA YEPEZ. DANELLE INITIATING ADMIT PROCESS.
[2019-07-24 19:00] VITALS: BP 198/84
--- NOTE | 2019-07-24 19:00 | NUR ---
KRANTHI KRAFT admitted to room 414-1, with an admitting diagnosis of DIVERTICULITIS, UTI , on 07/24/19 from ED via [facility], accompanied by STAFF AND FAMILY. KRANTHI KRAFT introduced to surroundings, call light, bed controls, phone, TV, temperature control, lights, meal times, smoking policy, visitor policy, side rail policy, bathrooms and showers. Patient Rights given to patient in the handbook.KRANTHI KRAFT verbalizes understanding that [facility] is not responsible for the loss or damage to any personal effects or valuables that are kept in the patients posession during their hospitalization.
[2019-07-24] MEDS ORDERED: KETOROLAC 15 MG/ML VIAL IV PRN (19:15)
[2019-07-24] MEDS ORDERED: ONDANSETRON 4 MG/2 ML (SDV) Z0FRAN IV PRN (19:15)
[2019-07-24] MEDS ORDERED: fentaNYL INJECTION 100 MCG/2 ML AMP IV PRN (19:15)
[2019-07-24] MEDS: LACTATED RINGERS 1,000 ML IV SCH (19:23)
[2019-07-24 20:00] VITALS: BP 171/72
--- NOTE | 2019-07-24 21:30 | History & Physical-Hospitalist ---
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 Dr. Yancey will be consulted. We will place her on meropenem empirically for acute diverticulitis treatment and UTI due to ESBL infection in the past. She had been doing pretty well I had not seen her in the clinic since January in which she was supposed to follow-up in 4 months. Her daughter is at the bedside. Source: patient, family, RN/MD, old records Date Seen 07/24/19 Time Seen by a Provider: 17:30 Attending Physician Mary Lou Tompkins DO PCP Mary Lou Tompkins DO Referring Physician Date of Admission Jul 24, 2019 at 17:39 Home Medications & Allergies Home Medications Reviewed patient Home Medication Reconciliation performed by pharmacy medication reconciliations catheterization laboratory technician and/or nursing. Patients Allergies have been reviewed. Allergies Allergies Coded Allergies No Known Drug Allergies (Unverified04/05/18) Past Gobabin-Yljaax-Neckqi Hx Past Med/Social Hx: Reviewed Nursing Past Med/Soc Hx, Reviewed and Corrections made Patient Social History Marrital Status: Employed/Student: retired Alcohol Use: Denies Use Recreational Drug Use: No Smoking Status: Former Smoker Former Smoker, Quit: Apr 05, 1996 Type Used: Cigarettes Recent Foreign Travel: No Contact w/other who traveled: No Recent Hopitalizations: No Recent Infectious Disease Expo: No Immunizations Up To Date Tetanus Booster (TDap): Unknown Pediatric: Yes Date of Pneumonia Vaccine: Apr 05, 2016 Seasonal Allergies Seasonal Allergies: Yes Past Medical History Surgeries: Appendectomy, Gallbladder, Hysterectomy, Orthopedic Currently Using CPAP: No Currently Using BIPAP: No Cardiac: High Cholesterol, Hypertension Neurological: Neuropathy Genitourinary: Bladder Infection, UTI-Chronic Gastrointestinal: Gastroesophageal Reflux diverticulosis noted on scans in past no diverticulitis in the past Musculoskeletal: Arthritis, Chronic Back Pain History of Blood Disorders: No Family History Reviewed Nursing Family Hx Arthritis 19 FATHER 19 MOTHER G8 BROTHER G8 SISTER Colon cancer 19 FATHER Cancer (breast in sister), Diabetes (sister) Review of Systems Constitutional: see HPI, fever, malaise, weakness EENTM: no symptoms reported Respiratory: no symptoms reported Cardiovascular: no symptoms reported Gastrointestinal: abdominal pain, loss of appetite, nausea, vomiting Genitourinary: dysuria, frequency All Other Systems Reviewed Negative Unless Noted: Yes Physical Exam Physical Exam Vital Signs Vital Signs - First Documented 07/24/19 07/24/19 13:20 19:00 Temp 36.7 Pulse 79 Resp 20 B/P (MAP) 164/89 (114) Pulse Ox 94 O2 Delivery Room Air Capillary Refill : Less Than 3 Seconds Height, Weight, BMI Height: 5'0.00" Weight: 183lbs. 0.0oz. 83.607609vc; 35.90 BMI Method:Stated General Appearance: WD/WN, Anxious, Chronically ill, Mild Distress, Obese Eyes: Right Eye Normal Inspection, Right Eye PERRL HEENT: PERRL/EOMI, Normal ENT Inspection, Pharynx Normal, Moist Mucous Membranes Neck: Full Range of Motion, Normal Inspection, Non Tender Respiratory: Chest Non Tender, Lungs Clear, Normal Breath Sounds, No Accessory Muscle Use, No Respiratory Distress Cardiovascular: Regular Rate, Rhythm, No Edema, No Gallop, No JVD, No Murmur, Normal Peripheral Pulses Gastrointestinal: Normal Bowel Sounds, No Organomegaly, No Pulsatile Mass, Soft, Tenderness Back: Normal Inspection, No CVA Tenderness, No Vertebral Tenderness Extremity: Normal Capillary Refill, Normal Inspection, Normal Range of Motion, Non Tender, No Calf Tenderness, No Pedal Edema Neurologic/Psychiatric: Alert, Oriented x3, No Motor/Sensory Deficits, Normal Mood/Affect Skin: Normal Color, Warm/Dry Lymphatic: No Adenopathy Results Results/Procedures Labs Laboratory Tests 07/24/19 14:26 Patient resulted labs reviewed. Assessment/Plan Admission Diagnosis Assessment: Acute diverticulitis UTI with h/o ESBL DM HTN HLP Neuropathy Plan: Meropenem Pain control Dr Yancey appreciated Admission Status: Inpatient Order (span 2 midnights) Reason for Inpatient Admission: Diverticulitis and uti ESBL hx will need at least 4 days Diagnosis/Problems Diagnosis/Problems (1) Diverticulitis of intestine Status: Acute Qualifiers: Diverticulitis site: large intestine Diverticulitis bleeding: without bleeding Diverticulitis complication: without perforation or abscess Qualified Codes: K57.32 - Diverticulitis of large intestine without perforation or abscess without bleeding (2) UTI (urinary tract infection) Qualifiers: Urinary tract infection type: acute cystitis Hematuria presence: without hematuria Qualified Codes: N30.00 - Acute cystitis without hematuria (3) Infection due to ESBL-producing Escherichia coli (4) Urinary incontinence (5) Osteoarthritis of right knee Status: Chronic (6) Hypertension Status: Chronic (7) Renal insufficiency Status: Chronic (8) Neuropathy (9) Diabetes mellitus Status: Chronic MARY LOU TOMPKINS DO Jul 24, 2019 21:30 POS
[2019-07-24] MEDS ORDERED: MELATONIN 3 MG TABLET PO PRN (21:45)
[2019-07-24] MEDS ORDERED: diphenhydrAMINE 25 MG TAB (BENADRYL) PO PRN (21:45)
[2019-07-24] MEDS ORDERED: CALCIUM CARBONATE 500 MG (TUMS) TAB.CHEW PO PRN (21:45)
[2019-07-24] MEDS ORDERED: ALPRAZolam 0.25 MG (XANAX) TAB PO PRN (21:45)
[2019-07-24] MEDS ORDERED: ONDANSETRON 4 MG (ZOFRAN) ORAL DISSOLVE TAB PO PRN (21:45)
[2019-07-24] MEDS ORDERED: ACETAMINOPHEN 500 MG TAB (TYLENOL) PO PRN (21:45)
[2019-07-24] MEDS ORDERED: DOCUSATE SODIUM 100 MG (COLACE) CAP PO PRN (21:45)
[2019-07-24] MEDS: ENOXAPARIN 40 MG/0.4 ML (LOVENOX) SYR SC SCH (22:24)
[2019-07-25] VITALS: BP 138/62
[2019-07-25] MEDS: MEROPENEM 500 MG/SWFI 10 ML IV PUSH IV SCH ×6 (03:00→17:25)
[2019-07-25 04:00] VITALS: BP 131/71
[2019-07-25 05:55] LABS: BASOPHILS % (AUTO) 0 % (0-10); EOSINOPHILS # (AUTO) 0.4 10^3/uL (0.0-0.3); EOSINOPHILS % (AUTO) 4 % (0-10); HEMATOCRIT 39 % (35-52); HEMOGLOBIN 12.4 G/DL (11.5-16.0); LYMPHOCYTES # (AUTO) 1.4 X 10^3 (1.0-4.0); LYMPHOCYTES % (AUTO) 15 % (12-44); MEAN CORPUSCULAR HEMOGLOBIN 28 PG (25-34); MEAN CORPUSCULAR HGB CONC 32 G/DL (32-36); MEAN CORPUSCULAR VOLUME 87 FL (80-99); MONOCYTES # (AUTO) 0.7 X 10^3 (0.0-1.0); MONOCYTES % (AUTO) 8 % (0-12); NEUTROPHILS # (AUTO) 6.7 X 10^3 (1.8-7.8); NEUTROPHILS % (AUTO) 73 % (42-75); PLATELET COUNT 249 10^3/uL (130-400); RED CELL DISTRIBUTION WIDTH 13.8 % (10.0-14.5); WHITE BLOOD COUNT 9.2 10^3/uL (4.3-11.0)
[2019-07-25 06:01] LABS: ALBUMIN 2.9 GM/DL (3.2-4.5); BILIRUBIN,TOTAL 0.4 MG/DL (0.1-1.0); CALCIUM 8.2 MG/DL (8.5-10.1); POTASSIUM 3.5 MMOL/L (3.6-5.0); TOTAL PROTEIN 5.3 GM/DL (6.4-8.2)
[2019-07-25 08:00] VITALS: BP 130/71
[2019-07-25] MEDS: LACTATED RINGERS 1,000 ML IV SCH ×2 (08:44→22:06)
[2019-07-25] MEDS ORDERED: AMLO5TAB9 PO (09:24)
--- NOTE | 2019-07-25 09:25 | NUR ---
WENT OVER THE EXT MED HX WITH THE PATIENT. SHE VERIFIED HOW SHE TAKES THEM. SHE STATES SHE TAKES ASPIRIN 81MG DAILY OTC. SHE IS PAST DUE FOR REFILL ON HER PROTONIX, SHE STATES SHE DOES TAKE THIS EVERYDAY WHEN SHE HAS IT BUT SHE IS CURRENTLY OUT. SHE IS TRYING TO GET A NEW SCRIPT AUTHORIZED.
[2019-07-25 12:00] VITALS: BP 145/72
--- NOTE | 2019-07-25 12:22 | NUR ---
"RD ASSESSMENT PMHx: DM; hypercholesterolemia; HTN; GERD PT INTERACTION: Pt was awake and pleasant during nutrition assessment. Pt states current appetite is not good, and has been this way for the past three weeks. Note pt PO intake is 0% x1meal, per chart review. Pt states following a low-CHO/low-fat diet at home, and has no issues with chewing/swallowing food at this time. Pt states no recent issues with n/v at this time. Pt states recent episodes of diarrhea, which she says began on 07/21. Note pt currently on bowel regimen of colace PRN, per chart review. Pt states no recent wt changes. Note unable to determine recent wt hx, per chart review. Pt states current DM management is pretty good, but unsure of her average blood glucose levels. Note most recent HbA1c of 5.3 on 09/14/18, per chart review. ABNORMAL NUTRITION-RELATED LAB VALUES LOW: K 3.5; Ca 8.5; Pro 5.9; alb 2.9 HIGH: Cl 110; BUN 21 Est. kcal needs: 5145-9776 kcal | 15-20 kcal/kg Est. Pro needs: 66-83 g Pro | 0.8-1.0 g Pro/kg PES STATEMENT: Inadequate oral intake (NI-2.1) related to loss of appetite | diarrhea as evidenced by pt interview | PO intake of 0% x1meal INTERVENTION: Continue with current diet order of Clear Liquid diet. Advance diet as medically able and as tolerated. Add Ensure Clear (vary) to meals BID. Provides 240 kcal and 8 g Pro per serving. Will continue to follow and reassess as pt needs and status change. MONITOR/EVALUATE: PO Intake; Plan of Care; Hydration Status; Weight Status; Lab Values Nanette Barreto, MS, RD, LD"
--- NOTE | 2019-07-25 13:21 | Progress Note - Hospitalist ---
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 Dr. Yancey will be consulted. We will place her on meropenem empirically for acute diverticulitis treatment and UTI due to ESBL infection in the past. She had been doing pretty well I had not seen her in the clinic since January in which she was supposed to follow-up in 4 months. Her daughter is at the bedside. Subjective/Events-last exam Abdominal pain improved today Denies dysuria or incomplete bladder emptying Complaining of productive cough WBC count down to 9.2 Tolerating clear liquid diet Dr. Yancey consulted Focused Exam Lactate Level 07/24/19 16:03: Lactic Acid Level 1.06 Objective Exam Vital Signs Vital Signs Date Time Temp Pulse Resp B/P (MAP) Pulse Ox O2 Delivery O2 Flow Rate FiO2 07/25/19 08:00 93 Room Air 07/25/19 08:00 36.7 76 20 130/71 (90) Capillary Refill : Less Than 3 Seconds General Appearance: No Apparent Distress, WD/WN Neck: Full Range of Motion, Non Tender, Supple Respiratory: Chest Non Tender, Lungs Clear, Normal Breath Sounds, No Accessory Muscle Use, No Respiratory Distress Cardiovascular: Regular Rate, Rhythm, No Murmur Gastrointestinal: Soft, Tenderness (diffuse, worse in RLQ and LLQ) Extremity: Non Tender, No Pedal Edema Neurologic/Psychiatric: Alert, No Motor/Sensory Deficits, Normal Mood/Affect Skin: Normal Color, Warm/Dry Lymphatic: No Adenopathy Results/Procedures Lab Laboratory Tests 07/24/19 14:26 07/25/19 05:00 Patient resulted labs reviewed. Assessment/Plan Assessment and Plan Assess & Plan/Chief Complaint Assessment: Acute diverticulitis UTI with h/o ESBL DM HTN HLP Neuropathy Plan: Meropenem Awaiting culture and sensitivity results Pain control Dr Yancey appreciated Clinical Quality Measures DVT/VTE Risk/Contraindication: Risk Factor Score Per Nursin RFS Level Per Nursing on Admit: 4+=Very High MARY LOU BENTON DO 07/26/19 0958: Subjective Subjective/Events-last exam Pt is doing a little bit better. Will have PT and OT work with her once she is without as much abdominal pain. Will review her home medication. Tolerating antibiotic treatment. Appreciate Dr. Yancey input. Objective Exam General Appearance: No Apparent Distress, WD/WN Respiratory: Lungs Clear Cardiovascular: Regular Rate, Rhythm Neurologic/Psychiatric: Alert, Oriented x3, No Motor/Sensory Deficits, Normal Mood/Affect Assessment/Plan Assessment and Plan Assess & Plan/Chief Complaint PT/OT Antibiotics Supervisory-Addendum Brief Verification & Attestation Participated in pt care: history, MDM, physical Personally performed: exam, history, MDM, supervision of care Care discussed with: Medical Student Procedures: n/a Results interpretation: Verified all documentation Verification and Attestation of Medical Student E/M Service A medical student performed and documented this service in my presence. I reviewed and verified all information documented by the medical student and made modifications to such information, when appropriate. I personally performed the physical exam and medical decision making. Mary Lou Benton, Jul 26, 2019,09:56 KLAUDIA COLIN,MED STUDENT Jul 25, 2019 13:21 MARY LOU TOBIN DO Jul 26, 2019 09:58 POS
--- NOTE | 2019-07-25 14:16 | Consultation - Surgery ---
History of Present Illness History of Present Illness Patient Consulted On(karine/time) 07/25/19 14:08 Date Seen by Provider: Jul 25, 2019 Time Seen by Provider: 08:14 History of Present Illness Consult requested by Dr. Tompkins for diverticulitis Patient is an 89 year old female who last 3 days not been feeling well. Having pain in the left lower quadrant. No radiation of pain. Nothing has made it be tter. Some movement makes it hurt a little more. Had a ct scan that i reviewed having portion of sigmoid inflamed consistent with acute diverticulitis. Patient has not had a colonoscopy for many years. Has recent history of ESBL + UTI. Allergies and Home Medications Allergies Coded Allergies: No Known Drug Allergies (Unverified , 04/05/18) Home Medications Amlodipine Besylate 5 Mg Tablet, 5 MG PO DAILY, (Reported) Aspirin 81 Mg Tablet.dr, 81 MG PO DAILY, (Reported) Lisinopril 20 Mg Tablet, 20 MG PO DAILY, (Reported) Pantoprazole Sodium 40 Mg Tablet.dr, 40 MG PO DAILY, (Reported) LAST FILLED #90 03-28-19 Patient Home Medication List Home Medication List Reviewed: Yes Past Kleegsl-Bantuc-Oyqsxo Hx Patient Social History Alcohol Use: Denies Use Recreational Drug Use: No Smoking Status: Former Smoker Former Smoker, Quit: Apr 05, 1996 Type Used: Cigarettes Recent Foreign Travel: No Contact w/Someone Who Travel: No Recent Infectious Disease Expo: No Recent Hopitalizations: No Immunizations Up To Date Tetanus Booster (TDap): Unknown PED Vaccines UTD: Yes Date of Pneumonia Vaccine: Apr 05, 2016 Seasonal Allergies Seasonal Allergies: Yes Surgeries History of Surgeries: Yes (BACK X4, NECK SX, RIGHT TKR) Surgeries: Appendectomy, Gallbladder, Hysterectomy, Orthopedic Respiratory History of Respiratory Disorde: No Cardiovascular History of Cardiac Disorders: Yes Cardiac Disorders: High Cholesterol, Hypertension Neurological History of Neurological Disord: No Neurological Disorders: Neuropathy Reproductive System : No Genitourinary History of Genitourinary Disor: Yes Genitourinary Disorders: Bladder Infection, UTI-Chronic Gastrointestinal History of Gastrointestinal Di: Yes Gastrointestinal Disorders: Gastroesophageal Reflux Musculoskeletal History of Musculoskeletal Dis: Yes Musculoskeletal Disorders: Arthritis, Chronic Back Pain Endocrine History of Endocrine Disorders: No HEENT History of HEENT Disorders: Yes (GLASSES, DENTURES) Cancer History of Cancer: No Psychosocial History of Psychiatric Problem: No Integumentary History of Skin or Integumenta: No Blood Transfusions History of Blood Disorders: No Reviewed Nursing Assessment Reviewed/Agree w Nursing PMH: Yes Family Medical History Significant Family History: Cancer (breast in sister), Diabetes (sister) Family Medial History: Arthritis 19 FATHER 19 MOTHER G8 BROTHER G8 SISTER Colon cancer 19 FATHER Review of Systems-General Constitutional: see HPI EENTM: no symptoms reported Respiratory: no symptoms reported Cardiovascular: no symptoms reported Gastrointestinal: see HPI Genitourinary: see HPI Musculoskeletal: no symptoms reported Skin: no symptoms reported Psychiatric/Neurological: No Symptoms Reported Physical Exam-General Problems Physical Exam Vital Signs Vital Signs - First Documented 07/24/19 07/24/19 13:20 19:00 Temp 36.7 Pulse 79 Resp 20 B/P (MAP) 164/89 (114) Pulse Ox 94 O2 Delivery Room Air Capillary Refill : Less Than 3 Seconds General Appearance: no apparent distress HEENT: PERRL/EOMI, normal ENT inspection Neck: non-tender, supple Respiratory: chest non-tender, no respiratory distress, no accessory muscle use Cardiovascular: regular rate, rhythm Gastrointestinal: soft, tenderness (llq with palpation) Rectal: deferred Extremities: non-tender Neurologic/Psychiatric: no motor/sensory deficits, alert, normal mood/affect, oriented x 3 Skin: normal color, warm/dry Lymphatic: no adenopathy Data Review Labs Laboratory Tests 07/24/19 14:26: White Blood Count 12.6H, Red Blood Count 5.30, Hemoglobin 14.6, Hematocrit 46, Mean Corpuscular Volume 86, Mean Corpuscular Hemoglobin 28, Mean Corpuscular Hemoglobin Concent 32, Red Cell Distribution Width 13.9, Platelet Count 270, Mean Platelet Volume 11.6H, Neutrophils (%) (Auto) 76H, Lymphocytes (%) (Auto) 13, Monocytes (%) (Auto) 8, Eosinophils (%) (Auto) 3, Basophils (%) (Auto) 0, Neutrophils # (Auto) 9.6H, Lymphocytes # (Auto) 1.6, Monocytes # (Auto) 1.0, Eosinophils # (Auto) 0.3, Basophils # (Auto) 0.1, Sodium Level 140, Potassium Level 3.8, Chloride Level 105, Carbon Dioxide Level 20L, Anion Gap 15H, Blood Urea Nitrogen 18, Creatinine 1.22, Estimat Glomerular Filtration Rate 42, BUN/Creatinine Ratio 15, Glucose Level 98, Calcium Level 9.4, Corrected Calcium 9.6, Magnesium Level 1.8, Total Bilirubin 0.5, Aspartate Amino Transf (AST/SGOT) 20, Alanine Aminotransferase (ALT/SGPT) 16, Alkaline Phosphatase 98, Total Protein 7.0, Albumin 3.8 07/24/19 15:40: Urine Color YELLOW, Urine Clarity SL CLOUDY, Urine pH 5.5, Urine Specific Hurley >=1.030, Urine Protein 1+H, Urine Glucose (UA) NEGATIVE, Urine Ketones 1+H, Urine Nitrite NEGATIVE, Urine Bilirubin 2+H, Urine Urobilinogen 0.2, Urine Leukocyte Esterase NEGATIVE, Urine RBC (Auto) NEGATIVE, Urine RBC NONE, Urine WBC 10-25H, Urine Squamous Epithelial Cells 5-10, Urine Crystals NONE, Urine Amorphous Sediment FEW DESTINI PHOSPHATEH, Urine Bacteria FEWH, Urine Casts NONE, Urine Hyaline Casts 25-50H, Urine Mucus NEGATIVE, Urine Culture Indicated YES 07/24/19 16:03: Lactic Acid Level 1.06 07/25/19 05:00: White Blood Count 9.2, Red Blood Count 4.45, Hemoglobin 12.4, Hematocrit 39, Mean Corpuscular Volume 87, Mean Corpuscular Hemoglobin 28, Mean Corpuscular Hemoglobin Concent 32, Red Cell Distribution Width 13.8, Platelet Count 249, Mean Platelet Volume 11.0H, Neutrophils (%) (Auto) 73, Lymphocytes (%) (Auto) 15, Monocytes (%) (Auto) 8, Eosinophils (%) (Auto) 4, Basophils (%) (Auto) 0, Neutrophils # (Auto) 6.7, Lymphocytes # (Auto) 1.4, Monocytes # (Auto) 0.7, Eosinophils # (Auto) 0.4H, Basophils # (Auto) 0.0, Sodium Level 140, Potassium Level 3.5L, Chloride Level 110H, Carbon Dioxide Level 19L, Anion Gap 11, Blood Urea Nitrogen 21H, Creatinine 1.00, Estimat Glomerular Filtration Rate 52, BUN/Creatinine Ratio 21, Glucose Level 77, Calcium Level 8.2L, Corrected Calcium 9.1, Total Bilirubin 0.4, Aspartate Amino Transf (AST/SGOT) 15, Alanine Aminotransferase (ALT/SGPT) 8, Alkaline Phosphatase 83, Total Protein 5.3L, Albumin 2.9L Microbiology 07/24/19 Blood Culture - Preliminary, Resulted No growth 07/24/19 Urine Culture - Preliminary, Resulted Culture In Progress Assessment/Plan Assessment/Plan Assessment/Plan llq abd pain diverticulitis uti c history esbl+ uti patient feeling a little better today after admission and antibioitics will need further IV antibiotics continue on clear liquid diet will need colonoscopy outpatient once resolved Clinical Quality Measures DVT/VTE Risk/Contraindication: Risk Factor Score Per Nursin RFS Level Per Nursing on Admit: 4+=Very High KATHLEEN ESCOBAR DO Jul 25, 2019 14:16 POS
[2019-07-25 16:18] VITALS: BP 140/65
[2019-07-25 20:46] VITALS: BP 171/72
[2019-07-25] MEDS: ENOXAPARIN 40 MG/0.4 ML (LOVENOX) SYR SC SCH (22:06)
[2019-07-26] VITALS: BP 168/69
[2019-07-26] MEDS: MEROPENEM 500 MG/SWFI 10 ML IV PUSH IV SCH ×6 (01:57→17:30)
[2019-07-26 04:00] VITALS: BP 166/69
[2019-07-26 07:50] VITALS: BP 134/61
[2019-07-26 09:39] LABS: BASOPHILS % (AUTO) 1 % (0-10); EOSINOPHILS # (AUTO) 0.5 10^3/uL (0.0-0.3); EOSINOPHILS % (AUTO) 6 % (0-10); HEMATOCRIT 38 % (35-52); HEMOGLOBIN 12.3 G/DL (11.5-16.0); LYMPHOCYTES # (AUTO) 1.7 X 10^3 (1.0-4.0); LYMPHOCYTES % (AUTO) 19 % (12-44); MEAN CORPUSCULAR HEMOGLOBIN 27 PG (25-34); MEAN CORPUSCULAR HGB CONC 32 G/DL (32-36); MEAN CORPUSCULAR VOLUME 85 FL (80-99); MEAN PLATELET VOLUME 11.1 FL (7.4-10.4); MONOCYTES # (AUTO) 0.7 X 10^3 (0.0-1.0); MONOCYTES % (AUTO) 9 % (0-12); NEUTROPHILS # (AUTO) 5.8 X 10^3 (1.8-7.8); NEUTROPHILS % (AUTO) 66 % (42-75); PLATELET COUNT 270 10^3/uL (130-400); RED CELL DISTRIBUTION WIDTH 13.9 % (10.0-14.5); WHITE BLOOD COUNT 8.8 10^3/uL (4.3-11.0)
[2019-07-26 09:58] LABS: ALANINE AMINOTRANSFERASE 7 U/L (0-55); ALKALINE PHOSPHATASE 79 U/L (40-136); BILIRUBIN,TOTAL 0.3 MG/DL (0.1-1.0); BUN/CREATININE RATIO 15; CALCIUM 8.3 MG/DL (8.5-10.1); CARBON DIOXIDE 21 MMOL/L (21-32); CHLORIDE 109 MMOL/L (98-107); CREATININE SERUM 0.87 MG/DL (0.60-1.30); GFR ESTIMATED > 60; GLUCOSE 103 MG/DL (70-105); POTASSIUM 3.5 MMOL/L (3.6-5.0); SODIUM 138 MMOL/L (135-145); TOTAL PROTEIN 5.4 GM/DL (6.4-8.2)
--- NOTE | 2019-07-26 10:25 | Progress Note - Surgery ---
STEFFANY COLEMAN,MED STUDENT 07/26/19 1025: Subjective Date Seen by a Provider: Jul 26, 2019 Time Seen by a Provider: 10:00 Subjective/Events-last exam Patient says that her abdominal pain is still rated as a 4/10 and she is still having diarrhea. She mentioned that she has an URI about 3 wks ago, and that she has a history of diverticulosis. Patient says that she has not a colonscopy done in a number of years and does not remember when she last had one. Review of Systems General: No Chills; Other (gernalized weakness, no fever) HEENT: Head Aches; No Dysphasia; Sore Throat Pulmonary: Cough, Other (sputum production ) Cardiovascular: No: Chest Pain, Palpitations, Lt Headedness Gastrointestinal: Abdominal Pain (LLQ ), Diarrhea; No: Nausea, Vomiting Musculoskeletal: other, back pain Neurological: No: Numbness, Change in speech Focused Exam Lactate Level 07/24/19 16:03: Lactic Acid Level 1.06 Objective Exam Vital Signs Date Time Temp Pulse Resp B/P (MAP) Pulse Ox O2 Delivery O2 Flow Rate FiO2 07/26/19 07:50 36.4 64 20 134/61 (85) 96 Room Air 07/26/19 04:00 36.6 70 16 166/69 (101) 94 Room Air 07/26/19 00:00 36.4 75 18 168/69 (102) 94 Room Air 07/25/19 20:46 36.7 65 22 171/72 (105) 94 Room Air 07/25/19 19:35 Room Air 07/25/19 16:18 36.8 63 20 140/65 (90) 92 Room Air 07/25/19 12:00 36.8 70 20 145/72 (96) 95 Room Air I & O 07/26/19 07:00 Intake Total 3210 ml Balance 3210 ml Capillary Refill : Less Than 3 Seconds General Appearance: No Apparent Distress, WD/WN HEENT: PERRL/EOMI, Pharynx Normal, Moist Mucous Membranes Neck: Non Tender, Supple Respiratory: Chest Non Tender, Lungs Clear, Normal Breath Sounds, No Accessory Muscle Use, No Respiratory Distress Cardiovascular: Regular Rate, Rhythm, No Murmur, Normal Peripheral Pulses Peripheral Pulses: 2+ Radial Pulses (R), 2+ Radial Pulses (L) Gastrointestinal: normal bowel sounds, soft, no organomegaly, tenderness (tenderness throughtout the entire abdomen but worse in the LLQ ) Extremity: Non Tender, No Calf Tenderness Neurologic/Psychiatric: Alert, Oriented x3, Normal Mood/Affect Skin: Normal Color, Warm/Dry Results Lab Laboratory Tests 07/26/19 09:13: White Blood Count 8.8, Red Blood Count 4.49, Hemoglobin 12.3, Hematocrit 38, Mean Corpuscular Volume 85, Mean Corpuscular Hemoglobin 27, Mean Corpuscular Hemoglobin Concent 32, Red Cell Distribution Width 13.9, Platelet Count 270, Mean Platelet Volume 11.1H, Neutrophils (%) (Auto) 66, Lymphocytes (%) (Auto) 19, Monocytes (%) (Auto) 9, Eosinophils (%) (Auto) 6, Basophils (%) (Auto) 1, Neutrophils # (Auto) 5.8, Lymphocytes # (Auto) 1.7, Monocytes # (Auto) 0.7, Eosinophils # (Auto) 0.5H, Basophils # (Auto) 0.0, Sodium Level 138, Potassium Level 3.5L, Chloride Level 109H, Carbon Dioxide Level 21, Anion Gap 8, Blood Urea Nitrogen 13, Creatinine 0.87, Estimat Glomerular Filtration Rate > 60, BUN/Creatinine Ratio 15, Glucose Level 103, Calcium Level 8.3L, Corrected Calcium 9.1, Total Bilirubin 0.3, Aspartate Amino Transf (AST/SGOT) 14, Alanine Aminotransferase (ALT/SGPT) 7, Alkaline Phosphatase 79, Total Protein 5.4L, Albumin 3.0L Microbiology 07/24/19 Blood Culture - Preliminary, Resulted No growth 07/24/19 Urine Culture - Final, Complete Mixed Bacterial Ana Assessment/Plan Assessment/Plan Assessment/Plan llq abd pain diverticulitis uti c history esbl+ uti recent URI hx of hypokalemia Diarrhea patient reports feeling better but will need further IV antibiotics (meropenem) continue on clear liquid diet, monitor potassium, and hydration status will need colonoscopy outpatient once resolved Clinical Quality Measures DVT/VTE Risk/Contraindication: Risk Factor Score Per Nursin RFS Level Per Nursing on Admit: 4+=Very High LEONID BUCK DO 07/26/19 1202: Subjective Time Seen by a Provider: 10:54 Subjective/Events-last exam Pt seen and examined, states her abdominal pain is about the same. Tolerating clears Review of Systems Pulmonary: Cough Cardiovascular: No: Chest Pain, Palpitations Gastrointestinal: No: Nausea, Vomiting Genitourinary: No Dysuria Objective Exam Gastrointestinal: tenderness (tenderness mainly Lower Quadrants and possibly most suprapubically) Assessment/Plan Assessment/Plan Assessment/Plan Diverticulitis - very minimal on CT and WBC is normal UTI - doubt because catch was contaminated and Leukocyte Esterase and Nitrate were negative Pt encouraged to ambulate and use IS, continue clear liquids and control of symptoms. Not sure if ABX are helping pt. No surgical intervention needed at this time. Supervisory-Addendum Brief Verification & Attestation Participated in pt care: history, MDM, physical Personally performed: exam, history, MDM Care discussed with: Medical Student Procedures: n/a Verification and Attestation of Medical Student E/M Service A medical student performed and documented this service in my presence. I reviewed and verified all information documented by the medical student and made modifications to such information, when appropriate. I personally performed the physical exam and medical decision making. Leonid Buck, Jul 26, 2019,12:02 STEFFANY COLEMAN,MED STUDENT Jul 26, 2019 10:25 LEONID BUSTILLO DO Jul 26, 2019 12:02 POS
[2019-07-26] MEDS: LACTATED RINGERS 1,000 ML IV SCH (10:47)
[2019-07-26 11:06] VITALS: BP 176/80
--- NOTE | 2019-07-26 11:17 | Physical Therapy Progress Note ---
Therapy Progress Note Order received for PT lisa. Chart reviewed. Patient was getting her BP taken by nurse aide as PT walks into the room. Patient's BP is 211/85. Will hold PT for now and evaluate when BP is at a more appropriate level. VAN REDDING PT Jul 26, 2019 11:17 POS
--- NOTE | 2019-07-26 12:02 | Progress Note - Hospitalist ---
Subjective HPI/CC On Admission Date Seen by Provider: Jul 26, 2019 Time Seen by Provider: 10:30 Chief complaint: Acute diverticulitis with UTI History of present illness: This is an 89-year-old white female clinic patient of mine who has a past medical history of mild diabetes, chronic renal sufficiency, severe spinal disease not a surgical candidate and osteoarthritis with ESBL UTI managed by urology who presented not feeling well for several days to the ER found to have elevated white count abdominal pain was pursued CT scan revealed acute diverticulitis and UA showed UTI with history of ESBL. Dr. Yancey will be consulted. We will place her on meropenem empirically for acute diverticulitis treatment and UTI due to ESBL infection in the past. She had been doing pretty well I had not seen her in the clinic since January in which she was supposed to follow-up in 4 months. Her daughter is at the bedside. Subjective/Events-last exam Patient reports she is doing better May be an inpatient rehab candidate like she was earlier this year Home meds were restarted Elevated blood pressure will require clonidine as needed PT and OT ordered Pain is improving Up and around going back and forth to the bathroom with assistance Review of Systems Gastrointestinal: Abdominal Pain Focused Exam Lactate Level 07/24/19 16:03: Lactic Acid Level 1.06 Objective Exam Vital Signs Vital Signs Date Time Temp Pulse Resp B/P (MAP) Pulse Ox O2 Delivery O2 Flow Rate FiO2 07/27/19 08:57 146/80 (102) 07/27/19 08:00 95 Room Air 07/27/19 07:35 36.5 65 16 07/26/19 00:00 Capillary Refill : Less Than 3 Seconds General Appearance: No Apparent Distress, WD/WN, Chronically ill Respiratory: Chest Non Tender, Lungs Clear, Normal Breath Sounds, No Accessory Muscle Use, No Respiratory Distress Cardiovascular: Regular Rate, Rhythm, No Edema, No Gallop, No JVD, No Murmur, Normal Peripheral Pulses Gastrointestinal: Normal Bowel Sounds Neurologic/Psychiatric: Alert, Oriented x3, No Motor/Sensory Deficits, Normal Mood/Affect Results/Procedures Lab Patient resulted labs reviewed. Assessment/Plan Assessment and Plan Assess & Plan/Chief Complaint Assessment: Acute diverticulitis UTI with history of ESBL Hypertension Diabetes mellitus Chronic renal insufficiency Spinal disease Osteoarthritis Plan: Home meds Blood pressure meds IV antibiotics Appreciate general surgery consultation Diagnosis/Problems Diagnosis/Problems (1) Diverticulitis of intestine Status: Acute Qualifiers: Diverticulitis site: large intestine Diverticulitis bleeding: without bleeding Diverticulitis complication: without perforation or abscess Qualified Codes: K57.32 - Diverticulitis of large intestine without perforation or abscess without bleeding (2) UTI (urinary tract infection) Qualifiers: Urinary tract infection type: acute cystitis Hematuria presence: without hematuria Qualified Codes: N30.00 - Acute cystitis without hematuria (3) Infection due to ESBL-producing Escherichia coli (4) Urinary incontinence (5) Osteoarthritis of right knee Status: Chronic (6) Hypertension Status: Chronic (7) Renal insufficiency Status: Chronic (8) Neuropathy (9) Diabetes mellitus Status: Chronic Clinical Quality Measures DVT/VTE Risk/Contraindication: Risk Factor Score Per Nursin RFS Level Per Nursing on Admit: 4+=Very High LAURYN BENTON DO Jul 26, 2019 12:02 POS
[2019-07-26] MEDS ORDERED: cloNIDine 0.1 MG (CATAPRES) TAB PO PRN (12:15)
[2019-07-26] MEDS ORDERED: NON-FORMULARY MEDICATION 1 EA EA (Aspirin (Aspir 81) 81 MG) PO SCH (12:45)
[2019-07-26] MEDS ORDERED: NON-FORMULARY MEDICATION 1 EA EA (Amlodipine Besylate 5 MG) PO SCH (12:45)
[2019-07-26] MEDS: amLODIPine 5 MG (NORVASC) TAB PO SCH (13:15)
[2019-07-26] MEDS: lisINopril 20 MG (PRINIVIL) TABLET PO SCH (13:15)
[2019-07-26] MEDS: PANTOPRAZOLE 40 MG (PROTONIX) TAB PO SCH (13:15)
[2019-07-26] MEDS: guaiFENesin/CODEINE (ROBITUSSIN AC) 10ML UDC PO PRN ×2 (13:18→17:31)
[2019-07-26 16:00] VITALS: BP 143/64
[2019-07-26 20:00] VITALS: BP 124/58
[2019-07-26] MEDS: ENOXAPARIN 40 MG/0.4 ML (LOVENOX) SYR SC SCH (21:09)
[2019-07-27] VITALS: BP 148/81
[2019-07-27] MEDS: LACTATED RINGERS 1,000 ML IV SCH ×2 (00:32→21:04)
[2019-07-27] MEDS: MEROPENEM 500 MG/SWFI 10 ML IV PUSH IV SCH ×6 (01:49→17:23)
[2019-07-27 07:35] VITALS: BP 178/82
[2019-07-27] MEDS: amLODIPine 5 MG (NORVASC) TAB PO SCH (08:14)
[2019-07-27] MEDS: PANTOPRAZOLE 40 MG (PROTONIX) TAB PO SCH (08:14)
[2019-07-27] MEDS: lisINopril 20 MG (PRINIVIL) TABLET PO SCH (08:14)
[2019-07-27 08:57] VITALS: BP 146/80
[2019-07-27] MEDS ORDERED: NON-FORMULARY MEDICATION 1 EA EA (Amlodipine Besylate 5 MG) PO SCH (09:00)
[2019-07-27] MEDS ORDERED: lisINopril 20 MG (PRINIVIL) TABLET PO SCH (09:00)
[2019-07-27] MEDS ORDERED: PANTOPRAZOLE 40 MG (PROTONIX) TAB PO SCH (09:00)
[2019-07-27] MEDS ORDERED: NON-FORMULARY MEDICATION 1 EA EA (Aspirin (Aspir 81) 81 MG) PO SCH (09:00)
--- NOTE | 2019-07-27 09:54 | Progress Note - Surgery ---
STEFFANY COLEMAN,MED STUDENT 07/27/19 0954: Subjective Date Seen by a Provider: Jul 27, 2019 Time Seen by a Provider: 09:30 Subjective/Events-last exam Patient seen and examined. She reports fell the same as yesterday with no change in her abdominal pain. Patient still reports having diarrhea but that it is "slowing down and doesn't happen every time anymore". When asked how her appetite is, she says that is has every little appetite and fills up quick. When asked how long this has been occurring, she reports that it did not start until she came to the hospital. Patient says that she feel that she can go home now. Review of Systems General: No Chills, No Appetite HEENT: No Head Aches, No Dysphasia Pulmonary: No Dyspnea; Cough (with green sputum production but no hemopytosis ) Cardiovascular: No: Chest Pain, Palpitations Gastrointestinal: Abdominal Pain, Diarrhea, Other (fullness and epigastric pain after eating ); No: Nausea, Vomiting, Melena, Hematochezia Genitourinary: No Dysuria, No Frequency; Incontinence (says that she had incontinence for years ) Focused Exam Lactate Level 07/24/19 16:03: Lactic Acid Level 1.06 Objective Exam Vital Signs Date Time Temp Pulse Resp B/P (MAP) Pulse Ox O2 Delivery O2 Flow Rate FiO2 07/27/19 08:57 146/80 (102) 07/27/19 07:35 36.5 65 16 178/82 (114) 95 Room Air 07/27/19 00:00 36.6 56 20 148/81 (103) 96 Room Air 07/26/19 20:00 36.8 58 20 124/58 (80) 93 Room Air 07/26/19 19:45 Room Air 07/26/19 16:00 37.0 53 18 143/64 (90) 94 Room Air 07/26/19 11:06 36.6 54 20 176/80 (112) 95 Room Air I & O 07/27/19 07:00 Intake Total 1810 ml Balance 1810 ml Capillary Refill : Less Than 3 Seconds General Appearance: No Apparent Distress, WD/WN, Obese HEENT: PERRL/EOMI; No Scleral Icterus (L), No Scleral Icterus (R) Neck: Non Tender, Supple Respiratory: Chest Non Tender, Lungs Clear, Normal Breath Sounds, No Accessory Muscle Use, No Respiratory Distress Cardiovascular: Regular Rate, Rhythm, No Edema, No Murmur, Normal Peripheral Pulses Peripheral Pulses: 2+ Radial Pulses (R), 2+ Radial Pulses (L) Gastrointestinal: normal bowel sounds, soft, no organomegaly, no pulsatile mass, tenderness (tenderness mainly Lower Quadrants, some epigastric pain to deep palpation ) Extremity: Non Tender, No Calf Tenderness, No Pedal Edema Neurologic/Psychiatric: Alert, Oriented x3, Normal Mood/Affect Skin: Normal Color, Warm/Dry Results Lab Microbiology 07/24/19 Blood Culture - Preliminary, Resulted No growth 07/24/19 Urine Culture - Final, Complete Mixed Bacterial Ana Assessment/Plan Assessment/Plan Assessment/Plan Diverticulitis - very minimal on CT and WBC is normal UTI - doubt because catch was contaminated and Leukocyte Esterase and Nitrate were negative Pt encouraged to ambulate and use IS, continue clear liquids and control of symptoms. Not sure if ABX are helping pt. No surgical intervention needed at this time. Will continue to follow while patient is in the hospital. Clinical Quality Measures DVT/VTE Risk/Contraindication: Risk Factor Score Per Nursin RFS Level Per Nursing on Admit: 4+=Very High LEONID BUCK DO 07/27/19 1156: Subjective Time Seen by a Provider: 11:03 Subjective/Events-last exam Pt seen and examined, states she has less diarrhea but the abdominal pain is the same. She is asking if she can go home. Review of Systems Pulmonary: No Dyspnea Cardiovascular: No: Chest Pain, Palpitations Gastrointestinal: No: Nausea, Vomiting Objective Exam Respiratory: Lungs Clear, Normal Breath Sounds Cardiovascular: Regular Rate, Rhythm, No Murmur Gastrointestinal: normal bowel sounds, soft, no organomegaly, tenderness (tenderness mainly Lower Quadrants, some epigastric pain to deep palpation ) Assessment/Plan Assessment/Plan Assessment/Plan Diveticulitis Diarrhea Will slowly increase diet, pt encouraged to walk around more and use IS. Hopefully pt will be ready to go home tomorrow. Supervisory-Addendum Brief Verification & Attestation Participated in pt care: history, MDM, physical Personally performed: exam, history Care discussed with: Medical Student Procedures: n/a Verification and Attestation of Medical Student E/M Service A medical student performed and documented this service in my presence. I reviewed and verified all information documented by the medical student and made modifications to such information, when appropriate. I personally performed the physical exam and medical decision making. Leonid Buck, Jul 27, 2019,11:55 STEFFANY COLEMAN,MED STUDENT Jul 27, 2019 09:54 LEONID BUSTILLO DO Jul 27, 2019 11:56 POS
--- NOTE | 2019-07-27 12:08 | Progress Note - Hospitalist ---
Subjective HPI/CC On Admission Date Seen by Provider: Jul 27, 2019 Time Seen by Provider: 10:30 Chief complaint: Acute diverticulitis with UTI History of present illness: This is an 89-year-old white female clinic patient of mine who has a past medical history of mild diabetes, chronic renal sufficiency, severe spinal disease not a surgical candidate and osteoarthritis with ESBL UTI managed by urology who presented not feeling well for several days to the ER found to have elevated white count abdominal pain was pursued CT scan revealed acute diverticulitis and UA showed UTI with history of ESBL. Dr. Yancey will be consulted. We will place her on meropenem empirically for acute diverticulitis treatment and UTI due to ESBL infection in the past. She had been doing pretty well I had not seen her in the clinic since January in which she was supposed to follow-up in 4 months. Her daughter is at the bedside. Subjective/Events-last exam Patient doing a lot better Had a little bit of a bowel movement today She thinks she is back to prior level of functioning Likely will discharge tomorrow Review of Systems Gastrointestinal: Abdominal Pain Focused Exam Lactate Level 07/24/19 16:03: Lactic Acid Level 1.06 Objective Exam Vital Signs Vital Signs Date Time Temp Pulse Resp B/P (MAP) Pulse Ox O2 Delivery O2 Flow Rate FiO2 07/27/19 08:57 146/80 (102) 07/27/19 08:00 95 Room Air 07/27/19 07:35 36.5 65 16 07/26/19 00:00 Capillary Refill : Less Than 3 Seconds General Appearance: No Apparent Distress, WD/WN, Chronically ill Respiratory: Chest Non Tender, Lungs Clear, Normal Breath Sounds, No Accessory Muscle Use, No Respiratory Distress Cardiovascular: Regular Rate, Rhythm, No Edema, No Gallop, No JVD, No Murmur, Normal Peripheral Pulses Neurologic/Psychiatric: Alert, Oriented x3, No Motor/Sensory Deficits, Normal Mood/Affect Results/Procedures Lab Patient resulted labs reviewed. Assessment/Plan Assessment and Plan Assess & Plan/Chief Complaint Assessment: Acute diverticulitis UTI with history of ESBL Hypertension Diabetes mellitus Chronic renal insufficiency Spinal disease Osteoarthritis Plan: Home meds Blood pressure meds IV antibiotics Appreciate general surgery consultation Diagnosis/Problems Diagnosis/Problems (1) Diverticulitis of intestine Status: Acute Qualifiers: Diverticulitis site: large intestine Diverticulitis bleeding: without bleeding Diverticulitis complication: without perforation or abscess Qualified Codes: K57.32 - Diverticulitis of large intestine without perforation or abscess without bleeding (2) UTI (urinary tract infection) Qualifiers: Urinary tract infection type: acute cystitis Hematuria presence: without hematuria Qualified Codes: N30.00 - Acute cystitis without hematuria (3) Infection due to ESBL-producing Escherichia coli (4) Urinary incontinence (5) Osteoarthritis of right knee Status: Chronic (6) Hypertension Status: Chronic (7) Renal insufficiency Status: Chronic (8) Neuropathy (9) Diabetes mellitus Status: Chronic Clinical Quality Measures DVT/VTE Risk/Contraindication: Risk Factor Score Per Nursin RFS Level Per Nursing on Admit: 4+=Very High LAURYN BENTON DO Jul 27, 2019 12:08 POS
[2019-07-27 16:00] VITALS: BP 190/77
[2019-07-27 19:58] VITALS: BP 132/65
[2019-07-27] MEDS: ENOXAPARIN 40 MG/0.4 ML (LOVENOX) SYR SC SCH (21:05)
[2019-07-27 23:58] VITALS: BP 127/70
[2019-07-28] MEDS: MEROPENEM 500 MG/SWFI 10 ML IV PUSH IV SCH ×4 (01:40→10:20)
[2019-07-28 05:42] LABS: BASOPHILS % (AUTO) 1 % (0-10); EOSINOPHILS # (AUTO) 0.5 10^3/uL (0.0-0.3); EOSINOPHILS % (AUTO) 8 % (0-10); HEMATOCRIT 39 % (35-52); HEMOGLOBIN 12.4 G/DL (11.5-16.0); LYMPHOCYTES # (AUTO) 1.6 X 10^3 (1.0-4.0); LYMPHOCYTES % (AUTO) 23 % (12-44); MEAN CORPUSCULAR HEMOGLOBIN 27 PG (25-34); MEAN CORPUSCULAR HGB CONC 32 G/DL (32-36); MEAN CORPUSCULAR VOLUME 85 FL (80-99); MONOCYTES # (AUTO) 0.7 X 10^3 (0.0-1.0); MONOCYTES % (AUTO) 11 % (0-12); NEUTROPHILS # (AUTO) 3.9 X 10^3 (1.8-7.8); NEUTROPHILS % (AUTO) 58 % (42-75); PLATELET COUNT 285 10^3/uL (130-400); RED CELL DISTRIBUTION WIDTH 13.9 % (10.0-14.5); WHITE BLOOD COUNT 6.7 10^3/uL (4.3-11.0)
[2019-07-28 05:55] LABS: ALBUMIN 2.9 GM/DL (3.2-4.5); BILIRUBIN,TOTAL 0.3 MG/DL (0.1-1.0); CALCIUM 8.4 MG/DL (8.5-10.1); CREATININE SERUM 0.92 MG/DL (0.60-1.30); POTASSIUM 3.5 MMOL/L (3.6-5.0); TOTAL PROTEIN 5.3 GM/DL (6.4-8.2)
[2019-07-28] MEDS: LACTATED RINGERS 1,000 ML IV SCH (06:23)
[2019-07-28 08:00] VITALS: BP 128/58
[2019-07-28] MEDS: lisINopril 20 MG (PRINIVIL) TABLET PO SCH (08:22)
[2019-07-28] MEDS: amLODIPine 5 MG (NORVASC) TAB PO SCH (08:22)
[2019-07-28] MEDS: PANTOPRAZOLE 40 MG (PROTONIX) TAB PO SCH (08:22)
--- NOTE | 2019-07-28 08:29 | Progress Note - Surgery ---
JOANNA RODRIGUEZ MED STUDENT 07/28/19 0829: Subjective Date Seen by a Provider: Jul 28, 2019 Time Seen by a Provider: 07:30 Subjective/Events-last exam Ms. Pierre reports feeling improved overall, she has diarrhea less frequently and her lower abdominal pain is decreased to intermittent 4 or 5/10. Reports that she has continued to feel sick as she has for several weeks with cough and congestion. Review of Systems General: No Chills, No Fatigue; Other (feels feverish at times) HEENT: Sinus Congestion; No Sore Throat Pulmonary: No Dyspnea; Cough Cardiovascular: No: Chest Pain, Palpitations, Lt Headedness Gastrointestinal: Abdominal Pain, Diarrhea; No: Nausea, Vomiting, Melena Genitourinary: No Dysuria, No Hematuria Musculoskeletal: back pain, hand pain (arthritis) Neurological: No: Weakness, Numbness Objective Exam Vital Signs Date Time Temp Pulse Resp B/P (MAP) Pulse Ox O2 Delivery O2 Flow Rate FiO2 07/27/19 23:58 37.2 73 18 127/70 (89) 96 Room Air 07/27/19 20:00 Room Air 07/27/19 19:58 132/65 (87) 07/27/19 16:00 36.5 56 18 190/77 (114) 95 Room Air 07/27/19 08:57 146/80 (102) I & O 07/28/19 07:00 Intake Total 1040 ml Balance 1040 ml Capillary Refill : Less Than 3 Seconds General Appearance: No Apparent Distress, Chronically ill HEENT: PERRL/EOMI; No Scleral Icterus (L), No Scleral Icterus (R) Neck: Non Tender, Supple Respiratory: Chest Non Tender, No Accessory Muscle Use, No Respiratory Distress, Wheezing Cardiovascular: Regular Rate, Rhythm, No Edema, No Murmur, Normal Peripheral Pulses Peripheral Pulses: 2+ Dorsalis Pedis (R), 2+ Left Dors-Pedis (L), 2+ Radial Pulses (R), 2+ Radial Pulses (L) Gastrointestinal: normal bowel sounds, soft, no organomegaly, tenderness (none on palpation) Extremity: Non Tender, No Calf Tenderness, No Pedal Edema Neurologic/Psychiatric: Alert, Oriented x3, No Motor/Sensory Deficits, Normal Mood/Affect Skin: Normal Color, Warm/Dry Results Lab Laboratory Tests 07/28/19 04:55: White Blood Count 6.7, Red Blood Count 4.62, Hemoglobin 12.4, Hematocrit 39, Mean Corpuscular Volume 85, Mean Corpuscular Hemoglobin 27, Mean Corpuscular Hemoglobin Concent 32, Red Cell Distribution Width 13.9, Platelet Count 285, Mean Platelet Volume 11.0H, Neutrophils (%) (Auto) 58, Lymphocytes (%) (Auto) 23, Monocytes (%) (Auto) 11, Eosinophils (%) (Auto) 8, Basophils (%) (Auto) 1, Neutrophils # (Auto) 3.9, Lymphocytes # (Auto) 1.6, Monocytes # (Auto) 0.7, Eosinophils # (Auto) 0.5H, Basophils # (Auto) 0.0, Sodium Level 142, Potassium Level 3.5L, Chloride Level 107, Carbon Dioxide Level 25, Anion Gap 10, Blood Urea Nitrogen 8, Creatinine 0.92, Estimat Glomerular Filtration Rate 58, BUN/Creatinine Ratio 9, Glucose Level 89, Calcium Level 8.4L, Corrected Calcium 9.3, Total Bilirubin 0.3, Aspartate Amino Transf (AST/SGOT) 13, Alanine Aminotransferase (ALT/SGPT) 7, Alkaline Phosphatase 81, Total Protein 5.3L, Albumin 2.9L Microbiology 07/24/19 Blood Culture - Preliminary, Resulted No growth 07/24/19 Urine Culture - Final, Complete Mixed Bacterial Ana Assessment/Plan Assessment/Plan Assessment/Plan Diverticulitis Diarrhea UTI Monitor response to diet increase. Encourage to ambulate and use IS. Clinical Quality Measures DVT/VTE Risk/Contraindication: Risk Factor Score Per Nursin RFS Level Per Nursing on Admit: 4+=Very High LEONID RUTLEDGE DO 07/28/19 1544: Subjective Time Seen by a Provider: 12:12 Subjective/Events-last exam Pt thinks she is doing better, would like to go home. Assessment/Plan Assessment/Plan Assessment/Plan Increase diet at home slowly; if pain comes back or gets worse go back to liquids. Follow up with Dr. Yancey as an outpt. Supervisory-Addendum Brief Verification & Attestation Participated in pt care: history, MDM, physical Personally performed: exam, history, MDM Care discussed with: Medical Student Procedures: n/a Verification and Attestation of Medical Student E/M Service A medical student performed and documented this service in my presence. I reviewed and verified all information documented by the medical student and made modifications to such information, when appropriate. I personally performed the physical exam and medical decision making. Leonid Rutledge, Jul 28, 2019,15:44 JOANNA RODRIGUEZ MED STUDENT Jul 28, 2019 08:29 LEONID BUSTILLO DO Jul 28, 2019 15:44 POS
--- NOTE | 2019-07-28 09:42 | Occupational Therapy Eval ---
OT Evaluation-General/PLF Medical Diagnosis Admission Date Jul 24, 2019 at 17:39 Medical Diagnosis: UTI, diverticulitis, cough/cold Onset Date: Jul 24, 2019 Therapy Diagnosis Therapy Diagnosis: decr activity tolerance Height/Weight Height (Feet): 5 Height (Inches): 0.00 Weight (Pounds): 183 Weight (Ounces): 0.0 Precautions Precautions/Isolations: Standard Precautions Safety Interventions: None Referral Physician: Turner Referral Reason: Evaluation/Treatment Medical History Pertinent Medical History: Arthritis, DM, GERD, HTN, Neuropathy, OA, Renal Insufficiency Additional Medical History Chronic UTI. Chronic back pain. R TKA Current History Admitted with cough/cold for 3 weeks and sinus infection, diarrhea. 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 6-[id number]-[id number] completes the activity by him/herself with no assistance from a helper. 5-Set-up or Clean-up Assistance-helper sets up or cleans up; patient completes activity. [place] assists only prior to or following the activity. 4-Supervision or Touching Assistance-helper provides verbal cues and/or touching/steadying and/or contact guard assistance as patient completes activity. Assistance may be provided throughout the activity or intermittently. 3-Partial/Moderate Assistance-helper does LESS THAN HALF the effort. [place] lifts, holds or supports trunk or limbs, but provides less than half the effort. 2-Substantial/Maximal Assistance-helper does MORE THAN HALF the effort. [place] lifts or holds trunk or limbs and provides more than half the effort. 3-Jpkmkpgoq-drylyk does ALL the effort. Patient does none of the effort to complete the activity. Or, the assistance of 2 or more helpers is required for the patient to complete the activity. If activity was not attempted, code reason: 7-Patient Refused. 9-Not Applicable-not attempted and the patient did not perform the activity before the current illness, exacerbation or injury. 10-Not Attempted due to Environmental Limitations-(lack of equipment, weather restraints, etc.). 88-Not Attempted due to Medical Conditions or Safety Concerns. ADL PLOF Comments Pt reported that she is able to manage all of her basic ADLs and care for her home. 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 She still drives locally. Self Care: Independent Functional Cognition: Independent DME/Equipment: Grab Bars, Shower, Sock Aid, Tall Toilet OT Current Status Subjective Pt seen in room, up in bed, agreeable to OT. Pain reported 0/10 Appearance Alert, cooperative Mental Status/Objective Patient Orientation: Person, Place, Time, Situation Attachments: IV Current Glasses/Contacts: Yes Dentures/Partials: Yes Hand Dominance: Right Upper Extremity ROM Grossly WFL bilat Upper Extremity Strength Grossly WFL ADL-Treatment ADL-Current Pt reported that she has been able to feed herself without difficulty. She has help to walk to the bathroom, with managing IV pole, but said that she can walk to the bathroom using FWW and is able to manage toileting/hygiene (she declined toileting). She has not had a shower yet but is anticipating being discharged today so may shower before she goes home. She also has been wearing hospital gown and hasn't dressed but she said that she can get her socks on/off by herself. She can also get up to EOB without help. She said that she does not think that she needs OT and does not anticipate any problems when she goes home. 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 2=Patient will verbalize/demonstrate understanding of assistive devices/modifications for ADL. 3=Patient will improve strength/tolerance for activity to enable patient to perform ADL's. OT Education/Plan Problem List/Assessment Assessment: No Skilled OT Needs ID'd Pt stated that she does not anticipate any difficulty managing self care at home and does not think that she needs OT. Discharge Recommendations Plan/Recommendations: Discontinue OT Treatment Plan/Plan of Care Treatment,Training & Education: No Patient would benefit from OT for education, treatment and training to promote independence in ADL's, mobility, safety and/or upper extremity function for ADL's. Plan of Care: OTHER (DC OT) Treatment Duration: Jul 28, 2019 Frequency: 1 time per week Agreement: Yes Rehab Potential: Good Time/GCodes Start Time: 08:57 Stop Time: 09:08 Total Time Billed (hr/min): 11 Billed Treatment Time visit, 11 minutes evaluation low intensity JEAN MARIE MCLEAN OT Jul 28, 2019 09:42 POS
[2019-07-28] MEDS ORDERED: Guaifenesin/Codeine PO (09:44)
[2019-07-28] MEDS ORDERED: OXYC1TAB87 PO (09:44)
[2019-07-28] MEDS ORDERED: METR500T PO (09:44)
[2019-07-28] MEDS ORDERED: CIPR500T4 PO (09:44)
[2019-07-28] MEDS ORDERED: KCL 20 MEQ TAB (K-DUR) PO NR (09:45)
--- NOTE | 2019-07-28 10:16 | Physical Therapy Evaluation ---
PT Evaluation-General Medical Diagnosis Admission Date Jul 24, 2019 at 17:39 Medical Diagnosis: UTI, diverticulitis, cough/cold Onset Date: Jul 24, 2019 Therapy Diagnosis Therapy Diagnosis: debility Height/Weight Height (Feet): 5 Height (Inches): 0.00 Weight (Pounds): 183 Weight (Ounces): 0.0 Precautions Precautions/Isolations: Standard Precautions Referral Physician: Turner Reason for Referral: Evaluation/Treatment Medical History Pertinent Medical History: Arthritis, DM, GERD, HTN, Neuropathy, OA, Renal Insufficiency Current History ER secondary to incontinent BM and a cough x 3 weeks Reviewed History: Yes Social History Home: Single Level (duplex) 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 7-Njeirxstdi-oqjodzp completes the activity by him/herself with no assistance from a helper. 5-Set-up or Clean-up Assistance-helper sets up or cleans up; patient completes activity. [place] assists only prior to or following the activity. 4-Supervision or Touching Assistance-helper provides verbal cues and/or touching/steadying and/or contact guard assistance as patient completes activity. Assistance may be provided throughout the activity or intermittently. 3-Partial/Moderate Assistance-helper does LESS THAN HALF the effort. [place] lifts, holds or supports trunk or limbs, but provides less than half the effort. 2-Substantial/Maximal Assistance-helper does MORE THAN HALF the effort. [place] lifts or holds trunk or limbs and provides more than half the effort. 3-Xaqyletoa-bhayky does ALL the effort. Patient does none of the effort to complete the activity. Or, the assistance of 2 or more helpers is required for the patient to complete the activity. If activity was not attempted, code reason: 7-Patient Refused. 9-Not Applicable-not attempted and the patient did not perform the activity before the current illness, exacerbation or injury. 10-Not Attempted due to Environmental Limitations-(lack of equipment, weather restraints, etc.). 88-Not Attempted due to Medical Conditions or Safety Concerns. Bed Mobility: 6 Transfers (B,C,W/C): 6 Gait: 6 Stairs: 9 Indoor Mobility (Ambulation): Independent Stairs: Not Applicalbe Prior Devices Use: Walker PT Evaluation-Current Subjective Patient reports she is going home today and agrees to PT. Pain Numeric Pain Scale: 0-No Pain Location: No Pain Reported Objective Patient Orientation: Normal For Age Attachments: IV ROM/Strength ROM Lower Extremities bilateral Le WFL Strength Lower Extremities 4/5 grossly bilateral LE Integumentary/Posture Integumentary refer to nursing notes Bowel Incontinence: No Bladder Incontinence: No Posture WFL Neuromuscular (Tone, Coordination, Reflexes) grossly intact Sensory Vision: Functional Hearing: Functional Hand Dominance: Right Sensation Right Lower Extremit: Impaired Sensation Left Lower Extremity: Impaired Transfers Roll Left to Right (QC): 6 Sit to Lying (QC): 6 Lying to Sitting/Side of Bed(Q: 6 Sit to Stand (QC): 6 Chair/Ear-gb-Awzji Xfer(QC): 6 Car Transfer (QC): 9 Gait Does the Patient Walk?: Yes Mode of Locomotion: Walk Anticipated Mode of Locomotion: Walk Walk 10 feet (QC): 6 Walk 50 ft with 2 Turns(QC): 6 Walk 150 ft (QC): 6 Walking 10ft/uneven surface-QC: 6 Distance: 400' Gait Assistive Device: FWW Comments/Gait Description safe and functional Wheelchair Training Does the Pt Use a Wheelchair?: No Wheel 50 ft with 2 turns (QC): 9 Wheel 150 ft (QC): 9 Type of Wheelchair: Manual Stairs 1 Step (curb) (QC): 9 4 Steps (QC): 9 12 Steps (QC): 9 Balance Sitting Static: Normal Sitting Dynamic: Normal Standing Static: Normal Standing Dynamic: Normal Picking up an Object (QC): 5 Assessment/Needs 89 y.o. female, is currently at independent [facility] with all gross motor skills and does not require skilled therapy intervention. Patient dismissing to home on this date. Rehab Potential: Fair PT Anesthesiology Medical Doctor Goals Residential Goals PT Anesthesiology Medical Doctor Goals Time Frame: Jul 28, 2019 Roll Left & Right (QC): 6 Sit to Lying (QC): 6 Lying-Sitting on Side/Bed(QC): 6 Sit to Stand (QC): 6 Chair/Hnm-pw-Imogn Xfer(QC): 6 Toilet Transfer (QC): 6 Car Transfer (QC): 6 Does the Patient Walk: Yes Walk 10 feet (QC): 6 Walk 50ft with 2 Turns (QC): 6 Walk 150 ft (QC): 6 Walking 10ft on Uneven Surface: 6 1 Step (curb) (QC): 9 4 Steps (QC): 9 12 Steps (QC): 9 Picking up an Object (QC): 5 Does the Pt use WC or Scooter?: No Type: N/A Type: N/A PT Plan Treatment/Plan Treatment Plan: Discontinue PT, goals met Treatment Plan: Other Treatment Duration: Jul 28, 2019 Frequency: 1 time per week Estimated Hrs Per Day: .25 hour per day Patient and/or Family Agrees t: Yes Time/GCodes Time In: 937 Time Out: 948 Total Billed Treatment Time: 11 Total Billed Treatment 1 visit EVLowC 11 min SAVAGE GREER PT Jul 28, 2019 10:15 POS
--- NOTE | 2019-07-28 11:26 | Progress Note ---
[facility] 07/28/19 1126: Progress Note Hospital Course: - 89 yo female presented to the ER and was admitted 07/24 and discharged 07/28. Patient was admitted for UTI, Diverticulitis, and acute cystitis. Past medical history is significatn for appendectomy, cholecystectomy, hysterectomy, and orthopedic surgeries, Hypercholesterolemia, hyperlipidemia, neuropathy, Bladder infections, and chronic UTI. Dr. Rodriguez (ED), Dr. Yancey (General Surgeon), Dr. Benton (Hospitalist), were involved with the patients care. Patient had an elevated WBC on 07/24 but resolved on 07/25. UA had few bacteria and 10-25 WBC. Chest X-ray showed no acute abnormalities. Abdomen Pelvis CT suggested acute diverticulitis. Patient received IV antibiotics, and gradually advanced diet starting with clear liquids. Patient is to follow medications outlined in the discharge instruction, and follow-up as outlined in discharge instructions. The following information is only a summary of the patient admission while at [facility] and is not all inclusiv. Please review entire chart for more information. MARY LOU BENTON DO 07/28/19 2102: Supervisory-Addendum Brief Verification & Attestation Participated in pt care: history, MDM, physical Personally performed: exam, history, MDM, supervision of care Care discussed with: Medical Student Procedures: n/a Results interpretation: Verified all documentation Verification and Attestation of Medical Student E/M Service A medical student performed and documented this service in my presence. I reviewed and verified all information documented by the medical student and made modifications to such information, when appropriate. I personally performed the physical exam and medical decision making. Mary Lou Benton, Jul 28, 2019,21:02 [facility] Jul 28, 2019 11:26 MARY LOU TOBIN DO Jul 28, 2019 21:02 POS
[2019-07-28 16:02] VITALS: BP 132/84
[2019-07-28 16:20] VITALS: BP 132/84
--- NOTE | 2019-07-28 21:04 | Discharge Summary ---
Diagnosis/Chief Complaint Date of Admission Jul 24, 2019 at 17:39 Date of Discharge Jul 28, 2019 at 16:20 Discharge Date: Jul 28, 2019 Discharge Diagnosis Assessment: Acute diverticulitis UTI with history of ESBL Hypertension Diabetes mellitus Chronic renal insufficiency Spinal disease Osteoarthritis Plan: Home meds Blood pressure meds IV antibiotics Appreciate general surgery consultation Discharge Summary Discharge Physical Examination Allergies: Coded Allergies: No Known Drug Allergies (Unverified , 04/05/18) Vitals & I&Os Vital Signs Date Time Temp Pulse Resp B/P (MAP) Pulse Ox O2 Delivery O2 Flow Rate FiO2 07/28/19 16:20 36.4 55 20 132/84 97 Room Air 07/26/19 00:00 General Appearance: Alert, Oriented X3, Cooperative Respiratory: Clear to Auscultation Cardiovascular: Regular Rate Extremities: No Cyanosis Neuro: Normal Gait Psych/Mental Status: Mental Status NL Hospital Course Was the Problem List Reviewed?: Yes Hospital Course: Pt had an uneventful 5 day hospital course when she was admitted for abdominal pain, CT scan revealed acute diverticulitis, she has never had an episode before but did have a diverticulosis history. UTI diagnosed pt has a history of ESBL so she was placed on Meropenem for treatments of both conditions. Abdominal pain improve, IV and supportive care, provided, UA showed mixed sonido so pt was DC in improved condition with Cipro and Flagyl. She was back to prior level of functioning and did not require any inpatient rehab and I did send pain medication for her usual abdominal pain and rest of meds were sent in to [facility]. She will see me in close follow up on Sunday. Labs (last 24 hrs) Laboratory Tests 07/24/19 14:26: White Blood Count 12.6H, Red Blood Count 5.30, Hemoglobin 14.6, Hematocrit 46, Mean Corpuscular Volume 86, Mean Corpuscular Hemoglobin 28, Mean Corpuscular Hemoglobin Concent 32, Red Cell Distribution Width 13.9, Platelet Count 270, Janice n Platelet Volume 11.6H, Neutrophils (%) (Auto) 76H, Lymphocytes (%) (Auto) 13, Monocytes (%) (Auto) 8, Eosinophils (%) (Auto) 3, Basophils (%) (Auto) 0, Neutrophils # (Auto) 9.6H, Lymphocytes # (Auto) 1.6, Monocytes # (Auto) 1.0, Eosinophils # (Auto) 0.3, Basophils # (Auto) 0.1, Sodium Level 140, Potassium Level 3.8, Chloride Level 105, Carbon Dioxide Level 20L, Anion Gap 15H, Blood Urea Nitrogen 18, Creatinine 1.22, Estimat Glomerular Filtration Rate 42, BUN/Creatinine Ratio 15, Glucose Level 98, Calcium Level 9.4, Corrected Calcium 9.6, Magnesium Level 1.8, Total Bilirubin 0.5, Aspartate Amino Transf (AST/SGOT) 20, Alanine Aminotransferase (ALT/SGPT) 16, Alkaline Phosphatase 98, Total Protein 7.0, Albumin 3.8 07/24/19 15:40: Urine Color YELLOW, Urine Clarity SL CLOUDY, Urine pH 5.5, Urine Specific Haugen >=1.030, Urine Protein 1+H, Urine Glucose (UA) NEGATIVE, Urine Ketones 1+H, Urine Nitrite NEGATIVE, Urine Bilirubin 2+H, Urine Urobilinogen 0.2, Urine Leukocyte Esterase NEGATIVE, Urine RBC (Auto) NEGATIVE, Urine RBC NONE, Urine WBC 10-25H, Urine Squamous Epithelial Cells 5-10, Urine Crystals NONE, Urine Amorphous Sediment FEW DESTINI PHOSPHATEH, Urine Bacteria FEWH, Urine Casts NONE, Urine Hyaline Casts 25-50H, Urine Mucus NEGATIVE, Urine Culture Indicated YES 07/24/19 16:03: Lactic Acid Level 1.06 07/24/19 17:39: Lab Scanned Report Referred Lab Report 07/25/19 05:00: White Blood Count 9.2, Red Blood Count 4.45, Hemoglobin 12.4, Hematocrit 39, Mean Corpuscular Volume 87, Mean Corpuscular Hemoglobin 28, Mean Corpuscular Hemoglobin Concent 32, Red Cell Distribution Width 13.8, Platelet Count 249, Mean Platelet Volume 11.0H, Neutrophils (%) (Auto) 73, Lymphocytes (%) (Auto) 15 , Monocytes (%) (Auto) 8, Eosinophils (%) (Auto) 4, Basophils (%) (Auto) 0, Neutrophils # (Auto) 6.7, Lymphocytes # (Auto) 1.4, Monocytes # (Auto) 0.7, Eosinophils # (Auto) 0.4H, Basophils # (Auto) 0.0, Sodium Level 140, Potassium Level 3.5L, Chloride Level 110H, Carbon Dioxide Level 19L, Anion Gap 11, Blood Urea Nitrogen 21H, Creatinine 1.00, Estimat Glomerular Filtration Rate 52, BUN/Creatinine Ratio 21, Glucose Level 77, Calcium Level 8.2L, Corrected Calcium 9.1, Total Bilirubin 0.4, Aspartate Amino Transf (AST/SGOT) 15, Alanine Aminotransferase (ALT/SGPT) 8, Alkaline Phosphatase 83, Total Protein 5.3L, Albumin 2.9L 07/26/19 09:13: White Blood Count 8.8, Red Blood Count 4.49, Hemoglobin 12.3, Hematocrit 38, Mean Corpuscular Volume 85, Mean Corpuscular Hemoglobin 27, Mean Corpuscular Hemoglobin Concent 32, Red Cell Distribution Width 13.9, Platelet Count 270, Mean Platelet Volume 11.1H, Neutrophils (%) (Auto) 66, Lymphocytes (%) (Auto) 19, Monocytes (%) (Auto) 9, Eosinophils (%) (Auto) 6, Basophils (%) (Auto) 1, Neutrophils # (Auto) 5.8, Lymphocytes # (Auto) 1.7, Monocytes # (Auto) 0.7, Eosinophils # (Auto) 0.5H, Basophils # (Auto) 0.0, Sodium Level 138, Potassium Level 3.5L, Chloride Level 109H, Carbon Dioxide Level 21, Anion Gap 8, Blood Urea Nitrogen 13, Creatinine 0.87, Estimat Glomerular Filtration Rate > 60, BUN/Creatinine Ratio 15, Glucose Level 103, Calcium Level 8.3L, Corrected Calcium 9.1, Total Bilirubin 0.3, Aspartate Amino Transf (AST/SGOT) 14, Alanine Aminotransferase (ALT/SGPT) 7, Alkaline Phosphatase 79, Total Protein 5.4L, Albumin 3.0L 07/28/19 04:55: White Blood Count 6.7, Red Blood Count 4.62, Hemoglobin 12.4, Hematocrit 39, Mean Corpuscular Volume 85, Mean Corpuscular Hemoglobin 27, Mean Corpuscular Hemoglobin Concent 32, Red Cell Distribution Width 13.9, Platelet Count 285, Mean Platelet Volume 11.0H, Neutrophils (%) (Auto) 58, Lymphocytes (%) (Auto) 23, Monocytes (%) (Auto) 11, Eosinophils (%) (Auto) 8, Basophils (%) (Auto) 1, Neutrophils # (Auto) 3.9, Lymphocytes # (Auto) 1.6, Monocytes # (Auto) 0.7, Eosinophils # (Auto) 0.5H, Basophils # (Auto) 0.0, Sodium Level 142, Potassium Level 3.5L, Chloride Level 107, Carbon Dioxide Level 25, Anion Gap 10, Blood Urea Nitrogen 8, Creatinine 0.92, Estimat Glomerular Filtration Rate 58, BUN/Creatinine Ratio 9, Glucose Level 89, Calcium Level 8.4L, Corrected Calcium 9.3, Total Bilirubin 0.3, Aspartate Amino Transf (AST/SGOT) 13, Alanine Aminotransferase (ALT/SGPT) 7, Alkaline Phosphatase 81, Total Protein 5.3L, Albumin 2.9L Microbiology 07/24/19 Blood Culture - Preliminary, Resulted No growth 07/24/19 Urine Culture - Final, Complete Mixed Bacterial Sonido Pending Labs Microbiology Date/Time Source Procedure Growth Status 07/24/19 16:08 Peripheral Rt Ac Blood Culture - Preliminary No growth Resulted 07/24/19 16:03 Peripheral Rt Ac Blood Culture - Preliminary No growth Resulted 07/24/19 15:40 Urine Clean Catch Urine Culture - Final Mixed Bacterial Sonido Complete Laboratory Tests 07/24/19 14:26: White Blood Count 12.6, Red Blood Count 5.30, Hemoglobin 14.6, Hematocrit 46, Mean Corpuscular Volume 86, Mean Corpuscular Hemoglobin 28, Mean Corpuscular Hemoglobin Concent 32, Red Cell Distribution Width 13.9, Platelet Count 270, Mean Platelet Volume 11.6, Neutrophils (%) (Auto) 76, Lymphocytes (%) (Auto) 13, Monocytes (%) (Auto) 8, Eosinophils (%) (Auto) 3, Basophils (%) (Auto) 0, Neutrophils # (Auto) 9.6, Lymphocytes # (Auto) 1.6, Monocytes # (Auto) 1.0, Eosinophils # (Auto) 0.3, Basophils # (Auto) 0.1, Sodium Level 140, Potassium Level 3.8, Chloride Level 105, Carbon Dioxide Level 20, Anion Gap 15, Blood Urea Nitrogen 18, Creatinine 1.22, Estimat Glomerular Filtration Rate 42, BUN/Creatinine Ratio 15, Glucose Level 98, Calcium Level 9.4, Corrected Calcium 9.6, Magnesium Level 1.8, Total Bilirubin 0.5, Aspartate Amino Transf (AST/SGOT) 20, Alanine Aminotransferase (ALT/SGPT) 16, Alkaline Phosphatase 98, Total Protein 7.0, Albumin 3.8 07/24/19 15:40: Urine Color YELLOW, Urine Clarity SL CLOUDY, Urine pH 5.5, Urine Specific [place] >=1.030, Urine Protein 1+, Urine Glucose (UA) NEGATIVE, Urine Ketones 1+, Urine Nitrite NEGATIVE, Urine Bilirubin 2+, Urine Urobilinogen 0.2, Urine Leukocyte Esterase NEGATIVE, Urine RBC (Auto) NEGATIVE, Urine RBC NONE, Urine WB C 10-25, Urine Squamous Epithelial Cells 5-10, Urine Crystals NONE, Urine Amorphous Sediment FEW DESTINI PHOSPHATE, Urine Bacteria FEW, Urine Casts NONE, Urine Hyaline Casts 25-50, Urine Mucus NEGATIVE, Urine Culture Indicated YES 07/24/19 16:03: Lactic Acid Level 1.06 07/24/19 17:39: Lab Scanned Report Referred Lab Report 07/25/19 05:00: White Blood Count 9.2, Red Blood Count 4.45, Hemoglobin 12.4, Hematocrit 39, Mean Corpuscular Volume 87, Mean Corpuscular Hemoglobin 28, Mean Corpuscular Hemoglobin Concent 32, Red Cell Distribution Width 13.8, Platelet Count 249, Mean Platelet Volume 11.0, Neutrophils (%) (Auto) 73, Lymphocytes (%) (Auto) 15, Monocytes (%) (Auto) 8, Eosinophils (%) (Auto) 4, Basophils (%) (Auto) 0, Neutrophils # (Auto) 6.7, Lymphocytes # (Auto) 1.4, Monocytes # (Auto) 0.7, Eosinophils # (Auto) 0.4, Basophils # (Auto) 0.0, Sodium Level 140, Potassium Level 3.5, Chloride Level 110, Carbon Dioxide Level 19, Anion Gap 11, Blood Urea Nitrogen 21, Creatinine 1.00, Estimat Glomerular Filtration Rate 52, BUN/Creatinine Ratio 21, Glucose Level 77, Calcium Level 8.2, Corrected Calcium 9.1, Total Bilirubin 0.4, Aspartate Amino Transf (AST/SGOT) 15, Alanine Aminotransferase (ALT/SGPT) 8, Alkaline Phosphatase 83, Total Protein 5.3, Albumin 2.9 07/26/19 09:13: White Blood Count 8.8, Red Blood Count 4.49, Hemoglobin 12.3, Hematocrit 38, Mean Corpuscular Volume 85, Mean Corpuscular Hemoglobin 27, Mean Corpuscular Hemoglobin Concent 32, Red Cell Distribution Width 13.9, Platelet Count 270, Mean Platelet Volume 11.1, Neutrophils (%) (Auto) 66, Lymphocytes (%) (Auto) 19, Monocytes (%) (Auto) 9, Eosinophils (%) (Auto) 6, Basophils (%) (Auto) 1, Neutrophils # (Auto) 5.8, Lymphocytes # (Auto) 1.7, Monocytes # (Auto) 0.7, Eosinophils # (Auto) 0.5, Basophils # (Auto) 0.0, Sodium Level 138, Potassium Level 3.5, Chloride Level 109, Carbon Dioxide Level 21, Anion Gap 8, Blood Urea Nitrogen 13, Creatinine 0.87, Estimat Glomerular Filtration Rate > 60, BUN/Creatinine Ratio 15, Glucose Level 103, Calcium Level 8.3, Corrected Calcium 9.1, Total Bilirubin 0.3, Aspartate Amino Transf (AST/SGOT) 14, Alanine Aminotransferase (ALT/SGPT) 7, Alkaline Phosphatase 79, Total Protein 5.4, Albumin 3.0 07/28/19 04:55: White Blood Count 6.7, Red Blood Count 4.62, Hemoglobin 12.4, Hematocrit 39, Mean Corpuscular Volume 85, Mean Corpuscular Hemoglobin 27, Mean Corpuscular Hemoglobin Concent 32, Red Cell Distribution Width 13.9, Platelet Count 285, Mean Platelet Volume 11.0, Neutrophils (%) (Auto) 58, Lymphocytes (%) (Auto) 23, Monocytes (%) (Auto) 11, Eosinophils (%) (Auto) 8, Basophils (%) (Auto) 1, Neutrophils # (Auto) 3.9, Lymphocytes # (Auto) 1.6, Monocytes # (Auto) 0.7, Eosinophils # (Auto) 0.5, Basophils # (Auto) 0.0, Sodium Level 142, Potassium Level 3.5, Chloride Level 107, Carbon Dioxide Level 25, Anion Gap 10, Blood Urea Nitrogen 8, Creatinine 0.92, Estimat Glomerular Filtration Rate 58, BUN/Creatinine Ratio 9, Glucose Level 89, Calcium Level 8.4, Corrected Calcium 9.3, Total Bilirubin 0.3, Aspartate Amino Transf (AST/SGOT) 13, Alanine Aminotransferase (ALT/SGPT) 7, Alkaline Phosphatase 81, Total Protein 5.3, Albumin 2.9 Discharge Home Medications: Active Scripts Active Percocet 5-325 mg Tablet (Oxycodone HCl/Acetaminophen) 1 Each Tablet 1 Tab PO Q12H MDD 6 TABS 7 Days Flagyl (Metronidazole) 500 Mg Tablet 500 Mg PO TID Ciprofloxacin HCl 500 Mg Tablet 500 Mg PO BID [Guaifenesin/Codeine] 10 ML Syrp 10 Ml PO Q4H PRN Reported Amlodipine Besylate 5 Mg Tablet 5 Mg PO DAILY Aspir 81 (Aspirin) 81 Mg Tablet.dr 81 Mg PO DAILY Pantoprazole Sodium 40 Mg Tablet.dr 40 Mg PO DAILY LAST FILLED #90 03-28-19 Lisinopril 20 Mg Tablet 20 Mg PO DAILY Instructions to patient/family Please see electronic discharge instructions given to patient. Diagnosis/Problems Diagnosis/Problems (1) Diverticulitis of intestine Status: Acute Qualifiers: Qualified Codes: K57.32 - Diverticulitis of large intestine without perforation or abscess without bleeding (2) UTI (urinary tract infection) Qualifiers: Qualified Codes: N30.00 - Acute cystitis without hematuria (3) Infection due to ESBL-producing Escherichia coli (4) Urinary incontinence (5) Osteoarthritis of right knee Status: Chronic (6) Hypertension Status: Chronic (7) Renal insufficiency Status: Chronic (8) Neuropathy (9) Diabetes mellitus Status: Chronic Clinical Quality Measures DVT/VTE Risk/Contraindication: Risk Factor Score Per Nursin RFS Level Per Nursing on Admit: 4+=Very High LAURYN BENTON DO Jul 28, 2019 21:04 POS
--- NOTE | 2019-07-29 14:31 | Physician Query Clarification ---
PQ-Conflicting Diagnosis Admission/Discharge Admission Date: Jul 24, 2019 at 17:39 Discharge Date: Jul 28, 2019 at 16:20 The medical record reflects the following clinical scenario: History/Risk Factors: Diverticulitis, HTN, CKD, DM Clinical Findings: urine culture - 3 or more isolates, present suggesting collection contamination, Leukocyte esterase and nitrates were negative, few urine bacteria, urine WBC 10- 25H Treatment: IV Meropenem Question: Do you agree with the impression of doubt UTI per Dr. Buck. Please document a response in Progress Note or Discharge Summary. 1. Yes, UTI ruled out 2. No, UTI was present 3. Other, with explanation of clinical findings 4. Clinically undetermined, no explanation for clinical findings. PHYSICIAN RESPONSE Do you agree w/Consulting Dx?: Yes Please remember a lack of response to the above will prompt a phone page by CDI/Coding staff. In responding to this query, please exercise your independent professional judgment. The purpose of this communication is to more accurately reflect the complexity of your patients condition. The fact that a question is asked does not imply that any particular answer is desired or expected. Thank you for your timely response to this clarification. Requestors name: Edgardo THIS PHYSICIAN QUERY FORM IS A PERMANENT PART OF THE MEDICAL RECORD EDGARDO FUNG Jul 29, 2019 14:31 LAURYN TOBIN DO Jul 29, 2019 21:14 POS
--- OUTSIDE RECORDS SUMMARY | 2019-08-19 15:47 | XMS REPORT | Continuity of Care Document ---
Author Organization Unknown Address Unknown Phone Unavailable Allergies Active Description Code Type Severity Reaction Onset Reported/Identified Relationship to Patient Clinical Status Yes No Allergy Information Available [id number] Drug Allergy Unknown N/A 018 Yes No Known Drug Allergies [id number] Drug Allergy Unknown N/A 04/05/2018 Medications There is no data. 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 03/14/2018 BENTON DO, LAURYN Ot I10 ESSENTIAL (PRIMARY) HYPERTENSION 03/14/2018 BENTON DO, LAURYN Ot R53.83 OTHER FATIGUE 03/14/2018 BENTON DO, LAURYN Ot R82.99 OTHER ABNORMAL FINDINGS IN URINE 03/18/2018 BENTON DO, LAURYN Ot R07.9 CHEST PAIN, UNSPECIFIED 04/05/2018 BENTON DO, LAURYN Ot 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 04/05/2018 BENTON DO, LAURYN Ot E11.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 MELLITUS WITH HYPERGLYCE 04/05/2018 BENTON DO, LAURYN Ot I10 ESSENTIAL (PRIMARY) HYPERTENSION 04/05/2018 BENTON DO, LAURYN Ot R53.83 OTHER FATIGUE 04/05/2018 BENTON DO, LAURYN Ot R82.99 OTHER ABNORMAL FINDINGS IN URINE 04/05/2018 LAURYN BENTON DO Ot R07.9 CHEST PAIN, UNSPECIFIED 04/05/2018 LAURYN BENTON DO Ot R07.9 CHEST PAIN, UNSPECIFIED 04/05/2018 MARGARET JOY MD Ot M17.11 UNILATERAL PRIMARY OSTEOARTHRITIS, RIGHT 04/05/2018 MARGARET JOY MD Ot R53.83 OTHER FATIGUE 04/05/2018 BENITA ROSE, MARGARET Cr Ot R82.99 OTHER ABNORMAL FINDINGS IN URINE 04/05/2018 MARGARET JOY MD Ot Z01.811 ENCOUNTER FOR PREPROCEDURAL RESPIRATORY 04/05/2018 MARGARET JOY MD Ot Z01.812 ENCOUNTER FOR PREPROCEDURAL LABORATORY E 04/08/2018 MARGARET JOY MD Ot M17.11 UNILATERAL PRIMARY OSTEOARTHRITIS, RIGHT 04/08/2018 MARGARET JOY MD Ot R53.83 OTHER FATIGUE 04/08/2018 MARGARET JOY MD Ot R82.99 OTHER ABNORMAL FINDINGS IN URINE 04/08/2018 MARGARET JOY MD Ot Z01.811 ENCOUNTER FOR PREPROCEDURAL RESPIRATORY 04/08/2018 MARGARET JOY MD Ot Z01.812 ENCOUNTER FOR PREPROCEDURAL LABORATORY E 04/08/2018 MARGARET JOY MD Ot M17.11 UNILATERAL PRIMARY OSTEOARTHRITIS, RIGHT 04/08/2018 MARGARET JOY MD Ot R53.83 OTHER FATIGUE 04/08/2018 MARGARET JOY MD Ot R82.99 OTHER ABNORMAL FINDINGS IN URINE 04/08/2018 MARGARET JOY MD Ot Z01.811 ENCOUNTER FOR PREPROCEDURAL RESPIRATORY 04/08/2018 MARGARET JOY MD Ot Z01.812 ENCOUNTER FOR PREPROCEDURAL LABORATORY E 04/14/2018 MARGARET JOY MD Ot D64.9 ANEMIA, UNSPECIFIED 04/14/2018 MARGARET JOY MD Ot 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 04/14/2018 MARGARET JOY MD Ot 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 04/14/2018 MARGARET JOY MD Ot E78.5 HYPERLIPIDEMIA, UNSPECIFIED 04/14/2018 MARGARET JOY MD Ot E83.52 HYPERCALCEMIA 04/14/2018 MARGARET JOY MD Ot E87.70 FLUID OVERLOAD, UNSPECIFIED 04/14/2018 MARGARET JOY MD Ot I12.9 HYPERTENSIVE CHRONIC KIDNEY DISEASE W ST 04/14/2018 MARGARET JOY MD Ot K21.9 GASTRO-ESOPHAGEAL REFLUX DISEASE WITHOUT 04/14/2018 MARGARET JOY MD Ot K59.01 SLOW TRANSIT CONSTIPATION 04/14/2018 MARGARET JOY MD Ot M17.11 UNILATERAL PRIMARY OSTEOARTHRITIS, RIGHT 04/14/2018 MARGARET JOY MD Ot N18.9 CHRONIC KIDNEY DISEASE, UNSPECIFIED 04/14/2018 MARGARET JOY MD Ot R11.2 NAUSEA WITH VOMITING, UNSPECIFIED 04/14/2018 MARGARET JOY MD Ot R53.83 OTHER FATIGUE 04/14/2018 MARGARET JOY MD Ot Z87.440 PERSONAL HISTORY OF URINARY (TRACT) INFE 04/14/2018 MARGARET JOY MD Ot Z87.891 PERSONAL HISTORY OF NICOTINE DEPENDENCE 04/20/2018 SYED ROSE MD E Ot D64.9 ANEMIA, UNSPECIFIED 04/20/2018 MILTON ROSE SYED E Ot E11.9 TYPE 2 DIABETES MELLITUS WITHOUT COMPLIC 04/20/2018 SYED ROSE MD E Ot E78.0 0 PURE HYPERCHOLESTEROLEMIA, UNSPECIFIED 04/20/2018 LLOYD ROSE MDIC E Ot 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 04/20/2018 LLOYD ROSE MDIC E Ot E78.5 HYPERLIPIDEMIA, UNSPECIFIED 04/20/2018 MILTON ROSE SYED E Ot E83.5 2 HYPERCALCEMIA 04/20/2018 MILTON ROSE SYED E Ot I12.9 HYPERTENSIVE CHRONIC KIDNEY DISEASE W ST 04/20/2018 SYED ROSE MD E Ot K21.9 GASTRO-ESOPHAGEAL REFLUX DISEASE WITHOUT 04/20/2018 SYED ROSE MD E Ot K59.0 0 CONSTIPATION, UNSPECIFIED 04/20/2018 SYED ROSE MD E Ot M54.9 DORSALGIA, UNSPECIFIED 04/20/2018 SYED ROSE MD E Ot N18.9 CHRONIC KIDNEY DISEASE, UNSPECIFIED 04/20/2018 SYED ROSE MD E Ot Z47.1 AFTERCARE FOLLOWING JOINT REPLACEMENT PHILLIPS 04/20/2018 SYED ROSE MD E Ot Z87.8 91 PERSONAL HISTORY OF NICOTINE DEPENDENCE 04/20/2018 SYED ROSE MD E Ot 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 05/03/2018 BENTON DO, LAURYN Ot M79.60 4 PAIN IN RIGHT LEG 05/06/2018 BENTON DO, LAURYN Ot M79.89 OTHER SPECIFIED SOFT TISSUE DISORDERS 05/06/2018 BENTON DO, LAURYN Ot R53.83 OTHER FATIGUE 05/23/2018 BENTON DO, LAURYN Ot M79.89 OTHER SPECIFIED SOFT TISSUE DISORDERS 05/23/2018 BENTON DO, LAURYN Ot R53.83 OTHER FATIGUE 05/29/2018 BENTON DO, LAURYN Ot M79.89 OTHER SPECIFIED SOFT TISSUE DISORDERS 05/29/2018 BENTON DO, LAURYN Ot R53.83 OTHER FATIGUE 07/21/2018 BERNOT, PENELOPE Ot E78.00 PURE HYPERCHOLESTEROLEMIA, UNSPECIFIED 07/21/2018 BERNOT, PENELOPE Ot I10 ESSENTIAL (PRIMARY) HYPERTENSION 07/21/2018 BERNOT, PENELOPE Ot K21.9 GASTRO-ESOPHAGEAL REFLUX DISEASE WITHOUT 07/21/2018 BERNOT, PENELOPE Ot N39.0 URINARY TRACT INFECTION, SITE NOT SPECIF 07/21/2018 BERNOT, PENELOPE Ot R10.32 LEFT LOWER QUADRANT PAIN 07/21/2018 BERNOT, PENELOPE Ot R19.7 DIARRHEA, UNSPECIFIED 07/21/2018 BERNOT, PENELOPE Ot Z79.82 DETENTION (CURRENT) USE OF ASPIRIN 07/21/2018 BERNOT, PENELOPE Ot Z80.0 FAMILY HISTORY OF MALIGNANT NEOPLASM OF 07/21/2018 BERNOT, PENELOPE Ot Z87.448 PERSONAL HISTORY OF OTHER DISEASES OF UR 07/21/2018 BERNOT, PENELOPE Ot Z87.891 PERSONAL HISTORY OF NICOTINE DEPENDENCE 07/23/2018 BERNOT, PENELOPE Ot E78.00 PURE HYPERCHOLESTEROLEMIA, UNSPECIFIED 07/23/2018 BERNOT, PENELOPE Ot I10 ESSENTIAL (PRIMARY) HYPERTENSION 07/23/2018 BERNOT, PENELOPE Ot K21.9 GASTRO-ESOPHAGEAL REFLUX DISEASE WITHOUT 07/23/2018 BERNOT, PENELOPE Ot N39.0 URINARY TRACT INFECTION, SITE NOT SPECIF 07/23/2018 BERNOT, PENELOPE Ot R10.32 LEFT LOWER QUADRANT PAIN 07/23/2018 BERNOT, PENELOPE Ot R19.7 DIARRHEA, UNSPECIFIED 07/23/2018 BERNOT, PENELOPE Ot Z79.82 DETENTION (CURRENT) USE OF ASPIRIN 07/23/2018 DIONY PENELOPE Ot Z80.0 FAMILY HISTORY OF MALIGNANT NEOPLASM OF 07/23/2018 DIONY PENELOPE Ot Z87.448 PERSONAL HISTORY OF OTHER DISEASES OF UR 07/23/2018 DIONY PENELOPE Ot Z87.891 PERSONAL HISTORY OF NICOTINE DEPENDENCE 09/16/2018 BENTON DO, LAURYN Ot D64.9 ANEMIA, UNSPECIFIED 09/16/2018 BENTON DO, LAURYN Ot E11.9 TYPE 2 DIABETES MELLITUS WITHOUT COMPLIC 09/16/2018 BENTON DO, LAURYN Ot E78.5 HYPERLIPIDEMIA, UNSPECIFIED 09/16/2018 BENTON DO, LAURYN Ot I10 ESSENTIAL (PRIMARY) HYPERTENSION 09/21/2018 BENTON DO, LAURYN Ot D64.9 ANEMIA, UNSPECIFIED 09/21/2018 BENTON DO, LAURYN Ot E11.9 TYPE 2 DIABETES MELLITUS WITHOUT COMPLIC 09/21/2018 BENTON DO, LAURYN Ot E78.5 HYPERLIPIDEMIA, UNSPECIFIED 09/21/2018 BENTON DO, LAURYN Ot I10 ESSENTIAL (PRIMARY) HYPERTENSION 10/09/2018 BENTON DO, LAURYN Ot D64.9 ANEMIA, UNSPECIFIED 10/09/2018 BENTON DO, LAURYN Ot E11.9 TYPE 2 DIABETES MELLITUS WITHOUT COMPLIC 10/09/2018 BENTON DO, LAURYN Ot E78.5 HYPERLIPIDEMIA, UNSPECIFIED 10/09/2018 BENTON DO, LAURYN Ot I10 ESSENTIAL (PRIMARY) HYPERTENSION 11/04/2018 BENTON DO, LAURYN Ot N18.3 CHRONIC KIDNEY DISEASE, STAGE 3 (MODERAT 11/25/2018 BENTON DO, LAURYN Ot N18.3 CHRONIC KIDNEY DISEASE, STAGE 3 (MODERAT 12/16/2018 BENTON DO, LAURYN Ot N18.3 CHRONIC KIDNEY DISEASE, STAGE 3 (MODERAT 01/06/2019 BENTON DO, LAURYN Ot 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 01/06/2019 BENTON DO, LAURYN Ot E11.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 MELLITUS WITH HYPERGLYCE 01/06/2019 BENTON DO, LAURYN Ot I10 ESSENTIAL (PRIMARY) HYPERTENSION 01/06/2019 BENTON DO, LAURYN Ot R53.83 OTHER FATIGUE 01/06/2019 BENTON DO, LAURYN Ot R82.99 OTHER ABNORMAL FINDINGS IN URINE 01/06/2019 BENTON DO, LAURYN Ot R07.9 CHEST PAIN, UNSPECIFIED 01/06/2019 BENTON DO, LAURYN Ot R07.9 CHEST PAIN, UNSPECIFIED 01/06/2019 BENTON DO, LAURYN Ot M79.89 OTHER SPECIFIED SOFT TISSUE DISORDERS 01/06/2019 BENTON DO, LAURYN Ot R53.83 OTHER FATIGUE 01/06/2019 BENTON DO, LAURYN Ot D64.9 ANEMIA, UNSPECIFIED 01/06/2019 BENTON DO, LAURYN Ot E11.9 TYPE 2 DIABETES MELLITUS WITHOUT COMPLIC 01/06/2019 BENTON DO, LAURYN Ot E78.5 HYPERLIPIDEMIA, UNSPECIFIED 01/06/2019 BENTON DO, LAURYN Ot I10 ESSENTIAL (PRIMARY) HYPERTENSION 01/06/2019 BENTON DO, LAURYN Ot N18.3 CHRONIC KIDNEY DISEASE, STAGE 3 (MODERAT 01/06/2019 GENNARO GUTIERREZ APRN Ot E78.00 PURE HYPERCHOLESTEROLEMIA, UNSPECIFIED 01/06/2019 GENNARO GUTIERREZ APRN Ot G62 .9 POLYNEUROPATHY, UNSPECIFIED 01/06/2019 GENNARO GUTIERREZ APRN Ot G89.29 OTHER CHRONIC PAIN 01/06/2019 GENNARO GUTIERREZ APRN Ot I10 ESSENTIAL (PRIMARY) HYPERTENSION 01/06/2019 GENNARO GUTIERREZ APRN Ot K21 .9 GASTRO-ESOPHAGEAL REFLUX DISEASE WITHOUT 01/06/2019 GENNARO GUTIERREZ APRN Ot M54 .5 LOW BACK PAIN 01/06/2019 GENNARO GUTIERREZ APRN Ot Z79.82 DETENTION (CURRENT) USE OF ASPIRIN 01/06/2019 GENNARO GUTIERREZ APRN Ot Z80 .0 FAMILY HISTORY OF MALIGNANT NEOPLASM OF 01/06/2019 GENNARO GUTIERREZ APRN Ot Z87.448 PERSONAL HISTORY OF OTHER DISEASES OF UR 01/06/2019 GENNARO GUTIERREZ APRN Ot Z98.890 OTHER SPECIFIED POSTPROCEDURAL STATES 01/08/2019 GENNARO GUTIERREZ APRN Ot E78.00 PURE HYPERCHOLESTEROLEMIA, UNSPECIFIED 01/08/2019 GENNARO GUTIERREZ APRN Ot G62 .9 POLYNEUROPATHY, UNSPECIFIED 01/08/2019 GENNARO GUTIERREZ APRN Ot G89.29 OTHER CHRONIC PAIN 01/08/2019 GENNARO GUTIERREZ APRN Ot I10 ESSENTIAL (PRIMARY) HYPERTENSION 01/08/2019 GUTIERREZ, PETER J FOLD SKIVER Ot K21 .9 GASTRO-ESOPHAGEAL REFLUX DISEASE WITHOUT 01/08/2019 GENNARO GUTIERREZ FOLD SKIVER Ot M54 .5 LOW BACK PAIN 01/08/2019 GENNARO GUTIERREZ APRN Ot Z79.82 DETENTION (CURRENT) USE OF ASPIRIN 01/08/2019 GENNARO GUTIERREZ FOLD SKIVER Ot Z80 .0 FAMILY HISTORY OF MALIGNANT NEOPLASM OF 01/08/2019 GENNARO GUTIERREZ FOLD SKIVER Ot Z87.448 PERSONAL HISTORY OF OTHER DISEASES OF UR 01/08/2019 GENNARO GUTIERREZ APRN Ot Z98.890 OTHER SPECIFIED POSTPROCEDURAL STATES 01/14/2019 BENTON DO LAURYN Ot E78.5 HYPERLIPIDEMIA, UNSPECIFIED 01/14/2019 BENTON DO LAURYN Ot G62.9 POLYNEUROPATHY, UNSPECIFIED 01/14/2019 SERENITY DO LAURYN Ot I12.9 HYPERTENSIVE CHRONIC KIDNEY DISEASE W ST 01/14/2019 SERENITY DO LAURYN Ot K21.9 GASTRO-ESOPHAGEAL REFLUX DISEASE WITHOUT 01/14/2019 SERENITY DO LAURYN Ot M17.11 UNILATERAL PRIMARY OSTEOARTHRITIS, RIGHT 01/14/2019 SERENITY DO LAURYN Ot M48.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, 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 01/14/2019 BENTON DO, LAURYN Ot N18.9 CHRONIC KIDNEY DISEASE, UNSPECIFIED 01/14/2019 BENTON DO, LAURYN Ot N32.81 OVERACTIVE BLADDER 01/14/2019 SERENITY DO LAURYN Ot N36.42 INTRINSIC SPHINCTER DEFICIENCY (ISD) 01/14/2019 SERENITY DO LAURYN Ot N39.0 URINARY TRACT INFECTION, SITE NOT SPECIF 01/14/2019 SERENITY DO LAURYN Ot N39.46 MIXED INCONTINENCE 01/14/2019 SERENITY FITZGERALD LAURYN Ot R73.9 HYPERGLYCEMIA, UNSPECIFIED 01/14/2019 SERENITY DO LAURYN Ot T38.0X 5A ADVERSE EFFECT OF GLUCOCORT/SYNTH ANALOG 01/14/2019 SERENITY FITZGERALD LAURYN Ot Z16.12 EXTENDED SPECTRUM BETA LACTAMASE (ESBL) 02/07/2019 JENNIFER LINDSEY Ot M41. 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 1 ARTHRODESIS STATUS 03/05/2019 SWEET PA, JENNIFER R Ot M41. 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 1 ARTHRODESIS STATUS 07/28/2019 SERENITY DO, LAURYN Ot E11.40 TYPE 2 DIABETES MELLITUS WITH DIABETIC N 07/28/2019 SERENITY DO, LAURYN Ot E66.9 OBESITY, UNSPECIFIED 07/28/2019 BENTON DO, LAURYN Ot E78.00 PURE HYPERCHOLESTEROLEMIA, UNSPECIFIED 07/28/2019 BENTON DO, LAURYN Ot E78.5 HYPERLIPIDEMIA, UNSPECIFIED 07/28/2019 BENTON DO, LAURYN Ot I12.9 HYPERTENSIVE CHRONIC KIDNEY DISEASE W ST 07/28/2019 BENTON DO, LAURYN Ot K21.9 GASTRO-ESOPHAGEAL REFLUX DISEASE WITHOUT 07/28/2019 BENTON DO, LAURYN Ot K57.32 DVTRCLI OF LG INT W/O PERFORATION OR ABS 07/28/2019 BENTON DO, LAURYN Ot M17.11 UNILATERAL PRIMARY OSTEOARTHRITIS, RIGHT 07/28/2019 BENTON DO, LAURYN Ot M54.9 DORSALGIA, UNSPECIFIED 07/28/2019 BENTON DO, LAURYN Ot N18.9 CHRONIC KIDNEY DISEASE, UNSPECIFIED 07/28/2019 LAURYN BENTON DO Ot R32 UNSPECIFIED URINARY INCONTINENCE 07/28/2019 LAURYN BENTON DO Ot Z68.35 BODY MASS INDEX (BMI) 35.0-35.9, ADULT 07/28/2019 LAURYN BENTON DO Ot Z87.89 1 PERSONAL HISTORY OF NICOTINE DEPENDENCE 07/28/2019 LAURYN BENTON DO Ot Z90.49 ACQUIRED ABSENCE OF OTHER SPECIFIED PART 07/28/2019 LAURYN BENTON DO Ot Z90.71 0 ACQUIRED ABSENCE OF BOTH CERVIX AND UTER 07/28/2019 LAURYN BENTON DO Ot 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 Procedures Code Description Performed By Per formed On [id number] RE PLACE OF R KNEE JT WITH SYNTH SUB, [place] 04/10/2018 Results Test Result Range Complete blood count (CBC) with automate d white blood cell (WBC) differential - 02/22/18 14:53 Blood leukocytes automated count (number/volume) 6.2 10*3/uL 4.3-11.0 Blood erythrocytes automated count (number/volume) 4.83 10*6/uL 4.35-5.85 Venous blood hemoglobin measurement (mass/volume) 14.0 g/dL 11.5-16.0 Blood hematocrit (volume fraction) 42 % 35-52 Automated erythrocyte mean corpuscular volume 88 [ foz_us] 80-99 Automated erythrocyte mean corpuscular h emoglobin (mass per erythrocyte) 29 pg 25-34 Automated erythrocyte mean corpuscular h emoglobin concentration measurement (mass/volume) 33 g/dL 32-36 Automated erythrocyte distribution width ratio 13. 8 % 10.0- 14.5 Automated blood platelet count (count/volume) 243 10*3/uL 130-400 Automated blood platelet mean volume measurement 11.0 [foz_us] 7.4-10.4 Automated blood neutrophils/100 leukocytes 62 % 42-75 Automated blood lymphocytes/100 leukocytes 26 % 12-44 Blood monocytes/100 leukocytes 10 % 0-12 Automated blood eosinophils/100 leukocytes 2 % 0-10 Automated blood basophils/100 leukocytes 1 % 0-10 Blood neutrophils automated count (number/volume) 3.9 10*3 1.8-7.8 Blood lymphocytes automated count (number/volume) 1.6 10*3 1.0-4.0 Blood monocytes automated count (number/volume) 0. 6 10*3 0.0-1.0 Automated eosinophil count 0.2 10*3/uL 0 .0-0.3 Automated blood basophil count (count/volume) 0.0 10*3/uL 0.0-0.1 Comprehensive metabolic panel - 02/22/18 14:53 Serum or plasma sodium measurement (moles/volume) 139 mmol/L 135-145 Serum or plasma potassium measurement (moles/volume) 4.5 mmol/L 3.6-5.0 Serum or plasma chloride measurement (moles/volume) 107 mmol/L 98-107 Carbon dioxide 24 mmol/L 21-32 Serum or plasma anion gap determination (moles/volume) 8 mmol/L 5-14 Serum or plasma urea nitrogen measurement (mass/volume ) 31 mg/dL 7-18 Serum or plasma creatinine measurement (mass/volume) 1.39 mg/dL 0.60-1.30 Serum or plasma urea nitrogen/creatinine mass ratio 22 NRG Serum or plasma creatinine measurement w ith calculation of estimated glomerular filtration rate 36 NRG Serum or plasma glucose measurement (mass/volume) 98 mg/dL 70-105 Serum or plasma calcium measurement (mass/volume) 9.7 mg/dL 8.5-10.1 Serum or plasma total bilirubin measurement (mass/volu me) 0.5 mg/dL 0.1-1.0 Serum or plasma alkaline phosphatase quynh surement (enzymatic activity/volume) 78 U/L 40-136 Serum or plasma aspartate aminotransfera se measurement (enzymatic activity/volume) 22 U/L 5-34 Serum or plasma alanine aminotransferase measurement (enzymatic activity/volume) 15 U/L 0-55 Serum or plasma protein measurement (mass/volume) 6.8 g/dL 6.4-8.2 Serum or plasma albumin measurement (mass/volume) 3.9 g/dL 3.2-4.5 Lipid 1996 panel - 02/22/18 14:53 Serum or plasma triglyceride measurement (mass/volume) 142 mg/dL <150 Serum or plasma cholesterol measurement (mass/volume) 193 mg/dL < 200 Serum or plasma cholesterol in HDL measurement (mass/v olume) 45 mg/dL 40-60 Cholesterol in LDL [mass/volume] in serum or plasma by direct assay 128 mg/dL 1-129 Serum or plasma cholesterol in VLDL measurement (mass/ volume) 28 mg/dL 5-40 THYROID STIMULATING HORMONE - 02/22/18 1 4:53 THYROID STIMULATING HORMONE 1.15 u[iU]/mL 0.35-4.94 Serum or plasma thyroxine (T4) free javier urement (mass/volume) - 02/22/18 14:53 Serum or plasma thyroxine (T4) free measurement (mass/ volume) 1.16 ng/dL 0.70-1.48 Serum or plasma ferritin measurement (ma ss/volume) - 02/22/18 14:53 Serum or plasma ferritin measurement (mass/volume) 68.9 % 20.0-177.0 Serum or plasma folate measurement (mass /volume) - 02/22/18 14:53 Serum or plasma folate measurement (mass/volume) 8 .7 % >=4.0 Hemoglobin A1c - 02/22/18 14:53 Blood hemoglobin A1C measurement (mass/volume) 5.7 % 4.0-5.6 MEAN BLOOD GLUCOSE 117 % <=126 Cyanocobalamin measurement - 02/22/18 14 :53 Vitamin B12 222 pg/mL 190-1100 Complete urinalysis with reflex to cultu re - 02/22/18 14:58 Urine color determination YELLOW NRG Urine clarity determination CLEAR NR G Urine pH measurement by test strip 6 5-9 Specific gravity of urine by test strip 1.015 1.016-1.022 Urine protein assay by test strip, semi-quantitative NEGATIVE NEGATIVE Urine glucose detection by automated test strip NE GATIVE NEGATIVE Erythrocytes detection in urine sediment by light micr oscopy NEGATIVE NEGATIVE Urine ketones detection by automated test strip NE GATIVE NEGATIVE Urine nitrite detection by test strip POSITIVE NEGATIVE Urine total bilirubin detection by test strip NEGA TIVE NEGATIVE Urine urobilinogen measurement by automated test strip (mass/volume) NORMAL NORMAL Urine leukocyte esterase detection by dipstick 2+ NEGATIVE Automated urine sediment erythrocyte cou nt by microscopy (number/high power field) NONE NRG Automated urine sediment leukocyte count by microscopy (number/high power field) [HPF] NRG Bacteria detection in urine sediment by light microsco py LARGE NRG Squamous epithelial cells detection in u rine sediment by light microscopy RARE NRG Crystals detection in urine sediment by light microsco py NONE NRG Casts detection in urine sediment by light microscopy NONE NRG Mucus detection in urine sediment by light microscopy NEGATIVE NRG Complete urinalysis with reflex to culture YES NRG Bacterial urine culture - 02/22/18 14:58 Bacterial urine culture RML NRG COLONY COUNT . NRG RML Sensitivity Panel - 02/22/18 14:58 Gentamicin susceptibility test by minimum inhibitory c oncentration <= NRG Trimethoprim/sulfamethoxazole susceptibi lity test by minimum inhibitoryconcentration <= NRG Levofloxacin susceptibility test by minimum inhibitory concentration > NRG Ampicillin susceptibility test by minimum inhibitory c oncentration > NRG Cefazolin susceptibility test by minimum inhibitory co ncentration 16 NRG Ceftriaxone susceptibility test by minimum inhibitory concentration <= NRG Ciprofloxacin susceptibility test by minimum inhibitor y concentration > NRG Meropenem susceptibility test by minimum inhibitory co ncentration <= NRG Nitrofurantoin susceptibility test by mi nimum inhibitory concentration <= NRG Amoxicillin and clavulanate potassium susc JASON = NRG IONIZED CALCIUM (SEND OFF) - 04/12/18 05 :25 Blood ionized calcium measurement (mass/volume) 1. 26 % 1.16- 1.32 Venous blood ionized calcium measurement adjusted to pH 7.4 (moles/volume) 1.28 % 1.16-1.32 pH measurement 7.42 NRG Serum or plasma intact pararthyroid horm one measurement (mass/volume) - 04/12/18 05:25 Serum or plasma intact parathyroid hormone measurement (mass/volume) 49.0 pg/mL 9.0-77.0 Bio-intact parathyroid hormone (PTH) measurement with calcium 9.6 % 8.5-10.5 Complete blood count (CBC) with automate d white blood cell (WBC) differential - 04/13/18 05:45 Blood leukocytes automated count (number/volume) 7.4 10*3/uL 4.3-11.0 Blood erythrocytes automated count (number/volume) 4.38 10*6/uL 4.35-5.85 Venous blood hemoglobin measurement (mass/volume) 12.8 g/dL 11.5-16.0 Blood hematocrit (volume fraction) 39 % 35-52 Automated erythrocyte mean corpuscular volume 88 [ foz_us] 80-99 Automated erythrocyte mean corpuscular h emoglobin (mass per erythrocyte) 29 pg 25-34 Automated erythrocyte mean corpuscular h emoglobin concentration measurement (mass/volume) 33 g/dL 32-36 Automated erythrocyte distribution width ratio 14. 0 % 10.0- 14.5 Automated blood platelet count (count/volume) 224 10*3/uL 130-400 Automated blood platelet mean volume measurement 11.0 [foz_us] 7.4-10.4 Automated blood neutrophils/100 leukocytes 65 % 42-75 Automated blood lymphocytes/100 leukocytes 22 % 12-44 Blood monocytes/100 leukocytes 10 % 0-12 Automated blood eosinophils/100 leukocytes 3 % 0-10 Automated blood basophils/100 leukocytes 1 % 0-10 Blood neutrophils automated count (number/volume) 4.8 10*3 1.8-7.8 Blood lymphocytes automated count (number/volume) 1.6 10*3 1.0-4.0 Blood monocytes automated count (number/volume) 0. 8 10*3 0.0-1.0 Automated eosinophil count 0.2 10*3/uL 0 .0-0.3 Automated blood basophil count (count/volume) 0.0 10*3/uL 0.0-0.1 Comprehensive metabolic panel - 04/13/18 05:45 Serum or plasma sodium measurement (moles/volume) 135 mmol/L 135-145 Serum or plasma potassium measurement (moles/volume) 4.4 mmol/L 3.6-5.0 Serum or plasma chloride measurement (moles/volume) 102 mmol/L 98-107 Carbon dioxide 25 mmol/L 21-32 Serum or plasma anion gap determination (moles/volume) 8 mmol/L 5-14 Serum or plasma urea nitrogen measurement (mass/volume ) 28 mg/dL 7-18 Serum or plasma creatinine measurement (mass/volume) 1.28 mg/dL 0.60-1.30 Serum or plasma urea nitrogen/creatinine mass ratio 22 NRG Serum or plasma creatinine measurement w ith calculation of estimated glomerular filtration rate 40 NRG Serum or plasma glucose measurement (mass/volume) 113 mg/dL 70-105 Serum or plasma calcium measurement (mass/volume) 9.7 mg/dL 8.5-10.1 Serum or plasma total bilirubin measurement (mass/volu me) 0.7 mg/dL 0.1-1.0 Serum or plasma alkaline phosphatase quynh surement (enzymatic activity/volume) 72 U/L 40-136 Serum or plasma aspartate aminotransfera se measurement (enzymatic activity/volume) 33 U/L 5-34 Serum or plasma alanine aminotransferase measurement (enzymatic activity/volume) 19 U/L 0-55 Serum or plasma protein measurement (mass/volume) 6.4 g/dL 6.4-8.2 Serum or plasma albumin measurement (mass/volume) 3.4 g/dL 3.2-4.5 CALCIUM CORRECTED 10.2 mg/dL 8.5-10.1 Complete blood count (CBC) with automate d white blood cell (WBC) differential - 05/03/18 17:46 Blood leukocytes automated count (number/volume) 6.0 10*3/uL 4.3-11.0 Blood erythrocytes automated count (number/volume) 4.45 10*6/uL 4.35-5.85 Venous blood hemoglobin measurement (mass/volume) 13.0 g/dL 11.5-16.0 Blood hematocrit (volume fraction) 40 % 35-52 Automated erythrocyte mean corpuscular volume 89 [ foz_us] 80-99 Automated erythrocyte mean corpuscular h emoglobin (mass per erythrocyte) 29 pg 25-34 Automated erythrocyte mean corpuscular h emoglobin concentration measurement (mass/volume) 33 g/dL 32-36 Automated erythrocyte distribution width ratio 14. 1 % 10.0- 14.5 Automated blood platelet count (count/volume) 291 10*3/uL 130-400 Automated blood platelet mean volume measurement 10.6 [foz_us] 7.4-10.4 Automated blood neutrophils/100 leukocytes 56 % 42-75 Automated blood lymphocytes/100 leukocytes 30 % 12-44 Blood monocytes/100 leukocytes 10 % 0-12 Automated blood eosinophils/100 leukocytes 3 % 0-10 Automated blood basophils/100 leukocytes 1 % 0-10 Blood neutrophils automated count (number/volume) 3.4 10*3 1.8-7.8 Blood lymphocytes automated count (number/volume) 1.8 10*3 1.0-4.0 Blood monocytes automated count (number/volume) 0. 6 10*3 0.0-1.0 Automated eosinophil count 0.2 10*3/uL 0 .0-0.3 Automated blood basophil count (count/volume) 0.0 10*3/uL 0.0-0.1 Comprehensive metabolic panel - 05/03/18 17:46 Serum or plasma sodium measurement (moles/volume) 138 mmol/L 135-145 Serum or plasma potassium measurement (moles/volume) 4.2 mmol/L 3.6-5.0 Serum or plasma chloride measurement (moles/volume) 104 mmol/L 98-107 Carbon dioxide 23 mmol/L 21-32 Serum or plasma anion gap determination (moles/volume) 11 mmol/L 5-14 Serum or plasma urea nitrogen measurement (mass/volume ) 20 mg/dL 7-18 Serum or plasma creatinine measurement (mass/volume) 1.36 mg/dL 0.60-1.30 Serum or plasma urea nitrogen/creatinine mass ratio 15 NRG Serum or plasma creatinine measurement w ith calculation of estimated glomerular filtration rate 37 NRG Serum or plasma glucose measurement (mass/volume) 105 mg/dL 70-105 Serum or plasma calcium measurement (mass/volume) 10.0 mg/dL 8.5-10.1 Serum or plasma total bilirubin measurement (mass/volu me) 0.4 mg/dL 0.1-1.0 Serum or plasma alkaline phosphatase quynh surement (enzymatic activity/volume) 107 U/L 40-136 Serum or plasma aspartate aminotransfera se measurement (enzymatic activity/volume) 17 U/L 5-34 Serum or plasma alanine aminotransferase measurement (enzymatic activity/volume) 10 U/L 0-55 Serum or plasma protein measurement (mass/volume) 6.7 g/dL 6.4-8.2 Serum or plasma albumin measurement (mass/volume) 3.8 g/dL 3.2-4.5 CALCIUM CORRECTED 10.2 mg/dL 8.5-10.1 Complete blood count (CBC) with automate d white blood cell (WBC) differential - 07/21/18 12:40 Blood leukocytes automated count (number/volume) 6.8 10*3/uL 4.3-11.0 Blood erythrocytes automated count (number/volume) 5.29 10*6/uL 4.35-5.85 Venous blood hemoglobin measurement (mass/volume) 14.7 g/dL 11.5-16.0 Blood hematocrit (volume fraction) 45 % 35-52 Automated erythrocyte mean corpuscular volume 85 [ foz_us] 80-99 Automated erythrocyte mean corpuscular h emoglobin (mass per erythrocyte) 28 pg 25-34 Automated erythrocyte mean corpuscular h emoglobin concentration measurement (mass/volume) 33 g/dL 32-36 Automated erythrocyte distribution width ratio 13. 9 % 10.0- 14.5 Automated blood platelet count (count/volume) 286 10*3/uL 130-400 Automated blood platelet mean volume measurement 10.9 [foz_us] 7.4-10.4 Automated blood neutrophils/100 leukocytes 62 % 42-75 Automated blood lymphocytes/100 leukocytes 24 % 12-44 Blood monocytes/100 leukocytes 8 % 0-12 Automated blood eosinophils/100 leukocytes 5 % 0-10 Automated blood basophils/100 leukocytes 1 % 0-10 Blood neutrophils automated count (number/volume) 4.2 10*3 1.8-7.8 Blood lymphocytes automated count (number/volume) 1.6 10*3 1.0-4.0 Blood monocytes automated count (number/volume) 0. 5 10*3 0.0-1.0 Automated eosinophil count 0.3 10*3/uL 0 .0-0.3 Automated blood basophil count (count/volume) 0.1 10*3/uL 0.0-0.1 Comprehensive metabolic panel - 07/21/18 12:40 Serum or plasma sodium measurement (moles/volume) 141 mmol/L 135-145 Serum or plasma potassium measurement (moles/volume) 3.7 mmol/L 3.6-5.0 Serum or plasma chloride measurement (moles/volume) 107 mmol/L 98-107 Carbon dioxide 22 mmol/L 21-32 Serum or plasma anion gap determination (moles/volume) 12 mmol/L 5-14 Serum or plasma urea nitrogen measurement (mass/volume ) 22 mg/dL 7-18 Serum or plasma creatinine measurement (mass/volume) 1.28 mg/dL 0.60-1.30 Serum or plasma urea nitrogen/creatinine mass ratio 17 NRG Serum or plasma creatinine measurement w ith calculation of estimated glomerular filtration rate 40 NRG Serum or plasma glucose measurement (mass/volume) 109 mg/dL 70-105 Serum or plasma calcium measurement (mass/volume) 9.9 mg/dL 8.5-10.1 Serum or plasma total bilirubin measurement (mass/volu me) 0.4 mg/dL 0.1-1.0 Serum or plasma alkaline phosphatase quynh surement (enzymatic activity/volume) 101 U/L 40-136 Serum or plasma aspartate aminotransfera se measurement (enzymatic activity/volume) 21 U/L 5-34 Serum or plasma alanine aminotransferase measurement (enzymatic activity/volume) 14 U/L 0-55 Serum or plasma protein measurement (mass/volume) 7.1 g/dL 6.4-8.2 Serum or plasma albumin measurement (mass/volume) 3.8 g/dL 3.2-4.5 CALCIUM CORRECTED 10.1 mg/dL 8.5-10.1 Serum or plasma amylase measurement (enz ymatic activity/volume) - 07/21/18 12:40 Serum or plasma amylase measurement (enzymatic activit y/volume) 63 U/L 25-125 Lipase - 07/21/18 12:40 Lipase 52 U/L 8-78 Complete urinalysis with reflex to cultu re - 07/21/18 15:05 Urine color determination YELLOW NRG Urine clarity determination CLEAR NR G Urine pH measurement by test strip 5 5-9 Specific gravity of urine by test strip 1.025 1.016-1.022 Urine protein assay by test strip, semi-quantitative 1+ NEGATIVE Urine glucose detection by automated test strip NE GATIVE NEGATIVE Erythrocytes detection in urine sediment by light micr oscopy NEGATIVE NEGATIVE Urine ketones detection by automated test strip NE GATIVE NEGATIVE Urine nitrite detection by test strip POSITIVE NEGATIVE Urine total bilirubin detection by test strip NEGA TIVE NEGATIVE Urine urobilinogen measurement by automated test strip (mass/volume) NORMAL NORMAL Urine leukocyte esterase detection by dipstick 3+ NEGATIVE Automated urine sediment erythrocyte cou nt by microscopy (number/high power field) NONE NRG Automated urine sediment leukocyte count by microscopy (number/high power field) [HPF] NRG Bacteria detection in urine sediment by light microsco py LARGE NRG Squamous epithelial cells detection in u rine sediment by light microscopy 5-10 NRG Crystals detection in urine sediment by light microsco py NONE NRG Casts detection in urine sediment by light microscopy PRESENT NRG Mucus detection in urine sediment by light microscopy NEGATIVE NRG Complete urinalysis with reflex to culture YES NRG Hyaline casts detection in urine sediment by light jason roscopy 0-2 NRG Bacterial urine culture - 07/21/18 15:05 Bacterial urine culture [id number] NRG COLONY COUNT >100,000/ML NRG FTX;REPORTABLE RML SENT SENSITIVITY REPORT 07/23 13 :05 NRG RML Sensitivity Panel - 07/21/18 15:05 Gentamicin susceptibility test by minimum inhibitory c oncentration <= NRG Trimethoprim/sulfamethoxazole susceptibi lity test by minimum inhibitoryconcentration <= NRG Levofloxacin susceptibility test by minimum inhibitory concentration > NRG Ampicillin susceptibility test by minimum inhibitory c oncentration > NRG Cefazolin susceptibility test by minimum inhibitory co ncentration > NRG Ceftriaxone susceptibility test by minimum inhibitory concentration <= NRG Ciprofloxacin susceptibility test by minimum inhibitor y concentration > NRG Meropenem susceptibility test by minimum inhibitory co ncentration <= NRG Nitrofurantoin susceptibility test by [place] nimum inhibitory concentration <= NRG Amoxicillin and clavulanate potassium susc JASON = NRG Complete blood count (CBC) with automate d white blood cell (WBC) differential - 09/14/18 09:04 Blood leukocytes automated count (number/volume) 6.4 10*3/uL 4.3-11.0 Blood erythrocytes automated count (number/volume) 5.34 10*6/uL 4.35-5.85 Venous blood hemoglobin measurement (mass/volume) 14.8 g/dL 11.5-16.0 Blood hematocrit (volume fraction) 46 % 35-52 Automated erythrocyte mean corpuscular volume 86 [ foz_us] 80-99 Automated erythrocyte mean corpuscular h emoglobin (mass per erythrocyte) 28 pg 25-34 Automated erythrocyte mean corpuscular h emoglobin concentration measurement (mass/volume) 32 g/dL 32-36 Automated erythrocyte distribution width ratio 15. 3 % 10.0- 14.5 Automated blood platelet count (count/volume) 249 10*3/uL 130-400 Automated blood platelet mean volume measurement 10.7 [foz_us] 7.4-10.4 Automated blood neutrophils/100 leukocytes 53 % 42-75 Automated blood lymphocytes/100 leukocytes 33 % 12-44 Blood monocytes/100 leukocytes 8 % 0-12 Automated blood eosinophils/100 leukocytes 5 % 0-10 Automated blood basophils/100 leukocytes 1 % 0-10 Blood neutrophils automated count (number/volume) 3.4 10*3 1.8-7.8 Blood lymphocytes automated count (number/volume) 2.1 10*3 1.0-4.0 Blood monocytes automated count (number/volume) 0. 5 10*3 0.0-1.0 Automated eosinophil count 0.3 10*3/uL 0 .0-0.3 Automated blood basophil count (count/volume) 0.1 10*3/uL 0.0-0.1 Comprehensive metabolic panel - 09/14/18 09:04 Serum or plasma sodium measurement (moles/volume) 137 mmol/L 135-145 Serum or plasma potassium measurement (moles/volume) 5.2 mmol/L 3.6-5.0 Serum or plasma chloride measurement (moles/volume) 105 mmol/L 98-107 Carbon dioxide 22 mmol/L 21-32 Serum or plasma anion gap determination (moles/volume) 10 mmol/L 5-14 Serum or plasma urea nitrogen measurement (mass/volume ) 37 mg/dL 7-18 Serum or plasma creatinine measurement (mass/volume) 1.91 mg/dL 0.60-1.30 Serum or plasma urea nitrogen/creatinine mass ratio 19 NRG Serum or plasma creatinine measurement w ith calculation of estimated glomerular filtration rate 25 NRG Serum or plasma glucose measurement (mass/volume) 95 mg/dL 70-105 Serum or plasma calcium measurement (mass/volume) 10.2 mg/dL 8.5-10.1 Serum or plasma total bilirubin measurement (mass/volu me) 0.5 mg/dL 0.1-1.0 Serum or plasma alkaline phosphatase quynh surement (enzymatic activity/volume) 105 U/L 40-136 Serum or plasma aspartate aminotransfera se measurement (enzymatic activity/volume) 21 U/L 5-34 Serum or plasma alanine aminotransferase measurement (enzymatic activity/volume) 10 U/L 0-55 Serum or plasma protein measurement (mass/volume) 7.4 g/dL 6.4-8.2 Serum or plasma albumin measurement (mass/volume) 4.1 g/dL 3.2-4.5 CALCIUM CORRECTED 10.1 mg/dL 8.5-10.1 Lipid 1996 panel - 09/14/18 09:04 Serum or plasma triglyceride measurement (mass/volume) 227 mg/dL <150 Serum or plasma cholesterol measurement (mass/volume) 220 mg/dL < 200 Serum or plasma cholesterol in HDL measurement (mass/v olume) 47 mg/dL 40-60 Cholesterol in LDL [mass/volume] in serum or plasma by direct assay 140 mg/dL 1-129 Serum or plasma cholesterol in VLDL measurement (mass/ volume) 45 mg/dL 5-40 THYROID STIMULATING HORMONE - 09/14/18 0 9:04 THYROID STIMULATING HORMONE 1.66 u[iU]/mL 0.35-4.94 Serum or plasma thyroxine (T4) free javier urement (mass/volume) - 09/14/18 09:04 Serum or plasma thyroxine (T4) free measurement (mass/ volume) 0.95 ng/dL 0.70-1.48 Hemoglobin A1c - 09/14/18 09:04 Blood hemoglobin A1C measurement (mass/volume) 5.3 % 4.0-5.6 MEAN BLOOD GLUCOSE 105 % <=126 Serum iron and total iron binding capaci ty panel - 09/14/18 09:04 Serum or plasma iron measurement (mass/volume) 91 % 35-180 Total iron binding capacity and transferrin saturation measurement 22 % 15-50 Iron binding capacity [mass/volume] in serum or plasma 414 % 280-380 UIBC (unsaturated iron binding capacity) 323 % 55-450 Serum or plasma ferritin measurement (mass/volume) 75.4 % 20.0-177.0 Whole blood basic metabolic panel - 10/18 02/05 11:28 Serum or plasma sodium measurement (moles/volume) 139 mmol/L 135-145 Serum or plasma potassium measurement (moles/volume) 4.7 mmol/L 3.6-5.0 Serum or plasma chloride measurement (moles/volume) 109 mmol/L 98-107 Carbon dioxide 17 mmol/L 21-32 Serum or plasma anion gap determination (moles/volume) 13 mmol/L 5-14 Serum or plasma urea nitrogen measurement (mass/volume ) 41 mg/dL 7-18 Serum or plasma creatinine measurement (mass/volume) 1.26 mg/dL 0.60-1.30 Serum or plasma urea nitrogen/creatinine mass ratio 33 NRG Serum or plasma creatinine measurement w ith calculation of estimated glomerular filtration rate 40 NRG Serum or plasma glucose measurement (mass/volume) 87 mg/dL 70-105 Serum or plasma calcium measurement (mass/volume) 9.9 mg/dL 8.5-10.1 Complete blood count (CBC) with automate d white blood cell (WBC) differential - 01/06/19 11:50 Blood leukocytes automated count (number/volume) 6.1 10*3/uL 4.3-11.0 Blood erythrocytes automated count (number/volume) 5.50 10*6/uL 4.35-5.85 Venous blood hemoglobin measurement (mass/volume) 15.6 g/dL 11.5-16.0 Blood hematocrit (volume fraction) 47 % 35-52 Automated erythrocyte mean corpuscular volume 86 [ foz_us] 80-99 Automated erythrocyte mean corpuscular h emoglobin (mass per erythrocyte) 28 pg 25-34 Automated erythrocyte mean corpuscular h emoglobin concentration measurement (mass/volume) 33 g/dL 32-36 Automated erythrocyte distribution width ratio 14. 3 % 10.0- 14.5 Automated blood platelet count (count/volume) 211 10*3/uL 130-400 Automated blood platelet mean volume measurement 11.9 [foz_us] 7.4-10.4 Automated blood neutrophils/100 leukocytes 55 % 42-75 Automated blood lymphocytes/100 leukocytes 34 % 12-44 Blood monocytes/100 leukocytes 8 % 0-12 Automated blood eosinophils/100 leukocytes 3 % 0-10 Automated blood basophils/100 leukocytes 1 % 0-10 Blood neutrophils automated count (number/volume) 3.3 10*3 1.8-7.8 Blood lymphocytes automated count (number/volume) 2.1 10*3 1.0-4.0 Blood monocytes automated count (number/volume) 0. 5 10*3 0.0-1.0 Automated eosinophil count 0.2 10*3/uL 0 .0-0.3 Automated blood basophil count (count/volume) 0.1 10*3/uL 0.0-0.1 Whole blood basic metabolic panel - 12/19 12:29 Serum or plasma sodium measurement (moles/volume) 140 mmol/L 135-145 Serum or plasma potassium measurement (moles/volume) 4.9 mmol/L 3.6-5.0 Serum or plasma chloride measurement (moles/volume) 109 mmol/L 98-107 Carbon dioxide 19 mmol/L 21-32 Serum or plasma anion gap determination (moles/volume) 12 mmol/L 5-14 Serum or plasma urea nitrogen measurement (mass/volume ) 29 mg/dL 7-18 Serum or plasma creatinine measurement (mass/volume) 1.17 mg/dL 0.60-1.30 Serum or plasma urea nitrogen/creatinine mass ratio 25 NRG Serum or plasma creatinine measurement w ith calculation of estimated glomerular filtration rate 44 NRG Serum or plasma glucose measurement (mass/volume) 81 mg/dL 70-105 Serum or plasma calcium measurement (mass/volume) 9.5 mg/dL 8.5-10.1 Complete urinalysis with reflex to cultu re - 01/06/19 14:30 Urine color determination YELLOW NRG Urine clarity determination CLEAR NR G Urine pH measurement by test strip 6 5-9 Specific gravity of urine by test strip 1.010 1.016-1.022 Urine protein assay by test strip, semi-quantitative NEGATIVE NEGATIVE Urine glucose detection by automated test strip NE GATIVE NEGATIVE Erythrocytes detection in urine sediment by light micr oscopy NEGATIVE NEGATIVE Urine ketones detection by automated test strip NE GATIVE NEGATIVE Urine nitrite detection by test strip POSITIVE NEGATIVE Urine total bilirubin detection by test strip NEGA TIVE NEGATIVE Urine urobilinogen measurement by automated test strip (mass/volume) NORMAL NORMAL Urine leukocyte esterase detection by dipstick 1+ NEGATIVE Automated urine sediment erythrocyte cou nt by microscopy (number/high power field) NONE NRG Automated urine sediment leukocyte count by microscopy (number/high power field) [HPF] NRG Bacteria detection in urine sediment by light microsco py LARGE NRG Squamous epithelial cells detection in u rine sediment by light microscopy 0-2 NRG Crystals detection in urine sediment by light microsco py NONE NRG Casts detection in urine sediment by light microscopy NONE NRG Mucus detection in urine sediment by light microscopy NEGATIVE NRG Complete urinalysis with reflex to culture YES NRG Bacterial urine culture - 01/06/19 14:30 Bacterial urine culture [id number] NRG COLONY COUNT >100,000/ML NRG FTX;REPORTABLE SUSCEPTIBILITY REPORTED 01/08/19 13: 05 NRG FREE TEXT ENTRY 2 ID REPORTED 01/07/19 13:05 NRG FREE TEXT ENTRY 3 ESBL REPORTED TO [facility]MEL[facility] 12/19 2 10:20 NRG RML Sensitivity Panel - 01/06/19 14:30 Gentamicin susceptibility test by minimum inhibitory c oncentration <= NRG Trimethoprim/sulfamethoxazole susceptibi lity test by minimum inhibitoryconcentration > NRG Levofloxacin susceptibility test by minimum inhibitory concentration > NRG Ampicillin susceptibility test by minimum inhibitory c oncentration > NRG Cefazolin susceptibility test by minimum inhibitory co ncentration > NRG Ceftriaxone susceptibility test by minimum inhibitory concentration > NRG Ciprofloxacin susceptibility test by minimum inhibitor y concentration > NRG Meropenem susceptibility test by minimum inhibitory co ncentration <= NRG Nitrofurantoin susceptibility test by [place] nimum inhibitory concentration <= NRG Amoxicillin and clavulanate potassium susc JASON R NRG Capillary blood glucose measurement by g lucometer (mass/volume) - 01/06/19 16:12 Capillary blood glucose measurement by glucometer (mas s/volume) 93 mg/dL 70-110 Capillary blood glucose measurement by g lucometer (mass/volume) - 01/06/19 20:16 Capillary blood glucose measurement by glucometer (mas s/volume) 244 mg/dL 70-110 Capillary blood glucose measurement by g lucometer (mass/volume) - 01/07/19 05:56 Capillary blood glucose measurement by glucometer (mas s/volume) 147 mg/dL 70-110 Capillary blood glucose measurement by g lucometer (mass/volume) - 01/07/19 10:51 Capillary blood glucose measurement by glucometer (mas s/volume) 184 mg/dL 70-110 Capillary blood glucose measurement by g lucometer (mass/volume) - 01/07/19 16:21 Capillary blood glucose measurement by glucometer (mas s/volume) 181 mg/dL 70-110 Capillary blood glucose measurement by g lucometer (mass/volume) - 01/07/19 20:25 Capillary blood glucose measurement by glucometer (mas s/volume) 197 mg/dL 70-110 Capillary blood glucose measurement by g lucometer (mass/volume) - 01/08/19 05:18 Capillary blood glucose measurement by glucometer (mas s/volume) 154 mg/dL 70-110 Capillary blood glucose measurement by g lucometer (mass/volume) - 01/08/19 11:02 Capillary blood glucose measurement by glucometer (mas s/volume) 117 mg/dL 70-110 Capillary blood glucose measurement by g lucometer (mass/volume) - 01/08/19 15:36 Capillary blood glucose measurement by glucometer (mas s/volume) 162 mg/dL 70-110 Capillary blood glucose measurement by g lucometer (mass/volume) - 01/08/19 20:55 Capillary blood glucose measurement by glucometer (mas s/volume) 179 mg/dL 70-110 Capillary blood glucose measurement by g lucometer (mass/volume) - 01/09/19 05:17 Capillary blood glucose measurement by glucometer (mas s/volume) 139 mg/dL 70-110 Complete blood count (CBC) with automate d white blood cell (WBC) differential - 01/09/19 06:14 Blood leukocytes automated count (number/volume) 11.2 10*3/uL 4.3-11.0 Blood erythrocytes automated count (number/volume) 4.85 10*6/uL 4.35-5.85 Venous blood hemoglobin measurement (mass/volume) 13.7 g/dL 11.5-16.0 Blood hematocrit (volume fraction) 42 % 35-52 Automated erythrocyte mean corpuscular volume 87 [ foz_us] 80-99 Automated erythrocyte mean corpuscular h emoglobin (mass per erythrocyte) 28 pg 25-34 Automated erythrocyte mean corpuscular h emoglobin concentration measurement (mass/volume) 33 g/dL 32-36 Automated erythrocyte distribution width ratio 14. 6 % 10.0- 14.5 Automated blood platelet count (count/volume) 217 10*3/uL 130-400 Automated blood platelet mean volume measurement 11.2 [foz_us] 7.4-10.4 Automated blood neutrophils/100 leukocytes 88 % 42-75 Automated blood lymphocytes/100 leukocytes 9 % 12-44 Blood monocytes/100 leukocytes 4 % 0-12 Automated blood eosinophils/100 leukocytes 0 % 0-10 Automated blood basophils/100 leukocytes 0 % 0-10 Blood neutrophils automated count (number/volume) 9.8 10*3 1.8-7.8 Blood lymphocytes automated count (number/volume) 1.0 10*3 1.0-4.0 Blood monocytes automated count (number/volume) 0. 4 10*3 0.0-1.0 Automated eosinophil count 0.0 10*3/uL 0 .0-0.3 Automated blood basophil count (count/volume) 0.0 10*3/uL 0.0-0.1 Blood manual differential performed dete ction - 01/09/19 06:14 Blood monocytes/100 leukocytes 2 % NRG Manual blood segmented neutrophils/100 leukocytes 90 % NRG Blood band neutrophils/100 leukocytes 0 % NRG Manual blood lymphocytes/100 leukocytes 5 % NRG Manual eosinophils/100 leukocytes in nose 0 % NRG Manual blood basophils/100 leukocytes 0 % NRG Blood lymphocytes variant/100 leukocytes 3 % NRG Blood anisocytosis detection by light microscopy S LIGHT NRG Blood toxic granules detection by light microscopy 1+ NRG Comprehensive metabolic panel - 01/09/19 06:14 Serum or plasma sodium measurement (moles/volume) 142 mmol/L 135-145 Serum or plasma potassium measurement (moles/volume) 4.7 mmol/L 3.6-5.0 Serum or plasma chloride measurement (moles/volume) 111 mmol/L 98-107 Carbon dioxide 19 mmol/L 21-32 Serum or plasma anion gap determination (moles/volume) 12 mmol/L 5-14 Serum or plasma urea nitrogen measurement (mass/volume ) 44 mg/dL 7-18 Serum or plasma creatinine measurement (mass/volume) 1.14 mg/dL 0.60-1.30 Serum or plasma urea nitrogen/creatinine mass ratio 39 NRG Serum or plasma creatinine measurement w ith calculation of estimated glomerular filtration rate 45 NRG Serum or plasma glucose measurement (mass/volume) 149 mg/dL 70-105 Serum or plasma calcium measurement (mass/volume) 9.0 mg/dL 8.5-10.1 Serum or plasma total bilirubin measurement (mass/volu me) 0.3 mg/dL 0.1-1.0 Serum or plasma alkaline phosphatase quynh surement (enzymatic activity/volume) 85 U/L 40-136 Serum or plasma aspartate aminotransfera se measurement (enzymatic activity/volume) 31 U/L 5-34 Serum or plasma alanine aminotransferase measurement (enzymatic activity/volume) 20 U/L 0-55 Serum or plasma protein measurement (mass/volume) 6.0 g/dL 6.4-8.2 Serum or plasma albumin measurement (mass/volume) 3.4 g/dL 3.2-4.5 CALCIUM CORRECTED 9.5 mg/dL 8.5-10.1 Capillary blood glucose measurement by g lucometer (mass/volume) - 01/09/19 11:14 Capillary blood glucose measurement by glucometer (mas s/volume) 133 mg/dL 70-110 Capillary blood glucose measurement by g lucometer (mass/volume) - 01/09/19 15:35 Capillary blood glucose measurement by glucometer (mas s/volume) 123 mg/dL 70-110 Capillary blood glucose measurement by g lucometer (mass/volume) - 01/09/19 20:47 Capillary blood glucose measurement by glucometer (mas s/volume) 182 mg/dL 70-110 Capillary blood glucose measurement by g lucometer (mass/volume) - 01/10/19 04:59 Capillary blood glucose measurement by glucometer (mas s/volume) 108 mg/dL 70-110 Capillary blood glucose measurement by g lucometer (mass/volume) - 01/10/19 11:02 Capillary blood glucose measurement by glucometer (mas s/volume) 106 mg/dL 70-110 Capillary blood glucose measurement by g lucometer (mass/volume) - 01/10/19 16:22 Capillary blood glucose measurement by glucometer (mas s/volume) 94 mg/dL 70-110 Capillary blood glucose measurement by g lucometer (mass/volume) - 01/10/19 22:01 Capillary blood glucose measurement by glucometer (mas s/volume) 154 mg/dL 70-110 Capillary blood glucose measurement by g lucometer (mass/volume) - 01/11/19 05:51 Capillary blood glucose measurement by glucometer (mas s/volume) 91 mg/dL 70-110 Capillary blood glucose measurement by g lucometer (mass/volume) - 01/11/19 11:58 Capillary blood glucose measurement by glucometer (mas s/volume) 113 mg/dL 70-110 Capillary blood glucose measurement by g lucometer (mass/volume) - 01/11/19 16:16 Capillary blood glucose measurement by glucometer (mas s/volume) 123 mg/dL 70-110 Capillary blood glucose measurement by g lucometer (mass/volume) - 01/11/19 21:37 Capillary blood glucose measurement by glucometer (mas s/volume) 205 mg/dL 70-110 Capillary blood glucose measurement by g lucometer (mass/volume) - 01/12/19 04:51 Capillary blood glucose measurement by glucometer (mas s/volume) 108 mg/dL 70-110 Complete blood count (CBC) with automate d white blood cell (WBC) differential - 01/12/19 05:36 Blood leukocytes automated count (number/volume) 7.9 10*3/uL 4.3-11.0 Blood erythrocytes automated count (number/volume) 4.84 10*6/uL 4.35-5.85 Venous blood hemoglobin measurement (mass/volume) 13.7 g/dL 11.5-16.0 Blood hematocrit (volume fraction) 42 % 35-52 Automated erythrocyte mean corpuscular volume 87 [ foz_us] 80-99 Automated erythrocyte mean corpuscular h emoglobin (mass per erythrocyte) 28 pg 25-34 Automated erythrocyte mean corpuscular h emoglobin concentration measurement (mass/volume) 33 g/dL 32-36 Automated erythrocyte distribution width ratio 14. 4 % 10.0- 14.5 Automated blood platelet count (count/volume) 206 10*3/uL 130-400 Automated blood platelet mean volume measurement 11.5 [foz_us] 7.4-10.4 Automated blood neutrophils/100 leukocytes 75 % 42-75 Automated blood lymphocytes/100 leukocytes 18 % 12-44 Blood monocytes/100 leukocytes 7 % 0-12 Automated blood eosinophils/100 leukocytes 0 % 0-10 Automated blood basophils/100 leukocytes 0 % 0-10 Blood neutrophils automated count (number/volume) 5.9 10*3 1.8-7.8 Blood lymphocytes automated count (number/volume) 1.4 10*3 1.0-4.0 Blood monocytes automated count (number/volume) 0. 6 10*3 0.0-1.0 Automated eosinophil count 0.0 10*3/uL 0 .0-0.3 Automated blood basophil count (count/volume) 0.0 10*3/uL 0.0-0.1 Comprehensive metabolic panel - 01/12/19 05:36 Serum or plasma sodium measurement (moles/volume) 143 mmol/L 135-145 Serum or plasma potassium measurement (moles/volume) 4.5 mmol/L 3.6-5.0 Serum or plasma chloride measurement (moles/volume) 112 mmol/L 98-107 Carbon dioxide 22 mmol/L 21-32 Serum or plasma anion gap determination (moles/volume) 9 mmol/L 5-14 Serum or plasma urea nitrogen measurement (mass/volume ) 40 mg/dL 7-18 Serum or plasma creatinine measurement (mass/volume) 0.93 mg/dL 0.60-1.30 Serum or plasma urea nitrogen/creatinine mass ratio 43 NRG Serum or plasma creatinine measurement w ith calculation of estimated glomerular filtration rate 57 NRG Serum or plasma glucose measurement (mass/volume) 109 mg/dL 70-105 Serum or plasma calcium measurement (mass/volume) 8.4 mg/dL 8.5-10.1 Serum or plasma total bilirubin measurement (mass/volu me) 0.3 mg/dL 0.1-1.0 Serum or plasma alkaline phosphatase quynh surement (enzymatic activity/volume) 87 U/L 40-136 Serum or plasma aspartate aminotransfera se measurement (enzymatic activity/volume) 23 U/L 5-34 Serum or plasma alanine aminotransferase measurement (enzymatic activity/volume) 68 U/L 0-55 Serum or plasma protein measurement (mass/volume) 5.3 g/dL 6.4-8.2 Serum or plasma albumin measurement (mass/volume) 3.1 g/dL 3.2-4.5 CALCIUM CORRECTED 9.1 mg/dL 8.5-10.1 Capillary blood glucose measurement by g lucometer (mass/volume) - 01/12/19 12:22 Capillary blood glucose measurement by glucometer (mas s/volume) 141 mg/dL 70-110 Capillary blood glucose measurement by g lucometer (mass/volume) - 01/12/19 20:17 Capillary blood glucose measurement by glucometer (mas s/volume) 122 mg/dL 70-110 Capillary blood glucose measurement by g lucometer (mass/volume) - 01/13/19 05:33 Capillary blood glucose measurement by glucometer (mas s/volume) 78 mg/dL 70-110 Capillary blood glucose measurement by g lucometer (mass/volume) - 01/13/19 10:57 Capillary blood glucose measurement by glucometer (mas s/volume) 130 mg/dL 70-110 Capillary blood glucose measurement by g lucometer (mass/volume) - 01/13/19 15:54 Capillary blood glucose measurement by glucometer (mas s/volume) 194 mg/dL 70-110 Capillary blood glucose measurement by g lucometer (mass/volume) - 01/13/19 20:52 Capillary blood glucose measurement by glucometer (mas s/volume) 84 mg/dL 70-110 Capillary blood glucose measurement by g lucometer (mass/volume) - 01/14/19 05:38 Capillary blood glucose measurement by glucometer (mas s/volume) 73 mg/dL 70-110 Capillary blood glucose measurement by g lucometer (mass/volume) - 01/14/19 10:34 Capillary blood glucose measurement by glucometer (mas s/volume) 83 mg/dL 70-110 Complete blood count (CBC) with automate d white blood cell (WBC) differential - 07/24/19 14:26 Blood leukocytes automated count (number/volume) 12.6 10*3/uL 4.3-11.0 Blood erythrocytes automated count (number/volume) 5.30 10*6/uL 4.35-5.85 Venous blood hemoglobin measurement (mass/volume) 14.6 g/dL 11.5-16.0 Blood hematocrit (volume fraction) 46 % 35-52 Automated erythrocyte mean corpuscular volume 86 [ foz_us] 80-99 Automated erythrocyte mean corpuscular h emoglobin (mass per erythrocyte) 28 pg 25-34 Automated erythrocyte mean corpuscular h emoglobin concentration measurement (mass/volume) 32 g/dL 32-36 Automated erythrocyte distribution width ratio 13. 9 % 10.0- 14.5 Automated blood platelet count (count/volume) 270 10*3/uL 130-400 Automated blood platelet mean volume measurement 11.6 [foz_us] 7.4-10.4 Automated blood neutrophils/100 leukocytes 76 % 42-75 Automated blood lymphocytes/100 leukocytes 13 % 12-44 Blood monocytes/100 leukocytes 8 % 0-12 Automated blood eosinophils/100 leukocytes 3 % 0-10 Automated blood basophils/100 leukocytes 0 % 0-10 Blood neutrophils automated count (number/volume) 9.6 10*3 1.8-7.8 Blood lymphocytes automated count (number/volume) 1.6 10*3 1.0-4.0 Blood monocytes automated count (number/volume) 1. 0 10*3 0.0-1.0 Automated eosinophil count 0.3 10*3/uL 0 .0-0.3 Automated blood basophil count (count/volume) 0.1 10*3/uL 0.0-0.1 Comprehensive metabolic panel - 07/24/19 14:26 Serum or plasma sodium measurement (moles/volume) 140 mmol/L 135-145 Serum or plasma potassium measurement (moles/volume) 3.8 mmol/L 3.6-5.0 Serum or plasma chloride measurement (moles/volume) 105 mmol/L 98-107 Carbon dioxide 20 mmol/L 21-32 Serum or plasma anion gap determination (moles/volume) 15 mmol/L 5-14 Serum or plasma urea nitrogen measurement (mass/volume ) 18 mg/dL 7-18 Serum or plasma creatinine measurement (mass/volume) 1.22 mg/dL 0.60-1.30 Serum or plasma urea nitrogen/creatinine mass ratio 15 NRG Serum or plasma creatinine measurement w ith calculation of estimated glomerular filtration rate 42 NRG Serum or plasma glucose measurement (mass/volume) 98 mg/dL 70-105 Serum or plasma calcium measurement (mass/volume) 9.4 mg/dL 8.5-10.1 Serum or plasma total bilirubin measurement (mass/volu me) 0.5 mg/dL 0.1-1.0 Serum or plasma alkaline phosphatase quynh surement (enzymatic activity/volume) 98 U/L 40-136 Serum or plasma aspartate aminotransfera se measurement (enzymatic activity/volume) 20 U/L 5-34 Serum or plasma alanine aminotransferase measurement (enzymatic activity/volume) 16 U/L 0-55 Serum or plasma protein measurement (mass/volume) 7.0 g/dL 6.4-8.2 Serum or plasma albumin measurement (mass/volume) 3.8 g/dL 3.2-4.5 CALCIUM CORRECTED 9.6 mg/dL 8.5-10.1 Magnesium - 07/24/19 14:26 Magnesium 1.8 mg/dL 1.6-2.4 Complete urinalysis with reflex to cultu re - 07/24/19 15:40 Urine color determination YELLOW NRG Urine clarity determination SL CLOUDY N RG Urine pH measurement by test strip 5.5 5-9 Specific gravity of urine by test strip >= 1.016-1.022 Urine protein assay by test strip, semi-quantitative 1+ NEGATIVE Urine glucose detection by automated test strip NE GATIVE NEGATIVE Erythrocytes detection in urine sediment by light micr oscopy NEGATIVE NEGATIVE Urine ketones detection by automated test strip 1+ NEGATIVE Urine nitrite detection by test strip NEGATIVE NEGATIVE Urine total bilirubin detection by test strip 2+ NEGATIVE Urine urobilinogen measurement by automated test strip (mass/volume) 0.2 mg/dL < = 1.0 Urine leukocyte esterase detection by dipstick NEG ATIVE NEGATIVE Automated urine sediment erythrocyte cou nt by microscopy (number/high power field) NONE NRG Automated urine sediment leukocyte count by microscopy (number/high power field) [HPF] NRG Bacteria detection in urine sediment by light microsco py FEW NRG Squamous epithelial cells detection in u rine sediment by light microscopy 5-10 NRG Crystals detection in urine sediment by light microsco py NONE NRG Casts detection in urine sediment by light microscopy NONE NRG Mucus detection in urine sediment by light microscopy NEGATIVE NRG Complete urinalysis with reflex to culture YES NRG Amorphous sediment detection in urine sediment by ligh t microscopy FEW DESTINI PHOSPHATE NRG Hyaline casts detection in urine sediment by light jason roscopy 25-50 NRG Bacterial urine culture - 07/24/19 15:40 Bacterial urine culture [id number] NRG COLONY COUNT 60,000 cfu/ml NRG FTX;REPORTABLE 3 OR MORE ISOLATES PRESENT SUGGESTI NG NRG FREE TEXT ENTRY 2 COLLECTION CONTAMINATION. NRG FREE TEXT ENTRY 3 NO FURTHER TESTING NR G Blood lactic acid measurement (moles/vol ume) - 07/24/19 16:03 Blood lactic acid measurement (moles/volume) 1.06 mmol/L 0.50-2.00 Bacterial blood culture - 07/24/19 16:03 Bacterial blood culture NG NRG Bacterial blood culture - 07/24/19 16:08 Bacterial blood culture NG NRG Complete blood count (CBC) with automate d white blood cell (WBC) differential - 07/25/19 05:00 Blood leukocytes automated count (number/volume) 9.2 10*3/uL 4.3-11.0 Blood erythrocytes automated count (number/volume) 4.45 10*6/uL 4.35-5.85 Venous blood hemoglobin measurement (mass/volume) 12.4 g/dL 11.5-16.0 Blood hematocrit (volume fraction) 39 % 35-52 Automated erythrocyte mean corpuscular volume 87 [ foz_us] 80-99 Automated erythrocyte mean corpuscular h emoglobin (mass per erythrocyte) 28 pg 25-34 Automated erythrocyte mean corpuscular h emoglobin concentration measurement (mass/volume) 32 g/dL 32-36 Automated erythrocyte distribution width ratio 13. 8 % 10.0- 14.5 Automated blood platelet count (count/volume) 249 10*3/uL 130-400 Automated blood platelet mean volume measurement 11.0 [foz_us] 7.4-10.4 Automated blood neutrophils/100 leukocytes 73 % 42-75 Automated blood lymphocytes/100 leukocytes 15 % 12-44 Blood monocytes/100 leukocytes 8 % 0-12 Automated blood eosinophils/100 leukocytes 4 % 0-10 Automated blood basophils/100 leukocytes 0 % 0-10 Blood neutrophils automated count (number/volume) 6.7 10*3 1.8-7.8 Blood lymphocytes automated count (number/volume) 1.4 10*3 1.0-4.0 Blood monocytes automated count (number/volume) 0. 7 10*3 0.0-1.0 Automated eosinophil count 0.4 10*3/uL 0 .0-0.3 Automated blood basophil count (count/volume) 0.0 10*3/uL 0.0-0.1 Comprehensive metabolic panel - 07/25/19 05:00 Serum or plasma sodium measurement (moles/volume) 140 mmol/L 135-145 Serum or plasma potassium measurement (moles/volume) 3.5 mmol/L 3.6-5.0 Serum or plasma chloride measurement (moles/volume) 110 mmol/L 98-107 Carbon dioxide 19 mmol/L 21-32 Serum or plasma anion gap determination (moles/volume) 11 mmol/L 5-14 Serum or plasma urea nitrogen measurement (mass/volume ) 21 mg/dL 7-18 Serum or plasma creatinine measurement (mass/volume) 1.00 mg/dL 0.60-1.30 Serum or plasma urea nitrogen/creatinine mass ratio 21 NRG Serum or plasma creatinine measurement w ith calculation of estimated glomerular filtration rate 52 NRG Serum or plasma glucose measurement (mass/volume) 77 mg/dL 70-105 Serum or plasma calcium measurement (mass/volume) 8.2 mg/dL 8.5-10.1 Serum or plasma total bilirubin measurement (mass/volu me) 0.4 mg/dL 0.1-1.0 Serum or plasma alkaline phosphatase quynh surement (enzymatic activity/volume) 83 U/L 40-136 Serum or plasma aspartate aminotransfera se measurement (enzymatic activity/volume) 15 U/L 5-34 Serum or plasma alanine aminotransferase measurement (enzymatic activity/volume) 8 U/L 0-55 Serum or plasma protein measurement (mass/volume) 5.3 g/dL 6.4-8.2 Serum or plasma albumin measurement (mass/volume) 2.9 g/dL 3.2-4.5 CALCIUM CORRECTED 9.1 mg/dL 8.5-10.1 Complete blood count (CBC) with automate d white blood cell (WBC) differential - 07/26/19 09:13 Blood leukocytes automated count (number/volume) 8.8 10*3/uL 4.3-11.0 Blood erythrocytes automated count (number/volume) 4.49 10*6/uL 4.35-5.85 Venous blood hemoglobin measurement (mass/volume) 12.3 g/dL 11.5-16.0 Blood hematocrit (volume fraction) 38 % 35-52 Automated erythrocyte mean corpuscular volume 85 [ foz_us] 80-99 Automated erythrocyte mean corpuscular h emoglobin (mass per erythrocyte) 27 pg 25-34 Automated erythrocyte mean corpuscular h emoglobin concentration measurement (mass/volume) 32 g/dL 32-36 Automated erythrocyte distribution width ratio 13. 9 % 10.0- 14.5 Automated blood platelet count (count/volume) 270 10*3/uL 130-400 Automated blood platelet mean volume measurement 11.1 [foz_us] 7.4-10.4 Automated blood neutrophils/100 leukocytes 66 % 42-75 Automated blood lymphocytes/100 leukocytes 19 % 12-44 Blood monocytes/100 leukocytes 9 % 0-12 Automated blood eosinophils/100 leukocytes 6 % 0-10 Automated blood basophils/100 leukocytes 1 % 0-10 Blood neutrophils automated count (number/volume) 5.8 10*3 1.8-7.8 Blood lymphocytes automated count (number/volume) 1.7 10*3 1.0-4.0 Blood monocytes automated count (number/volume) 0. 7 10*3 0.0-1.0 Automated eosinophil count 0.5 10*3/uL 0 .0-0.3 Automated blood basophil count (count/volume) 0.0 10*3/uL 0.0-0.1 Comprehensive metabolic panel - 07/26/19 09:13 Serum or plasma sodium measurement (moles/volume) 138 mmol/L 135-145 Serum or plasma potassium measurement (moles/volume) 3.5 mmol/L 3.6-5.0 Serum or plasma chloride measurement (moles/volume) 109 mmol/L 98-107 Carbon dioxide 21 mmol/L 21-32 Serum or plasma anion gap determination (moles/volume) 8 mmol/L 5-14 Serum or plasma urea nitrogen measurement (mass/volume ) 13 mg/dL 7-18 Serum or plasma creatinine measurement (mass/volume) 0.87 mg/dL 0.60-1.30 Serum or plasma urea nitrogen/creatinine mass ratio 15 NRG Serum or plasma creatinine measurement w ith calculation of estimated glomerular filtration rate > NRG Serum or plasma glucose measurement (mass/volume) 103 mg/dL 70-105 Serum or plasma calcium measurement (mass/volume) 8.3 mg/dL 8.5-10.1 Serum or plasma total bilirubin measurement (mass/volu me) 0.3 mg/dL 0.1-1.0 Serum or plasma alkaline phosphatase quynh surement (enzymatic activity/volume) 79 U/L 40-136 Serum or plasma aspartate aminotransfera se measurement (enzymatic activity/volume) 14 U/L 5-34 Serum or plasma alanine aminotransferase measurement (enzymatic activity/volume) 7 U/L 0-55 Serum or plasma protein measurement (mass/volume) 5.4 g/dL 6.4-8.2 Serum or plasma albumin measurement (mass/volume) 3.0 g/dL 3.2-4.5 CALCIUM CORRECTED 9.1 mg/dL 8.5-10.1 Complete blood count (CBC) with automate d white blood cell (WBC) differential - 07/28/19 04:55 Blood leukocytes automated count (number/volume) 6.7 10*3/uL 4.3-11.0 Blood erythrocytes automated count (number/volume) 4.62 10*6/uL 4.35-5.85 Venous blood hemoglobin measurement (mass/volume) 12.4 g/dL 11.5-16.0 Blood hematocrit (volume fraction) 39 % 35-52 Automated erythrocyte mean corpuscular volume 85 [ foz_us] 80-99 Automated erythrocyte mean corpuscular h emoglobin (mass per erythrocyte) 27 pg 25-34 Automated erythrocyte mean corpuscular h emoglobin concentration measurement (mass/volume) 32 g/dL 32-36 Automated erythrocyte distribution width ratio 13. 9 % 10.0- 14.5 Automated blood platelet count (count/volume) 285 10*3/uL 130-400 Automated blood platelet mean volume measurement 11.0 [foz_us] 7.4-10.4 Automated blood neutrophils/100 leukocytes 58 % 42-75 Automated blood lymphocytes/100 leukocytes 23 % 12-44 Blood monocytes/100 leukocytes 11 % 0-12 Automated blood eosinophils/100 leukocytes 8 % 0-10 Automated blood basophils/100 leukocytes 1 % 0-10 Blood neutrophils automated count (number/volume) 3.9 10*3 1.8-7.8 Blood lymphocytes automated count (number/volume) 1.6 10*3 1.0-4.0 Blood monocytes automated count (number/volume) 0. 7 10*3 0.0-1.0 Automated eosinophil count 0.5 10*3/uL 0 .0-0.3 Automated blood basophil count (count/volume) 0.0 10*3/uL 0.0-0.1 Comprehensive metabolic panel - 07/28/19 04:55 Serum or plasma sodium measurement (moles/volume) 142 mmol/L 135-145 Serum or plasma potassium measurement (moles/volume) 3.5 mmol/L 3.6-5.0 Serum or plasma chloride measurement (moles/volume) 107 mmol/L 98-107 Carbon dioxide 25 mmol/L 21-32 Serum or plasma anion gap determination (moles/volume) 10 mmol/L 5-14 Serum or plasma urea nitrogen measurement (mass/volume ) 8 mg/dL 7-18 Serum or plasma creatinine measurement (mass/volume) 0.92 mg/dL 0.60-1.30 Serum or plasma urea nitrogen/creatinine mass ratio 9 NRG Serum or plasma creatinine measurement w ith calculation of estimated glomerular filtration rate 58 NRG Serum or plasma glucose measurement (mass/volume) 89 mg/dL 70-105 Serum or plasma calcium measurement (mass/volume) 8.4 mg/dL 8.5-10.1 Serum or plasma total bilirubin measurement (mass/volu me) 0.3 mg/dL 0.1-1.0 Serum or plasma alkaline phosphatase quynh surement (enzymatic activity/volume) 81 U/L 40-136 Serum or plasma aspartate aminotransfera se measurement (enzymatic activity/volume) 13 U/L 5-34 Serum or plasma alanine aminotransferase measurement (enzymatic activity/volume) 7 U/L 0-55 Serum or plasma protein measurement (mass/volume) 5.3 g/dL 6.4-8.2 Serum or plasma albumin measurement (mass/volume) 2.9 g/dL 3.2-4.5 CALCIUM CORRECTED 9.3 mg/dL 8.5-10.1 Encounters ACCT No. Visit Date/Time Discharge Status Pt. Type Provider Facility Loc./Unit Complaint [id number] 07/24/2019 17:39:00 16:20:00 DIS Inpatient BENTON LAURYN FITZGERALD [facility] 4TH DIVERTICULITIS,UTI [id number] 02/06/2019 15:01:00 23:59:59 CLS Outpatient SWEET JENNIFER NIEVES R [facility] RAD BACK PAIN [id number] 01/06/2019 15:20:00 11:13:00 DIS Inpatient BENTONSHANEKA FITZGERALD LAURYN V [facility] IRF INTRACTABLE LOW BACK PA IN [id number] 01/06/2019 11:34:00 15:11:00 DIS Emergency MATT GENNARO José Manuel PIERCEN [facility] ER BACK PAIN [id number] 11/02/2018 11:13:00 23:59:59 CLS Outpatient BENTON DO, LAURYN [facility] LAB CHRONIC RENAL IMPAIRMEN T, STAGE 3 [id number] 09/14/2018 08:49:00 23:59:59 CLS Outpatient BENTON DO, LAURYN [facility] LAB TYPE 2 DIABETES,BENIGN HYPERTENSION [id number] 07/21/2018 12:22:00 16:17:00 DIS Emergency PENELOPE VORA [facility] ER STOMACH VIRUS X6 DAYS,W EAK, HASN'T EATEN [id number] 05/03/2018 16:39:00 23:59:59 CLS Outpatient BENTON DO, LAURYN [facility] RAD RIGHT LEG PAIN [id number] 04/14/2018 08:55:00 11:15:00 DIS Inpatient SYED ROSE MD [facility] IRF S/P TOTAL KNEE ARTHROPL ASTY [id number] 04/10/2018 07:37:00 08:28:00 DIS Inpatient MARGARET JOY MD [facility] 4TH OSTEOARTHRITIS RIGHT KN EE [id number] 04/05/2018 11:47:00 12:50:00 DIS Outpatient MARGAERT JOY MD [facility] PREOP OSTEOARTHRITIS RIGHT K NEE [id number] 03/14/2018 07:03:00 23:59:59 CLS Outpatient BENTON DO, LAURYN [facility] CARD CHEST PAIN [id number] 03/07/2018 13:42:00 018 23:59:59 CLS Outpatient LAURYN BENTON DO [facility] CARD CHEST PAIN [id number] 02/27/2018 12:29:00 018 23:59:59 CLS Preadmit LAURYN BENTON DO Vi [facility] CARD CHEST PAIN [id number] 02/22/2018 14:30:00 018 23:59:59 CLS Outpatient LAURYN BENTON DO [facility] LAB BENIGN HYPERTENSION
--- OUTSIDE RECORDS SUMMARY | 2019-08-20 01:33 | XMS REPORT | Continuity of Care Document ---
Author Organization Unknown Address Unknown Phone Unavailable Allergies Active Description Code Type Severity Reaction Onset Reported/Identified Relationship to Patient Clinical Status Yes No Allergy Information Available [id number] Drug Allergy Unknown N/A 018 Yes No Known Drug Allergies [id number] Drug Allergy Unknown N/A 04/05/2018 Medications There [...] E11.22 TYPE 2 DIABETES MELLITUS W DIABETIC RN PROVIDER RELATIONS 04/14/2018 MARGARET JOY MD Ot E78.1 PURE [...] DIARRHEA, UNSPECIFIED 07/21/2018 BERNOT, PENELOPE Ot Z79.82 [facility] (CURRENT) USE OF ASPIRIN 07/21/2018 BERNOT, PENELOPE [...] DIARRHEA, UNSPECIFIED 07/23/2018 BERNOT, PENELOPE Ot Z79.82 [facility] (CURRENT) USE OF ASPIRIN 07/23/2018 DIONY PENELOPE [...] PAIN 01/06/2019 GENNARO GUTIERREZ APRN Ot Z79.82 [facility] (CURRENT) USE OF ASPIRIN 01/06/2019 GENNARO GUTIERREZ [...] ESSENTIAL (PRIMARY) HYPERTENSION 01/08/2019 GUTIERREZ, PETER J [employer] Ot K21 .9 GASTRO-ESOPHAGEAL REFLUX DISEASE WITHOUT 01/08/2019 GENNARO GUTIERREZ [employer] WORKER Ot M54 .5 LOW BACK PAIN 01/08/2019 GENNARO GUTIERREZ APRN Ot Z79.82 [facility] (CURRENT) USE OF ASPIRIN 01/08/2019 GENNARO GUTIERREZ [employer]OV[employer] WORKER Ot Z80 .0 FAMILY HISTORY OF MALIGNANT NEOPLASM OF 01/08/2019 GENNARO GUTIERREZ [employer]OV[employer] WORKER Ot Z87.448 PERSONAL HISTORY OF OTHER DISEASES [...] Ot E78.5 HYPERLIPIDEMIA, UNSPECIFIED 07/28/2019 BENTON DO, ALURYN Ot I12.9 HYPERTENSIVE CHRONIC KIDNEY DISEASE W [...] Code Description Performed By Per formed On [id number] RE PLACE OF R KNEE JT WITH [...] culture - 07/21/18 15:05 Bacterial urine culture [id number] NRG COLONY COUNT >100,000/ML NRG FTX;REPORTABLE RML [...] culture - 01/06/19 14:30 Bacterial urine culture [id number] NRG COLONY COUNT >100,000/ML NRG FTX;REPORTABLE SUSCEPTIBILITY [...] ncentration <= NRG Nitrofurantoin susceptibility test by ma nimum inhibitory concentration <= NRG Amoxicillin and [...] culture - 07/24/19 15:40 Bacterial urine culture [id number] NRG COLONY COUNT 60,000 cfu/ml NRG FTX;REPORTABLE [...] Status Pt. Type Provider Facility Loc./Unit Complaint [id number] 07/24/2019 17:39:00 16:20:00 DIS Inpatient BENTON LAURYN FITZGERALD V [facility] 4TH DIVERTICULITIS,UTI [id number] 02/06/2019 15:01:00 23:59:59 CLS Outpatient SWEET JENNIFER NIEVES R [facility] RAD BACK PAIN [id number] 01/06/2019 15:20:00 11:13:00 DIS Inpatient BENTONSHANEKA FITZGERALD LAURYN V [facility] IRF INTRACTABLE LOW BACK PA IN [id number] 01/06/2019 11:34:00 15:11:00 DIS Emergency MATT GENNARO José Manuel PIERCEN [facility] ER BACK PAIN [id number] 11/02/2018 11:13:00 23:59:59 CLS Outpatient BENTON DO, LAURYN [facility] LAB CHRONIC RENAL IMPAIRMEN T, STAGE 3 [id number] 09/14/2018 08:49:00 23:59:59 CLS Outpatient BENTON DO, LAURYN [facility] LAB TYPE 2 DIABETES,BENIGN HYPERTENSION [id number] 07/21/2018 12:22:00 16:17:00 DIS Emergency PENELOPE VORA [facility] ER STOMACH VIRUS X6 DAYS,W EAK, HASN'T EATEN [id number] 05/03/2018 16:39:00 23:59:59 CLS Outpatient BENTON DO, LAURYN [facility] RAD RIGHT LEG PAIN [id number] 04/14/2018 08:55:00 11:15:00 DIS Inpatient SYED ROSE MD [facility] IRF S/P TOTAL KNEE ARTHROPL ASTY [id number] 04/10/2018 07:37:00 08:28:00 DIS Inpatient MARGARET JOY MD [facility] 4TH OSTEOARTHRITIS RIGHT KN EE [id number] 04/05/2018 11:47:00 12:50:00 DIS Outpatient MARGARET JOY MD [facility] PREOP OSTEOARTHRITIS RIGHT K NEE [id number] 03/14/2018 07:03:00 23:59:59 CLS Outpatient BENTON DO, LAURYN [facility] CARD CHEST PAIN [id number] 03/07/2018 13:42:00 018 23:59:59 CLS Outpatient LAURYN BENTON DO [facility] CARD CHEST PAIN [id number] 02/27/2018 12:29:00 018 23:59:59 CLS Preadmit LAURYN BENTON DO Vi [facility] CARD CHEST PAIN [id number] 02/22/2018 14:30:00 018 23:59:59 CLS Outpatient LAURYN BENTON DO [facility] LAB BENIGN HYPERTENSION
== END 2019-07-28 16:20 | disposition home or self-care (01) | DRG 392 ==
LOC: EDUNIT# 12:53 → ER 12:54 → 4TH 17:39
PROVIDERS: ADMIT Internal Medicine; ATTEND Internal Medicine
DX: K57.32 Diverticulitis of large intestine without perforation or abscess without bleeding (principal); I12.9 Hypertensive chronic kidney disease with stage 1 through stage 4 chronic kidney disease, or unspecified chronic kidney disease; N18.9 Chronic kidney disease, unspecified; E11.40 Type 2 diabetes mellitus with diabetic neuropathy, unspecified; E78.00 Pure hypercholesterolemia, unspecified; R32 Unspecified urinary incontinence; K21.9 Gastro-esophageal reflux disease without esophagitis; M17.11 Unilateral primary osteoarthritis, right knee; M54.9 Dorsalgia, unspecified; E66.9 Obesity, unspecified; Z87.891 Personal history of nicotine dependence; Z68.35 Body mass index [BMI] 35.0-35.9, adult; Z96.651 Presence of right artificial knee joint; Z90.49 Acquired absence of other specified parts of digestive tract; Z90.710 Acquired absence of both cervix and uterus; E78.5 Hyperlipidemia, unspecified
CPT/HCPCS: 36415; 71045; 74177; 80053; 81000; 83605; 83735; 85025; 87040; 87088; 96374; 96375

== ENCOUNTER → 2020-01-16 | Outpatient (CLI) | payer MEDICARE, BC ==
[~2020-01-16] MED LIST changes: +CIPR500T4 PO; +FENO48TA10 PO; -FENO48TA17 PO; +Guaifenesin/Codeine PO; +METR500T PO
[2020-01-16 09:37] LABS: HEMOGLOBIN 15.5 G/DL (11.5-16.0); MEAN PLATELET VOLUME 11.2 FL (7.4-10.4); RED CELL DISTRIBUTION WIDTH 15.7 % (10.0-14.5); WHITE BLOOD COUNT 6.1 10^3/uL (4.3-11.0)
[2020-01-16 09:56] LABS: ALBUMIN 3.9 GM/DL (3.2-4.5); BILIRUBIN,TOTAL 0.5 MG/DL (0.1-1.0); CALCIUM 9.4 MG/DL (8.5-10.1); CREATININE SERUM 1.6 MG/DL (0.60-1.30); POTASSIUM 4.8 MMOL/L (3.6-5.0); TOTAL PROTEIN 7.2 GM/DL (6.4-8.2)
[2020-01-16 10:17] LABS: FREE T4 (FREE THYROXINE) 0.97 NG/DL (0.70-1.48)
[2020-01-16 10:31] LABS: CHOLESTEROL 244 MG/DL (< 200); HDL CHOLESTEROL 54 MG/DL (40-60); TRIGLYCERIDES 152 MG/DL (<150); VLDL CHOLESTEROL 30 MG/DL (5-40)
== END ==
LOC: LAB 09:15
PROVIDERS: ATTEND Internal Medicine
DX: D64.9 Anemia, unspecified (principal); R73.9 Hyperglycemia, unspecified; Z13.6 Encounter for screening for cardiovascular disorders
CPT/HCPCS: 36415; 80053; 80061; 82728; 83036; 83540; 84439; 84443; 85027

== ENCOUNTER 2020-02-25 14:20 | Outpatient (RCR) | payer MEDICARE, BC ==
[~2020-02-25] VITALS: Ht 152.4 cm; Wt 75.9 kg
[2020-02-25] MEDS ORDERED: OMEP40CA27 PO (14:21)
== END 2020-02-25 14:23 | disposition home or self-care (01) ==
LOC: PREOP 14:20
PROVIDERS: ATTEND Specialist
DX: Z01.812 Encounter for preprocedural laboratory examination (principal); H26.9 Unspecified cataract; Z20.828 Contact with and (suspected) exposure to other viral communicable diseases
CPT/HCPCS: 87635

== ENCOUNTER 2020-02-27 09:11 | Day surgery (SDC) | payer MEDICARE, BC ==
[~2020-02-27] VITALS: Ht 160 cm; Wt 75.9 kg
[~2020-02-27 09:11] MED LIST changes: +OMEP40CA27 PO
[2020-02-27] MEDS ORDERED: MOXIFLOXACIN OPHTH SOLN 5 MG/ML 0.3 ML SYRINGE OP ONE (09:45)
[2020-02-27] MEDS ORDERED: LIDOCAINE PF 1% 2 ML VIAL IR PRN (09:45)
[2020-02-27] MEDS ORDERED: TIMOLOL MALEATE 0.5% 5 ML (TIMOPTIC) BTL OU PRN (09:45)
[2020-02-27] MEDS ORDERED: POVIDONE (BETADINE) OPHTH SOLN 5% 30 ML OP ONE (09:45)
[2020-02-27] MEDS: TETRACAINE 0.5% OPHTH SOLN 4 ML BTL (SINGLE DOSE ONLY) OU PRN ×4 (09:51→10:08)
[2020-02-27] MEDS: CYCLOPENTOLATE 1% (CYCLOGYL) 2 ML DROPS OP SCH ×3 (09:57→10:08)
[2020-02-27] MEDS: PHENYLEPHRINE 10% OPHTH (NEO-SYN) 5 ML BTL OU SCH ×3 (09:57→10:08)
[2020-02-27 10:12] VITALS: BP 155/60
--- NOTE | 2020-02-27 10:54 | Ophthalmologist Pre-Op Note ---
Pre-Operative Progress Note H&P Reviewed The H&P was reviewed, patient examined and no changes noted. Date H&P Reviewed: Feb 27, 2020 Time H&P Reviewed: 10:54 Pre-Op Dx Cataract, Left Eye MARILIA LAM MD Feb 27, 2020 10:54
[2020-02-27] MEDS ORDERED: acetaZOLAMIDE ER 500 MG CAP (DIAMOX SEQUELS) PO ONE (11:00)
[2020-02-27] MEDS ORDERED: MIDAZOLAM 2 MG/2 ML (VERSED) VIAL ONE (11:03)
--- NOTE | 2020-02-27 11:26 | Ophthalmology Operative Report ---
Cataract removal/placement IOL PREOPERATIVE DIAGNOSIS: Cataract Left Eye POSTOPERATIVE DIAGNOSIS: Cataract Left Eye PROCEDURE: Cataract removal and placement of posterior chamber implant, left eye SURGEON: Chauncey Lam ANESTHESIA: Topical with sedation COMPLICATIONS: None ESTIMATED BLOOD LOSS: Minimal DESCRIPTION OF PROCEDURE: After proper informed consent was obtained, the patient, a 89 female, was taken to the Operating Room and the left eye was anesthetized with tetracaine. The left eye was then prepped and draped in the usual manner. A wire lid speculum was placed. A paracentesis was made at the left hand position. Preservative free lidocaine was injected into the anterior chamber followed by viscoelastic. A clear corneal incision was made in the temporal position. A capsulorrhexis was preformed and the central nuclear and cortical material were removed. The posterior capsule was polished and an Rui 23.5 [id number] was placed into the capsular bag. The residual viscoelastic was aspirated and balanced saline solution was injected into the anterior chamber. Moxifloxacin was injected into the anterior chamber. The wound was checked and found to be water tight. The patient tolerated the procedure well without complications. CHAUNCEY LAM MD Feb 27, 2020 11:26
[2020-02-27 11:35] VITALS: BP 155/52
--- OUTSIDE RECORDS SUMMARY | 2020-02-27 12:49 | XMS REPORT | Continuity of Care Document ---
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 03/14/2018 BENTON DO, LAURYN Ot I10 ESSENTIAL (PRIMARY) HYPERTENSION 03/14/2018 BENTON DO, LAURYN Ot R53.83 OTHER FATIGUE 03/14/2018 BENTON DO, LAURYN Ot R82.99 OTHER ABNORMAL FINDINGS IN URINE 03/18/2018 BENTON DO, LAUYRN Ot R07.9 CHEST PAIN, UNSPECIFIED 04/05/2018 BENTON [...] E11.22 TYPE 2 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 W 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 PT 04/14/2018 MARGARET JOY MD Ot E78.1 PURE [...] E Ot Z47.1 AFTERCARE FOLLOWING JOINT REPLACEMENT PHILLPIS 04/20/2018 SYED ROSE MD E Ot Z87.8 [...] DIARRHEA, UNSPECIFIED 07/21/2018 BERNOT, PENELOPE Ot Z79.82 GROUP HOME (CURRENT) USE OF ASPIRIN 07/21/2018 BERNOT, PENELOPE [...] DIARRHEA, UNSPECIFIED 07/23/2018 BERNOT, PENELOPE Ot Z79.82 SERVICE OPERATOR (CURRENT) USE OF ASPIRIN 07/23/2018 DIONY PENELOPE [...] PAIN 01/06/2019 GENNARO GUTIERREZ APRN Ot Z79.82 GROUP HOME (CURRENT) USE OF ASPIRIN 01/06/2019 GENNARO GUTIERREZ [...] ESSENTIAL (PRIMARY) HYPERTENSION 01/08/2019 GUTIERREZ, PETER J SALES OPERATIONS ASSISTANT Ot K21 .9 GASTRO-ESOPHAGEAL REFLUX DISEASE WITHOUT 01/08/2019 GENNARO GUTIERREZ SALES OPERATIONS ASSISTANT Ot M54 .5 LOW BACK PAIN 01/08/2019 GENNARO GUTIERREZ APRN Ot Z79.82 SERVICE OPERATOR (CURRENT) USE OF ASPIRIN 01/08/2019 GENNARO GUTIERREZ SALES OPERATIONS ASSISTANT Ot Z80 .0 FAMILY HISTORY OF MALIGNANT NEOPLASM OF 01/08/2019 GENNARO GUTIERREZ SALES OPERATIONS ASSISTANT Ot Z87.448 PERSONAL HISTORY OF OTHER DISEASES [...] Ot N18.9 CHRONIC KIDNEY DISEASE, UNSPECIFIED 07/28/2019 BENTON DO, LAURYN Ot R32 UNSPECIFIED URINARY INCONTINENCE 07/28/2019 BENTON DO, LAURYN Ot Z68.35 BODY MASS INDEX (BMI) 35.0-35.9, ADULT 07/28/2019 SERENITY FITZGERALD LAURYN Ot Z87.89 1 PERSONAL HISTORY OF NICOTINE DEPENDENCE 07/28/2019 BENTON DO, LAURYN Ot Z90.49 ACQUIRED ABSENCE OF OTHER SPECIFIED PART 07/28/2019 SERENITY DO LAURYN Ot Z90.71 0 ACQUIRED ABSENCE OF BOTH CERVIX AND UTER 07/28/2019 BENTON DO, LAURYN Ot 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 01/16/2020 BENTON DO, LAURYN Ot D64.9 ANEMIA, UNSPECIFIED 01/16/2020 BENTON DO, LAURYN Ot R73.9 HYPERGLYCEMIA, UNSPECIFIED 01/16/2020 BENTON DO, LAURYN Ot Z13.6 ENCOUNTER FOR SCREENING FOR CARDIOVASCUL 01/19/2020 BENTON DO, LAURYN Ot D64.9 ANEMIA, UNSPECIFIED 01/19/2020 BENTON DO, LAURYN Ot R73.9 HYPERGLYCEMIA, UNSPECIFIED 01/19/2020 BENTON DO, LAURYN Ot Z13.6 ENCOUNTER FOR SCREENING FOR CARDIOVASCUL 01/22/2020 BENTON DO, LAURYN Ot D64.9 ANEMIA, UNSPECIFIED 01/22/2020 BNETON DO, LAURYN Ot R73.9 HYPERGLYCEMIA, UNSPECIFIED 01/22/2020 BENTON DO, LAURYN Ot Z13.6 ENCOUNTER FOR SCREENING FOR CARDIOVASCUL 02/11/2020 BENTON DO, LAURYN Ot D64.9 ANEMIA, UNSPECIFIED 02/11/2020 BENTON DO, LAURYN Ot R73.9 HYPERGLYCEMIA, UNSPECIFIED 02/11/2020 BENTON DO, LAURYN Ot Z13.6 ENCOUNTER FOR SCREENING FOR CARDIOVASCUL Procedures Code Description Performed By Per formed On [id number] RE PLACE OF R KNEE JT WITH [...] urine culture RML NRG COLONY COUNT . NR RML Sensitivity Panel - 02/22/18 14:58 Gentamicin [...] culture - 07/21/18 15:05 Bacterial urine culture [id number] NRG COLONY COUNT >100,000/ML NRG FTX;REPORTABLE RML [...] culture - 01/06/19 14:30 Bacterial urine culture [id number] NRG COLONY COUNT >100,000/ML NRG FTX;REPORTABLE SUSCEPTIBILITY [...] culture - 07/24/19 15:40 Bacterial urine culture [id number] NRG COLONY COUNT 60,000 cfu/ml NRG FTX;REPORTABLE [...] g/dL 3.2-4.5 CALCIUM CORRECTED 9.3 mg/dL 8.5-10.1 Automated blood complete blood count (he mogram) panel - 01/16/20 09:25 Blood leukocytes automated count (number/volume) 6.1 10*3/uL 4.3-11.0 Blood erythrocytes automated count (number/volume) 5.54 10*6/uL 4.35-5.85 Venous blood hemoglobin measurement (mass/volume) 15.5 g/dL 11.5-16.0 Blood hematocrit (volume fraction) 48 % 35-52 Automated erythrocyte mean corpuscular volume 86 [ foz_us] 80-99 Automated erythrocyte mean corpuscular h emoglobin (mass per erythrocyte) 28 pg 25-34 Automated erythrocyte mean corpuscular h emoglobin concentration measurement (mass/volume) 33 g/dL 32-36 Automated erythrocyte distribution width ratio 15. 7 % 10.0- 14.5 Automated blood platelet count (count/volume) 218 10*3/uL 130-400 Automated blood platelet mean volume measurement 11.2 [foz_us] 7.4-10.4 Comprehensive metabolic panel - 01/16/20 09:25 Serum or plasma sodium measurement (moles/volume) 140 mmol/L 135-145 Serum or plasma potassium measurement (moles/volume) 4.8 mmol/L 3.6-5.0 Serum or plasma chloride measurement (moles/volume) 108 mmol/L 98-107 Carbon dioxide 23 mmol/L 21-32 Serum or plasma anion gap determination (moles/volume) 9 mmol/L 5-14 Serum or plasma urea nitrogen measurement (mass/volume ) 41 mg/dL 7-18 Serum or plasma creatinine measurement (mass/volume) 1.60 mg/dL 0.60-1.30 Serum or plasma urea nitrogen/creatinine mass ratio 26 NRG Serum or plasma creatinine measurement w ith calculation of estimated glomerular filtration rate 30 NRG Serum or plasma glucose measurement (mass/volume) 97 mg/dL 70-105 Serum or plasma calcium measurement (mass/volume) 9.4 mg/dL 8.5-10.1 Serum or plasma total bilirubin measurement (mass/volu me) 0.5 mg/dL 0.1-1.0 Serum or plasma alkaline phosphatase quynh surement (enzymatic activity/volume) 114 U/L 40-136 Serum or plasma aspartate aminotransfera se measurement (enzymatic activity/volume) 23 U/L 5-34 Serum or plasma alanine aminotransferase measurement (enzymatic activity/volume) 16 U/L 0-55 Serum or plasma protein measurement (mass/volume) 7.2 g/dL 6.4-8.2 Serum or plasma albumin measurement (mass/volume) 3.9 g/dL 3.2-4.5 CALCIUM CORRECTED 9.5 mg/dL 8.5-10.1 THYROID STIMULATING HORMONE - 01/16/20 0 9:25 THYROID STIMULATING HORMONE 1.41 u[iU]/mL 0.35-4.94 Serum or plasma thyroxine (T4) free javier urement (mass/volume) - 01/16/20 09:25 Serum or plasma thyroxine (T4) free measurement (mass/ volume) 0.97 ng/dL 0.70-1.48 Hemoglobin A1c measurement - 01/16/20 09 :47 Blood hemoglobin A1C measurement (mass/volume) 5.6 % 4.0-5.6 MEAN BLOOD GLUCOSE 114 % <=126 Serum iron and total iron binding capaci ty panel - 01/16/20 09:47 TIBC 418 % 280-380 UIBC 343 % 55-450 Serum or plasma iron measurement (mass/volume) 75 % 35-180 Total iron binding capacity and transferrin saturation measurement 18 % 15-50 Serum or plasma ferritin measurement (mass/volume) 42.0 % 20.0-177.0 Lipid 1996 panel - 01/16/20 10:12 Serum or plasma triglyceride measurement (mass/volume) 152 mg/dL <150 Serum or plasma cholesterol measurement (mass/volume) 244 mg/dL < 200 Serum or plasma cholesterol in HDL measurement (mass/v olume) 54 mg/dL 40-60 Cholesterol in LDL [mass/volume] in serum or plasma by direct assay 184 mg/dL 1-129 Serum or plasma cholesterol in VLDL measurement (mass/ volume) 30 mg/dL 5-40 Coronavirus SARS-CoV-2 SO 2018 - 0 08:05 Coronavirus Ab [Units/volume] in Serum Negative Negative Encounters ACCT No. Visit Date/Time Discharge Status Pt. Type Provider Facility Loc./Unit Complaint [id number] 02/25/2020 14:20:00 14:23:00 DIS Outpatient MARILIA LAM MD [facility] PREOP CATARACT LEFT EYE [id number] 01/16/2020 09:15:00 23:59:59 CLS Outpatient SERENITY FITZGERALD LAURYN [facility] LAB ANEMIA [id number] 07/24/2019 17:39:00 16:20:00 DIS Inpatient SERENITY FITZGERALD LAURYN Carlos Alberto [facility] 4TH DIVERTICULITIS,UTI [id number] 02/06/2019 15:01:00 23:59:59 CLS Outpatient JENNIFER LINDSEY [facility] RAD BACK PAIN [id number] 01/06/2019 15:20:00 11:13:00 DIS Inpatient SERENITY FITZGERALD LAURYN V [facility] IRF INTRACTABLE LOW BACK PA IN [id number] 01/06/2019 11:34:00 15:11:00 DIS Emergency GENNARO GUTIERREZ APRN [facility] ER BACK PAIN [id number] 11/02/2018 11:13:00 23:59:59 CLS Outpatient SERENITY FITZGERALD LAURYN [facility] LAB CHRONIC RENAL IMPAIRMEN T, STAGE 3 [id number] 09/14/2018 08:49:00 23:59:59 CLS Outpatient SERENITY FITZGERALD LAURYN [facility] LAB TYPE 2 DIABETES,BENIGN HYPERTENSION [id number] 07/21/2018 12:22:00 12/02/2 018 16:17:00 DIS Emergency PENELOPE VORA [facility] ER STOMACH VIRUS X6 DAYS,W EAK, HASN'T EATEN [id number] 05/03/2018 16:39:00 23:59:59 CLS Outpatient BENTON DO, LAURYN [facility] RAD RIGHT LEG PAIN [id number] 04/14/2018 08:55:00 11:15:00 DIS Inpatient MILTON ROSE, SYED Crockett [facility] IRF S/P TOTAL KNEE ARTHROPL ASTY [id number] 04/10/2018 07:37:00 018 08:28:00 DIS Inpatient MARGARET JOY MD [facility] 4TH OSTEOARTHRITIS RIGHT KN EE [id number] 04/05/2018 11:47:00 12:50:00 DIS Outpatient MARGARET JOY MD [facility] PREOP OSTEOARTHRITIS RIGHT K NEE [id number] 03/14/2018 07:03:00 018 23:59:59 CLS Outpatient BENTON DO, LAURYN [facility] CARD CHEST PAIN [id number] 03/07/2018 13:42:00 018 23:59:59 CLS Outpatient BENTON DO, LAURYN [facility] CARD CHEST PAIN [id number] 02/27/2018 12:29:00 018 23:59:59 CLS Preadmit BENTON DO, LAURYN Vi a [facility] CARD CHEST PAIN [id number] 02/22/2018 14:30:00 018 23:59:59 CLS Outpatient BENTON DO, LAURYN [facility] LAB BENIGN HYPERTENSION [id number] 03/05/2020 12:15:00 P EN Preadmit MARILIA LAM MD [facility] CATARACT RIGHT EYE [id number] 02/27/2020 12:00:00 P EN Preadmit MARILIA LAM MD [facility] CATARACT LEFT EYE
--- NOTE | 2020-03-01 07:23 | Anesthesia-General Post-Op ---
MAC Significant Intra-Op Events Notes late entry 02/27/20 Patient Condition Mental Status/LOC: Same as Preop Cardiovascular: Satisfactory Nausea/Vomiting: Absent Respiratory: Satisfactory Pain: Controlled Complications: Absent Post Op Complications Complications None Follow Up Care/Instructions Patient Instructions None needed. Anesthesiology Discharge Order Discharge Order Patient is doing well, no complaints, stable vital signs, no apparent adverse anesthesia problems. No complications reported per nursing. LEONARD HILTON CRNA Mar 01, 2020 07:23
== END 2020-02-27 11:35 | disposition home or self-care (01) ==
LOC: SDC 09:11
PROVIDERS: ATTEND Specialist
DX: H25.12 Age-related nuclear cataract, left eye (principal); M19.90 Unspecified osteoarthritis, unspecified site; I10 Essential (primary) hypertension; Z79.82 Long term (current) use of aspirin; Z79.899 Other long term (current) drug therapy; Z90.710 Acquired absence of both cervix and uterus; Z87.891 Personal history of nicotine dependence; Z80.0 Family history of malignant neoplasm of digestive organs
CPT/HCPCS: 66982; V2632

== ENCOUNTER 2020-03-02 05:49 | Outpatient (CLI) | payer MEDICARE, BC | END 2020-03-02 11:06 | LOC: PREOP 05:49 | PROVIDERS: ATTEND Specialist | DX: Z01.812 Encounter for preprocedural laboratory examination (principal); H26.9 Unspecified cataract; Z20.828 Contact with and (suspected) exposure to other viral communicable diseases | CPT/HCPCS: 87635 ==

== ENCOUNTER 2020-03-05 09:43 | Day surgery (SDC) | payer MEDICARE, BC ==
[~2020-03-05] VITALS: Ht 152 cm; Wt 75.9 kg
[2020-03-05] MEDS: TETRACAINE 0.5% OPHTH SOLN 4 ML BTL (SINGLE DOSE ONLY) OU PRN ×4 (09:59→10:15)
[2020-03-05] MEDS ORDERED: LIDOCAINE PF 1% 2 ML VIAL IR PRN (10:00)
[2020-03-05] MEDS ORDERED: POVIDONE (BETADINE) OPHTH SOLN 5% 30 ML OP ONE (10:00)
[2020-03-05] MEDS ORDERED: TIMOLOL MALEATE 0.5% 5 ML (TIMOPTIC) BTL OU PRN (10:00)
[2020-03-05] MEDS ORDERED: MOXIFLOXACIN OPHTH SOLN 5 MG/ML 0.3 ML SYRINGE OP ONE (10:00)
[2020-03-05] MEDS: PHENYLEPHRINE 10% OPHTH (NEO-SYN) 5 ML BTL OU SCH ×3 (10:05→10:15)
[2020-03-05] MEDS: CYCLOPENTOLATE 1% (CYCLOGYL) 2 ML DROPS OP SCH ×3 (10:05→10:15)
[2020-03-05 10:07] VITALS: BP 191/75
[2020-03-05] MEDS ORDERED: MIDAZOLAM 2 MG/2 ML (VERSED) VIAL ONE (10:25)
--- OUTSIDE RECORDS SUMMARY | 2020-03-05 10:44 | XMS REPORT | Continuity of Care Document ---
Author Organization Unknown Address Unknown Phone Unavailable Allergies Active Description Code Type Severity Reaction Onset Reported/Identified Relationship to Patient Clinical Status Yes No Allergy Information Available [id number] Drug Allergy Unknown N/A 018 Yes No Known Drug Allergies [id number] Drug Allergy Unknown N/A 04/05/2018 Medications There is no data. 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 04/05/2018 TOMAS BENTON DOI Ot I10 ESSENTIAL (PRIMARY) HYPERTENSION 04/05/2018 SERENITY FITZGERALD LAURYN Ot R53.83 OTHER FATIGUE 04/05/2018 SERENITY FITZGERALD LAURYN Ot R82.99 OTHER ABNORMAL FINDINGS IN URINE 04/05/2018 SERENITY FITZGERALD LAURYN Ot R07.9 CHEST PAIN, UNSPECIFIED 04/05/2018 SERENITY FITZGERALD LAURYN Ot R07.9 CHEST PAIN, UNSPECIFIED 04/05/2018 MARGARET JOY MD Ot M17.11 UNILATERAL PRIMARY OSTEOARTHRITIS, RIGHT 04/05/2018 MARGARET JOY MD Ot R53.83 OTHER FATIGUE 04/05/2018 MARGARET JOY MD Ot R82.99 OTHER ABNORMAL [...] E11.22 TYPE 2 DIABETES MELLITUS W 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 04/14/2018 MARGARET JOY MD Ot 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 04/14/2018 MARGARET JOY MD Ot E78.5 HYPERLIPIDEMIA, UNSPECIFIED 04/14/2018 MARGARET JOY MD Ot E83.52 HYPERCALCEMIA 04/14/2018 MARGARET JOY MD Ot E87.70 FLUID OVERLOAD, UNSPECIFIED 04/14/2018 MARGARET JOY MD Ot I12.9 HYPERTENSIVE CHRONIC KIDNEY DISEASE W ST 04/14/2018 AMRGARET JOY MD Ot K21.9 GASTRO-ESOPHAGEAL REFLUX DISEASE [...] OF NICOTINE DEPENDENCE 04/20/2018 SYED ROSE MD Ot D64.9 ANEMIA, UNSPECIFIED 04/20/2018 SYED ROSE MD Ot E11.9 TYPE 2 DIABETES MELLITUS WITHOUT COMPLIC 04/20/2018 SYED ROSE MD Ot E78.0 0 PURE HYPERCHOLESTEROLEMIA, UNSPECIFIED 04/20/2018 SYED ROSE MD E Ot 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 04/20/2018 SYED ROSE MD Ot E78.5 HYPERLIPIDEMIA, UNSPECIFIED 04/20/2018 SYED ROSE MD Ot E83.5 2 HYPERCALCEMIA 04/20/2018 SYED ROSE MD Ot I12.9 HYPERTENSIVE CHRONIC KIDNEY DISEASE W ST 04/20/2018 SYED ROSE MD Ot K21.9 GASTRO-ESOPHAGEAL REFLUX DISEASE WITHOUT 04/20/2018 SYED ROSE MD Ot K59.0 0 CONSTIPATION, UNSPECIFIED 04/20/2018 SYED ROSE MD Ot M54.9 DORSALGIA, UNSPECIFIED 04/20/2018 MILTON ROSE, SYED Crockett Ot N18.9 CHRONIC KIDNEY DISEASE, UNSPECIFIED 04/20/2018 MILTON ROSE, SYED Crockett Ot Z47.1 AFTERCARE FOLLOWING JOINT REPLACEMENT PHILLIPS 04/20/2018 MILTON ROSE, SYED Crockett Ot Z87.8 91 PERSONAL HISTORY OF NICOTINE DEPENDENCE 04/20/2018 MILTON ROSE, SYED Crockett Ot Z96.6 51 PRESENCE OF RIGHT ARTIFICIAL [...] Ot R10.32 LEFT LOWER QUADRANT PAIN 07/21/2018 BERNOT PENELOPE Ot R19.7 DIARRHEA, UNSPECIFIED 07/21/2018 BERNOT PENELOPE Ot Z79.82 HALF-WAY (CURRENT) USE OF ASPIRIN 07/21/2018 BERNOT, PENELOPE Ot Z80.0 FAMILY HISTORY OF MALIGNANT NEOPLASM OF 07/21/2018 BERNOT PENELOPE Ot Z87.448 PERSONAL HISTORY OF OTHER DISEASES OF UR 07/21/2018 DIONY PENELOPE Ot Z87.891 PERSONAL HISTORY OF NICOTINE DEPENDENCE 07/23/2018 BERNOT, PENELOPE Ot E78.00 PURE HYPERCHOLESTEROLEMIA, UNSPECIFIED 07/23/2018 BERNOT, PENELOPE Ot I10 ESSENTIAL (PRIMARY) HYPERTENSION 07/23/2018 BERNOT, PENELOPE Ot K21.9 GASTRO-ESOPHAGEAL REFLUX DISEASE WITHOUT 07/23/2018 EDDIEMELISSA PENELOPE Ot N39.0 URINARY TRACT INFECTION, SITE NOT SPECIF 07/23/2018 EDDIEMELISSA PENELOPE Ot R10.32 LEFT LOWER QUADRANT PAIN 07/23/2018 DIONY PENELOPE Ot R19.7 DIARRHEA, UNSPECIFIED 07/23/2018 DIONY PENELOPE Ot Z79.82 HALF-WAY (CURRENT) USE OF ASPIRIN 07/23/2018 DIONY PENELOPE Ot Z80.0 FAMILY HISTORY OF MALIGNANT NEOPLASM OF 07/23/2018 EDDIEMELISSAMURIELIS Ot Z87.448 PERSONAL HISTORY OF OTHER DISEASES OF UR 07/23/2018 EDDIEMELISSA PENELOPE Ot Z87.891 PERSONAL HISTORY OF NICOTINE [...] LAURYN Ot I10 ESSENTIAL (PRIMARY) HYPERTENSION 01/06/2019 SERENITY DO, LAURYN Ot N18.3 CHRONIC KIDNEY DISEASE, STAGE 3 (MODERAT 01/06/2019 GENNARO GUTIERREZ APRN Ot E78.00 PURE HYPERCHOLESTEROLEMIA, UNSPECIFIED 01/06/2019 GENNARO GUTIERREZ CONTROL INSPECTOR Ot G62 .9 POLYNEUROPATHY, UNSPECIFIED 01/06/2019 GENNARO GUTIERREZ CONTROL INSPECTOR Ot G89.29 OTHER CHRONIC PAIN 01/06/2019 GENNARO GUTIERREZ CONTROL INSPECTOR Ot I10 ESSENTIAL (PRIMARY) HYPERTENSION 01/06/2019 GENNARO GUTIERREZ APRN Ot K21 .9 GASTRO-ESOPHAGEAL REFLUX DISEASE WITHOUT 01/06/2019 GENNARO GUTIERREZ CONTROL INSPECTOR Ot M54 .5 LOW BACK PAIN 01/06/2019 GENNARO GUTIERREZ APRN Ot Z79.82 SEAMLESS TUBE MILL OPERATOR (CURRENT) USE OF ASPIRIN 01/06/2019 GENNARO GUTIERREZ [...] APRN Ot I10 ESSENTIAL (PRIMARY) HYPERTENSION 01/08/2019 GENNARO GUTIERREZ APRN Ot K21 .9 GASTRO-ESOPHAGEAL REFLUX DISEASE WITHOUT 01/08/2019 GENNARO GUTIERREZ APRN Ot M54 .5 LOW BACK PAIN 01/08/2019 GENNARO GUTIERREZ APRN Ot Z79.82 SEAMLESS TUBE MILL OPERATOR (CURRENT) USE OF ASPIRIN 01/08/2019 GENNARO GUTIERREZ APRN Ot Z80 .0 FAMILY HISTORY OF MALIGNANT NEOPLASM OF 01/08/2019 GENNARO GUTIERREZ APRN Ot Z87.448 PERSONAL HISTORY OF OTHER DISEASES OF UR 01/08/2019 GENNARO GUTIERREZ APRN Ot Z98.890 OTHER SPECIFIED POSTPROCEDURAL STATES 01/14/2019 BENTON DO, LAURYN Ot E78.5 HYPERLIPIDEMIA, UNSPECIFIED 01/14/2019 BENTON DO, LAURYN Ot G62.9 POLYNEUROPATHY, UNSPECIFIED 01/14/2019 BENTON DO, LAURYN Ot I12.9 HYPERTENSIVE CHRONIC KIDNEY DISEASE W ST 01/14/2019 SERENITY DO, LAURYN Ot K21.9 GASTRO-ESOPHAGEAL REFLUX DISEASE WITHOUT 01/14/2019 BENTON DO, LAURYN Ot M17.11 UNILATERAL PRIMARY OSTEOARTHRITIS, RIGHT 01/14/2019 BENTON DO, LAURYN Ot M48.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, 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 01/14/2019 BENTON DO, LAURYN Ot N18.9 CHRONIC KIDNEY DISEASE, UNSPECIFIED 01/14/2019 BENTON DO, LAURYN Ot N32.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 1 ARTHRODESIS STATUS 07/28/2019 SERENITY FITZGERALD, LAURYN Ot E11.40 TYPE 2 DIABETES MELLITUS WITH DIABETIC N 07/28/2019 SERENITY DO, LAURYN Ot E66.9 OBESITY, UNSPECIFIED 07/28/2019 SERENITY DO, LAURYN Ot E78.00 PURE HYPERCHOLESTEROLEMIA, UNSPECIFIED 07/28/2019 SERENITY DO LAURYN Ot E78.5 HYPERLIPIDEMIA, UNSPECIFIED 07/28/2019 SERENITY FITZGERALD, LAURYN Ot I12.9 HYPERTENSIVE CHRONIC KIDNEY DISEASE W ST 07/28/2019 SERENITY FITZGERALD LAURYN Ot K21.9 GASTRO-ESOPHAGEAL REFLUX DISEASE WITHOUT [...] BODY MASS INDEX (BMI) 35.0-35.9, ADULT 07/28/2019 BENTON DO, LAURYN Ot Z87.89 1 PERSONAL HISTORY OF NICOTINE DEPENDENCE 07/28/2019 BENTON DO, LAURYN Ot Z90.49 ACQUIRED ABSENCE OF OTHER SPECIFIED PART 07/28/2019 BENTON DO, LAURYN Ot Z90.71 0 ACQUIRED ABSENCE OF [...] DO, LAURYN Ot D64.9 ANEMIA, UNSPECIFIED 01/22/2020 BENTON DO, LAURYN Ot R73.9 HYPERGLYCEMIA, UNSPECIFIED 01/22/2020 BENTON DO, LAURYN Ot Z13.6 ENCOUNTER FOR SCREENING FOR CARDIOVASCUL 02/11/2020 BENTON DO, LAURYN Ot D64.9 ANEMIA, UNSPECIFIED 02/11/2020 BENTON DO, LAURYN Ot R73.9 HYPERGLYCEMIA, UNSPECIFIED 02/11/2020 BENTON DO, LAURYN Ot Z13.6 ENCOUNTER FOR SCREENING FOR CARDIOVASCUL 02/27/2020 CAROLE ROSE, MARILIA Villarreal Ot H26 .9 UNSPECIFIED CATARACT 03/03/2020 MARILIA LAM MD, Ot H25.12 AGE-RELATED NUCLEAR CATARACT, LEFT EYE 03/03/2020 MARILIA LAM MD Ot I10 ESSENTIAL (PRIMARY) HYPERTENSION 03/03/2020 MARILIA LAM MD, Ot M19.90 UNSPECIFIED OSTEOARTHRITIS, UNSPECIFIED 03/03/2020 MARILIA LAM MD, Ot Z79.82 SEAMLESS TUBE MILL OPERATOR (CURRENT) USE OF ASPIRIN 03/03/2020 MARILIA LAM MD, Ot Z79.899 OTHER HALF-WAY (CURRENT) DRUG THERAPY 03/03/2020 MARILIA LAM MD, Ot Z80 .0 FAMILY HISTORY OF MALIGNANT NEOPLASM OF 03/03/2020 MARILIA LAM MD, Ot Z87.891 PERSONAL HISTORY OF NICOTINE DEPENDENCE 03/03/2020 MARILIA LAM MD, Ot Z90.710 ACQUIRED ABSENCE OF BOTH CERVIX AND UTER Procedures Code Description Performed By Per stacey On [id number] RE PLACE OF R KNEE JT WITH [...] culture - 07/21/18 15:05 Bacterial urine culture [id number] NRG COLONY COUNT >100,000/ML NRG FTX;REPORTABLE RML [...] Whole blood basic metabolic panel - 12/19 0 12:29 Serum or plasma sodium measurement (moles/volume) [...] culture - 01/06/19 14:30 Bacterial urine culture [id number] NRG COLONY COUNT >100,000/ML NRG FTX;REPORTABLE SUSCEPTIBILITY [...] toxic granules detection by light microscopy 1+ NR Comprehensive metabolic panel - 01/09/19 06:14 Serum [...] d white blood cell (WBC) differential - 12/05/19 14:26 Blood leukocytes automated count (number/volume) 12.6 [...] culture - 07/24/19 15:40 Bacterial urine culture [id number] NRG COLONY COUNT 60,000 cfu/ml NRG FTX;REPORTABLE [...] Status Pt. Type Provider Facility Loc./Unit Complaint [id number] 03/02/2020 05:49:00 020 11:06:00 DIS Outpatient MARILIA LAM MD [facility] PREOP CATARACT RIGHT EYE [id number] 02/27/2020 09:11:00 020 11:35:00 DIS Outpatient MARILIA LAM MD [facility] SDC CATARACT LEFT EYE [id number] 02/25/2020 14:20:00 14:23:00 DIS Outpatient MARILIA LAM MD [facility] PREOP CATARACT LEFT EYE [id number] 01/16/2020 09:15:00 23:59:59 CLS Outpatient BENTON DO, LAURYN Via [facility] LAB ANEMIA [id number] 07/24/2019 17:39:00 16:20:00 DIS Inpatient BENTON DO, LUARYN V ia [facility] 4TH DIVERTICULITIS,UTI [id number] 02/06/2019 15:01:00 23:59:59 CLS Outpatient JENNIFER LINDSEY [facility] RAD BACK PAIN [id number] 01/06/2019 15:20:00 11:13:00 DIS Inpatient BENTON DO, LAURYN V ia [facility] IRF INTRACTABLE LOW BACK PA IN [id number] 01/06/2019 11:34:00 15:11:00 DIS Emergency GENNARO GUTIERREZ CONTROL INSPECTOR Via [facility] ER BACK PAIN [id number] 11/02/2018 11:13:00 23:59:59 CLS Outpatient BENTON DO, LAURYN [facility] LAB CHRONIC RENAL IMPAIRMEN T, STAGE 3 [id number] 09/14/2018 08:49:00 23:59:59 CLS Outpatient BENTON DO, LAURYN Via [facility] LAB TYPE 2 DIABETES,BENIGN HYPERTENSION [id number] 07/21/2018 12:22:00 16:17:00 DIS Emergency PENELOPE VORA [facility] ER STOMACH VIRUS X6 DAYS,W EAK, HASN'T EATEN [id number] 05/03/2018 16:39:00 018 23:59:59 CLS Outpatient BENTON DO, LAURYN [facility] RAD RIGHT LEG PAIN [id number] 04/14/2018 08:55:00 11:15:00 DIS Inpatient MILTON ROSE, SYED Crockett [facility] IRF S/P TOTAL KNEE ARTHROPL ASTY [id number] 04/10/2018 07:37:00 018 08:28:00 DIS Inpatient MARGARET JOY MD [facility] 4TH OSTEOARTHRITIS RIGHT KN EE [id number] 04/05/2018 11:47:00 12:50:00 DIS Outpatient MARGARET JOY MD [facility] PREOP OSTEOARTHRITIS RIGHT K NEE [id number] 03/14/2018 07:03:00 23:59:59 CLS Outpatient BENTON DO, LAURYN Via [facility] CARD CHEST PAIN [id number] 03/07/2018 13:42:00 018 23:59:59 CLS Outpatient BENTON DO, LAURYN Via [facility] CARD CHEST PAIN [id number] 02/27/2018 12:29:00 018 23:59:59 CLS Preadmit BENTON DO, LAURYN Vi a [facility] CARD CHEST PAIN [id number] 02/22/2018 14:30:00 018 23:59:59 CLS Outpatient BENTON DO, LAURYN Via [facility] LAB BENIGN HYPERTENSION [id number] 03/05/2020 12:15:00 P EN Preadmit MARILIA LAM MD [facility] SDC CATARACT RIGHT EYE
--- NOTE | 2020-03-05 10:47 | Ophthalmologist Pre-Op Note ---
Pre-Operative Progress Note H&P Reviewed The H&P was reviewed, patient examined and no changes noted. Date H&P Reviewed: Mar 05, 2020 Time H&P Reviewed: 10:47 Pre-Op Dx Cataract, Right Eye MARILIA LAM MD Mar 05, 2020 10:47
--- NOTE | 2020-03-05 11:13 | Ophthalmology Operative Report ---
Cataract removal/placement IOL PREOPERATIVE DIAGNOSIS: Cataract Right Eye POSTOPERATIVE DIAGNOSIS: Cataract Right Eye PROCEDURE: Cataract removal and placement of posterior chamber implant, right eye SURGEON: Chauncey Lam ANESTHESIA: Topical with sedation COMPLICATIONS: None ESTIMATED BLOOD LOSS: Minimal DESCRIPTION OF PROCEDURE: After proper informed consent was obtained, the patient, a 89 female, was taken to the Operating Room and the right eye was anesthetized with tetracaine. The right eye was then prepped and draped in the usual manner. A wire lid speculum was placed. A paracentesis was made at the left hand position. Preservative free lidocaine was injected into the anterior chamber followed by viscoelastic. A clear corneal incision was made in the temporal position. A capsulorrhexis was preformed and the central nuclear and cortical material were removed. The posterior capsule was polished and Rui 22.5 [id number] IOL was placed into the capsular bag. The residual viscoelastic was aspirated and balanced saline solution was injected into the anterior chamber. Moxifloxacin was injected into the anterior chamber. The wound was checked and found to be water tight. The patient tolerated the procedure well without complications. CHAUNCEY LAM MD Mar 05, 2020 11:13
[2020-03-05 11:20] VITALS: BP 104/53
[2020-03-05] MEDS ORDERED: acetaZOLAMIDE ER 500 MG CAP (DIAMOX SEQUELS) PO ONE (11:30)
--- NOTE | 2020-03-09 07:18 | Anesthesia-General Post-Op ---
MAC Significant Intra-Op Events Notes addendum 03-05-20 at 1115 Patient Condition Mental Status/LOC: Same as Preop Cardiovascular: Satisfactory Nausea/Vomiting: Absent Respiratory: Satisfactory Pain: Controlled Complications: Absent Post Op Complications Complications None Follow Up Care/Instructions Patient Instructions None needed. Anesthesiology Discharge Order Discharge Order Patient is doing well, no complaints, stable vital signs, no apparent adverse anesthesia problems. No complications reported per nursing. OBINNA HERNANDES CRNA Mar 09, 2020 07:18
== END 2020-03-05 11:20 | disposition home or self-care (01) ==
LOC: SDC 09:43
PROVIDERS: ATTEND Specialist
DX: H25.11 Age-related nuclear cataract, right eye (principal); I10 Essential (primary) hypertension; M06.9 Rheumatoid arthritis, unspecified; Z79.82 Long term (current) use of aspirin; Z79.899 Other long term (current) drug therapy; Z87.891 Personal history of nicotine dependence; Z96.659 Presence of unspecified artificial knee joint
CPT/HCPCS: 66984; V2632

== ENCOUNTER → 2020-05-25 | Outpatient (CLI) | payer MEDICARE, BC ==
[~2020-05-25] MED LIST changes: -PANT40TA3 PO; +PANT40TA52 PO
--- NOTE | 2020-05-25 12:19 | Diagnostic Imaging Report ---
CT NECK/CHEST WO Technique: CT imaging of the chest and neck was performed without IV contrast. Automatic exposure controls were utilized to keep dose as low as reasonably achievable. Indication: Right lower neck mass. Comparison: None available. Findings: NECK: No cervical lymphadenopathy. Specifically, there is no supraclavicular lymphadenopathy on the right. There are degenerative changes at the bilateral sternoclavicular joints with some associated soft tissue thickening that may be due to synovitis. The distal insertion of the right sternocleidomastoid muscle on the clavicular head has mild asymmetric enlargement and could be the source of palpable abnormality. Airway remains patent. No thyroid nodule. Parotid glands are normal. Paranasal sinuses and mastoid air cells are clear. ACDF of C5-C6 has solid fusion. CHEST: No endoluminal nodule within the trachea. No pulmonary mass or consolidation. No suspicious pulmonary nodules. Numerous scattered micronodules are likely due to sequelae of prior infection. No pleural effusion or pneumothorax. No axillary lymphadenopathy. No mediastinal, hilar or juxtaphrenic lymphadenopathy. Large hiatal hernia has approximately half the stomach located in the chest. Heart is mildly enlarged without pericardial effusion. No acute abnormality upper abdomen is appreciated. IMPRESSION: 1. No supraclavicular or intrathoracic lymphadenopathy. 2. Moderate degenerative changes at the bilateral sternoclavicular joint are asymmetrically increased on the right. There is some asymmetric thickening of the distal right sternocleidomastoid muscle near its clavicular insertion. This may be the source of the palpable abnormality in this region. 3. Large hiatal hernia. Dictated by: Dictated on workstation # [id number]
== END ==
LOC: RAD 10:15
PROVIDERS: ATTEND Nurse Practitioner Family
DX: R59.0 Localized enlarged lymph nodes (principal); M19.012 Primary osteoarthritis, left shoulder; K44.9 Diaphragmatic hernia without obstruction or gangrene; M62.89 Other specified disorders of muscle; M19.011 Primary osteoarthritis, right shoulder; Z98.1 Arthrodesis status
CPT/HCPCS: 70490; 71250

== ENCOUNTER 2022-01-13 19:55 | Emergency (ER) | payer MEDICARE, BC ==
[~2022-01-13] VITALS: Ht 152.4 cm; Wt 75.8 kg
[~2022-01-13 19:55] MED LIST changes: +AMLO-250 PO; -AMLO5TAB9 PO; -CIPR500T4 PO; +CIPR500T5 PO; -FENO48TA10 PO; +FENO48TA11 PO; -LISI-552 PO; +LISI20TA26 PO; -OMEP40CA27 PO; +OMEP40CA6 PO; -OXYC-471 PO; +OXYC1TAB11 PO; -SULF1TAB35 PO; +SULF1TAB38 PO
[2022-01-13] MEDS ORDERED: ACETAMINOPHEN 500 MG TAB (TYLENOL) PO ONE (20:00)
--- NOTE | 2022-01-13 20:04 | ED Head Injury ---
General Stated Complaint: FALL Source: patient Exam Limitations: no limitations History of Present Illness Date Seen by Provider: January 13, 2022 Time Seen by Provider: 20:00 Initial Comments Patient is a 89-year-old female presents ED with a mechanical fall. She states she was in the bathroom moving a bathroom rug when she fell forward hitting her head on the floor. No loss of consciousness or on blood thinners. She reports headache without dizziness, visual changes, nausea, vomiting, distal numbness and tingling, neck pain. She was not able to stand. She was brought to ED by EMS. She denies taking thing for pain. She states she has a history of knee pain and pain in her extremities that is chronic without any worsening pain se condary to fall. Denies chest pain, mid lower back pain, abdominal pain, unilateral muscle weakness or sensory changes Allergies and Home Medications Allergies Coded Allergies: No Known Drug Allergies (Unverified , 04/05/18) Patient Home Medication List Home Medication List Reviewed: Yes Amlodipine Besylate (Amlodipine Besylate) 5 Mg Tablet, 5 MG PO DAILY, (Reported) Entered as Reported by: AMENA YUEN on 07/25/19 0924 Aspirin (Aspir 81) 81 Mg Tablet.dr, 81 MG PO DAILY, (Reported) Entered as Reported by: FRANCESCO KC on 04/05/18 1255 Lisinopril (Lisinopril) 20 Mg Tablet, 20 MG PO DAILY, (Reported) Entered as Reported by: FRANCESCO KC on 04/05/18 1255 Omeprazole (Omeprazole) 40 Mg Capsule.dr, 40 MG PO DAILY, (Reported) Entered as Reported by: FRANCESCO KC on 02/25/20 1421 Review of Systems Review of Systems Constitutional: No chills, No diaphoresis, No dizziness, No fever, No malaise Eyes: Denies Blurred Vision, Denies Decreased Acuity, Denies Pain, Denies Photophobia Ears, Nose, Mouth, Throat: denies ear pain, denies ear discharge Respiratory: No cough, No dyspnea on exertion, No short of breath Cardiovascular: No chest pain Gastrointestinal: No abdominal pain, No diarrhea, No nausea, No vomiting Genitourinary: No decreased output Musculoskeletal: No back pain, No gout, No muscle pain, No muscle stiffness Skin: change in color Psychiatric/Neurological: Headache Past Mtvpglw-Zjrqsa-Bdazsx Hx Immunizations Up To Date Tetanus Booster (TDap): Unknown PED Vaccines UTD: Yes Seasonal Allergies Seasonal Allergies: Yes Past Medical History Surgeries: Yes (BACK X4, NECK SX, RIGHT TKR) Appendectomy, Gallbladder, Hysterectomy, Orthopedic Respiratory: No Currently Using CPAP: No Currently Using BIPAP: No Cardiac: Yes High Cholesterol, Hypertension Neurological: No Neuropathy Genitourinary: Yes Bladder Infection, UTI-Chronic Gastrointestinal: Yes Gastroesophageal Reflux Musculoskeletal: Yes Arthritis, Chronic Back Pain Endocrine: No HEENT: Yes (GLASSES, DENTURES) Cancer: No Psychosocial: No Integumentary: No Blood Disorders: No Family Medical History Arthritis 19 FATHER 19 MOTHER G8 BROTHER G8 SISTER Colon cancer 19 FATHER Cancer, Diabetes Physical Exam Vital Signs Vital Signs - First Documented 01/13/22 20:20 Temp 36.3 Pulse 73 Resp 22 B/P (MAP) 145/116 (126) Pulse Ox 96 O2 Delivery Room Air Capillary Refill : Height, Weight, BMI Height: 5'0.00" Weight: 183lbs. 0.0oz. 83.786740qd; 35.90 BMI Method:Stated General Appearance: WD/WN, no apparent distress HEENT: PERRL/EOMI, normal ENT inspection, TMs normal, pharynx normal, other (Frontal forehead tenderness with a contusion. No crepitus or step-off. No laceration.) Neck: non-tender, full range of motion, supple, normal inspection Cardiovascular: regular rate, rhythm, no edema, no gallop, no JVD, no murmur Respiratory: chest non-tender, lungs clear, normal breath sounds, no respirato ry distress, no accessory muscle use Gastrointestinal: normal bowel sounds, non tender, soft, no organomegaly, no pulsatile mass Back: normal inspection, no CVA tenderness, no vertebral tenderness Extremities: normal range of motion, non-tender, normal inspection Coordination/Gait: normal finger to nose Motor/Sensory: no motor deficit, no sensory deficit, no pronator drift Skin: other (Contusion to the forehead without crepitus or step-off) Ayng Coma Score Best Eye Response: (4) Open Spontaneously Best Verbal Response: (5) Oriented Best Motor Response: (6) Obeys Commands [place] Total: 15 Progress/Results/Core Measures Results/Orders My Orders Orders - LINDSEY CRUZ Ct Head/Cervical Spine Wo (01/13/22 19:59) Acetaminophen Tablet (Tylenol Tablet) (01/13/22 20:00) Medications Given in ED Current Medications Medications Dose Ordered Sig/Emely Route Start Time Stop Time Status Last Admin Dose Admin Acetaminophen 1,000 mg ONCE ONCE PO 01/13/22 20:00 01/13/22 20:01 DC 01/13/22 20:29 1,000 MG Vital Signs/I&O 01/13/22 20:20 Temp 36.3 Pulse 73 Resp 22 B/P (MAP) 145/116 (126) Pulse Ox 96 O2 Delivery Room Air Departure Communication (PCP) CT scan of the head and cervical neck was negative for acute fracture or he morrhaging. She was given Tylenol for headache. She is not on blood thinners. No focal neural deficits. Patient headache improved here. Daughter at bedside. Patient feels comfortable to return back to home.. Discussed potential mild concussion. Recommend ice for the swelling to the forehead. If any worsening symptoms such as severe head pain, actively vomiting, disoriented or any focal neural deficits to return back to ED for further evaluation. Family agrees with plan of action. Impression Primary Impression: Head contusion Disposition: HOME, SELF-CARE Condition: Stable Departure-Patient Inst. Decision time for Depature: 20:45 Referrals: LAURYN BENTON DO (PCP/Family) Primary Care Physician Patient Instructions: Contusion (DC) Add. Discharge Instructions: Recommend applying ice 2-3 times a day for the next 3 days to the swelling to the forehead. Tylenol for pain. If any worsening symptoms such as severe head pain, vomiting, change in mental status to return back to ED. LINDSEY CRUZ January 13, 2022 20:04
--- NOTE | 2022-01-13 20:37 | Diagnostic Imaging Report ---
PROCEDURE: CT head and CT cervical spine without contrast. TECHNIQUE: Multiple contiguous axial images were obtained through the brain and cervical spine without the use of intravenous contrast. Sagittal and coronal reformations through the cervical spine were then performed. Auto Exposure Controls were utilized during the CT exam to meet ALARA standards for radiation dose reduction. INDICATION: Frontal head pain, injury from fall. COMPARISON: None available. FINDINGS: HEAD: No intracranial hyperdense hemorrhage or space-occupying mass. No hydrocephalus or midline shift. Pierre-white matter differentiation is well-preserved. Periventricular white matter hypoattenuation is most indicative of chronic microvascular ischemic change. Basilar cisterns are widely patent. No skull fracture. Right frontal scalp swelling. Paranasal sinuses and mastoid air cells are clear. CERVICAL SPINE: No acute fracture or traumatic malalignment. C5-C6 ACDF has solid interbody fusion and no hardware complication. Hypertrophic degenerative pannus formation is present at C1-C2 but this does not cause spinal canal stenosis. Lung apices are clear. No cervical lymphadenopathy. IMPRESSION: 1. No acute intracranial hemorrhage or skull fracture. Right frontal scalp swelling. 2. No acute fracture or traumatic malalignment in the cervical spine. 3. The ACDF of C5-C6 has solid interbody fusion. Dictated by: Dictated on workstation # [id number]
[2022-01-13 21:00] VITALS: BP 159/77
== END 2022-01-13 21:00 | disposition home or self-care (01) ==
LOC: ER 19:55 → EDUNIT# 19:55 → ER 21:00
DX: S00.83XA Contusion of other part of head, initial encounter (principal); W18.30XA Fall on same level, unspecified, initial encounter; Y92.002 Bathroom of unspecified non-institutional (private) residence as the place of occurrence of the external cause
CPT/HCPCS: 70450; 72125